=== PATIENT | male | born 1955 | race Caucasian/White ===

== ENCOUNTER 2017-08-27 12:28 | Inpatient (IN) | payer OTHER ==
[~2017-08-27] VITALS: Ht 172.7 cm; Wt 81.4 kg
[~2017-08-27 12:28] MED LIST: ASPIRIN EC81 M1 PO; BENADRYL ALLERG25 M1 PO; COREG3.125 MG PO; LANTUS SOL100 UNIT/1 SC; LASIX40 M1 PO; LIPITOR10 M1 PO; METOLAZONE2.5 M1 PO; MULTIVITAMIN1 TAB PO; NASONEX17 GM NASB; NEPHRO-VITE TA0.8 MG PO; NEXIUM40 M1 PO; NOVOLOG 10300 UNITS/ SC; NOVOLOG100 UNIT/2 SC; PARICALCITOL2 MCG PO; PAROXETINE HCL10 M1 PO; PAROXETINE HYDR20 MG PO; PREDNISONE10 M2 PO; SINGULAIR10 M1 PO; TYLENOL XSTR500 MG PO; TYLENOL325 M1 PO; ZOFRAN ODT4 MG SL; [UNRECOGNIZED DRUG - OTHER] PO
[2017-08-27 13:40] LABS: ABSOLUTE BASOPHIL COUNT 0.1 /CUMM (0.0-0.2); ABSOLUTE EOSINOPHIL COUNT 0.1 /CUMM (0.0-0.7); ABSOLUTE GRANULOCYTE CT 4.2 /CUMM (1.4-6.5); ABSOLUTE LYMPH COUNT 1.1 /CUMM (1.2-3.4); ABSOLUTE MONOCYTE COUNT 0.6 /CUMM (0.10-0.60); BASOPHIL % 0.8 % (0.0-2.0); EOSINOPHIL % 2.4 % (0-5); GRANULOCYTE % 69.6 % (42.2-75.2); HEMATOCRIT 39.8 % (42-52); MEAN CORPUSCULAR HGB 33.2 PG (27.0-31.0); MEAN CORPUSCULAR HGB CONC 33.3 G/DL (33.0-37.0); MEAN CORPUSCULAR VOLUME 99.7 FL (80.0-94.0); MEAN PLATELET VOLUME 8.1 FL (7.4-10.4); RBC DISTRIBUTION WIDTH 18.9 % (11.5-14.5); RED BLOOD CELL CT 3.99 /CUMM (4.70-6.10); WHITE BLOOD CELL COUNT 6.1 /CUMM (4.8-10.8)
--- NOTE | 2017-08-27 13:44 | RADIOLOGY REPORT ---
EXAMINATION: XR FOOT, RIGHT CLINICAL INFORMATION: Right foot great toe wound. Rule out osteoarthritis. COMPARISON: None TECHNIQUE: AP, lateral, and oblique views of the right foot. FINDINGS: Bones are osteopenic. Hammertoe deformities are present in the second through fourth toes. There is soft tissue swelling at the great toe. No appreciable areas of acute osteolysis are identified to suggest osteomyelitis. No fracture or malalignment. Calcific atherosclerosis is present at the ankle and foot. Joint spaces appear relatively well-preserved. IMPRESSION: 1. Soft tissue swelling at the great toe without radiographic findings of underlying osteomyelitis. Consider correlation with MRI of the foot with and without contrast for improved sensitivity and specificity. 2. Osteopenia
[2017-08-27 14:04] LABS: PLATELET COUNT 270 /CUMM (130-400)
--- NOTE | 2017-08-27 14:06 | ED GENERAL ADULT ---
History of Present Illness General Chief Complaint: General Adult Stated Complaint: SENT BY MD FOR DIABETIC INFECTED TOE Source: patient Exam Limitations: no limitations Vital Signs & Intake/Output Vital Signs & Intake/Output Vital Signs Date Time Temp Pulse Resp B/P B/P Pulse O2 O2 Flow FiO2 Mean Ox Delivery Rate 08/27 1447 74 19 142/64 95 Room Air 08/27 1243 96.5 86 15 181/76 92 Room Air Room Air Allergies Coded Allergies: amoxicillin (Mild, RASH ALL OVER 08/27/17) Penicillins (RASH ALL OVER 08/27/17) Reconcile Medications Acetaminophen (Tylenol) 325 MG TABLET 650 MG PO Q6 PRN PAIN (Reported) Aspirin (Ecotrin*) 81 MG TABLET.DR 1 TAB PO DAILY HEART/BLOOD (Reported) Atorvastatin Calcium (Lipitor) 10 MG TABLET 1 TAB PO DAILY CHOLESTEROL ( Reported) Citalopram Hydrobromide (Citalopram HBr) 20 MG TABLET 1 TAB PO DAILY MENTAL HEALTH (Reported) diphenhydrAMINE HCl (Benadryl) 25 MG CAP 2 CAP PO QPM SLEEP (Reported) Esomeprazole (Nexium) 40 MG CAPSULE.DR 1 CAP PO DAILY GI (Reported) Insulin Glargine,Hum.rec.anlog (Lantus Solostar) 100 UNIT/ML (3 ML) INSULN.PEN 8 UNIT SC QPM DM (Reported) Mometasone Furoate (Nasonex) 50 MCG SPRAY.PUMP 2 SPRAY NASB DAILY ALLERGIES ( Reported) Montelukast Sodium (Singulair) 10 MG TABLET 1 TAB PO QPM ALLERGIES (Reported) Nephro-Vitamins (Nephro-Schuyler Tablet) 0.8 MG TABLET 1 TAB PO DAILY VITAMIN SUPPORT Triage Note: PT SENT TO ED BY DR. TURNER FOR R GREAT TOE INFECTION. PT NOTICED THAT TOE WAS RED AND PAINFUL SINCE LAST FRIDAY. DENIES FEVERS, CHILLS, NAUSEA. REPORTS TOE IS RED, NOT VISUALIZED IN TRIAGE. Triage Nurses Notes Reviewed? yes HPI: Patient is a 61-year-old male with past medical history of type 1 diabetes and end-stage renal disease on dialysis Friday//Friday at [facility] in [place], who presents today after being referred in by his head grinder for an infected diabetic foot ulcer. He first noticed the lesion on his right great toe approximately 5 days ago, and it has progressed since then. He made an appointment with his head grinder, who instructed him to present to the emergency department for IV antibiotics and likely hospitalization. The providers had also discussed the patient with Dr. Deng from surgery, who is aware of the patient and will be coronary in the inpatient surgical consultation. Upon my initial encounter the patient is generally well-appearing and in no acute distress, nontoxic constitutionally. Past History Travel History Traveled to [place] past 21 day No Medical History Any Pertinent Medical History? 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 History of MRSA: No History of VRE: No History of CDIFF: No Surgical History Surgical History: LEFT ARM FISTULA Psychosocial History Who do you live with Family Services at Home None What is your primary language Brazilian Tobacco Use: Current Daily Use Daily Tobacco Use Amount/Type: => 5 Cigarettes daily ETOH Use: denies use Illicit Drug Use: denies illicit drug use Family History Family History, If Any: MOTHER FH: colon cancer FH: type 2 diabetes mellitus FATHER FH: prostate cancer FH: type 2 diabetes mellitus MATERNAL GRANDFATHER FH: type 2 diabetes mellitus SISTER FH: bladder cancer GRANDMOTHER FH: cancer Hx Contributory? No Review of Systems Review of Systems Constitutional: Reports: see HPI. Denies: chills, diaphoresis, fever, malaise, weakness. EENTM: Reports: no symptoms. Respiratory: Reports: no symptoms. Cardiovascular: Reports: no symptoms. GI: Reports: no symptoms. Genitourinary: Reports: no symptoms. Musculoskeletal: Reports: no symptoms. Skin: Reports: see HPI, lesions. Neurological/Psychological: Reports: no symptoms. Hematologic/Endocrine: Reports: no symptoms. Immunologic/Allergic: Reports: no symptoms. All Other Systems: Reviewed and Negative Physical Exam Physical Exam General Appearance: well developed/nourished, no apparent distress, alert, awake Comments: HEENT: Inspection of the head reveals a normocephalic cranium with no signs of trauma. Ophtho: Extraocular muscles are intact. The sclera are noninjected, and there is no obvious discharge. Neck: No signs of trauma or asymmetry to the neck. Respiratory: The patient exhibits no signs of labored breathing. Cardiac: Non-tachycardic. GI: No gross abdominal distention. : Deferred Extremities: Focused examination of the right lower external ear reveals an obviously infected ulcer of the great toe with surrounding and streaking ascending erythema consistent with cellulitis. Neuro: The patient is oriented to person, place, time, and situation, with no obvious focal motor deficits. Cranial nerves II through XII are intact, and gait is normal. Behavioral: Calm and cooperative Dermatologic: Dermatologic examination reveals no obvious rashes or exanthems. Core Measures ACS in differential dx? No CVA/TIA Diagnosis: No Sepsis Present: No Sepsis Focused Exam Completed? No Progress Differential Diagnoses I considered the following diagnoses in my evaluation of the patient: Plan of Care: Orders Procedure Date/time Status Renal Dialysis Diet 08/28 B Active CBC WITHOUT DIFFERENTIAL 08/28 599 Active BASIC ELECTROLYTES PLUS BUN&CR 08/28 599 Active Activity/Ambulation 08/27 1616 Active ED Holding Orders 08/27 1607 Active Admit to inpatient 08/27 1607 Active Code Status 08/27 1607 Active FingerStick- Glucose 08/27 1556 Active Pathway - chart 08/27 1527 Active Patient Data 08/27 1516 Active BLOOD CULTURE 08/27 1408 Active Intake & Output 08/27 1334 Active COMPREHENSIVE METABOLIC PANEL 08/27 1258 Complete CBC WITHOUT DIFFERENTIAL 08/27 1258 Complete VTE Mechanical Prophylaxis 08/27 UNK Active Current Medications Sig/Rhett Start time Last Medication Dose Stop Time Status Admin Aspirin Buffered 81 MG DAILY 08/28 899 UNVr (Ecotrin) Citalopram 20 MG DAILY 08/28 899 UNVr Hydrobromide (Celexa) Multivitamins 1 TAB DAILY 08/28 899 UNVr (Nephrocaps) Vancomycin HCl 1,000 MG DAILY 08/28 899 UNir Sodium Chloride 250 ML (Normal Saline 0.9%) Heparin Sodium 5,000 UNIT Q8 08/27 2200 UNVr (Porcine) Montelukast Sodium 10 MG QPM 08/27 2100 UNVr (Singulair) Insulin Detemir 8 UNITS .[6PM] 08/27 1630 UNVr (Levemir) Sodium Chloride 2 SPRAY Q4P PRN 08/27 1600 UNVr (Nasal) Omeprazole 40 MG DAILY AC 08/27 1546 UNVr (Prilosec) Acetaminophen 650 MG Q6 PRN 08/27 1545 UNVr (Tylenol) Atorvastatin Calcium 10 MG DAILY 08/27 1545 UNVr (Lipitor) Laboratory Tests 08/27/17 1330: Anion Gap 19 H, Estimated GFR 10 L, BUN/Creatinine Ratio 6.8 L, Glucose 228 H, Calcium 9.3, Total Bilirubin 0.6, AST 28, ALT 27, Alkaline Phosphatase 162 H , Total Protein 7.4, Albumin 4.1, Globulin 3.3, Albumin/Globulin Ratio 1.2, CBC w Diff NO MAN DIFF REQ, RBC 3.99 L, MCV 99.7 H, MCH 33.2 H, MCHC 33.3, RDW 18.9 H, MPV 8.1, Gran % 69.6, Lymphocytes % 18.0 L, Monocytes % 9.2, Eosinophils % 2.4, Basophils % 0.8, Absolute Granulocytes 4.2, Absolute Lymphocytes 1.1 L, Absolute Monocytes 0.6, Absolute Eosinophils 0.1, Absolute Basophils 0.1 Microbiology 08/27 1425 BLOOD: Blood Culture - RECD 08/27 1330 BLOOD: Blood Culture - RECD Initial ED EKG: none Comments: Discussed case w/ Drs. Dixon and Crescencio. Risk of osteomyelitis is high, they recommended hospitalization for IV antibiotics including IV clindamycin and vancomycin, and surgical consultation for possible debridement. Patient is end- stage renal disease and will require dialysis tomorrow. Departure Departure Time of Disposition: 1412 Disposition: STILL A PATIENT Condition: Stable Clinical Impression Primary Impression: Diabetic foot ulcer Qualifiers: Diabetic foot ulcer location: toe Diabetes mellitus type: type 1 Laterality: right Non-pressure ulcer stage: unspecified non-pressure ulcer stage Qualified Codes: E10.621 - Type 1 diabetes mellitus with foot ulcer; L97.519 - Non-pressure chronic ulcer of other part of right foot with unspecified severity Referrals: Erin MEDINA,Tulio Allen (PCP/Family) Departure Forms: Customer Survey General Discharge Information Admission Note Spoke With: Carolyn Lion MD Documentation of Exam: Documentation of any treatments & extenuating circumstances including Concerns Regarding Discharge (functional status, medication knowledge or non-compliance, living conditions, etc.) that warrant an admission rather than observation: Patient with end-stage renal disease requiring hemodialysis presented with foot ulcer at risk for osteomyelitis. Requires IV antibiotics, IV fluid rehydration, lab trending, surgical consultation, possible debridement, and hemodialysis during admission. Critical Care Note Critical Care Note Critical Care Time: non-applicable
[2017-08-27] MEDS ORDERED: CITALOPRAM HBR20 MG PO (14:53)
[2017-08-27] MEDS ORDERED: BENADRYL25 MG PO (14:54)
--- NOTE | 2017-08-27 15:46 | Admission Certification ---
Admission Certification Certification Statement - As attending physician, I certify that at the time of - admission, based on clinical presentation, severity of - symptoms, need for further diagnostic testing and - therapeutic interventions, and risk of adverse outcomes - without in-hospital treatment, in my clinical assessment, - this patient requires an acute hospital stay for a minimum - of two nights or longer. I have also considered psychsocial - factors such as support system, advanced age, financial - issues, cognitive issues, and failed out-patient treatments, - past re-admission history, safety of patient, and lack of - compliance as applicable. Specific rationale supporting this admission is: Diabetic foot ulcer with cellulitis
--- NOTE | 2017-08-27 16:04 | History & Physical ---
Kasey MEDINA,Madhavi 08/27/17 9537: General Information and HPI MD Statement: I have seen and personally examined JOSÉ MIGUEL ALMODOVAR and documented this H&P. The patient is a 61 year old M who presented with a patient stated chief complaint of [foot ulcer]. Source of Information: patient, family, old records Exam Limitations: no limitations History of Present Illness: Patient is a 61 y/o male with PMH signifcant for type 1 DM, history of diabetic retinopathy, ESRD secondary to HTN and DM, currently on dialysis (, , Fri) with [facility] in [place] with left AV fistula, HFrEF with LVEF of 40-45% in 2016, pulmonary htn, hyperlipidemia, arthritis, depression presenting this admission with chief complaint of a right foot ulcer sent by his assembly lead person. Patient's sister was at bedside during time of interview. Patient reports that approximately 5 days prior to this admission, on 08/22, patient noticed after he took off his shoes and socks that he had a small area of note is redness and irritation on his right toe. Patient states that he started using Neosporin ointment on the area however states that it came progressively worse as 1. The patient denies any discharge or pain at the site of the ulcer. Patient reports that today he had his appointment with Dr. Rodriguez (podiatry) and was advised to come to the emergency room to receive IV antibiotics. Patient denies any recent trauma to the foot. Patient states that he checks his feet regularly due to his diabetes and did not notice any significant cuts or scaps. Patient denies any fever, chills, nausea/vomiting, lightheadedness/ dizziness, shortness of breath. Patient reports neuropathy however states that it's mostly in his hands. Patient states that his sugars have been labile. Patient states that he has had multiple episodes of low blood sugars this morning of 35. States however that he has been as high as the 400s yesterday afternoon. Patient is on renal dialysis. Reports that his antihypertensive medications have been stopped by Matty Saravia MD due to episodes of hypotension and syncope during dialysis. Patient is on dialysis Friday, , Friday and is due for his next dialysis session tomorrow. Patient currently lives with his sister. Patient has a cat at home. Denies any cat scratches or bites. Patient reports that he smokes approximately half a pack per day. Patient denies any alcohol or illicit drug use. Patient denies any sick contacts or travel. Medications: Patient is currently on Lantus 8 units daily, NovoLog sliding scale , Nephro-Schuyler, Lipitor 10 mg, Nexium 40 mg, Celexa 20 mg, Singulair, aspirin 81 mg, Nasonex spray, Benadryl for insomnia. Allergies: Ampicillin/amoxicillin- reports significant rash Allergies/Medications Allergies: Coded Allergies: amoxicillin (Mild, RASH ALL OVER 08/27/17) Penicillins (RASH ALL OVER 08/27/17) Home Med list Acetaminophen (Tylenol) 325 MG TABLET 650 MG PO Q6 PRN PAIN (Reported) Aspirin (Ecotrin*) 81 MG TABLET.DR 1 TAB PO DAILY HEART/BLOOD (Reported) Atorvastatin Calcium (Lipitor) 10 MG TABLET 1 TAB PO DAILY CHOLESTEROL ( Reported) Citalopram Hydrobromide (Citalopram HBr) 20 MG TABLET 1 TAB PO DAILY MENTAL HEALTH (Reported) diphenhydrAMINE HCl (Benadryl) 25 MG CAP 2 CAP PO QPM SLEEP (Reported) Esomeprazole (Nexium) 40 MG CAPSULE.DR 1 CAP PO DAILY GI (Reported) Insulin Glargine,Hum.rec.anlog (Lantus Solostar) 100 UNIT/ML (3 ML) INSULN.PEN 8 UNIT SC QPM DM (Reported) Mometasone Furoate (Nasonex) 50 MCG SPRAY.PUMP 2 SPRAY NASB DAILY ALLERGIES ( Reported) Montelukast Sodium (Singulair) 10 MG TABLET 1 TAB PO QPM ALLERGIES (Reported) Nephro-Vitamins (Nephro-Schuyler Tablet) 0.8 MG TABLET 1 TAB PO DAILY VITAMIN SUPPORT Past History Travel History Traveled to [place] past 21 day No Medical History Neurological: NEUROPATHY EENT: diabetic retinopathy Cardiovascular: CHF, hypertension, hyperlipidemia Respiratory: SMOKER 0ne pack now cut down to 8/day smoking for the past 40 yrs Gastrointestinal: GERD Hepatic: NONE Renal: chronic kidney disease, ESRD L AV FISTULA Musculoskeletal: ARTHRITIS Psychiatric: depression Endocrine: IDDM Blood Disorders: NONE Cancer(s): NONE 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: 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 History of MRSA: No History of VRE: No History of CDIFF: No Surgical History Surgical History: LEFT ARM FISTULA Past Family/Social History Family History Relations & Conditions if any MOTHER FH: colon cancer FH: type 2 diabetes mellitus FATHER FH: prostate cancer FH: type 2 diabetes mellitus MATERNAL GRANDFATHER FH: type 2 diabetes mellitus SISTER FH: bladder cancer GRANDMOTHER FH: cancer Psychosocial History Services at Home: None ETOH Use: denies use Illicit Drug Use: denies illicit drug use Functional Ability Ambulation: independent Review of Systems Review of Systems Constitutional: Reports: see HPI. Denies: chills, fever, malaise. Cardiovascular: Reports: no symptoms. Respiratory: Reports: no symptoms. GI: Reports: no symptoms. Genitourinary: Reports: no symptoms. Musculoskeletal: Reports: back pain (chronic). Skin: Reports: see HPI. Neurological/Psychological: Reports: anxiety, numbness. Hematologic/Endocrine: Reports: no symptoms. Immunologic/Allergic: Reports: no symptoms. Exam & Diagnostic Data Last 24 Hrs of Vital Signs/I&O Vital Signs Date Time Temp Pulse Resp B/P B/P Pulse O2 O2 Flow FiO2 Mean Ox Delivery Rate 08/27 1746 72 17 136/63 96 Room Air 08/27 1642 98.4 67 17 129/60 100 08/27 1447 74 19 142/64 95 Room Air 08/27 1243 96.5 86 15 181/76 92 Room Air Room Air Intake & Output 08/27 1600 08/27 0800 08/27 0000 Intake Total Output Total Balance Patient 170 lb Weight Weight Reported by Patient Measurement Method Physical Exam General Appearance Alert, Oriented X3, Cooperative, No Acute Distress Skin Temp/Moisture Exam: Warm/Dry Sepsis Skin Exam (color): Normal for Ethnicity HEENT Atraumatic, PERRLA, EOMI, Mucous Membr. moist/pink Cardiovascular Regular Rate, Normal S1, Normal S2 Lungs Clear to Auscultation, Normal Air Movement Abdomen Normal Bowel Sounds, Soft, No Tenderness Neurological Normal Speech, Strength at 5/5 X4 Ext, Normal Tone, Sensation Intact, Cranial Nerves 3-12 NL, Reflexes 2+ Extremities No Clubbing, No Cyanosis, Normal Pulses, right foot - ulcer on big toe approximately 1.5cm x 0.5 cm with surrounding erythema, with no pus, nontender to palpation with no area of fluctuation sensation to pin prick intact , pulses palpable bilaterally, a small nonhealing ulcer at the plantar surface of right foot , Left arm AV fistula Vascular Normal Pulses, Pulses Symmetrical Last 24 Hrs of Labs/[place]: Laboratory Tests 08/27/17 1330: Anion Gap 19 H, Estimated GFR 10 L, BUN/Creatinine Ratio 6.8 L, Glucose 228 H, Calcium 9.3, Total Bilirubin 0.6, AST 28, ALT 27, Alkaline Phosphatase 162 H , Total Protein 7.4, Albumin 4.1, Globulin 3.3, Albumin/Globulin Ratio 1.2, CBC w Diff NO MAN DIFF REQ, RBC 3.99 L, MCV 99.7 H, MCH 33.2 H, MCHC 33.3, RDW 18.9 H, MPV 8.1, Gran % 69.6, Lymphocytes % 18.0 L, Monocytes % 9.2, Eosinophils % 2.4, Basophils % 0.8, Absolute Granulocytes 4.2, Absolute Lymphocytes 1.1 L, Absolute Monocytes 0.6, Absolute Eosinophils 0.1, Absolute Basophils 0.1 Microbiology 08/27 1425 BLOOD: Blood Culture - RECD 08/27 1330 BLOOD: Blood Culture - RECD Assessment/Plan Assessment: Patient is a 61 y/o male with PMH signifcant for type 1 DM, history of diabetic retinopathy, ESRD secondary to HTN and DM, currently on dialysis (, , Fri) with [facility] in [place] with left AV fistula, HFrEF with LVEF of 40-45% in 2016, pulmonary htn, hyperlipidemia, arthritis, depression presenting this admission with chief complaint of a right foot ulcer sent by his assembly lead person. On presentation patient is afebrile with no leukocytosis and a small ulcer with signficant eyrthema, warmth and lymphagetic spread placing him at moderate severity. Xray of the foot showed signficant tissue swelling with no signs of osteomyeltitis. Patient in the ED has received IV Vancomycin and IV Clindamycin to presumably cover for MRSA, gram negative bacilli and anaerobes in a diabetic foot. Podiatry was consulted and there is no plan for debridement at this time. 1. Cellulitis of the right foot/toe with a small nonhealing ulcer 2. H/O DM - labile sugars with significant episodes of hypo and hyperglycemia presumably in setting of infection 3. H/O ESRD on Dialysis 4. H/O HFrEF, HLD, Arthritis, Depression Plan: Admit to general medicine Vitals qshift Repeat CBC and BEP in AM Follow up blood cultures Podiatry consulted - no plans for debridement May consider MRI for further evaluation to rule out osteomyelitis Nephrology notified that patient is admitted Next dialysis session on 08/28 Continue vancomycin with dialysis session to cover for MRSA Random vanc level pending Continue home medications: celexa, aspirin,atorvastatin, omperazole, singular Continue insulin SS with accuchecks TIDAC/qHS Due to concern of hypoglycemia - have decreased his levemir DVT PPx: Heparin SQ Diet: Consistent Carb Code: Full code As Ranked By This Provider Problem List: 1. Diabetic foot ulcer Qualifiers Diabetic foot ulcer location: toe Diabetes mellitus type: type 1 Laterality: right Non-pressure ulcer stage: unspecified non-pressure ulcer stage Qualified Codes: E10.621 - Type 1 diabetes mellitus with foot ulcer; L97.519 - Non- pressure chronic ulcer of other part of right foot with unspecified severity 2. ESRD (end stage renal disease) on dialysis Core Measures/Misc (12/08) Acute Coronary Syndrome ACS Diagnosis: No Congestive Heart Failure Congestive Heart Failure Diagnosis No Cerebrovascular Accident CVA/TIA Diagnosis: No VTE (View Protocol) VTE Risk Factors Age>40 No Mechanical VTE Prophylaxis d/t N/A MechProphylax Ordered No VTE Pharm Prophylaxis d/t NA PharmProphylax ordered Sepsis (View protocol) Sepsis Present: No If YES complete Sepsis Event Note If YES complete Sepsis Event Note Carolyn Lion MD 08/27/17 1653: Core Measures/Misc (12/08) Sepsis (View protocol) If YES complete Sepsis Event Note If YES complete Sepsis Event Note Attending MD Review Statement Attending Statement Attending MD Statement: examined this patient, discuss w/resident/PA/POUNDMASTER, agreed w/resident/PA/POUNDMASTER, reviewed EMR data (avail), discussed with nursing, reviewed images Attending Assessment/Plan: 61-year-old male past medical history of insulin-requiring diabetes, diabetic neuropathy and diabetic nephropathy with end-stage renal disease on hemodialysis. He is on a Friday/ / Friday schedule. He also has a history of chronic systolic heart failure with his most recent EF in 2016 being 40-45% and elevated right-sided pressures. He used to be on multiple cardiac medications but since starting dialysis and over the past year he has stopped all of his cardiac medications and no longer takes his Norvasc, Coreg, hydralazine or Imdur. He is here with a right foot great toe infection. It started off as a small ulcer that he noticed when he took his sock off and has progressed now to an open wound with some streaking around it and obvious cellulitic changes. The x-ray is negative for an osteomyelitis. At this point will bring him in to general medicine. The ED gave him Vanco and Clinda although we don't have any history of MRSA here. He is pen allergic and given that he is a diabetic on insulin, there is an open ulceration and he is on dialysis he is at high risk for MRSA so we'll continue vancomycin for now . Dr. Deng has been called by the ER and will call him for formal consult. Will let nephrology know he is here for dialysis. The patient is not keen on restarting his antihypertensives as he says he's been normotensive so we'll need to watch that closely and confirm the medication regimen with the outpatient dialysis center. We'll continue his aspirin, statin, his insulin and give him DVT prophylaxis. Leila Babin 08/27/17 1857: Core Measures/Misc (12/08) Sepsis (View protocol) If YES complete Sepsis Event Note If YES complete Sepsis Event Note Resident Review Statement Resident Statement: discussed with dietary internship, agreed with dietary internship Other Findings: Patient is 61-year-old male with past medical history of type 1 diabetes mellitus, end-stage renal disease on dialysis Friday//Friday, CHF reduced ejection fraction 40-45%, was evaluated by Dr. Shaun Carroll in the office today for right great toe infection. Patient states that since last 08/22/17, he was doing some housework and at night when he took his socks off, he discovered an open area of wound in his right big toe. Patient states that since then and his right toe ulcer has worsened, its red, swollen and painful. He was evaluated by Dr. Shaun Carroll in the office today, who advised him to come to ER for the need of IV antibiotics. He denies any history of similar diabetic ulcers on the body, and states that in the office, his right toe ulcer was just cleaned and nothing came out. Patient follows up with Dr. Funez as the primary care physician and is due for dialysis tomorrow. Patient lives at home with his sister, and does not use a walker or a cane. 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 Labs and vitals as above. We'll admit the patient on general medicine floor. Patient already got one dose of vancomycin and clindamycin in ER, will continue him on vancomycin with dialysis protocol. In the past patient has been negative for MRSA but given his active dialysis and history of diabetes, he is at an increased risk of getting MRSA. Dr. Deng was called, and he recommends IV antibiotics for now. No MRI or further debridement. X-ray right foot in ER is negative for ostial mellitus. Patient takes citalopram, aspirin, NovoLog sliding scale and Levemir, singular, omeprazole, Lipitor at home so we'll continue the same dose. Patient states that he only takes lunch and dinner, no breakfast, his NovoLog sliding scale for lunch and bedtime are confirmed and ordered. Plan for renal dialysis tomorrow, nephrology consult has been placed. DVT prophylaxis subcutaneous heparin Patient is full code
[2017-08-27 18:27] VITALS: BP 136/74
[2017-08-27 21:43] VITALS: BP 134/68
[2017-08-28 06:43] VITALS: BP 120/70
--- NOTE | 2017-08-28 07:21 | PN- Housestaff ---
Kasey MEDINA,Madhavi 08/28/17 0721: Subjective Follow-up For: 1. Cellulitis of the right foot/toe with a small nonhealing ulcer 2. H/O DM - labile sugars with significant episodes of hypo and hyperglycemia 3. H/O ESRD on Dialysis 4. H/O HFrEF, HLD, Arthritis, Depression Subjective: Patient was seen and examined today. Patient denies foot pain, fever/chills, n/v /c/d, hematuria/dysuria, chest pain, shortness of breath. Patient reports he felt lousy when he had the episode of hypoglycemia today. Reports that he has had multiple episodes of hypolgycemia over the past 1 week which typically occur in the hours of 3-6am. Per night team patient overnight had an episode of hypoglycemia with BG in the 40s (not documented). His remaining sugars have been: 201, 443, 295 Review of Systems Constitutional: Reports: see HPI. Objective Last 24 Hrs of Vital Signs/I&O Vital Signs Date Time Temp Pulse Resp B/P B/P Pulse O2 O2 Flow FiO2 Mean Ox Delivery Rate 08/28 0643 98.5 72 20 120/70 96 Room Air 08/27 2143 98.9 75 17 134/68 98 Room Air / 1827 98.5 82 20 136/74 97 Room Air 06/ 1746 72 17 136/63 96 Room Air / 1642 98.4 67 17 129/60 100 /06 1447 74 19 142/64 95 Room Air / 1243 96.5 86 15 181/76 92 Room Air Room Air Intake & Output 08/28 0800 / 0000 08/27 1600 Intake Total 480 480 Output Total 375 100 Balance 105 380 Intake, Oral 480 480 Output, Urine 375 100 Patient 181 lb 170 lb 170 lb Weight Weight Bed scale Reported by Patient Reported by Patient Measurement Method Physical Exam General Appearance: Alert, Oriented X3, Cooperative, No Acute Distress Other Physical Findings: Sepsis Skin Exam (color): Normal for Ethnicity HEENT Atraumatic, PERRLA, EOMI, Mucous Membr. moist/pink Cardiovascular Regular Rate, Normal S1, Normal S2 Lungs Clear to Auscultation, Normal Air Movement Abdomen Normal Bowel Sounds, Soft, No Tenderness Neurological Normal Speech, Strength at 5/5 X4 Ext, Normal Tone, Sensation Intact, Cranial Nerves 3-12 NL, Reflexes 2+ Extremities No Clubbing, No Cyanosis, Normal Pulses, right foot - ulcer on big toe approximately 1.5cm x 0.5 cm with surrounding erythema which appears to be improving today, with no pus, nontender to palpation with no area of fluctuation sensation to pin prick intact, pulses palpable bilaterally, a small nonhealing ulcer at the plantar surface of right foot , Left arm AV fistula Vascular Normal Pulses, Pulses Symmetrical Current Medications: Current Medications Sig/Rhett Start time Last Medication Dose Route Stop Time Status Admin Acetaminophen 650 MG Q6P PRN 08/27 1545 AC PO Aspirin Buffered 81 MG DAILY 08/28 899 AC PO Atorvastatin Calcium 10 MG 1700 08/27 1800 AC 08/27 PO 1957 Citalopram 20 MG DAILY 08/28 899 AC Hydrobromide PO Clindamycin 600 MG ONCE ONE 08/27 1415 DC 08/27 Dextrose/Water 50 ML IV 08/27 1444 1445 Dextrose 25 GM ONCE ONE 08/28 0415 DC 08/28 IV 08/28 0416 0417 Heparin Sodium 5,000 UNIT Q8 08/27 2200 AC 08/28 (Porcine) SC 0503 Insulin Aspart 0 1700 08/28 1700 AC SC Insulin Aspart 0 1200 08/28 1200 AC SC Insulin Aspart 0 AT BEDTIME 08/27 2100 AC 08/27 SC 2053 Insulin Detemir 8 UNITS 1800 08/27 1800 AC 08/27 SC 1746 Montelukast Sodium 10 MG QPM 08/27 2100 AC 08/27 PO 2053 Multivitamins 1 TAB DAILY 08/28 09 AC PO Omeprazole 0 .STK-MED ONE 08/27 1751 DC PO Omeprazole 40 MG DAILY AC 08/27 1546 AC 08/28 PO 0504 Sodium Chloride 2 SPRAY Q4P PRN 08/27 1600 AC ALEX Vancomycin HCl See Dose TuThSa PRN 08/28 1000 AC Insts (1) IV Vancomycin HCl 1,000 MG DAILY 08/28 0900 CAN Sodium Chloride 250 ML IV Vancomycin HCl 0 .STK-MED ONE 08/27 1440 DC .ROUTE Vancomycin HCl 1,000 MG ONCE ONE 08/27 1415 DC 08/27 Sodium Chloride 250 ML IV 08/27 1514 1519 Dose Instructions: (1)Vancomycin HCl: DOSE BASED OFF OF RANDOM VANCO LEVEL Last 24 Hrs of Lab/[facility] Results Last 24 Hrs of Labs/Mics: Laboratory Tests 08/28/17 0705: Sodium Pending, Potassium Pending, Chloride Pending, Carbon Dioxide Pending, Anion Gap Pending, BUN Pending, Creatinine Pending, BUN/Creatinine Ratio Pending , CBC w Diff Pending, WBC Pending, RBC Pending, Hgb Pending, Hct Pending, MCV Pending, MCH Pending, MCHC Pending, RDW Pending, Plt Count Pending, MPV Pending 08/27/17 2226: Random Vancomycin 12.9 08/27/17 1330: Anion Gap 19 H, Estimated GFR 10 L, BUN/Creatinine Ratio 6.8 L, Glucose 228 H, Calcium 9.3, Total Bilirubin 0.6, AST 28, ALT 27, Alkaline Phosphatase 162 H , Total Protein 7.4, Albumin 4.1, Globulin 3.3, Albumin/Globulin Ratio 1.2, CBC w Diff NO MAN DIFF REQ, RBC 3.99 L, MCV 99.7 H, MCH 33.2 H, MCHC 33.3, RDW 18.9 H, MPV 8.1, Gran % 69.6, Lymphocytes % 18.0 L, Monocytes % 9.2, Eosinophils % 2.4, Basophils % 0.8, Absolute Granulocytes 4.2, Absolute Lymphocytes 1.1 L, Absolute Monocytes 0.6, Absolute Eosinophils 0.1, Absolute Basophils 0.1 Microbiology 08/27 2100 URINE ROUT: Urine Culture - RECD 08/27 1425 BLOOD: Blood Culture - RECD 08/27 1330 BLOOD: Blood Culture - RECD Assessment/Plan Assessment: Patient is a 61 y/o male with PMH signifcant for type 1 DM, history of diabetic retinopathy, ESRD secondary to HTN and DM, currently on dialysis (, , Fri) with [facility] in [place] with left AV fistula, HFrEF with LVEF of 40-45% in 2016, pulmonary htn, hyperlipidemia, arthritis, depression presenting this admission with chief complaint of a right foot ulcer 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 On presentation patient is afebrile with no leukocytosis and a small ulcer with signficant eyrthema, warmth and lymphagetic spread placing him at moderate severity. Xray of the foot showed signficant tissue swelling with no signs of osteomyeltitis. Patient in the ED has received IV Vancomycin and IV Clindamycin to presumably cover for MRSA, gram negative bacilli and anaerobes in a diabetic foot. Podiatry was consulted and there is no plan for debridement at this time. Patient this morning had dialysis. Patient remains afebrile with no leukocytosis on IV antibiotics with signficant improvement in erythema and swelling of the right foot/toe. Patient's sugar this morning was in the 40s. Patient has multiple blood glucose which are low in the chairman of the board. Patient also has signficantly high sugars which appear to be higher in the afternoon/evening. Patient is normally on lantus 16 units with a novolog sliding scale with lunch and dinner. Despite cutting down on patient's levemir, he had an episode of hypoglycemia. Patient had reported that he ate very little the night before but his consistently low sugars over the past week is concerning. 1. Cellulitis of the right foot/toe with a small nonhealing ulcer 2. H/O DM - labile sugars with significant episodes of hypo and hyperglycemia in the setting of infection 3. H/O ESRD on Dialysis 4. H/O HFrEF, HLD, Arthritis, Depression Plan: Admit to general medicine Vitals qshift Repeat BEP in AM Follow up blood cultures Podiatry consulted - no plans for debridement ESR today was normal, will not proceed with MRI at this time as osteo is less likely Nephrology notified that patient is admitted Next dialysis session on 08/30 if he stays Patient received IV Vancomycin with dialysis session today. Will continue antibiotic therapy. Continue home medications: celexa, aspirin,atorvastatin, omperazole, singular Continue insulin SS with accuchecks TIDAC/qHS Endocrinology consulted. Appreciate recommendations DVT PPx: Heparin SQ Diet: Consistent Carb Code: Full code Problem List: 1. Diabetic foot ulcer Pain Ratin Pain Location: foot Pain Goal: Remain pain free Pain Plan: tylenol PRN Tomorrow's Labs & Rationales: beJoshua Loza MD 08/28/17 1523: Attending MD Review Statement Attending Statement Attending MD Statement: examined this patient, discuss w/resident/PA/DIRECTOR REGULATORY AFFAIRS, agreed w/resident/PA/DIRECTOR REGULATORY AFFAIRS, discussed with family, reviewed EMR data (avail), discussed with nursing, discussed with case mgmt, amended to note Attending Assessment/Plan: Patient seen and examined. No issues overnight reported by nursing staff. Remains afebrile and hemodynamically stable. Resting comfortably and not in any acute distress. Underwent hemodialysis successfully today. Reports mild pain right foot. On examination he has a wound on the medial aspect of the right big toe. There is mild surrounding erythema. No purulent discharge noted. ESR is 4 and x-ray showed no evidence of osteomyelitis. Recommendations: -Patient undergoes chronic hemodialysis please see meantime increased risk for MRSA infection. He however has no previous history of MRSA. She is also noted to be penicillin allergic He is currently afebrile. He has no leukocytosis on labs. Cellulitis appears stable. Would recommend discharging patient on Bactrim tomorrow to complete 10 days of therapy. Obtain arterial Dopplers to rule out underlying peripheral arterial disease. Follow-up recommendations of the podiatry service. -Patient had a hypoglycemic episode earlier on today. His home insulin regimen has significantly high sliding scale coverage. Recommend evaluation by the podiatry service.
[2017-08-28 08:06] LABS: ABSOLUTE BASOPHIL COUNT 0 /CUMM (0.0-0.2); ABSOLUTE EOSINOPHIL COUNT 0.3 /CUMM (0.0-0.7); ABSOLUTE GRANULOCYTE CT 4.1 /CUMM (1.4-6.5); ABSOLUTE MONOCYTE COUNT 0.5 /CUMM (0.10-0.60); BASOPHIL % 0.7 % (0.0-2.0); EOSINOPHIL % 4.7 % (0-5); GRANULOCYTE % 68.6 % (42.2-75.2); HEMATOCRIT 35.8 % (42-52); MEAN CORPUSCULAR HGB 33.1 PG (27.0-31.0); MEAN CORPUSCULAR HGB CONC 33.5 G/DL (33.0-37.0); PLATELET COUNT 214 /CUMM (130-400); RBC DISTRIBUTION WIDTH 19.1 % (11.5-14.5); RED BLOOD CELL CT 3.62 /CUMM (4.70-6.10)
[2017-08-28 09:51] LABS: ABSOLUTE BASOPHIL COUNT 0 /CUMM (0.0-0.2); ABSOLUTE EOSINOPHIL COUNT 0.3 /CUMM (0.0-0.7); ABSOLUTE GRANULOCYTE CT 3.8 /CUMM (1.4-6.5); ABSOLUTE LYMPH COUNT 1.1 /CUMM (1.2-3.4); ABSOLUTE MONOCYTE COUNT 0.5 /CUMM (0.10-0.60); BASOPHIL % 0.7 % (0.0-2.0); EOSINOPHIL % 4.6 % (0-5); GRANULOCYTE % 66.2 % (42.2-75.2); HEMATOCRIT 36.1 % (42-52); MEAN CORPUSCULAR HGB 32.9 PG (27.0-31.0); MEAN CORPUSCULAR HGB CONC 33.5 G/DL (33.0-37.0); MEAN CORPUSCULAR VOLUME 98.1 FL (80.0-94.0); MEAN PLATELET VOLUME 9.1 FL (7.4-10.4); PLATELET COUNT 238 /CUMM (130-400); RBC DISTRIBUTION WIDTH 18.9 % (11.5-14.5); RED BLOOD CELL CT 3.68 /CUMM (4.70-6.10); WHITE BLOOD CELL COUNT 5.7 /CUMM (4.8-10.8)
--- NOTE | 2017-08-28 09:59 | Cons- Nephrology ---
General Information and HPI Consulting Request Date of Consult: 08/28/17 Requested By: Alma MEDINA,Joshua Reason for Consult: evaluation and management of ESRD Source of Information: patient, old records Exam Limitations: no limitations History of Present Illness: The pt is a 61 y/o male with PMH signifcant for type 1 DM, history of diabetic retinopathy, ESRD secondary to HTN and DM, currently on dialysis (, , Fri, [facility]) via left upper extremity AV fistula, HFrEF with LVEF of 40-45% in 2016, pulmonary htn, presenting this admission with chief complaint of a right foot ulcer sent by his robot technician. He noticed this developed several days ago, without any clear injury or trigger. An area of streaking redness developed from the ulcer descending of the lower part of his leg. He's not had fever or chills. He was not on antibiotics this past week. He was started on intravenous vancomycin yesterday. His last dialysis was on Friday at the [facility]. Xray of the Rt foot revaled, soft tissue swelling at the great toe without radiographic findings of underlying osteomyelitis." Allergies/Medications Allergies: Coded Allergies: amoxicillin (Mild, RASH ALL OVER 08/27/17) Penicillins (RASH ALL OVER 08/27/17) Home Med List: Acetaminophen (Tylenol) 325 MG TABLET 650 MG PO Q6 PRN PAIN (Reported) Aspirin (Ecotrin*) 81 MG TABLET.DR 1 TAB PO DAILY HEART/BLOOD (Reported) Atorvastatin Calcium (Lipitor) 10 MG TABLET 1 TAB PO DAILY CHOLESTEROL ( Reported) Citalopram Hydrobromide (Citalopram HBr) 20 MG TABLET 1 TAB PO DAILY MENTAL HEALTH (Reported) diphenhydrAMINE HCl (Benadryl) 25 MG CAP 2 CAP PO QPM SLEEP (Reported) Esomeprazole (Nexium) 40 MG CAPSULE.DR 1 CAP PO DAILY GI (Reported) Insulin Glargine,Hum.rec.anlog (Lantus Solostar) 100 UNIT/ML (3 ML) INSULN.PEN 8 UNIT SC QPM DM (Reported) Mometasone Furoate (Nasonex) 50 MCG SPRAY.PUMP 2 SPRAY NASB DAILY ALLERGIES ( Reported) Montelukast Sodium (Singulair) 10 MG TABLET 1 TAB PO QPM ALLERGIES (Reported) Nephro-Vitamins (Nephro-Schuyler Tablet) 0.8 MG TABLET 1 TAB PO DAILY VITAMIN SUPPORT Current Medications: Current Medications Sig/Rhett Start time Last Medication Dose Route Stop Time Status Admin Acetaminophen 650 MG Q6P PRN 08/27 1545 AC PO Aspirin Buffered 81 MG DAILY 08/28 0900 AC PO Atorvastatin Calcium 10 MG 1700 08/27 1800 AC 08/27 PO 1957 Citalopram 20 MG DAILY 08/28 09 AC Hydrobromide PO Clindamycin 600 MG ONCE ONE 08/27 1415 DC 08/27 Dextrose/Water 50 ML IV 08/27 1444 1445 Dextrose 25 GM ONCE ONE 08/28 0415 DC 08/28 IV 08/28 0416 0417 Heparin Sodium 5,000 UNIT Q8 08/27 2200 AC 08/28 (Porcine) SC 0503 Insulin Aspart 0 1700 08/28 1700 AC SC Insulin Aspart 0 1200 08/28 1200 AC SC Insulin Aspart 0 AT BEDTIME 08/27 2100 AC 08/27 SC 2053 Insulin Detemir 8 UNITS 1800 08/27 1800 AC 08/27 SC 1746 Montelukast Sodium 10 MG QPM 08/27 2100 AC 08/27 PO 2053 Multivitamins 1 TAB DAILY 08/28 0900 AC PO Omeprazole 0 .STK-MED ONE 08/27 1751 DC PO Omeprazole 40 MG DAILY AC 08/27 1546 AC 08/28 PO 0504 Sodium Chloride 2 SPRAY Q4P PRN 08/27 1600 AC ALEX Vancomycin HCl See Dose TuThSa PRN 08/28 1000 AC Insts (1) IV Vancomycin HCl 1,000 MG DAILY 08/28 0900 CAN Sodium Chloride 250 ML IV Vancomycin HCl 0 .STK-MED ONE 08/27 1440 DC .ROUTE Vancomycin HCl 1,000 MG ONCE ONE 08/27 1415 DC 08/27 Sodium Chloride 250 ML IV 08/27 1514 1519 Dose Instructions: (1)Vancomycin HCl: DOSE BASED OFF OF RANDOM VANCO LEVEL Review of Systems Review of Systems: Gen: neg fever, chills, nightsweats, wt loss Skin: +ulcer rt 1st toe, with surrounding erythema Eye: neg visual changes, diplopia ENT: neg hearing changes, rhinitus CV: neg CP, SOB, SANDRA, PND, orthopnea Pulm: neg cough, sputum, hemoptysis GI: neg nausea, vomiting, diarrhea, abdominal pain, hematemesis, BRBPR : neg dysuria, frequency, urgency, hematuria, foamy urine, nocturia Musculoskeletal: neg myalgias, arthralgias Neuro: neg weakness, numbness Psych: neg depression, mental status changes Heme: neg bruising, easy bleeding, clots Past History Travel History Traveled to [place] past 21 day No Medical History Neurological: NEUROPATHY EENT: diabetic retinopathy Cardiovascular: CHF, hypertension, hyperlipidemia Respiratory: SMOKER 0ne pack now cut down to 8/day smoking for the past 40 yrs Gastrointestinal: GERD Hepatic: NONE Renal: chronic kidney disease, ESRD L AV FISTULA Musculoskeletal: ARTHRITIS Psychiatric: depression Endocrine: IDDM Blood Disorders: NONE Cancer(s): NONE 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 Home Services at Home: None Smoking Status: Current Everyday Smoker ETOH Use: denies use Illicit Drug Use: denies illicit drug use Functional Ability Ambulation: independent Exam & Diagnostic Data Vital Signs and I&O Vital Signs Date Time Temp Pulse Resp B/P B/P Pulse O2 O2 Flow FiO2 Mean Ox Delivery Rate 08/28 0643 98.5 72 20 120/70 96 Room Air 08/27 2143 98.9 75 17 134/68 98 Room Air 08/27 1827 98.5 82 20 136/74 97 Room Air 08/27 1746 72 17 136/63 96 Room Air 08/27 1642 98.4 67 17 129/60 100 08/27 1447 74 19 142/64 95 Room Air 08/27 1243 96.5 86 15 181/76 92 Room Air Room Air Intake & Output 08/28 1600 08/28 0400 08/27 1600 08/27 0400 / 1600 08/26 0400 Intake Total 480 480 Output Total 375 100 Balance 105 380 Intake, Oral 480 480 Output, Urine 375 100 Patient 181 lb 170 lb 170 lb Weight Weight Bed scale Reported by Patient Reported by Patient Measurement Method Physical Exam: General: NAD, A+O x3. HEENT: NC/AT. No icterus. Moist mucosa Neck: negative for JOHN, JVD CV: RRR, no m/r/g Pulm: CTAB, no rales Abd: soft, NT/ND, negative renal bruits Lower Ext: neg edema or chronic venous changes Upper Ext: LUE AVF+thrill/bruit Back: negative for CVA tenderness Neuro: neg tremor, asterixis Skin: +rt 1st toe ulcer. +area of surrounding erythema, ascending up front of rt lower leg. The area is demarcated with a marker : no gordillo catheter Results Pertinent Lab Results: Laboratory Tests 08/28 08/28 08/28 0925 0816 0705 Chemistry Sodium (137 - 145 mmol/L) Pending 136 L Potassium (3.5 - 5.1 mmol/L) Pending 3.8 Chloride (98 - 107 mmol/L) Pending 98 Carbon Dioxide (22 - 30 mmol/L) Pending 23 Anion Gap (5 - 16) Pending 15 BUN (9 - 20 mg/dL) Pending 48 H Creatinine (0.7 - 1.2 mg/dL) Pending 6.2 *H Estimated GFR (>60 ml/min) 9 L BUN/Creatinine Ratio (7 - 25 %) Pending 7.7 Calcium Pending Phosphorus Pending Magnesium Pending Albumin Pending Hematology CBC w Diff Pending NO MAN DIFF REQ WBC (4.8 - 10.8 /CUMM) Pending 6.0 RBC (4.70 - 6.10 /CUMM) Pending 3.62 L Hgb (14.0 - 18.0 G/DL) Pending 12.0 L Hct (42 - 52 %) Pending 35.8 L MCV (80.0 - 94.0 FL) Pending 99.0 H MCH (27.0 - 31.0 PG) Pending 33.1 H MCHC (33.0 - 37.0 G/DL) Pending 33.5 RDW (11.5 - 14.5 %) Pending 19.1 H Plt Count (130 - 400 /CUMM) Pending 214 MPV (7.4 - 10.4 FL) Pending 9.0 Gran % (42.2 - 75.2 %) 68.6 Lymphocytes % (20.5 - 51.1 %) 17.0 L Monocytes % (1.7 - 9.3 %) 9.0 Eosinophils % (0 - 5 %) 4.7 Basophils % (0.0 - 2.0 %) 0.7 Absolute Granulocytes (1.4 - 6.5 /CUMM) 4.1 Absolute Lymphocytes (1.2 - 3.4 /CUMM) 1.0 L Absolute Monocytes (0.10 - 0.60 /CUMM) 0.5 Absolute Eosinophils (0.0 - 0.7 /CUMM) 0.3 Absolute Basophils (0.0 - 0.2 /CUMM) 0 ESR Westergren Pending 08/27 08/27 2226 1330 Chemistry Sodium (137 - 145 mmol/L) 135 L Potassium (3.5 - 5.1 mmol/L) 4.0 Chloride (98 - 107 mmol/L) 93 L Carbon Dioxide (22 - 30 mmol/L) 22 Anion Gap (5 - 16) 19 H BUN (9 - 20 mg/dL) 39 H Creatinine (0.7 - 1.2 mg/dL) 5.7 *H Estimated GFR (>60 ml/min) 10 L BUN/Creatinine Ratio (7 - 25 %) 6.8 L Glucose (65 - 99 mg/dL) 228 H Calcium (8.4 - 10.2 mg/dL) 9.3 Total Bilirubin (0.2 - 1.3 mg/dL) 0.6 AST (17 - 59 U/L) 28 ALT (21 - 72 U/L) 27 Alkaline Phosphatase (< 127 U/L) 162 H Total Protein (6.3 - 8.2 g/dL) 7.4 Albumin (3.5 - 5.0 g/dL) 4.1 Globulin (1.9 - 4.2 gm/dL) 3.3 Albumin/Globulin Ratio (1.1 - 2.2 %) 1.2 Hematology CBC w Diff NO MAN DIFF REQ WBC (4.8 - 10.8 /CUMM) 6.1 RBC (4.70 - 6.10 /CUMM) 3.99 L Hgb (14.0 - 18.0 G/DL) 13.2 L Hct (42 - 52 %) 39.8 L MCV (80.0 - 94.0 FL) 99.7 H MCH (27.0 - 31.0 PG) 33.2 H MCHC (33.0 - 37.0 G/DL) 33.3 RDW (11.5 - 14.5 %) 18.9 H Plt Count (130 - 400 /CUMM) 270 MPV (7.4 - 10.4 FL) 8.1 Gran % (42.2 - 75.2 %) 69.6 Lymphocytes % (20.5 - 51.1 %) 18.0 L Monocytes % (1.7 - 9.3 %) 9.2 Eosinophils % (0 - 5 %) 2.4 Basophils % (0.0 - 2.0 %) 0.8 Absolute Granulocytes (1.4 - 6.5 /CUMM) 4.2 Absolute Lymphocytes (1.2 - 3.4 /CUMM) 1.1 L Absolute Monocytes (0.10 - 0.60 /CUMM) 0.6 Absolute Eosinophils (0.0 - 0.7 /CUMM) 0.1 Absolute Basophils (0.0 - 0.2 /CUMM) 0.1 Toxicology Random Vancomycin (ug/ml) 12.9 Assessment/Plan Assessment/Recommendations Assessment: Right first toe ulcer, with surrounding cellulitis: The patient was started on intravenous vancomycin on 3x/week dialysis protocol. I spoke to the lab and make sure that a vancomycin level will be added onto the morning labs (pre- dialysis labs). End-stage renal disease: I will arrange for the patient to receive dialysis this morning according to his Friday schedule. Volume status is reasonable. His only approximate 1 kg over his estimated dry weight hence will aim for 1-1.5 L ultrafiltration. We'll order activated vitamin D 3 times a week with dialysis according to his home regimen. There is no need for Epogen as his hemoglobin is 12. He receives heparin with dialysis per his routine dialysis prescription. He actually has not required phosphorus binders and is making an effort to follow a renal diet Recommendations: Dialysis arranged for today according to his Friday schedule I ordered Zemplar to be given with dialysis 3 times a week Patient should be on a renal diet, with approximately 1500 mL per per day by mouth fluid fluid restriction Vancomycin level added to his morning labs as a predialysis level Thank you for the consultation Farhat Condon MD
[2017-08-28 13:44] VITALS: BP 116/72
--- NOTE | 2017-08-28 16:12 | Cons- Endocrinology ---
General Information and HPI Consulting Request Date of Consult: 08/28/17 Requested By: medical team Reason for Consult: management of uncontrolled DM type 1. Source of Information: patient, old records Exam Limitations: no limitations History of Present Illness: 61 y/o male hx of diabetes type 1 complicated with retinopathy and ESRD on HD, was admitted for right toe infection and cellulitis. His glucose level has been between 116 and 443. I was asked to see him for management of diabetes. At home, he was on lantus 14 units daily at bedtime, Novolog coverage before lunch and dinner as he usually doesn't eat breakfast. After he was put on iv antibiotics, his right foot cellulitis has been improving. Allergies/Medications Allergies: Coded Allergies: amoxicillin (Mild, RASH ALL OVER 08/27/17) Penicillins (RASH ALL OVER 08/27/17) Home Med List: Acetaminophen (Tylenol) 325 MG TABLET 650 MG PO Q6 PRN PAIN (Reported) Aspirin (Ecotrin*) 81 MG TABLET.DR 1 TAB PO DAILY HEART/BLOOD (Reported) Atorvastatin Calcium (Lipitor) 10 MG TABLET 1 TAB PO DAILY CHOLESTEROL ( Reported) Citalopram Hydrobromide (Citalopram HBr) 20 MG TABLET 1 TAB PO DAILY MENTAL HEALTH (Reported) diphenhydrAMINE HCl (Benadryl) 25 MG CAP 2 CAP PO QPM SLEEP (Reported) Esomeprazole (Nexium) 40 MG CAPSULE.DR 1 CAP PO DAILY GI (Reported) Insulin Glargine,Hum.rec.anlog (Lantus Solostar) 100 UNIT/ML (3 ML) INSULN.PEN 8 UNIT SC QPM DM (Reported) Mometasone Furoate (Nasonex) 50 MCG SPRAY.PUMP 2 SPRAY NASB DAILY ALLERGIES ( Reported) Montelukast Sodium (Singulair) 10 MG TABLET 1 TAB PO QPM ALLERGIES (Reported) Nephro-Vitamins (Nephro-Schuyler Tablet) 0.8 MG TABLET 1 TAB PO DAILY VITAMIN SUPPORT Review of Systems Review of Systems Constitutional: Reports: see HPI. Cardiovascular: Denies: chest pain. Respiratory: Denies: short of breath. GI: Denies: abdominal pain. Hematologic/Endocrine: Denies: polyuria, polydipsia. 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 Home Services at Home: None Smoking Status: Current Everyday Smoker ETOH Use: denies use Illicit Drug Use: denies illicit drug use Functional Ability Ambulation: independent Exam & Diagnostic Data Last 24 Hrs of Vital Signs/I&O Vital Signs Date Time Temp Pulse Resp B/P B/P Pulse O2 O2 Flow FiO2 Mean Ox Delivery Rate 08/28 1344 97.8 73 20 116/72 97 Room Air 08/28 0643 98.5 72 20 120/70 96 Room Air 08/27 2143 98.9 75 17 134/68 98 Room Air / 1827 98.5 82 20 136/74 97 Room Air / 1746 72 17 136/63 96 Room Air 06/ 1642 98.4 67 17 129/60 100 Intake & Output 08/28 1600 08/28 0800 08/28 0000 Intake Total 490 480 480 Output Total 375 100 Balance 490 105 380 Intake, IV 250 Intake, Oral 240 480 480 Number 0 Bowel Movements Output, Urine 375 100 Patient 179 lb 181 lb 170 lb Weight Weight Bed scale Bed scale Reported by Patient Measurement Method Physical Exam General Appearance: no apparent distress Neck: normal inspection Respiratory: normal breath sounds Cardiovascular: regular rate/rhythm Extremities: right great toe infection and right foot cellulitis Labs/[place] Results: Laboratory Tests 08/28 08/28 0925 0816 Chemistry Sodium (137 - 145 mmol/L) 135 L Potassium (3.5 - 5.1 mmol/L) 4.1 Chloride (98 - 107 mmol/L) 98 Carbon Dioxide (22 - 30 mmol/L) 21 L Anion Gap (5 - 16) 16 BUN (9 - 20 mg/dL) 49 H Creatinine (0.7 - 1.2 mg/dL) 6.2 *H Estimated GFR (>60 ml/min) 9 L BUN/Creatinine Ratio (7 - 25 %) 7.9 Calcium (8.4 - 10.2 mg/dL) 9.3 Phosphorus (2.5 - 4.5 mg/dL) 5.7 H Magnesium (1.6 - 2.3 mg/dL) 2.1 Albumin (3.5 - 5.0 g/dL) 3.4 L Hematology CBC w Diff NO MAN DIFF REQ WBC (4.8 - 10.8 /CUMM) 5.7 RBC (4.70 - 6.10 /CUMM) 3.68 L Hgb (14.0 - 18.0 G/DL) 12.1 L Hct (42 - 52 %) 36.1 L MCV (80.0 - 94.0 FL) 98.1 H MCH (27.0 - 31.0 PG) 32.9 H MCHC (33.0 - 37.0 G/DL) 33.5 RDW (11.5 - 14.5 %) 18.9 H Plt Count (130 - 400 /CUMM) 238 MPV (7.4 - 10.4 FL) 9.1 Gran % (42.2 - 75.2 %) 66.2 Lymphocytes % (20.5 - 51.1 %) 19.6 L Monocytes % (1.7 - 9.3 %) 8.9 Eosinophils % (0 - 5 %) 4.6 Basophils % (0.0 - 2.0 %) 0.7 Absolute Granulocytes (1.4 - 6.5 /CUMM) 3.8 Absolute Lymphocytes (1.2 - 3.4 /CUMM) 1.1 L Absolute Monocytes (0.10 - 0.60 /CUMM) 0.5 Absolute Eosinophils (0.0 - 0.7 /CUMM) 0.3 Absolute Basophils (0.0 - 0.2 /CUMM) 0 ESR Westergren (0 - 10 MM) 4 Toxicology Random Vancomycin (ug/ml) 10.5 06/07 06/06 0705 2226 Chemistry Sodium (137 - 145 mmol/L) 136 L Potassium (3.5 - 5.1 mmol/L) 3.8 Chloride (98 - 107 mmol/L) 98 Carbon Dioxide (22 - 30 mmol/L) 23 Anion Gap (5 - 16) 15 BUN (9 - 20 mg/dL) 48 H Creatinine (0.7 - 1.2 mg/dL) 6.2 *H Estimated GFR (>60 ml/min) 9 L BUN/Creatinine Ratio (7 - 25 %) 7.7 Hematology CBC w Diff NO MAN DIFF REQ WBC (4.8 - 10.8 /CUMM) 6.0 RBC (4.70 - 6.10 /CUMM) 3.62 L Hgb (14.0 - 18.0 G/DL) 12.0 L Hct (42 - 52 %) 35.8 L MCV (80.0 - 94.0 FL) 99.0 H MCH (27.0 - 31.0 PG) 33.1 H MCHC (33.0 - 37.0 G/DL) 33.5 RDW (11.5 - 14.5 %) 19.1 H Plt Count (130 - 400 /CUMM) 214 MPV (7.4 - 10.4 FL) 9.0 Gran % (42.2 - 75.2 %) 68.6 Lymphocytes % (20.5 - 51.1 %) 17.0 L Monocytes % (1.7 - 9.3 %) 9.0 Eosinophils % (0 - 5 %) 4.7 Basophils % (0.0 - 2.0 %) 0.7 Absolute Granulocytes (1.4 - 6.5 /CUMM) 4.1 Absolute Lymphocytes (1.2 - 3.4 /CUMM) 1.0 L Absolute Monocytes (0.10 - 0.60 /CUMM) 0.5 Absolute Eosinophils (0.0 - 0.7 /CUMM) 0.3 Absolute Basophils (0.0 - 0.2 /CUMM) 0 Toxicology Random Vancomycin (ug/ml) 12.9 Assessment/Plan Assessment/Plan 61 y/o male hx of diabetes type 1 complicated with retinopathy and ESRD on HD, was admitted for right toe infection and cellulitis. His glucose level has been between 116 and 443. I was asked to see him for management of diabetes. DM management: 1. change Levemir to 6 units twice a day; 2. Novolog coverage before breakfast: FSG < 200, no coverage 200-250, 3 units 251-300, 4 units 301-350, 5 units 351-400, 6 units > 400, 7 units 3. Novolog coverage before lunch and before dinner; FSG 80-150, 5 units 151-200, 6 units 200-250, 7 units 251-300, 8 units 301-350, 9 units 351-400, 9 units > 400, 10 units 4. Novolog coverage at bedtime; FSG < 250, no coverage 251-300, 2 units 301-350, 3 units 351-400, 4 units > 400, 4 units 5. monitor FSGs will follow Consult Acknowledgment - Thank you for your consult request.
[2017-08-28 23:00] VITALS: BP 120/70
[2017-08-29 06:53] VITALS: BP 124/75
--- NOTE | 2017-08-29 07:42 | PN- Housestaff ---
Kasey MEDINA,Madhavi 08/29/17 0741: Subjective Follow-up For: 1. Cellulitis of the right foot/toe with a small nonhealing ulcer 2. H/O DM - labile sugars with significant episodes of hypo and hyperglycemia 3. H/O ESRD on Dialysis 4. H/O HFrEF, HLD, Arthritis, Depression Subjective: Patient was seen and examined today. Patient denies any complaints at this time. States he would like to go home today. Patient's blood glucose overnight: 269, 146, 206. Review of Systems Constitutional: Reports: see HPI. Objective Last 24 Hrs of Vital Signs/I&O Vital Signs Date Time Temp Pulse Resp B/P B/P Pulse O2 O2 Flow FiO2 Mean Ox Delivery Rate 08/29 0653 98.6 74 20 124/75 96 Room Air 08/28 2300 99.2 81 20 120/70 97 Room Air 08/28 1344 97.8 73 20 116/72 97 Room Air Intake & Output 08/29 0800 08/29 0000 08/28 1600 Intake Total 120 730 490 Output Total Balance 120 730 490 Intake, IV 10 250 Intake, Oral 120 720 240 Number 0 Bowel Movements Patient 170 lb 179 lb Weight Weight Bed scale Bed scale Measurement Method Physical Exam General Appearance: Alert, Oriented X3, Cooperative Other Physical Findings: HEENT Atraumatic, PERRLA, EOMI, Mucous Membr. moist/pink Cardiovascular Regular Rate, Normal S1, Normal S2 Lungs Clear to Auscultation, Normal Air Movement Abdomen Normal Bowel Sounds, Soft, No Tenderness Neurological Normal Speech, Strength at 5/5 X4 Ext, Normal Tone, Sensation Intact, Cranial Nerves 3-12 NL, Reflexes 2+ Extremities No Clubbing, No Cyanosis, Normal Pulses, right foot - ulcer on big toe approximately 1.5cm x 0.5 cm with surrounding erythema appears to have resolved, with no pus, nontender to palpation with no area of fluctuation sensation to pin prick intact, pulses palpable bilaterally, a small nonhealing ulcer at the plantar surface of right foot , Left arm AV fistula Current Medications: Current Medications Sig/Rhett Start time Last Medication Dose Route Stop Time Status Admin Acetaminophen 650 MG Q6P PRN 08/27 1545 AC PO Aspirin Buffered 81 MG DAILY 08/28 0900 AC 08/28 PO 1328 Atorvastatin Calcium 10 MG 1700 08/27 1800 AC 08/28 PO 1645 Citalopram 20 MG DAILY 08/28 0900 AC 08/28 Hydrobromide PO 1328 Dextrose 25 GM .STK-MED ONE 08/28 1803 DC IV 08/28 1804 Heparin Sodium 5,000 UNIT Q8 08/27 2200 AC 08/28 (Porcine) SC 0503 Insulin Aspart 0 8AM 08/29 0800 AC SC Insulin Aspart 0 1700 07 1700 CAN SC Insulin Aspart 0 1200,1700 08/28 1700 AC 08/28 SC 1645 Insulin Aspart 3 UNITS ONCE ONE 08/28 1400 DC 08/28 SC 08/28 1401 1411 Insulin Aspart 0 1200 / 1200 DC SC Insulin Aspart 0 AT BEDTIME 08/27 2100 AC 08/27 SC 2053 Insulin Detemir 6 UNITS BID 08/28 2100 AC 08/28 SC 2113 Insulin Detemir 8 UNITS 1800 08/27 1800 DC 08/27 OR 1746 Montelukast Sodium 10 MG QPM 08/27 2100 AC 08/28 PO 2113 Multivitamins 1 TAB DAILY 08/28 0900 AC 08/28 PO 1328 Omeprazole 40 MG DAILY AC 08/27 1546 AC 08/29 PO 0517 Paricalcitol 2 MCG TuThSa PRN 08/28 1015 AC IV Patient Medication 1 ED ONE ONE 08/28 1645 DC Teaching ED 08/28 1646 Sodium Chloride 2 SPRAY Q4P PRN 08/27 1600 AC ALEX Vancomycin HCl 1,000 MG ONCE ONE 08/28 1400 DC 08/28 Sodium Chloride 250 ML IV 08/28 1459 1411 Vancomycin HCl See Dose TuThSa PRN 08/28 1000 AC Insts (1) IV Dose Instructions: (1)Vancomycin HCl: DOSE BASED OFF OF RANDOM VANCO LEVEL Last 24 Hrs of Lab/[place] Results Last 24 Hrs of Labs/Mics: Laboratory Tests 08/28/17 0925: Anion Gap 16, Estimated GFR 9 L, BUN/Creatinine Ratio 7.9, Calcium 9.3, Phosphorus 5.7 H, Magnesium 2.1, Albumin 3.4 L, CBC w Diff NO MAN DIFF REQ, RBC 3.68 L, MCV 98.1 H, MCH 32.9 H, MCHC 33.5, RDW 18.9 H, MPV 9.1, Gran % 66.2, Lymphocytes % 19.6 L, Monocytes % 8.9, Eosinophils % 4.6, Basophils % 0.7 , Absolute Granulocytes 3.8, Absolute Lymphocytes 1.1 L, Absolute Monocytes 0.5 , Absolute Eosinophils 0.3, Absolute Basophils 0, Random Vancomycin 10.5 08/28/17 0816: ESR Westergren 4 Assessment/Plan Assessment: Patient is a 61 y/o male with PMH signifcant for type 1 DM, history of diabetic retinopathy, ESRD secondary to HTN and DM, currently on dialysis (, , Fri) with [facility] in [place] with left AV fistula, HFrEF with LVEF of 40-45% in 2016, pulmonary htn, hyperlipidemia, arthritis, depression presenting this admission with chief complaint of a right foot ulcer sent by his prorate clerk. On presentation patient is afebrile with no leukocytosis and a small ulcer with signficant eyrthema, warmth and lymphagetic spread placing him at moderate severity. Xray of the foot showed signficant tissue swelling with no signs of osteomyeltitis. Patient in the ED has received IV Vancomycin and IV Clindamycin to presumably cover for MRSA, gram negative bacilli and anaerobes in a diabetic foot. Podiatry was consulted and there is no plan for debridement at this time. Patient's right foot cellulitis appears to be resolving with IV antibiotics. Patient remains afebrile with no leukocytosis. Patient's sugars have improved with no hypoglycemic episodes with the adjusted insulin. Due to patient's ulcer and diabetes and diabetic complciations will get arterial doppler to evaluated for PAD. Doppert today showed an occlusion in his superficial femoral artery. Patient refused to stay for further evaluationt nba. States he will follow up with his own vascular surgeon outpatient. Patient's foot does not appear to have significant occlusion that is worrisome for limb ischemia or compartment syndrome. Patient will follow up with vascular surgeon. 1. Cellulitis of the right foot/toe with a small nonhealing ulcer 2. H/O DM - labile sugars with significant episodes of hypo and hyperglycemia in the setting of infection 3. H/O ESRD on Dialysis 4. H/O HFrEF, HLD, Arthritis, Depression 5. PAD seen on right foot ultrasound Plan: Admit to general medicine Vitals qshift Repeat BEP in AM Follow up blood cultures Podiatry consulted - no plans for debridement ESR was normal, will not proceed with MRI at this time as osteo is less likely Nephrology notified that patient is admitted Patient received IV Vancomycin with dialysis session yesterday. Will switch to PO bactrim today for 8 more days to complete a 10 day course. Continue home medications: celexa, aspirin,atorvastatin, omperazole, singular Continue insulin SS with accuchecks TIDAC/qHS Endocrinology consulted. Appreciate recommendations DVT PPx: Heparin SQ Diet: Consistent Carb Code: Full code Dispo: discharge home, to follow up with his vascular surgeon for further follow up in regards to superficial arterial occlusion. Will follow up with prorate clerk as well next week. Problem List: 1. Diabetic foot ulcer Pain Ratin Pain Location: foot Pain Goal: Remain pain free Pain Plan: tylenol PRN Tomorrow's Labs & Rationales: none [place] MEDINA,Joshua 08/29/17 1130: Attending MD Review Statement Attending Statement Attending MD Statement: examined this patient, discuss w/resident/PA/RESIDENTIAL ENERGY AUDITOR, agreed w/resident/PA/RESIDENTIAL ENERGY AUDITOR, reviewed EMR data (avail), discussed with nursing, discussed with case mgmt, amended to note Attending Assessment/Plan: Patient seen and examined. No issues overnight reported by nursing staff. Remains afebrile and hemodynamically stable. Resting comfortably and not in any acute distress. On examination area of cellulitis on the right big toe is improved significantly. Decreasing edema and swelling. He is afebrile and hemodynamically stable. He can be transitioned to Bactrim today to complete 10 days of antibiotic therapy. Yesterday patient had an episode of hypoglycemia. He reports that he occasionally has episodes of hypoglycemia. Glucose levels in the 40s-50s. He has had an episode of hypoglycemia with glucose level of 33. At home he is on a high sliding scale coverage. He was evaluated by the endocrinology service and adjustments made to his insulin regimen. Recommendation will be to monitor the patient in the hospital today to ensure optimal response to his insulin adjustment. Patient however is very eager to be discharged home today. Will follow recommendations of endocrinology service today. Patient is noted to have microcytosis on his labs. Recommend checking B12 and folic acid level.
--- NOTE | 2017-08-29 09:16 | Patient Discharge Instructions ---
Discharge Instructions General Discharge Information You were seen/treated for: Cellulitis of your right foot Nonhealing ulcer Diabetes Special Instructions: 1. Follow up with your ironing machine operator 2. Follow up with the critical care nurse specialist 3. Please note your medication changes and take as directed. - Please take the Bactrim once a day (on dialysis days please take after your dialysis session) - Please note that your insulin regimen has been changed and take as instructed. - Low blood sugars <70 are dangerous and should be addressed. Please notify your physician immediately if you continue to have low blood sugars. Diet Continue normal diet: No Recommended Diet: Diabetic Acute Coronary Syndrome Inclusion Criteria At DC or during hospital stay patient has or had the following: ACS DIAGNOSIS No Discharge Core Measures Meds if any: Prescribed or Continued at Discharge Meds if any: NOT Prescribed or Continued at Discharge Congestive Heart Failure Inclusion Criteria At DC or during hospital stay patient has or had the following: CHF DIAGNOSIS No Discharge Core Measures Meds if any: Prescribed or Continued at Discharge Meds if any: NOT Prescribed or Continued at Discharge Cerebrovascular accident Inclusion Criteria At DC or during hospital stay patient has or had the following: CVA/TIA Diagnosis No Discharge Core Measures Meds if any: Prescribed or Continued at Discharge Meds if any: NOT Prescribed or Continued at Discharge Venous thromboembolism Inclusion Criteria VTE Diagnosis No VTE Type NONE VTE Confirmed by (Test) NONE Discharge Core Measures - Per Current guidelines, there needs to be overlap - treatment for the first 5 days of Warfarin therapy. - If discharged on Warfarin prior to 5 days of - overlap therapy, the patient will need to be - assessed for post discharge needs including - *Post discharge parental anticoagulation - *Warfarin and/or parental anticoagulation education - *Follow up date to check INR post discharge At least 5 days overlap therapy as Inpatient No Meds if any: Prescribed or Continued at Discharge Note: Overlap Therapy is Warfarin and Anticoagulant Meds if any: NOT Prescribed or Continued at Discharge
--- NOTE | 2017-08-29 12:09 | PN- Diabetes ---
Assessment/Plan Diabetes Assessment: 61 y/o male hx of diabetes type 1 complicated with retinopathy and ESRD on HD, was admitted for right toe infection and cellulitis. His glucose level has been between 116 and 443. I was asked to see him for management of diabetes. He was put on Levemir 6 units twice a day; Novolog coverage before meals and novolog coverage at bedtime. Novolog coverage before breakfast ( he eats egg product for breakfast): FSG < 200, no coverage 200-250, 3 units 251-300, 4 units 301-350, 5 units 351-400, 6 units > 400, 7 units Novolog coverage before lunch and before dinner; FSG 80-150, 5 units 151-200, 6 units 200-250, 7 units 251-300, 8 units 301-350, 9 units 351-400, 9 units > 400, 10 units Novolog coverage at bedtime; FSG < 250, no coverage 251-300, 2 units 301-350, 3 units 351-400, 4 units > 400, 4 units His FSGs were 116, 206, 146, 269 and 189. Plan: continue the current insulin regimen; monitor FSGs; will follow. Subjective Subjective: He feels well this morning. His foot infection is better controlled. Objective Last 24 Hrs of Vital Signs/I&O Vital Signs Date Time Temp Pulse Resp B/P B/P Pulse O2 O2 Flow FiO2 Mean Ox Delivery Rate 08/29 0653 98.6 74 20 124/75 96 Room Air 08/28 2300 99.2 81 20 120/70 97 Room Air 08/28 1344 97.8 73 20 116/72 97 Room Air Intake & Output 08/29 1600 08 0800 08/29 0000 Intake Total 120 730 Output Total Balance 120 730 Intake, IV 10 Intake, Oral 120 720 Patient 170 lb Weight Weight Bed scale Measurement Method
--- NOTE | 2017-08-29 12:54 | PN- Nephrology ---
Assessment/Plan Nephrology Assessment: 1. ESRD: due to DM & HTN; no HD need today 2. R ft cellulitis: improving w IV Vanco --> can give w outpt HD Suggestion: HD tomorrow --> has outpt seat if otherwise ready for d/c Subjective Subjective: Feeling well No fever or rigors R foot erythema improving Objective Vital Signs and I&Os Vital Signs Date Time Temp Pulse Resp B/P B/P Pulse O2 O2 Flow FiO2 Mean Ox Delivery Rate 08/29 0553 98.6 74 20 124/75 96 Room Air 08/28 2300 99.2 81 20 120/70 97 Room Air 08/28 1344 97.8 73 20 116/72 97 Room Air Intake & Output 08/29 1600 08/29 0400 08/28 1600 08/28 0400 08/27 1600 08/27 0400 Intake Total 120 730 970 480 Output Total 375 100 Balance 120 730 595 380 Intake, IV 10 250 Intake, Oral 120 720 720 480 Number 0 Bowel Movements Output, Urine 375 100 Patient 170 lb 179 lb 170 lb 170 lb Weight Weight Bed scale Bed scale Reported by Patient Reported by Patient Measurement Method Physical Exam General Appearance: well developed/nourished, no apparent distress, alert Head: atraumatic, normal appearance Neck: normal inspection Respiratory: normal breath sounds, no respiratory distress, quiet respiration, lungs clear Cardiovascular: regular rate/rhythm Abdomen: soft, non-tender, no organomegaly Extremities: no edema, R great toe ulcer/laceration w fading erythema up foot Neurologic/Psychiatric: no motor/sensory deficits, awake, alert, billing analyst II-XII nml as tested Skin: intact Lymphatic: no anterior cervical markell Current Medications: Current Medications Sig/Rhett Start time Last Medication Dose Route Stop Time Status Admin Acetaminophen 650 MG Q6P PRN 08/27 1545 AC PO Aspirin Buffered 81 MG DAILY 08/28 09 AC 08/29 PO 0804 Atorvastatin Calcium 10 MG 1700 08/27 1800 AC 08/28 PO 1645 Citalopram 20 MG DAILY 08/28 09 AC 08/29 Hydrobromide PO 0804 Dextrose 25 GM .STK-MED ONE 08/28 1803 DC IV 08/28 1804 Heparin Sodium 5,000 UNIT Q8 08/27 2200 AC 08/28 (Porcine) SC 0503 Insulin Aspart 0 8AM 08/29 0800 AC 08/29 SC 0804 Insulin Aspart 0 1700 08/28 1700 CAN SC Insulin Aspart 0 1200,1700 08/28 1700 AC 08/29 SC 1217 Insulin Aspart 3 UNITS ONCE ONE 08/28 1400 DC 08/28 SC 08/28 1401 1411 Insulin Aspart 0 1200 / 1200 DC SC Insulin Aspart 0 AT BEDTIME 08/27 2100 AC 08/27 SC 2053 Insulin Detemir 6 UNITS BID 08/28 2100 AC 08/29 SC 0803 Insulin Detemir 8 UNITS 1800 08/27 1800 DC 08/27 CT 1746 Montelukast Sodium 10 MG QPM 08/27 2100 AC 08/28 PO 2113 Multivitamins 1 TAB DAILY 08/28 0900 AC 08/29 PO 0804 Omeprazole 40 MG DAILY AC 08/27 1546 AC 08/29 PO 0517 Paricalcitol 2 MCG TuThSa PRN 08/28 1015 AC IV Patient Medication 1 ED ONE ONE 08/29 0930 HI Teaching ED 08/29 0931 Patient Medication 1 ED ONE ONE 08/28 1645 HI Teaching ED 08/28 1646 Sodium Chloride 2 SPRAY Q4P PRN 08/27 1600 AC ALEX Vancomycin HCl 1,000 MG ONCE ONE 08/28 1400 DC 08/28 Sodium Chloride 250 ML IV 08/28 1459 1411 Vancomycin HCl See Dose TuThSa PRN 08/28 1000 AC Insts (1) IV Dose Instructions: (1)Vancomycin HCl: DOSE BASED OFF OF RANDOM VANCO LEVEL Results Pertinent Lab Results: Laboratory Tests 08/28 08/28 0925 0816 Chemistry Sodium (137 - 145 mmol/L) 135 L Potassium (3.5 - 5.1 mmol/L) 4.1 Chloride (98 - 107 mmol/L) 98 Carbon Dioxide (22 - 30 mmol/L) 21 L Anion Gap (5 - 16) 16 BUN (9 - 20 mg/dL) 49 H Creatinine (0.7 - 1.2 mg/dL) 6.2 *H Estimated GFR (>60 ml/min) 9 L BUN/Creatinine Ratio (7 - 25 %) 7.9 Calcium (8.4 - 10.2 mg/dL) 9.3 Phosphorus (2.5 - 4.5 mg/dL) 5.7 H Magnesium (1.6 - 2.3 mg/dL) 2.1 Albumin (3.5 - 5.0 g/dL) 3.4 L Hematology CBC w Diff NO MAN DIFF REQ WBC (4.8 - 10.8 /CUMM) 5.7 RBC (4.70 - 6.10 /CUMM) 3.68 L Hgb (14.0 - 18.0 G/DL) 12.1 L Hct (42 - 52 %) 36.1 L MCV (80.0 - 94.0 FL) 98.1 H MCH (27.0 - 31.0 PG) 32.9 H MCHC (33.0 - 37.0 G/DL) 33.5 RDW (11.5 - 14.5 %) 18.9 H Plt Count (130 - 400 /CUMM) 238 MPV (7.4 - 10.4 FL) 9.1 Gran % (42.2 - 75.2 %) 66.2 Lymphocytes % (20.5 - 51.1 %) 19.6 L Monocytes % (1.7 - 9.3 %) 8.9 Eosinophils % (0 - 5 %) 4.6 Basophils % (0.0 - 2.0 %) 0.7 Absolute Granulocytes (1.4 - 6.5 /CUMM) 3.8 Absolute Lymphocytes (1.2 - 3.4 /CUMM) 1.1 L Absolute Monocytes (0.10 - 0.60 /CUMM) 0.5 Absolute Eosinophils (0.0 - 0.7 /CUMM) 0.3 Absolute Basophils (0.0 - 0.2 /CUMM) 0 ESR Westergren (0 - 10 MM) 4 Toxicology Random Vancomycin (ug/ml) 10.5 06/07 06/06 0705 2226 Chemistry Sodium (137 - 145 mmol/L) 136 L Potassium (3.5 - 5.1 mmol/L) 3.8 Chloride (98 - 107 mmol/L) 98 Carbon Dioxide (22 - 30 mmol/L) 23 Anion Gap (5 - 16) 15 BUN (9 - 20 mg/dL) 48 H Creatinine (0.7 - 1.2 mg/dL) 6.2 *H Estimated GFR (>60 ml/min) 9 L BUN/Creatinine Ratio (7 - 25 %) 7.7 Hematology CBC w Diff NO MAN DIFF REQ WBC (4.8 - 10.8 /CUMM) 6.0 RBC (4.70 - 6.10 /CUMM) 3.62 L Hgb (14.0 - 18.0 G/DL) 12.0 L Hct (42 - 52 %) 35.8 L MCV (80.0 - 94.0 FL) 99.0 H MCH (27.0 - 31.0 PG) 33.1 H MCHC (33.0 - 37.0 G/DL) 33.5 RDW (11.5 - 14.5 %) 19.1 H Plt Count (130 - 400 /CUMM) 214 MPV (7.4 - 10.4 FL) 9.0 Gran % (42.2 - 75.2 %) 68.6 Lymphocytes % (20.5 - 51.1 %) 17.0 L Monocytes % (1.7 - 9.3 %) 9.0 Eosinophils % (0 - 5 %) 4.7 Basophils % (0.0 - 2.0 %) 0.7 Absolute Granulocytes (1.4 - 6.5 /CUMM) 4.1 Absolute Lymphocytes (1.2 - 3.4 /CUMM) 1.0 L Absolute Monocytes (0.10 - 0.60 /CUMM) 0.5 Absolute Eosinophils (0.0 - 0.7 /CUMM) 0.3 Absolute Basophils (0.0 - 0.2 /CUMM) 0 Toxicology Random Vancomycin (ug/ml) 12.9 06/06 1330 Chemistry Sodium (137 - 145 mmol/L) 135 L Potassium (3.5 - 5.1 mmol/L) 4.0 Chloride (98 - 107 mmol/L) 93 L Carbon Dioxide (22 - 30 mmol/L) 22 Anion Gap (5 - 16) 19 H BUN (9 - 20 mg/dL) 39 H Creatinine (0.7 - 1.2 mg/dL) 5.7 *H Estimated GFR (>60 ml/min) 10 L BUN/Creatinine Ratio (7 - 25 %) 6.8 L Glucose (65 - 99 mg/dL) 228 H Calcium (8.4 - 10.2 mg/dL) 9.3 Total Bilirubin (0.2 - 1.3 mg/dL) 0.6 AST (17 - 59 U/L) 28 ALT (21 - 72 U/L) 27 Alkaline Phosphatase (< 127 U/L) 162 H Total Protein (6.3 - 8.2 g/dL) 7.4 Albumin (3.5 - 5.0 g/dL) 4.1 Globulin (1.9 - 4.2 gm/dL) 3.3 Albumin/Globulin Ratio (1.1 - 2.2 %) 1.2 Hematology CBC w Diff NO MAN DIFF REQ WBC (4.8 - 10.8 /CUMM) 6.1 RBC (4.70 - 6.10 /CUMM) 3.99 L Hgb (14.0 - 18.0 G/DL) 13.2 L Hct (42 - 52 %) 39.8 L MCV (80.0 - 94.0 FL) 99.7 H MCH (27.0 - 31.0 PG) 33.2 H MCHC (33.0 - 37.0 G/DL) 33.3 RDW (11.5 - 14.5 %) 18.9 H Plt Count (130 - 400 /CUMM) 270 MPV (7.4 - 10.4 FL) 8.1 Gran % (42.2 - 75.2 %) 69.6 Lymphocytes % (20.5 - 51.1 %) 18.0 L Monocytes % (1.7 - 9.3 %) 9.2 Eosinophils % (0 - 5 %) 2.4 Basophils % (0.0 - 2.0 %) 0.8 Absolute Granulocytes (1.4 - 6.5 /CUMM) 4.2 Absolute Lymphocytes (1.2 - 3.4 /CUMM) 1.1 L Absolute Monocytes (0.10 - 0.60 /CUMM) 0.6 Absolute Eosinophils (0.0 - 0.7 /CUMM) 0.1 Absolute Basophils (0.0 - 0.2 /CUMM) 0.1 Imaging/Other Studies: Xray: IMPRESSION: 1. Soft tissue swelling at the great toe without radiographic findings of underlying osteomyelitis. Consider correlation with MRI of the foot with and without contrast for improved sensitivity and specificity.
[2017-08-29] MEDS ORDERED: NOVOLOG100 UNIT/2 SC ×3 (13:33)
[2017-08-29] MEDS ORDERED: LANTUS SOL100 UNIT/1 SC (13:33)
[2017-08-29] MEDS ORDERED: BACTRIM 400-801 EACH PO ×2 (13:34→14:22)
[2017-08-29 13:48] VITALS: BP 134/66
[2017-08-29] MEDS ORDERED: NORVASC10 M1 PO (14:12)
[2017-08-29] MEDS ORDERED: COREG3.125 MG PO (14:12)
[2017-08-29] MEDS ORDERED: HYDRALAZINE HCL25 M1 PO (14:13)
[2017-08-29] MEDS ORDERED: PAROXETINE HCL20 M1 PO (14:13)
[2017-08-29] MEDS ORDERED: ISOSORBIDE MONO30 M1 PO (14:13)
--- NOTE | 2017-08-29 16:19 | ULTRASOUND REPORT ---
EXAMINATION: US DUPLEX LOWER EXTREMITY ARTERY/GRAFT LIMITED, RIGHT CLINICAL INFORMATION: Nonhealing ulcer right foot COMPARISON: None TECHNIQUE: Real-time ultrasound and Doppler techniques (integrating B-mode 2-D vascular images, Doppler spectral analysis and color flow Doppler imaging) were utilized to interrogate the lower extremities. FINDINGS: Right lower extremity: Common femoral artery: 82.7 cm/sec; monophasic waveform Superficial femoral artery proximal: Occluded. Superficial femoral artery mid portion: 27.4 cm/sec; monophasic waveform Superficial femoral artery distal: 46.4 cm/sec; monophasic waveform Profunda artery: 118 cm/sec; monophasic waveform Popliteal artery: 31.7 cm/sec; monophasic waveform Posterior tibial artery: 25.9 cm/sec; monophasic waveform Anterior tibial artery: 53.4 cm/sec; monophasic waveform Dorsalis pedis artery: 13.0 cm/sec; monophasic waveform IMPRESSION: Diffuse monophasic waveforms throughout the arteries of the right lower extremity consistent with severe inflow and outflow peripheral arterial disease. There is occlusion of the superficial femoral artery at its proximal portion. There is occlusion of the mid and distal anterior and posterior tibial arteries. It is not known whether these occlusions are acute or chronic. This critical result was discussed with Dr. Parks at 3:14 PM on 08/29/2017 and it was ascertained that the content and urgency of the report was understood at the time of direct communication.
== END 2017-08-29 15:26 | DRG 380 ==
LOC: ERH 12:28 → 2NB 16:07 → ERHI 16:07 → ENRESERV 16:49 → ENTRNSPT 17:37 → EDTRNSPTSTS 17:48 → EDTRNSPT 17:48 → 2NB 17:57 → CMPTRNSPT 18:15 → 2NB 18:44 → ENTRNSPT 08-29 15:01 → CMPTRNSPT 08-29 15:21 → 2NB 08-29 15:26
PROVIDERS: Internal Medicine; Physician Assistant
PROC: 5A1D70Z Performance of Urinary Filtration, Intermittent, Less than 6 Hours Per Day (ICD-10-PCS; principal; 2017-08-29)
DX: E10.621 Type 1 diabetes mellitus with foot ulcer (principal); I13.2 Hypertensive heart and chronic kidney disease with heart failure and with stage 5 chronic kidney disease, or end stage renal disease; E10.22 Type 1 diabetes mellitus with diabetic chronic kidney disease; N18.6 End stage renal disease; Z99.2 Dependence on renal dialysis; Z79.4 Long term (current) use of insulin; E10.319 Type 1 diabetes mellitus with unspecified diabetic retinopathy without macular edema; I50.22 Chronic systolic (congestive) heart failure; F32.9 Major depressive disorder, single episode, unspecified; L03.115 Cellulitis of right lower limb; E10.649 Type 1 diabetes mellitus with hypoglycemia without coma; L97.519 Non-pressure chronic ulcer of other part of right foot with unspecified severity; E78.5 Hyperlipidemia, unspecified; Z88.1 Allergy status to other antibiotic agents; Z88.0 Allergy status to penicillin; Z79.82 Long term (current) use of aspirin; F17.210 Nicotine dependence, cigarettes, uncomplicated; K21.9 Gastro-esophageal reflux disease without esophagitis; E10.40 Type 1 diabetes mellitus with diabetic neuropathy, unspecified
CPT/HCPCS: 2NBSP; 36592; 73630-RT; 82436; 87040; 87086; 96374; 96375; J1644; J2501; J3370; J7040

== ENCOUNTER 2017-11-17 15:10 | Inpatient (IN) | payer OTHER ==
[~2017-11-17] VITALS: Ht 172.7 cm; Wt 83.1 kg
[~2017-11-17 15:10] MED LIST changes: +BACTRIM 400-801 EACH PO; +BENADRYL25 MG PO; +CITALOPRAM HBR20 MG PO; +HYDRALAZINE HCL25 M1 PO; +ISOSORBIDE MONO30 M1 PO; +NORVASC10 M1 PO; +PAROXETINE HCL20 M1 PO
[2017-11-17 15:55] LABS: ABSOLUTE BASOPHIL COUNT 0 /CUMM (0.0-0.2); ABSOLUTE EOSINOPHIL COUNT 0.1 /CUMM (0.0-0.7); ABSOLUTE MONOCYTE COUNT 0.4 /CUMM (0.10-0.60); BASOPHIL % 0.2 % (0.0-2.0); EOSINOPHIL % 1.9 % (0-5); GRANULOCYTE % 79.8 % (42.2-75.2); MEAN CORPUSCULAR HGB 34.1 PG (27.0-31.0); MEAN CORPUSCULAR HGB CONC 33.4 G/DL (33.0-37.0); MEAN CORPUSCULAR VOLUME 101.9 FL (80.0-94.0); MEAN PLATELET VOLUME 8.6 FL (7.4-10.4); PLATELET COUNT 231 /CUMM (130-400); RBC DISTRIBUTION WIDTH 15.1 % (11.5-14.5); RED BLOOD CELL CT 3.73 /CUMM (4.70-6.10); WHITE BLOOD CELL COUNT 7.5 /CUMM (4.8-10.8)
--- NOTE | 2017-11-17 19:03 | RADIOLOGY REPORT ---
EXAMINATION: XR FOOT, RIGHT CLINICAL INFORMATION: Ulceration lateral aspect right foot with question of osteomyelitis. COMPARISON: 08/27/2017 TECHNIQUE: AP, lateral, and oblique views of the right foot. FINDINGS: Since the prior study, there has been no significant interval change. Once again noted is generalized osteopenia and hammertoe deformities. Vascular calcifications are present. No acute fractures or bony destructive lesions are seen. IMPRESSION: No evidence to suggest osteomyelitis. As stated previously, MRI of the foot with and without contrast would have improved sensitivity and specificity of osteomyelitis.
--- NOTE | 2017-11-17 19:23 | ED ANKLE/FOOT INJURY COMPLAINT ---
History of Present Illness General Chief Complaint: Lower Extremity Problems Stated Complaint: SIB DR. SANCHEZ FOR INFECTION IN RT FOOT Source: patient Exam Limitations: no limitations Vital Signs & Intake/Output Vital Signs & Intake/Output Vital Signs Date Time Temp Pulse Resp B/P B/P Pulse O2 O2 Flow FiO2 Mean Ox Delivery Rate 11/17 2235 71 18 154/60 100 Room Air 11/17 1934 98.0 70 18 157/67 100 Room Air 11/17 1800 98.2 88 18 128/62 98 11/17 1518 98.1 84 18 148/77 96 Room Air ED Intake and Output 11/18 0000 11/17 1200 Intake Total 0 Output Total Balance 0 Intake, Oral 0 Patient 175 lb Weight Allergies Coded Allergies: amoxicillin (Mild, RASH ALL OVER 08/27/17) Penicillins (RASH ALL OVER 08/27/17) Triage Note: PT SENT BY HIS PMD TO BE EVALUATED BY DR DENG AND ADMITTED FOR IV ABT DUE TO INFECTION IN HIS R FOOT, STATES THAT HE HAS HAD A SORE TO R GREAT TOE AND NOW THERE IS A WOUND TO R FOOT OUTER ASPECT WITH REDNESS AND DRAINAGE. WAS ALSO TOLD THAT HE WILL GET MRI WHILE HERE Triage Nurses Notes Reviewed? yes Occurred: last week Duration: week(s): (1), constant, continues in ED, getting worse Timing: recent history Severity: mild, moderate Severity Numbers: 4 Pain/Injury Location: Right: Foot. Method of Injury: Diabetic foot ulcer No Modifying Factors: none HPI: 62-year-old male history of end-stage renal disease on dialysis last dialyzed on Friday history of diabetes and diabetic foot ulcer presents for evaluation of a painful erythematous swollen ulcer to his right foot. Patient reports he was recently treated for a diabetic foot ulcer to the first metatarsal on the medial side a few weeks ago. He received some IV antibiotics was discharged on oral antibiotics and ultimately got better. He reports that about one week ago he noticed a small callus on the area around the fifth metatarsal and that the callus gradually turned into an ulceration and several days ago he noted that it was swollen and red. Now the redness is tracking up his foot towards his ankle. The area is painful but is able to walk. Denies any drainage no fevers no trauma. 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 (J Carlos WELLINGTON,Harshad) Reconcile Medications Acetaminophen (Tylenol) 325 MG TABLET 650 MG PO Q6 PRN PAIN (Reported) Aspirin (Ecotrin*) 81 MG TABLET.DR 1 TAB PO DAILY HEART/BLOOD (Reported) Atorvastatin Calcium (Lipitor) 10 MG TABLET 1 TAB PO DAILY CHOLESTEROL ( Reported) Citalopram Hydrobromide (Citalopram HBr) 20 MG TABLET 1 TAB PO DAILY MENTAL HEALTH (Reported) Esomeprazole (Nexium) 40 MG CAPSULE.DR 1 CAP PO DAILY GI (Reported) Insulin Aspart (Novolog) 100 UNIT/ML VIAL 0 UNITS SC AT BEDTIME DIABETES Glucose <250 0 units 251-300 2 units 301-350 3 units 351-400 4 units > 400 4 units Insulin Aspart (Novolog) 100 UNIT/ML VIAL 0 SC 1200,1700 DIABETES FSG 80-150 5 unit 151-200 6 unit 201-250 7 unit 251-300 8 unit 301-350 9 unit 351-400 9 unit >400, 10 units Insulin Aspart (Novolog) 100 UNIT/ML VIAL 0 UNITS SC 8AM DIABETES FSG <200 - 0 units 200-250, 3 units 251-300, 4 units 301-350, 5 units 351-400, 6 units >400 7 units Insulin Glargine,Hum.rec.anlog (Lantus Solostar) 100 UNIT/ML (3 ML) INSULN.PEN 6 UNIT SC BID DIABETES Mometasone Furoate (Nasonex) 50 MCG SPRAY.PUMP 2 SPRAY NASB DAILY ALLERGIES ( Reported) Montelukast Sodium (Singulair) 10 MG TABLET 1 TAB PO QPM ALLERGIES (Reported) Nephro-Vitamins (Nephro-Schuyler Tablet) 0.8 MG TABLET 1 TAB PO DAILY VITAMIN SUPPORT (Amy MEDINA,Ayan Boland) Past History Travel History Traveled to [place] past 21 day No Medical History Any Pertinent Medical History? see below for history Neurological: NEUROPATHY EENT: diabetic retinopathy Cardiovascular: CHF, hypertension, hyperlipidemia Respiratory: SMOKER 0ne pack now cut down to 8/day smoking for the past 40 yrs Gastrointestinal: GERD Hepatic: NONE Renal: chronic kidney disease, ESRD L AV FISTULA Musculoskeletal: ARTHRITIS Psychiatric: depression Endocrine: IDDM Blood Disorders: NONE Cancer(s): NONE LOAN EXAMINER/Reproductive: NONE History of MRSA: No History of VRE: No History of CDIFF: No Surgical History Surgical History: LEFT ARM FISTULA Psychosocial History Who do you live with Family Services at Home None What is your primary language Belarusian Tobacco Use: Current Daily Use Daily Tobacco Use Amount/Type: => 5 Cigarettes daily ETOH Use: denies use Illicit Drug Use: denies illicit drug use Family History Family History, If Any: MOTHER FH: colon cancer FH: type 2 diabetes mellitus FATHER FH: prostate cancer FH: type 2 diabetes mellitus MATERNAL GRANDFATHER FH: type 2 diabetes mellitus SISTER FH: bladder cancer GRANDMOTHER FH: cancer Hx Contributory? No (Harshad Shah) Review of Systems Review of Systems Constitutional: Reports: no symptoms. EENTM: Reports: no symptoms. Respiratory: Reports: no symptoms. Cardiovascular: Reports: no symptoms. GI: Reports: no symptoms. Genitourinary: Reports: no symptoms. Musculoskeletal: Reports: no symptoms. Skin: Reports: see HPI (diabetic foot ulcer), erythema. Neurological/Psychological: Reports: no symptoms. Hematologic/Endocrine: Reports: no symptoms. Immunologic/Allergic: Reports: no symptoms. All Other Systems: Reviewed and Negative (Harshad Shah) Physical Exam Physical Exam General Appearance: well developed/nourished, no apparent distress, alert, awake Head: atraumatic, normal appearance Eyes: Bilateral: normal appearance, PERRL, EOMI. Ears, Nose, Throat: hearing grossly normal Neck: normal inspection, supple, full range of motion Cardiovascular/Respiratory: normal breath sounds, normal peripheral pulses, regular rate/rhythm, no respiratory distress Leg/Knee/Thigh Left: normal range of motion, normal inspection Leg/Knee/Thigh Right: normal range of motion, normal inspection Ankle Left: normal inspection, normal range of motion Ankle Right: normal inspection, normal range of motion Foot Left: normal inspection, normal range of motion Foot Right: normal range of motion, infection, there is a healing 2 cm diameter ulceration to the medial aspect of the first metatarsal. No surrounding erythema. There is granulation tissue. There is another ulceration approximately 0.5 cm in diameter located on the plantar aspect of the fifth metatarsal. There is surrounding erythema and soft tissue swelling. There is lymphatic streaking tracking up the dorsum of the foot towards the ankle. Full range of motion is intact. No focal fluctuant areas no discharge. 1+ posterior tibialis pulse palpable Neuro/Vascular: normal motor function, normal sensation Tendon: normal tendon function Psychiatric: awake, alert, oriented x 3 Skin: intact, normal color, warm/dry (Black PA,Harshad) Progress Differential Diagnosis: arterial insufficiency, cellulitis, septic arthritis, gout, fracture, dislocation, sprain, contusion, osteomyelitis, diabetic foot ulcer Plan of Care: Orders Procedure Date/time Status Nothing by Mouth 11/18 B Active CBC WITHOUT DIFFERENTIAL 11/18 06 Active BASIC ELECTROLYTES PLUS BUN&CR 11/18 0600 Active Pathway - chart 11/18 0014 Active House Staff 11/18 0014 Active Patient Data 11/18 0014 Active Code Status 11/18 0014 Active VTE Mechanical Prophylaxis 11/18 UNK Active Vital Signs 11/18 UNK Active FingerStick- Glucose 11/18 UNK Complete FingerStick- Glucose 11/18 UNK Active Activity/Ambulation 11/18 UNK Active MRI-RT FOOT W/O ROSIO 11/18 UNK Active Patient Data 11/18 1999 Active ED Holding Orders 11/17 1956 Active Admit to inpatient 11/17 195 Active Vital Signs 11/17 1956 Active Code Status 11/17 1956 Complete Intake & Output 11/17 1853 Active Add-on Test (ER Only) 11/17 1820 Active WESTERGREN SED RATE 11/17 1820 Complete LACTIC ACID 11/17 1817 Complete C-REACTIVE PROTEIN 11/17 1541 Complete BLOOD CULTURE 11/17 1517 Active TROPONIN LEVEL 11/17 1517 Complete LACTIC ACID 11/17 1517 Complete COMPREHENSIVE METABOLIC PANEL 11/17 1517 Complete CBC WITHOUT DIFFERENTIAL 11/17 1517 Complete EKG 11/17 1517 Active Current Medications Sig/Rhett Start time Last Medication Dose Stop Time Status Admin Insulin Aspart 0 TIDAC/HS 11/18 2345 CAN (NovoLOG) Montelukast Sodium 10 MG QPM 11/18 2100 AC (Singulair) Aspirin Buffered 81 MG DAILY 11/18 0900 AC (Ecotrin) Atorvastatin Calcium 10 MG DAILY 11/18 09 AC (Lipitor) Citalopram 20 MG DAILY 11/18 09 AC Hydrobromide (Celexa) Multivitamins 1 TAB DAILY 11/18 09 AC (Nephrocaps) Omeprazole 40 MG DAILY AC 11/18 0700 AC (Prilosec) Heparin Sodium 5,000 UNIT Q8 11/18 0600 AC (Porcine) Insulin Human Regular 0 Q6 11/18 0115 AC (NovoLIN R) Acetaminophen 650 MG Q6P PRN 11/18 0015 AC (Tylenol) Insulin Detemir 6 UNITS BID 11/18 0000 AC 11/18 (Levemir) 0047 Laboratory Tests 11/17/17 1930: ESR Westergren 21 H 11/17/17 182: Lactic Acid 1.1 11/17/17 1541: Anion Gap 21 H, Estimated GFR 6 L, BUN/Creatinine Ratio 7.1, Glucose 372 H, Lactic Acid 2.0, Calcium 9.1, Total Bilirubin 0.4, AST 23, ALT 28, Alkaline Phosphatase 209 H, Troponin I 0.02, C-Reactive Prot, Quant 3.6 H, Total Protein 7.0, Albumin 3.9, Globulin 3.1, Albumin/Globulin Ratio 1.3, CBC w Diff NO MAN DIFF REQ, RBC 3.73 L, MCV 101.9 H, MCH 34.1 H, MCHC 33.4, RDW 15.1 H, MPV 8.6, Gran % 79.8 H, Lymphocytes % 12.7 L, Monocytes % 5.4, Eosinophils % 1.9, Basophils % 0.2, Absolute Granulocytes 6.0, Absolute Lymphocytes 1.0 L, Absolute Monocytes 0.4, Absolute Eosinophils 0.1, Absolute Basophils 0 Microbiology 11/17 1821 BLOOD: Blood Culture - RECD 11/17 154 BLOOD: Blood Culture - RECD Patient is here for evaluation of a diabetic foot ulcer. On exam there is definitely evidence of soft tissue infection with a concern for osteomyelitis. There is lymphatic streaking present. Patient is afebrile his vital signs are stable there is no evidence of sepsis. Blood work was obtained he has no white count. He does have an anion gap of 21. CRP is 3.6 sedimentation rate is pending. X-rays negative for signs of osteomyelitis. Spoke with Dr. Deng who recommends giving a dose of IV antibiotics and he will see the patient in the morning. Patient will likely need an MRI to rule out osteomyelitis. Patient has a penicillin allergy and received clindamycin last time he was given a 900 mg IV dose. Case was discussed with Dr. Reyes he agrees patient admitted to general medicine. Diagnostic Imaging: Viewed by Me: Radiology Read. Discussed w/RAD: Radiology Read. Radiology Impression: PATIENT: JOSÉ MIGUEL ALMODOVAR PRESENT AGE: 62 PATIENT ACCOUNT NO: [id number] : 55 LOCATION: [facility] ORDERING PHYSICIAN: Harshad WELLINGTON SERVICE DATE: 11/17/17 EXAM TYPE: RAD - XRY-FOOT COMPLETE, R EXAMINATION: XR FOOT, RIGHT CLINICAL INFORMATION: Ulceration lateral aspect right foot with question of osteomyelitis. COMPARISON: 08/27/2017 TECHNIQUE: AP, lateral, and oblique views of the right foot. FINDINGS : Since the prior study, there has been no significant interval change. Once again noted is generalized osteopenia and hammertoe deformities. Vascular calcifications are present. No acute fractures or bony destructive lesions are seen. IMPRESSION: No evidence to suggest osteomyelitis. As stated previously, MRI of the foot with and without contrast would have improved sensitivity and specificity of osteomyelitis. DICTATED BY: Nikhil Billingsley MD DATE/TIME DICTATED: 11/17/171847 PLATE DRILLER:DOTTIE DATE/TIME TRANSCRIBED:11/17/171847 CONFIDENTIAL, DO NOT COPY WITHOUT APPROPRIATE AUTHORIZATION. (Harshad Shah) Departure Departure Disposition: STILL A PATIENT Condition: Stable Clinical Impression Primary Impression: Diabetic foot infection Referrals: Erin MEDINA,Tulio Allen (PCP/Family) Departure Forms: Customer Survey General Discharge Information (Harshad Shah) Admission Note Spoke With: Cholo Burkett MD Documentation of Exam: Documentation of any treatments & extenuating circumstances including Concerns Regarding Discharge (functional status, medication knowledge or non-compliance, living conditions, etc.) that warrant an admission rather than observation: [IV ABX, PODIATRY CONSULT, MRI VS BONE BIOPSY, WOUND CARE] PA/HUMANITIES AND LANGUAGES PROFESSOR Co-Sign Statement Statement: ED Attending supervision documentation- [X] I saw and evaluated the patient. I have also reviewed all the pertinent lab results and diagnostic results. I agree with the findings and the plan of care as documented in the PA's/HUMANITIES AND LANGUAGES PROFESSOR's documentation. [X] I have reviewed the ED Record and agree with the PA's/HUMANITIES AND LANGUAGES PROFESSOR's documentation. [] Additions or exceptions (if any) to the PAs/HUMANITIES AND LANGUAGES PROFESSOR's note and plan are summarized below: [SEE ABOVE NOTE] (Amy MEDINA,Ayan Boland)
--- NOTE | 2017-11-17 20:43 | History & Physical ---
Magdalene Sloan 11/17/172041: General Information and HPI MD Statement: I have seen and personally examined JOSÉ MIGUEL ALMODOVAR and documented this H&P. The patient is a 62 year old M who presented with a patient stated chief complaint of []. Source of Information: patient Exam Limitations: no limitations History of Present Illness: 62 year old male with PMH ESRD on HD TuThSat, DM, h/o diabetic foot ulcer right foot, HLD presenting at the request of Dr. Chen so patient can be seen by Dr. Deng and evaluated for cellulitis. Patient reports he was admitted to [place] August 23, 2017 for RLE cellulitis tx with IV abx and PO abx upon discharge. He states his infection improved with tx and he was compliant. He states about one week ago his right foot wound started to drain again and he noticed a new wound on the plantar surface of right foot. He notes associated redness, pain, and swelling. He is able to still ambulate, but with pain. He currently performs wound care daily with betadine on , , Sat and Santyl on MWF. He denies any fever, chills, chest pain, SOB, vomiting, diarrhea. Of note: Patient states since his last admission he underwent a vascular procedure to [facility] for improvement of arterial flow. This was done in [place]. Allergies/Medications Allergies: Coded Allergies: amoxicillin (Mild, RASH ALL OVER 08/27/17) Penicillins (RASH ALL OVER 08/27/17) Past History Travel History Traveled to [place] past 21 day No Medical History Neurological: NEUROPATHY EENT: diabetic retinopathy Cardiovascular: CHF, hypertension, hyperlipidemia Respiratory: SMOKER 0ne pack now cut down to 8/day smoking for the past 40 yrs Gastrointestinal: GERD Hepatic: NONE Renal: chronic kidney disease, ESRD L AV FISTULA Musculoskeletal: ARTHRITIS Psychiatric: depression Endocrine: IDDM Blood Disorders: NONE Cancer(s): NONE DERIVATIVES TRADER/Reproductive: NONE History of MRSA: No History of VRE: No History of CDIFF: No Surgical History Surgical History: LEFT ARM FISTULA Past Family/Social History Family History Relations & Conditions if any MOTHER FH: colon cancer FH: type 2 diabetes mellitus FATHER FH: prostate cancer FH: type 2 diabetes mellitus MATERNAL GRANDFATHER FH: type 2 diabetes mellitus SISTER FH: bladder cancer GRANDMOTHER FH: cancer Psychosocial History Where do you live? Home Who Do You Live With? parent, lives with sister and mother Services at Home: None Smoking Status: Current Everyday Smoker (1/2ppd x52 years) ETOH Use: quit etoh when started on dialysis Illicit Drug Use: denies illicit drug use Functional Ability Ambulation: independent Employment History Employment Disability Review of Systems Review of Systems Constitutional: Reports: no symptoms. EENTM: Reports: no symptoms. Cardiovascular: Reports: no symptoms. Respiratory: Reports: no symptoms. GI: Reports: no symptoms. Genitourinary: Reports: no symptoms. Musculoskeletal: Reports: no symptoms. Skin: Reports: change in skin color, erythema, lesions. Neurological/Psychological: Reports: no symptoms. Exam & Diagnostic Data Last 24 Hrs of Vital Signs/I&O Vital Signs Date Time Temp Pulse Resp B/P B/P Pulse O2 O2 Flow FiO2 Mean Ox Delivery Rate 11/17 2235 71 18 154/60 100 Room Air 11/17 1934 98.0 70 18 157/67 100 Room Air 11/17 1800 98.2 88 18 128/62 98 11/17 1518 98.1 84 18 148/77 96 Room Air Intake & Output 11/18 0800 11/18 0000 11/17 1600 Intake Total 0 Output Total Balance 0 Intake, Oral 0 Patient 175 lb Weight Physical Exam General Appearance Alert, Oriented X3, Cooperative, No Acute Distress Skin see extremity exam Skin Temp/Moisture Exam: Warm/Dry HEENT Atraumatic Neck Supple Cardiovascular Regular Rate, Normal S1, Normal S2, No Murmurs Lungs Clear to Auscultation Abdomen Normal Bowel Sounds, Soft, No Tenderness Extremities right great toe with ulceration to medial aspect. lateral plantar surface of right foot with callus and ulceration. Lateral aspect of foot with erythema; extreme tenderness to palpation? fluctuance with erythema tracking up dorsum of foot. Unable to palpate DP/PT 2/2 edema. Motor/sensory intact Assessment/Plan Assessment: 62 year old male with PMH ESRD on HD TuThSat, DM, h/o diabetic foot ulcer right foot, HLD presenting at the request of Dr. Chen so patient can be seen by Dr. Deng and evaluated for cellulitis. Patient reports he was admitted to [facility] August 23, 2017 for RLE cellulitis tx with IV abx and PO abx upon discharge. He states his infection improved with tx and he was compliant. He states about one week ago his right foot wound started to drain again and he noticed a new wound on the plantar surface of right foot. He notes associated redness, pain, and swelling. He is able to still ambulate, but with pain. He currently performs wound care daily with betadine on , , Fri and Santyl on MWF. He denies any fever, chills, chest pain, SOB, vomiting, diarrhea. Of note: Patient states since his last admission he underwent a vascular procedure to [facility] for improvement of arterial flow. This was done in [place]. Patient will be admitted to general medicine service for further care of the following: Problem List: 1. R foot cellulitis with new ulceration lateral plantar surface 2. Chronic right foot ulceration 3. ESRD on HD TuThSat 4. Macrocytic anemia Admission Data: VS T98.1 P84 RR18 BP148/77 Sat96%RA Labs: WBC 7.5 H/H 12.7/38.0 plt 231 Na 131 K3.6 BUN/Cr 61/8.6 Glu 372 BCx pending ED tx: one dose of Clindamycin XR right foot: IMPRESSION: No evidence to suggest osteomyelitis. As stated previously, MRI of the foot with and without contrast would have improved sensitivity and specificity of osteomyelitis #R foot cellulitis with new ulceration lateral plantar surface-likely 2/2 diabetes; poor glucose control and foot hygeine -NPO after MN -SSI with D51/2 NS overnight -Dr. Deng to see in AM; possible OR -Pain control with tylenol and percocet #ESRD on HD TuThSat -Consult Nephrology -will need dialysis tomorrow #Macrocytic anemia-possible mixed picture anemia in ESRD -follow up B12/folate/iron studies DVT prophylaxis: heparin/ALPS/ambulation Code status: full code As Ranked By This Provider Problem List: 1. Diabetic foot infection 2. Diabetic foot ulcer 3. ESRD (end stage renal disease) on dialysis Core Measures/Misc (12/08) Acute Coronary Syndrome ACS Diagnosis: No Congestive Heart Failure Congestive Heart Failure Diagnosis No Cerebrovascular Accident CVA/TIA Diagnosis: No VTE (View Protocol) VTE Risk Factors Acute Medical Illness No Mechanical VTE Prophylaxis d/t N/A MechProphylax Ordered No VTE Pharm Prophylaxis d/t NA PharmProphylax ordered Sepsis (View protocol) Sepsis Present: No If YES complete Sepsis Event Note If YES complete Sepsis Event Note Cholo Burkett MD 11/18/17 0036: General Information and HPI Allergies/Medications Home Med list Acetaminophen (Tylenol) 325 MG TABLET 650 MG PO Q6 PRN PAIN (Reported) Aspirin (Ecotrin*) 81 MG TABLET.DR 1 TAB PO DAILY HEART/BLOOD (Reported) Atorvastatin Calcium (Lipitor) 10 MG TABLET 1 TAB PO DAILY CHOLESTEROL ( Reported) Citalopram Hydrobromide (Citalopram HBr) 20 MG TABLET 1 TAB PO DAILY MENTAL HEALTH (Reported) Esomeprazole (Nexium) 40 MG CAPSULE. 1 CAP PO DAILY GI (Reported) Insulin Aspart (Novolog) 100 UNIT/ML VIAL 0 UNITS SC AT BEDTIME DIABETES Glucose <250 0 units 251-300 2 units 301-350 3 units 351-400 4 units > 400 4 units Insulin Aspart (Novolog) 100 UNIT/ML VIAL 0 SC 1200,1700 DIABETES FSG 80-150 5 unit 151-200 6 unit 201-250 7 unit 251-300 8 unit 301-350 9 unit 351-400 9 unit >400, 10 units Insulin Aspart (Novolog) 100 UNIT/ML VIAL 0 UNITS SC 8AM DIABETES FSG <200 - 0 units 200-250, 3 units 251-300, 4 units 301-350, 5 units 351-400, 6 units >400 7 units Insulin Glargine,Hum.rec.anlog (Lantus Solostar) 100 UNIT/ML (3 ML) INSULN.PEN 6 UNIT SC BID DIABETES Mometasone Furoate (Nasonex) 50 MCG SPRAY.PUMP 2 SPRAY NASB DAILY ALLERGIES ( Reported) Montelukast Sodium (Singulair) 10 MG TABLET 1 TAB PO QPM ALLERGIES (Reported) Nephro-Vitamins (Nephro-Schuyler Tablet) 0.8 MG TABLET 1 TAB PO DAILY VITAMIN SUPPORT Core Measures/Misc (12/08) Sepsis (View protocol) If YES complete Sepsis Event Note If YES complete Sepsis Event Note Attending MD Review Statement Attending Statement Attending MD Statement: examined this patient, discuss w/resident/PA/BEAD WRAPPER, agreed w/resident/PA/BEAD WRAPPER, reviewed EMR data (avail) Attending Assessment/Plan: 62M PMH type 1 diabetes mellitus, end-stage renal disease on dialysis Friday/ /Friday, CHF reduced ejection fraction 40-45% presenting with right foot ulcer that has grown erythematous with yellow discharge. Patient denies any pain and is comfortable. He is afebrile and hemodynamically stable, but his ulcer has failed outpatient therapy and there is now concern for osteomyelitis. He has no other complaints. Last HD was Wednesday 11/15. 1. Right foot cellulitis 2. ESRD on HD Plan - Admit to general medicine - Podiatry consult - Monitor off antibiotics - Nephrology consult to continue HD - Continue home medications - DVT PPx - NPO after midnight René Bah 11/18/17 0408: Core Measures/Misc (12/08) Sepsis (View protocol) If YES complete Sepsis Event Note If YES complete Sepsis Event Note Resident Review Statement Resident Statement: examined this patient, discussed with event marketing intern, agreed with event marketing intern, discussed with family, reviewed EMR data (avail), discussed with nursing , discussed with case mgmt, reviewed images, amended to note Other Findings: This is a 62-year-old male with past medical history significant for COPD not on home oxygen, depression, diabetes mellitus, end-stage renal disease on dialysis Friday, left forearm AV fistula, GERD, heart failure with preserved ejection fraction 45%, pulmonary hypertension, arthritis, recent angioplasty right lower extremity was sent in by his radio division officer Dr. Chen for evaluation of wounds on right foot. patient was last admitted to [facility] in August 2017 for diabetic foot ulcer to the first metatarsal on the medial side of right foot. He received IV antibiotics and he was discharged on oral antibiotics. He reports that he completed his course of antibiotics. However 1 week ago he noticed a small callus on the area around fifth metatarsal and that callus gradually turning to ulcer associated with swelling, redness and pain. He notices that the redness is tracking up his foot towards the ankle. He also reports extreme pain. He is able to walk. Denies any fever, chills, trauma, drainage. He was seen by his radio division officer this morning and he was referred to the hospital for admission to rule out osteomyelitis. On review of systems patient denies fever, chills, short of breath, chest pain, palpitations, cough, nausea, vomiting, abdominal pain, change in bladder or bowel habits. He smokes 1 pack per day. Denies alcohol abuse and illicit drug abuse Vitals afebrile, heart rate 84, respiratory rate 18, blood pressure 148/70, saturating at 96 on room air Labs WBC 7, hemoglobin 12, hematocrit 38, platelets 231 Sodium 131, potassium 3.6, BUN 61 and creatinine 8.6, Glucose 372 CRP 3.6 ESR 21 Lactic acid 2 Foot x-ray- no evidence of osteomyelitis Diabetic right foot ulcer Patient developed callus near the right fifth metatarsal, progressed to ulcer associated with redness, swelling. His foot was tender to touch. Of note there is a healing ulcer noticed near first metatarsal. He was sent in by his radio division officer to rule out osteomyelitis he denied any fever, leukocytosis. ESR and CRP normal limit. -Admit to general medicine -Monitor vitals every shift -Monitor for fever, leukocytosis -MRI right foot to rule out osteomyelitis -Podiatric consult in the a.m. -N.p.o. tonight -IV fluid hydration -Possible debridement and bone biopsy in the a.m. -Will hold off antibiotics for now. Of note patient received 1 dose of clindamycin in the emergency room- Chronic kidney disease/end-stage renal disease Patient gets dialysis Friday through left forearm fistula. He is due for dialysis tomorrow -Nephro consult in the a.m. -Hemodialysis -Continue Renvela COPD not on home oxygen Continue Singulair 10 mg daily Diabetes mellitus Accu-Cheks Novolin sliding scale as he is n.p.o. Continue Levemir 6 units twice daily Continue D5 half normal saline GERD continue omeprazole 40 daily Hyperlipidemia continue aspirin 81 and Lipitor 10 daily DVT prophylaxis subcu heparin N.p.o. Full code Pain pathway ordered
[2017-11-18 06:08] LABS: ABSOLUTE BASOPHIL COUNT 0.1 /CUMM (0.0-0.2); ABSOLUTE EOSINOPHIL COUNT 0.3 /CUMM (0.0-0.7); ABSOLUTE LYMPH COUNT 1.5 /CUMM (1.2-3.4); ABSOLUTE MONOCYTE COUNT 0.6 /CUMM (0.10-0.60); BASOPHIL % 1.2 % (0.0-2.0); EOSINOPHIL % 5.3 % (0-5); HEMATOCRIT 35.5 % (42-52); MEAN CORPUSCULAR HGB 34.4 PG (27.0-31.0); MEAN CORPUSCULAR HGB CONC 33.5 G/DL (33.0-37.0); MEAN CORPUSCULAR VOLUME 102.7 FL (80.0-94.0); MEAN PLATELET VOLUME 8.8 FL (7.4-10.4); PLATELET COUNT 206 /CUMM (130-400); RBC DISTRIBUTION WIDTH 14.8 % (11.5-14.5); RED BLOOD CELL CT 3.46 /CUMM (4.70-6.10); WHITE BLOOD CELL COUNT 6.4 /CUMM (4.8-10.8)
[2017-11-18 06:30] VITALS: BP 149/65
--- NOTE | 2017-11-18 07:06 | PN- Housestaff ---
Cain Salcido 11/18/17 0706: Subjective Follow-up For: Hemodialysis, Review of Systems Constitutional: Denies: chills, fever, malaise, unexplained weight loss. Objective Last 24 Hrs of Vital Signs/I&O Vital Signs Date Time Temp Pulse Resp B/P B/P Pulse O2 O2 Flow FiO2 Mean Ox Delivery Rate 11/18 1700 97.8 81 18 141/66 99 Room Air 11/18 1628 97.8 81 18 141/66 99 Room Air 11/18 0757 97.1 72 18 148/65 99 Room Air 11/18 0630 98.0 65 20 149/65 100 11/17 2235 71 18 154/60 100 Room Air Intake & Output 11/18 1600 11/18 0800 11/18 0000 Intake Total 360 120 0 Output Total Balance 360 120 0 Intake, Oral 360 120 0 Patient 175 lb Weight Physical Exam General Appearance: Alert, Oriented X3, Cooperative Assessment/Plan Assessment: 62-year-old male with past medical history of ESRD on hemodialysis left arm AV fistula, diabetes mellitus, COPD(not on home oxygen), history of diabetic foot ulcer and right lower extremity, hyperlipidemia, CHF with ejection fraction of 40-45%, presented to emergency department with Dr. hall for right lower extremity ulcer, with yellow discharge. Problem List: *Right foot cellulitis/ulcer *He is already on hemodialysis *Microcytic anemia *Past medical history of CHF, hypertension, hyperlipidemia, diabetes At the time of presentation to emergency department vitals, labs are given below : VS T98.1 P84 RR18 BP148/77 Sat96%RA Labs: WBC 7.5 H/H 12.7/38.0 plt 231 Na 131 K3.6 BUN/Cr 61/8.6 Glu 372 BCx pending ED tx: one dose of Clindamycin XR right foot: IMPRESSION: No evidence to suggest osteomyelitis. As stated previously, MRI of the foot with and without contrast would have improved sensitivity and specificity of osteomyelitis -MRI awaited *Right foot cellulitis/ulcer: -Patient is given 1 dose of clindamycin -We will restart him antibiotic after podiatric procedure/biopsy -Pain medication -Dr. Howell bottle house pumper notes will be followed -control and foot hygeine -Pain control with tylenol and percocet ESRD on dialysis: -GFR 6 -Creatinine 9 -Nephrology consultation appreciated -Recommended dialysis -Dialysis done today -We will follow his recommendation -We will start erythropoietin hip Hb drop *Macrocytic anemia-possible mixed picture anemia in ESRD: -follow up B12/folate/iron studies Diabetes mellitus/hypertension/hyperlipidemia: -Patient home medication will be continued -Insulin NovoLog, Lantus will continued -We will monitor Accu-Chek -We will place a consult for endocrinology -Avoid nephrotoxic medication DVT prophylaxis: heparin/ALPS/ambulation Code status: full code Problem List: 1. CHRONIC KIDNEY DISEASE STAGE 4 2. Chronic renal failure 3. Diabetic foot ulcer Pain Ratin Pain Location: Right lower extremity pain Pain Goal: Remain pain free Pain Plan: Pain management pathway Tomorrow's Labs & Rationales: CBCT, BEP Valentin West 11/18/17 1218: Attending MD Review Statement Attending Statement Attending MD Statement: examined this patient, discuss w/resident/PA/LAND SURVEYOR MANAGER, agreed w/resident/PA/LAND SURVEYOR MANAGER, discussed with family, reviewed EMR data (avail), discussed with nursing, discussed with case mgmt, reviewed images, amended to note Attending Assessment/Plan: 62M PMH type 1 diabetes mellitus, end-stage renal disease on dialysis Friday/ /Friday, CHF reduced ejection fraction 40-45% presenting with right foot ulcer that has grown erythematous with yellow discharge. He is afebrile and hemodynamically stable, but his ulcer has failed outpatient therapy and there is now concern for osteomyelitis. HD ongoing today. Afebrile, hemodynamiclaly stable. Absent leukocytosis 1. Right foot cellulitis 2. ESRD on HD 3. DM insulin dependent 4. Chronic systlic CHF EF 40-45% Plan - Admit to general medicine - Podiatry consult - Consider abx if podiarty no plans to take OR. - Nephrology consult to continue HD - Continue home medications - DVT PPx.
[2017-11-18 07:57] VITALS: BP 148/65
--- NOTE | 2017-11-18 10:02 | Cons- Nephrology ---
General Information and HPI Consulting Request Date of Consult: 11/18/17 Requested By: Brett MEDINA,Valentin Reason for Consult: ESRD History of Present Illness: 62 yo male with ESRD due to type 1 DM, htn, HFrEF of 45%, pulmonary hypertension. He has had a right foot ulcer treated in august with IV and po antibiotics. Marily medina he also had a vascular intervention after that hospitalization. However 1 week ago foot again began to drain, he noted pain and redness. He was sent to ED for evaluation. Dilaysis days are TThSat so missed outapatient slot today. FH: Diabetes in both parents, uncle with ESRD. Allergies/Medications Allergies: Coded Allergies: amoxicillin (Mild, RASH ALL OVER 08/27/17) Penicillins (RASH ALL OVER 08/27/17) Home Med List: Acetaminophen (Tylenol) 325 MG TABLET 650 MG PO Q6 PRN PAIN (Reported) Aspirin (Ecotrin*) 81 MG TABLET.DR 1 TAB PO DAILY HEART/BLOOD (Reported) Atorvastatin Calcium (Lipitor) 10 MG TABLET 1 TAB PO DAILY CHOLESTEROL ( Reported) Citalopram Hydrobromide (Citalopram HBr) 20 MG TABLET 1 TAB PO DAILY MENTAL HEALTH (Reported) Esomeprazole (Nexium) 40 MG CAPSULE.DR 1 CAP PO DAILY GI (Reported) Insulin Aspart (Novolog) 100 UNIT/ML VIAL 0 UNITS SC AT BEDTIME DIABETES Glucose <250 0 units 251-300 2 units 301-350 3 units 351-400 4 units > 400 4 units Insulin Aspart (Novolog) 100 UNIT/ML VIAL 0 SC 1200,1700 DIABETES FSG 80-150 5 unit 151-200 6 unit 201-250 7 unit 251-300 8 unit 301-350 9 unit 351-400 9 unit >400, 10 units Insulin Aspart (Novolog) 100 UNIT/ML VIAL 0 UNITS SC 8AM DIABETES FSG <200 - 0 units 200-250, 3 units 251-300, 4 units 301-350, 5 units 351-400, 6 units >400 7 units Insulin Glargine,Hum.rec.anlog (Lantus Solostar) 100 UNIT/ML (3 ML) INSULN.PEN 6 UNIT SC BID DIABETES Mometasone Furoate (Nasonex) 50 MCG SPRAY.PUMP 2 SPRAY NASB DAILY ALLERGIES ( Reported) Montelukast Sodium (Singulair) 10 MG TABLET 1 TAB PO QPM ALLERGIES (Reported) Nephro-Vitamins (Nephro-Schuyler Tablet) 0.8 MG TABLET 1 TAB PO DAILY VITAMIN SUPPORT Current Medications: Current Medications Sig/Rhett Start time Last Medication Dose Route Stop Time Status Admin Acetaminophen 650 MG Q6P PRN 11/18 0015 AC PO Aspirin Buffered 81 MG DAILY 11/18 0900 AC PO Atorvastatin Calcium 10 MG DAILY 11/18 0900 AC PO Citalopram 20 MG DAILY 11/18 0900 AC Hydrobromide PO Clindamycin 600 MG IQ8 11/18 0700 AC 11/18 Dextrose/Water 50 ML IV 0740 Clindamycin 900 MG ONCE ONE 11/17 194 DC 11/17 Dextrose/Water 50 ML IV 11/17 Heparin Sodium 0 .STK-MED ONE 11/18 0648 DC (Porcine) .ROUTE Heparin Sodium 5,000 UNIT Q8 11/18 0600 AC 11/18 (Porcine) SC 0710 Insulin Aspart 0 TIDAC/HS 11/18 2345 CAN SC Insulin Aspart 0 TIDAC/HS 11/18 0700 AC SC Insulin Aspart 3 UNITS ONCE ONE 11/18 0130 DC 11/18 SC 11/18 0131 0047 Insulin Detemir 6 UNITS BID 11/18 0000 AC 11/18 SC 0047 Insulin Human Regular 0 Q6 11/18 0115 DC 11/18 SC 0710 Montelukast Sodium 10 MG QPM 11/18 2100 AC PO Multivitamins 1 TAB DAILY 11/18 0900 AC PO Omeprazole 40 MG DAILY AC 11/18 0700 AC 11/18 PO 0712 Omeprazole 0 .STK-MED ONE 11/18 0648 DC PO Review of Systems Review of Systems: Negative except as noted above. 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 Home Who Do You Live With? parent, lives with sister and mother Services at Home: None Smoking Status: Current Everyday Smoker (1/2ppd x52 years) ETOH Use: quit etoh when started on dialysis Illicit Drug Use: denies illicit drug use Functional Ability Ambulation: independent Employment History Employment: Disability Exam & Diagnostic Data Vital Signs and I&O Vital Signs Date Time Temp Pulse Resp B/P B/P Pulse O2 O2 Flow FiO2 Mean Ox Delivery Rate 11/18 0757 97.1 72 18 148/65 99 Room Air 11/18 0630 98.0 65 20 149/65 100 11/17 2235 71 18 154/60 100 Room Air 11/17 1934 98.0 70 18 157/67 100 Room Air 11/17 1800 98.2 88 18 128/62 98 11/17 1518 98.1 84 18 148/77 96 Room Air Intake & Output 11/18 1600 11/18 0400 11/17 1600 11/17 0400 11/16 1600 11/16 0400 Intake Total 0 Output Total Balance 0 Intake, Oral 0 Patient 175 lb Weight Physical Exam: NAD VS as above. Eyes: anicteric, PERRLA Neck: no mass or thyromegally Nodes: negative cervical/inguinal Skin: no rash or induration. CV: no rub or murmur Lungs: clear P&A Abd: non-tender, no organomegaly, BS positive Exts: 2+ edema, good bruit over AVF. Neuro: A&O, CN intact, no asterixis. Results Pertinent Lab Results: Laboratory Tests 11/18 11/17 11/17 0554 1930 1822 Chemistry Sodium (137 - 145 mmol/L) 131 L Potassium (3.5 - 5.1 mmol/L) 4.1 Chloride (98 - 107 mmol/L) 92 L Carbon Dioxide (22 - 30 mmol/L) 23 Anion Gap (5 - 16) 16 BUN (9 - 20 mg/dL) 77 H Creatinine (0.7 - 1.2 mg/dL) 9.0 *H Estimated GFR (>60 ml/min) 6 L BUN/Creatinine Ratio (7 - 25 %) 8.6 Lactic Acid (0.7 - 2.1 mmol/L) 1.1 Hematology CBC w Diff NO MAN DIFF REQ WBC (4.8 - 10.8 /CUMM) 6.4 RBC (4.70 - 6.10 /CUMM) 3.46 L Hgb (14.0 - 18.0 G/DL) 11.9 L Hct (42 - 52 %) 35.5 L MCV (80.0 - 94.0 FL) 102.7 H MCH (27.0 - 31.0 PG) 34.4 H MCHC (33.0 - 37.0 G/DL) 33.5 RDW (11.5 - 14.5 %) 14.8 H Plt Count (130 - 400 /CUMM) 206 MPV (7.4 - 10.4 FL) 8.8 Gran % (42.2 - 75.2 %) 62.0 Lymphocytes % (20.5 - 51.1 %) 22.7 Monocytes % (1.7 - 9.3 %) 8.8 Eosinophils % (0 - 5 %) 5.3 H Basophils % (0.0 - 2.0 %) 1.2 Absolute Granulocytes (1.4 - 6.5 /CUMM) 4.0 Absolute Lymphocytes (1.2 - 3.4 /CUMM) 1.5 Absolute Monocytes (0.10 - 0.60 /CUMM) 0.6 Absolute Eosinophils (0.0 - 0.7 /CUMM) 0.3 Absolute Basophils (0.0 - 0.2 /CUMM) 0.1 ESR Westergren (0 - 10 MM) 21 H 11/17 1541 Chemistry Sodium (137 - 145 mmol/L) 131 L Potassium (3.5 - 5.1 mmol/L) 3.6 Chloride (98 - 107 mmol/L) 92 L Carbon Dioxide (22 - 30 mmol/L) 18 L Anion Gap (5 - 16) 21 H BUN (9 - 20 mg/dL) 61 H Creatinine (0.7 - 1.2 mg/dL) 8.6 *H Estimated GFR (>60 ml/min) 6 L BUN/Creatinine Ratio (7 - 25 %) 7.1 Glucose (65 - 99 mg/dL) 372 H Lactic Acid (0.7 - 2.1 mmol/L) 2.0 Calcium (8.4 - 10.2 mg/dL) 9.1 Iron (49 - 181 ug/dL) 64 TIBC (261 - 462 ug/dL) 263 Ferritin (17.9 - 464 ng/mL) 138.0 Total Bilirubin (0.2 - 1.3 mg/dL) 0.4 AST (17 - 59 U/L) 23 ALT (21 - 72 U/L) 28 Alkaline Phosphatase (< 127 U/L) 209 H Troponin I (<0.11 ng/ml) 0.02 C-Reactive Prot, Quant (<1.0 mg/dL) 3.6 H Total Protein (6.3 - 8.2 g/dL) 7.0 Albumin (3.5 - 5.0 g/dL) 3.9 Globulin (1.9 - 4.2 gm/dL) 3.1 Albumin/Globulin Ratio (1.1 - 2.2 %) 1.3 Vitamin B12 (239 - 931 pg/mL) 877 Folate (2.76 - 20.0 ng/mL) > 20.0 H Hematology CBC w Diff NO MAN DIFF REQ WBC (4.8 - 10.8 /CUMM) 7.5 RBC (4.70 - 6.10 /CUMM) 3.73 L Hgb (14.0 - 18.0 G/DL) 12.7 L Hct (42 - 52 %) 38.0 L MCV (80.0 - 94.0 FL) 101.9 H MCH (27.0 - 31.0 PG) 34.1 H MCHC (33.0 - 37.0 G/DL) 33.4 RDW (11.5 - 14.5 %) 15.1 H Plt Count (130 - 400 /CUMM) 231 MPV (7.4 - 10.4 FL) 8.6 Gran % (42.2 - 75.2 %) 79.8 H Lymphocytes % (20.5 - 51.1 %) 12.7 L Monocytes % (1.7 - 9.3 %) 5.4 Eosinophils % (0 - 5 %) 1.9 Basophils % (0.0 - 2.0 %) 0.2 Absolute Granulocytes (1.4 - 6.5 /CUMM) 6.0 Absolute Lymphocytes (1.2 - 3.4 /CUMM) 1.0 L Absolute Monocytes (0.10 - 0.60 /CUMM) 0.4 Absolute Eosinophils (0.0 - 0.7 /CUMM) 0.1 Absolute Basophils (0.0 - 0.2 /CUMM) 0 Assessment/Plan Assessment/Recommendations Assessment: ESRD now admitted with foot ulcer. Seems relatively euvolemic, electrolytes are acceptable. Recommendations: Dialsysis today. Scale has him only 1 kg above dry weight which seems low, will UF 2 ltiers today. Needs phosphate binder so will put him back on his calcium acetate, 667 mg po tid with meals. No EPO presently but if hgb drops will need to start.
[2017-11-18 17:00] VITALS: BP 141/66
[2017-11-18 23:55] VITALS: BP 129/58
[2017-11-19 05:39] LABS: ABSOLUTE BASOPHIL COUNT 0.1 /CUMM (0.0-0.2); ABSOLUTE EOSINOPHIL COUNT 0.3 /CUMM (0.0-0.7); ABSOLUTE GRANULOCYTE CT 4.1 /CUMM (1.4-6.5); ABSOLUTE LYMPH COUNT 1.4 /CUMM (1.2-3.4); ABSOLUTE MONOCYTE COUNT 0.7 /CUMM (0.10-0.60); GRANULOCYTE % 62.7 % (42.2-75.2); HEMATOCRIT 36.8 % (42-52); MEAN CORPUSCULAR HGB 34.2 PG (27.0-31.0); MEAN CORPUSCULAR HGB CONC 33.5 G/DL (33.0-37.0); MEAN PLATELET VOLUME 8.7 FL (7.4-10.4); PLATELET COUNT 217 /CUMM (130-400); RBC DISTRIBUTION WIDTH 15.1 % (11.5-14.5); RED BLOOD CELL CT 3.61 /CUMM (4.70-6.10); WHITE BLOOD CELL COUNT 6.5 /CUMM (4.8-10.8)
--- NOTE | 2017-11-19 11:13 | Cons- Endocrinology ---
General Information and HPI Consulting Request Date of Consult: 11/19/17 Requested By: medical team Reason for Consult: management of uncontrolled diabetes type 1 Source of Information: patient, old records Exam Limitations: no limitations History of Present Illness: 61 y/o male hx of diabetes type 1 complicated with retinopathy and ESRD on HD, was admitted for right toe infection and cellulitis. I was asked to see him for management of diabetes. He was put consistent carbohydrates 1 diet, on Levemir 6 units twice a day, Novolog coverage before meals and Novolog coverage at bedtime. His FSG was 403 last night and 175 this morning. Allergies/Medications Allergies: Coded Allergies: amoxicillin (Mild, RASH ALL OVER 08/27/17) Penicillins (RASH ALL OVER 08/27/17) Home Med List: Acetaminophen (Tylenol) 325 MG TABLET 650 MG PO Q6 PRN PAIN (Reported) Aspirin (Ecotrin*) 81 MG TABLET.DR 1 TAB PO DAILY HEART/BLOOD (Reported) Atorvastatin Calcium (Lipitor) 10 MG TABLET 1 TAB PO DAILY CHOLESTEROL ( Reported) Citalopram Hydrobromide (Citalopram HBr) 20 MG TABLET 1 TAB PO DAILY MENTAL HEALTH (Reported) Esomeprazole (Nexium) 40 MG CAPSULE.DR 1 CAP PO DAILY GI (Reported) Insulin Aspart (Novolog) 100 UNIT/ML VIAL 0 UNITS SC AT BEDTIME DIABETES Glucose <250 0 units 251-300 2 units 301-350 3 units 351-400 4 units > 400 4 units Insulin Aspart (Novolog) 100 UNIT/ML VIAL 0 SC 1200,1700 DIABETES FSG 80-150 5 unit 151-200 6 unit 201-250 7 unit 251-300 8 unit 301-350 9 unit 351-400 9 unit >400, 10 units Insulin Aspart (Novolog) 100 UNIT/ML VIAL 0 UNITS SC 8AM DIABETES FSG <200 - 0 units 200-250, 3 units 251-300, 4 units 301-350, 5 units 351-400, 6 units >400 7 units Insulin Glargine,Hum.rec.anlog (Lantus Solostar) 100 UNIT/ML (3 ML) INSULN.PEN 6 UNIT SC BID DIABETES Mometasone Furoate (Nasonex) 50 MCG SPRAY.PUMP 2 SPRAY NASB DAILY ALLERGIES ( Reported) Montelukast Sodium (Singulair) 10 MG TABLET 1 TAB PO QPM ALLERGIES (Reported) Nephro-Vitamins (Nephro-Schuyler Tablet) 0.8 MG TABLET 1 TAB PO DAILY VITAMIN SUPPORT Review of Systems Review of Systems Constitutional: Reports: see HPI. Cardiovascular: Denies: chest pain. Respiratory: Denies: short of breath. Musculoskeletal: Reports: see HPI. Hematologic/Endocrine: Denies: polyuria, polydipsia. 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 Home Who Do You Live With? parent, lives with sister and mother Services at Home: None Smoking Status: Current Everyday Smoker (1/2ppd x52 years) ETOH Use: quit etoh when started on dialysis Illicit Drug Use: denies illicit drug use Functional Ability Ambulation: independent Employment History Employment: Disability Exam & Diagnostic Data Last 24 Hrs of Vital Signs/I&O Vital Signs Date Time Temp Pulse Resp B/P B/P Pulse O2 O2 Flow FiO2 Mean Ox Delivery Rate 11/19 0518 98.7 61 18 124/60 96 11/18 2355 98.2 87 18 129/58 97 Room Air 11/18 2258 98.2 87 18 129/58 97 Room Air 11/18 1700 97.8 81 18 141/66 99 Room Air 11/18 1628 97.8 81 18 141/66 99 Room Air Intake & Output 11/19 1600 11/19 0800 11/19 0000 Intake Total 120 Output Total Balance 120 Intake, Oral 120 Physical Exam General Appearance: no apparent distress Neck: normal inspection Respiratory: lungs clear Cardiovascular: regular rate/rhythm Extremities: swelling, redness on right foot with lesions. Assessment/Plan Assessment/Plan 61 y/o male hx of diabetes type 1 complicated with retinopathy and ESRD on HD, was admitted for right toe infection and cellulitis. DM management: 1. continue Levemir 6 units twice a day; 2. change diet to consistent carbohydrates 1 diet; 3. Novolog coverage before breakfast: FSG 80-150, 2 units; 151-200, 3 units 200-250, 4 units 251-300, 5 units 301-350, 6 units 351-400, 7 units > 400, 8 units 3. Novolog coverage before lunch and before dinner; FSG 80-150, 5 units 151-200, 6 units 200-250, 7 units 251-300, 8 units 301-350, 9 units 351-400, 9 units > 400, 10 units 4. Novolog coverage at bedtime; FSG < 250, no coverage 251-300, 2 units 301-350, 3 units 351-400, 4 units > 400, 4 units monitor FSGs will follow Consult Acknowledgment - Thank you for your consult request.
--- NOTE | 2017-11-19 11:20 | PN- Student ---
Subjective Subjective: is a 67 y/o male with a PMH of DM-1 on insulin, cellulitis of the right lower extremity, angioplasty of the right lower extremity, ESRF on hemodialysis, COPD not on home oxygen, HFpEF (45%), GERD, arthritis, and pulmonary HTN. The patient was reffered by his fitness worker for an ulcer on his right foot. Acetaminophen (Tylenol) 325 MG TABLET 650 MG PO Q6 PRN PAIN (Reported) Aspirin (Ecotrin*) 81 MG TABLET.DR 1 TAB PO DAILY HEART/BLOOD (Reported) Atorvastatin Calcium (Lipitor) 10 MG TABLET 1 TAB PO DAILY CHOLESTEROL ( Reported) Citalopram Hydrobromide (Citalopram HBr) 20 MG TABLET 1 TAB PO DAILY MENTAL HEALTH (Reported) Esomeprazole (Nexium) 40 MG CAPSULE.DR 1 CAP PO DAILY GI (Reported) Insulin Aspart (Novolog) 100 UNIT/ML VIAL 0 UNITS SC AT BEDTIME DIABETES Glucose <250 0 units 251-300 2 units 301-350 3 units 351-400 4 units > 400 4 units Insulin Aspart (Novolog) 100 UNIT/ML VIAL 0 SC 1200,1700 DIABETES FSG 80-150 5 unit 151-200 6 unit 201-250 7 unit 251-300 8 unit 301-350 9 unit 351-400 9 unit >400, 10 units Insulin Aspart (Novolog) 100 UNIT/ML VIAL 0 UNITS SC 8AM DIABETES FSG <200 - 0 units 200-250, 3 units 251-300, 4 units 301-350, 5 units 351-400, 6 units >400 7 units Insulin Glargine,Hum.rec.anlog (Lantus Solostar) 100 UNIT/ML (3 ML) INSULN.PEN 6 UNIT SC BID DIABETES Mometasone Furoate (Nasonex) 50 MCG SPRAY.PUMP 2 SPRAY NASB DAILY ALLERGIES ( Reported) Montelukast Sodium (Singulair) 10 MG TABLET 1 TAB PO QPM ALLERGIES (Reported) Nephro-Vitamins (Nephro-Schuyler Tablet) 0.8 MG TABLET 1 TAB PO DAILY VITAMIN SUPPORT Allergies * amoxicillin - mild rash * penicillin - rash all over Surgical Hx * fistula for hemodialysis on left arm * right leg angioplasty - had occlusion in artery Family Hx * Father - , fell and broke his hip, got C.diff while being hospitalized for injury and * Mother - HTN, pacemaker * Sister - bladder cancer * Son - DM-2 Tobacco * 1/2 ppd for 52 years Alcohol * denies use No drugs for recreational purposes Objective Objective: Review of Systems * floaters in eye - retinal hemorrhage last month * GERD Heart Exam * normal S1/S2 sounds were heard without any signs of murmurs or gallops Lung Exam * vesicular breath sounds were heard bilaterally upon ascultation without any signs of wheezing, rales, or crackles Na is low (131) BUN (77) & Creatinine (9) are elevated Macrocytic anemia since admission: RBC 3.6 MCV 102.7 X Ray of foot showed no evidence of osteomyelitis ECG showed LBBB, 1st degree AVB, and biphasic p-waves Results Results: Vital Signs Result Date Time Pulse Ox 96 11/19 517 B/P 124/60 11/19 517 Temp 98.7 11/19 517 Pulse 61 11/19 517 Resp 18 11/19 05 O2 Delivery Room Air 11/18 2355 Intake & Output 11/19 0000 11/18 1600 11/18 0800 Intake Total 120 360 120 Output Total Balance 120 360 120 Intake, Oral 120 360 120 Patient 175 lb Weight Laboratory Tests 11/19/17 0510: Anion Gap 12, Estimated GFR 10 L, BUN/Creatinine Ratio 7.6, CBC w Diff NO MAN DIFF REQ, RBC 3.61 L, MCV 102.0 H, MCH 34.2 H, MCHC 33.5, RDW 15.1 H, MPV 8.7, Gran % 62.7, Lymphocytes % 21.0, Monocytes % 10.3 H, Eosinophils % 5.0, Basophils % 1.0, Absolute Granulocytes 4.1, Absolute Lymphocytes 1.4, Absolute Monocytes 0.7 H, Absolute Eosinophils 0.3, Absolute Basophils 0.1 11/18/17 0554: Anion Gap 16, Estimated GFR 6 L, BUN/Creatinine Ratio 8.6, CBC w Diff NO MAN DIFF REQ, RBC 3.46 L, MCV 102.7 H, MCH 34.4 H, MCHC 33.5, RDW 14.8 H, MPV 8.8, Gran % 62.0, Lymphocytes % 22.7, Monocytes % 8.8, Eosinophils % 5.3 H, Basophils % 1.2, Absolute Granulocytes 4.0, Absolute Lymphocytes 1.5, Absolute Monocytes 0.6, Absolute Eosinophils 0.3, Absolute Basophils 0.1 11/17/17 1930: ESR Westergren 21 H 11/17/17 182: Lactic Acid 1.1 11/17/17 1541: Anion Gap 21 H, Estimated GFR 6 L, BUN/Creatinine Ratio 7.1, Glucose 372 H, Lactic Acid 2.0, Calcium 9.1, Iron 64, TIBC 263, Ferritin 138.0, Total Bilirubin 0.4, AST 23, ALT 28, Alkaline Phosphatase 209 H, Troponin I 0.02, C-Reactive Prot, Quant 3.6 H, Total Protein 7.0, Albumin 3.9, Globulin 3.1, Albumin/ Globulin Ratio 1.3, Vitamin B12 877, Folate > 20.0 H, CBC w Diff NO MAN DIFF REQ, RBC 3.73 L, MCV 101.9 H, MCH 34.1 H, MCHC 33.4, RDW 15.1 H, MPV 8.6, Gran % 79.8 H, Lymphocytes % 12.7 L, Monocytes % 5.4, Eosinophils % 1.9, Basophils % 0.2, Absolute Granulocytes 6.0, Absolute Lymphocytes 1.0 L, Absolute Monocytes 0.4, Absolute Eosinophils 0.1, Absolute Basophils 0 Microbiology 11/17 1821 BLOOD: Blood Culture - RES 11/17 154 BLOOD: Blood Culture - RES Assessment/Plan Assessment: is a 67 y/o male with a PMH of DM-1 on insulin, cellulitis of the right lower extremity, angioplasty of the right lower extremity, ESRF on hemodialysis, COPD not on home oxygen, HFpEF (45%), GERD, arthritis, and pulmonary HTN. The patient was reffered by his fitness worker for an ulcer on his right foot. Plan: Foot ulcer * IV clindamycin Pain is controlled with tylenol and percocet Pending MRI of right foot
--- NOTE | 2017-11-19 13:23 | PN- Att Addend ---
Attending Addendum Attending Brief Note Afebrile, hemodynamiclaly stable. No new complaints. Had dialysis yesterday. Awaiting MRI foot. PE unremarakbel except right great toe with ulceration to medial aspect. Lateral aspect of foot with erythema, tenderness to palpation with dressings+. 1. Right foot cellulitis r/o OM. 2. ESRD on HD 3. DM insulin dependent 4. Chronic systlic CHF EF 40-45% Plan - Podiatry consult - C/w abx and follow MRI results - Nephrology consult to continue HD - Endocrinology following for diabetes - Continue home medications - DVT PPx. Admission Lab Results I reviewed the following labs: Laboratory Tests 11/19 0510 Chemistry Sodium (137 - 145 mmol/L) 135 L Potassium (3.5 - 5.1 mmol/L) 3.4 L Chloride (98 - 107 mmol/L) 98 Carbon Dioxide (22 - 30 mmol/L) 25 Anion Gap (5 - 16) 12 BUN (9 - 20 mg/dL) 44 H Creatinine (0.7 - 1.2 mg/dL) 5.8 *H Estimated GFR (>60 ml/min) 10 L BUN/Creatinine Ratio (7 - 25 %) 7.6 Hematology CBC w Diff NO MAN DIFF REQ WBC (4.8 - 10.8 /CUMM) 6.5 RBC (4.70 - 6.10 /CUMM) 3.61 L Hgb (14.0 - 18.0 G/DL) 12.4 L Hct (42 - 52 %) 36.8 L MCV (80.0 - 94.0 FL) 102.0 H MCH (27.0 - 31.0 PG) 34.2 H MCHC (33.0 - 37.0 G/DL) 33.5 RDW (11.5 - 14.5 %) 15.1 H Plt Count (130 - 400 /CUMM) 217 MPV (7.4 - 10.4 FL) 8.7 Gran % (42.2 - 75.2 %) 62.7 Lymphocytes % (20.5 - 51.1 %) 21.0 Monocytes % (1.7 - 9.3 %) 10.3 H Eosinophils % (0 - 5 %) 5.0 Basophils % (0.0 - 2.0 %) 1.0 Absolute Granulocytes (1.4 - 6.5 /CUMM) 4.1 Absolute Lymphocytes (1.2 - 3.4 /CUMM) 1.4 Absolute Monocytes (0.10 - 0.60 /CUMM) 0.7 H Absolute Eosinophils (0.0 - 0.7 /CUMM) 0.3 Absolute Basophils (0.0 - 0.2 /CUMM) 0.1 Admission Meds I reviewed the following Meds: Current Medications Sig/Rhett Start time Last Medication Dose Stop Time Status Admin Acetaminophen 650 MG Q6P PRN 11/18 0015 AC (Tylenol) Aspirin Buffered 81 MG DAILY 11/18 0900 AC 11/19 (Ecotrin) 0902 Atorvastatin Calcium 10 MG DAILY 11/18 0900 AC 11/19 (Lipitor) 0902 Calcium Acetate 667 MG TIDAC 11/18 1200 AC 11/19 (PhosLo) 1250 Citalopram 20 MG DAILY 11/18 0900 AC 11/19 Hydrobromide 0902 (Celexa) Clindamycin 600 MG IQ8 11/18 0700 AC 11/19 (Cleocin) 0902 Dextrose/Water 50 ML (D5W) Heparin Sodium 5,000 UNIT Q8 11/18 0600 AC 11/19 (Porcine) 0635 Insulin Aspart 0 0800 11/20 0800 AC (NovoLOG) Insulin Aspart 0 AT BEDTIME 11/19 2100 AC (NovoLOG) Insulin Aspart 0 1200,1700 11/19 1200 AC (NovoLOG) Insulin Detemir 6 UNITS BID 11/18 0000 AC 11/19 (Levemir) 0902 Montelukast Sodium 10 MG QPM 11/18 2100 AC 11/18 (Singulair) 2150 Multivitamins 1 TAB DAILY 11/18 0900 AC 11/19 (Nephrocaps) 0902 Omeprazole 40 MG DAILY AC 11/18 0700 AC 11/19 (Prilosec) 0635 Oxycodone/ 1 TAB Q8 PRN 11/19 1230 UNVr 11/19 Acetaminophen 1235 (Percocet) Polyethylene Glycol 17 GM DAILY 11/19 0900 AC (Miralax)
--- NOTE | 2017-11-19 13:48 | PN- Housestaff ---
Subjective Follow-up For: Right lower extremity foot ulcer Subjective: Patient seen and examined at bedside. He was complaining of pain in the right foot intensity 5/10, he said Tylenol does not work for my pain I need something extra. He denies fever, chills, chest pain, palpitation, abdominal pain, diarrhea, constipation, burning micturition. Review of Systems Constitutional: Reports: see HPI. Objective Last 24 Hrs of Vital Signs/I&O Vital Signs Date Time Temp Pulse Resp B/P B/P Pulse O2 O2 Flow FiO2 Mean Ox Delivery Rate 11/19 1420 97.9 65 16 138/60 97 Room Air 11/19 0518 98.7 61 18 124/60 96 11/18 2355 98.2 87 18 129/58 97 Room Air 11/18 2258 98.2 87 18 129/58 97 Room Air 11/18 1700 97.8 81 18 141/66 99 Room Air 11/18 1628 97.8 81 18 141/66 99 Room Air Intake & Output 11/19 1600 11/19 0800 11/19 0000 Intake Total 120 Output Total Balance 120 Intake, Oral 120 Physical Exam General Appearance: Alert, Oriented X3, Cooperative, No Acute Distress Skin: No Rashes HEENT: Atraumatic, PERRLA, EOMI, Mucous Membr. moist/pink Neck: Supple, No JVD, No thryomegaly, +2 Carotid Pulse wo Bruit Cardiovascular: Regular Rate, Normal S1, Normal S2, No Murmurs Lungs: Clear to Auscultation, Normal Air Movement Abdomen: Normal Bowel Sounds, Soft, No Tenderness, No Hepatospenomegaly, No Masses Neurological: Normal Gait, Normal Speech, Strength at 5/5 X4 Ext, Normal Tone, Sensation Intact, Cranial Nerves 3-12 NL, Reflexes 2+ Extremities: No Clubbing, No Cyanosis, No Edema, Normal Pulses, Right foot having diabetic ulcer on plantar v surface of big toe as well as on lateral border of right foot Vascular: Normal Pulses, Pulses Symmetrical Assessment/Plan Assessment: 62-year-old male with past medical history of ESRD on hemodialysis left arm AV fistula, diabetes mellitus, COPD(not on home oxygen), history of diabetic foot ulcer and right lower extremity, hyperlipidemia, CHF with ejection fraction of 40-45% preserved, presented to emergency department with referral for right lower extremity ulcer, with yellow discharge. Problem List: *Right foot cellulitis/ulcer *He is already on hemodialysis *Microcytic anemia *Past medical history of CHF, hypertension, hyperlipidemia, diabetes At the time of presentation to emergency department vitals, labs are given below : VS T98.1 P84 RR18 BP148/77 Sat96%RA Labs: WBC 7.5 H/H 12.7/38.0 plt 231 Na 131 K3.6 BUN/Cr 61/8.6 Glu 372 BCx pending ED tx: one dose of Clindamycin XR right foot: IMPRESSION: No evidence to suggest osteomyelitis. As stated previously, MRI of the foot with and without contrast would have improved sensitivity and specificity of osteomyelitis -MRI awaited *Right foot cellulitis/osteomyelitis /ulcer: -Right foot ulcer on plantar surface of big toe and lateral border of the right foot -MRI done today and report shows: -1. Soft tissue ulcer on the plantar medial aspect of the 1st distal phalanx. Abnormal edema in the 1st distal phalanx, raising concern for early osteomyelitis. 2. Suspected soft tissue ulceration plantar to the 5th MTP joint. Abnormal edema in the 5th metatarsal head, proximal base of the 5th proximal phalanx, suspicious for early osteomyelitis. Small effusion in the 5th MTP joint, septic arthritis cannot be excluded. Clinically correlate. -Clindamycin is started -Podiatry has seen the patient awaiting for further recommendation -Pain medication Percocet every 8 hour as needed is recommended -Keep a clean hygiene ESRD on dialysis stage V: -Patient is on dialysis 3 times a week *Creatinine was 9 at the time of presentation now it has trended to 5.8 today -GFR was 6 at the time of presentation now is 10 -Above finding are consistent with end-stage renal disease stage V -Nephrology consultation appreciated will follow nephrology recommendation -Dialysis done today now renal function improved *Macrocytic anemia-possible mixed picture anemia in ESRD: -His anemia is multifactorial ESRD could be one of them -follow up B12/folate/iron studies these are normal -We will consider erythropoietin if H&H is dropped further Diabetes mellitus/hypertension/hyperlipidemia: -Today patient sugar is -He is on home insulin so it will be continued -Patient home medication will be continued -Insulin NovoLog, Lantus will continued -We will monitor Accu-Chek -We will place a consult for endocrinology -Avoid nephrotoxic medication DVT prophylaxis: heparin/ALPS/ambulation Code status: full code Problem List: 1. Full code status 2. ESRD (end stage renal disease) on dialysis 3. Diabetic foot ulcer Pain Ratin Pain Location: Right lower extremity Pain Goal: Remain pain free Pain Plan: Pain management pathway Tomorrow's Labs & Rationales: No labs
[2017-11-19 14:20] VITALS: BP 138/60
--- NOTE | 2017-11-19 15:07 | MRI REPORT ---
EXAMINATION: MRI RIGHT FOOT WITHOUT CONTRAST CLINICAL INFORMATION: Right foot osteomyelitis. Foot ulcer. COMPARISON: X-ray 11/17/2017. TECHNIQUE: MRI in a high-field magnet without contrast. FINDINGS: Additional clinical history obtained from Cain Salcido, unpaid intern. He indicates there is a plantar skin ulceration at the level of the 1st distal phalanx; plantar skin ulceration laterally in the region of the 5th MTP joint. There is soft tissue irregularity along the plantar medial aspect of the 1st distal phalanx. Underlying soft tissue edema without loculated collection suggesting synovitis. There is edema in the 1st distal phalanx, with bright T2 signal. The findings raise concern for early osteomyelitis. There is subtle plantar soft tissue irregularity laterally at the level of the 5th MTP joint, presumably correlating with the known ulceration in this region. There is edema in the underlying soft tissues. There is T2 bright focus in the soft tissues lateral to the 5th MTP joint measuring 1.4 cm AP by 0.7 cm transverse by 1.7 cm in length. Reference image 11 series 9, image 18 series 6. This may reflect focal edema, with a fluid collection/abscess in this region not excluded. Evaluation limited without intravenous contrast. Clinically correlate. There is edema in the head of the 5th metatarsal, and in the proximal base of the 5th proximal phalanx. There is intermediate T1 signal changes present. The findings raise concern for early osteomyelitis. Small joint effusion. Given the fact there is edema on both sides of the joint, septic arthritis cannot be entirely excluded. Clinical correlation is needed. There is diffuse dorsal soft tissue swelling and subcutaneous edema. There is edema and fatty atrophy of the intrinsic muscles of the foot. Mild 1st MTP joint arthritis. IMPRESSION: 1. Soft tissue ulcer on the plantar medial aspect of the 1st distal phalanx. Abnormal edema in the 1st distal phalanx, raising concern for early osteomyelitis. 2. Suspected soft tissue ulceration plantar to the 5th MTP joint. Abnormal edema in the 5th metatarsal head, proximal base of the 5th proximal phalanx, suspicious for early osteomyelitis. Small effusion in the 5th MTP joint, septic arthritis cannot be excluded. Clinically correlate. 3. Followup imaging can be obtained for reassessment as clinically warranted.
[2017-11-19 18:03] VITALS: BP 132/68
[2017-11-19 21:30] VITALS: BP 125/64
[2017-11-20 06:38] VITALS: BP 122/64
--- NOTE | 2017-11-20 08:06 | PN- Housestaff ---
Cain Salcido 11/20/17 0806: Subjective Follow-up For: Right foot ulcer, end-stage renal disease on dialysis dialysis Subjective: Patient seen and examined at bedside. He was complaining a little bit fever and chills at night. He denies chest pain, abdominal pain, palpitation, diarrhea, constipation, burning micturition Review of Systems Constitutional: Reports: see HPI. Objective Last 24 Hrs of Vital Signs/I&O Vital Signs Date Time Temp Pulse Resp B/P B/P Pulse O2 O2 Flow FiO2 Mean Ox Delivery Rate 11/20 1440 98.4 74 20 135/54 98 Room Air 11/20 0638 99.4 82 19 122/64 93 11/19 2130 98.6 79 19 125/64 100 Room Air Intake & Output 11/20 1600 11/20 0800 11/20 0000 Intake Total 200 240 310 Output Total 200 Balance 0 240 310 Intake, IV 10 Intake, Oral 200 240 300 Output, Urine 200 Patient 173 lb 171 lb 175 lb Weight Weight Reported by Patient Measurement Method Physical Exam General Appearance: Alert, Oriented X3, Cooperative, No Acute Distress, Mild Distress HEENT: Atraumatic, PERRLA, EOMI, Mucous Membr. moist/pink Neck: Supple, No JVD, No thryomegaly, +2 Carotid Pulse wo Bruit, No LAD Lymphatic: Axillary nl, Cervical nl Cardiovascular: Regular Rate, Normal S1, Normal S2, No Murmurs Lungs: Clear to Auscultation, Normal Air Movement Abdomen: Normal Bowel Sounds, Soft, No Tenderness Neurological: Normal Gait, Normal Speech, Strength at 5/5 X4 Ext, Normal Tone, Sensation Intact Extremities: No Clubbing, No Cyanosis, No Edema, Normal Pulses, righr foot ulcera with mild discharge of pus Assessment/Plan Assessment: Assessment: 62-year-old male with past medical history of ESRD on hemodialysis left arm AV fistula, diabetes mellitus, COPD(not on home oxygen), history of diabetic foot ulcer and right lower extremity, hyperlipidemia, CHF with ejection fraction of 40-45% preserved, presented to emergency department with Dr. hall for right lower extremity ulcer, with yellow discharge. Problem List: *Right foot cellulitis/ulcer *He is already on hemodialysis *Microcytic anemia *Past medical history of CHF, hypertension, hyperlipidemia, diabetes At the time of presentation to emergency department vitals, labs are given below : VS T98.1 P84 RR18 BP148/77 Sat96%RA Labs: WBC 7.5 H/H 12.7/38.0 plt 231 Na 131 K3.6 BUN/Cr 61/8.6 Glu 372 BCx pending ED tx: one dose of Clindamycin XR right foot: IMPRESSION: No evidence to suggest osteomyelitis. As stated previously, MRI of the foot with and without contrast would have improved sensitivity and specificity of osteomyelitis -MRI awaited *Right foot cellulitis/osteomyelitis /ulcer: -Right foot ulcer on plantar surface of big toe and lateral border of the right foot -MRI done today and report shows: -1. Soft tissue ulcer on the plantar medial aspect of the 1st distal phalanx. Abnormal edema in the 1st distal phalanx, raising concern for early osteomyelitis. 2. Suspected soft tissue ulceration plantar to the 5th MTP joint. Abnormal edema in the 5th metatarsal head, proximal base of the 5th proximal phalanx, suspicious for early osteomyelitis. Small effusion in the 5th MTP joint, septic arthritis cannot be excluded. Clinically correlate. -Clindamycin is started -Podiatry has seen the patient and will shift tomorrow in a.m. for debridement and incision -Patient is n.p.o. from midnight -Changes NovoLog to Novolin from midnight -D5 half normal saline from midnight -Pain medication Percocet every 8 hour as needed is recommended -Keep a clean hygiene ESRD on dialysis stage V: -Patient is on dialysis 3 times a week *Creatinine was 9 at the time of presentation now it has trended to 5.8 today -GFR was 6 at the time of presentation now is 10 -Above finding are consistent with end-stage renal disease stage V -Nephrology consultation appreciated will follow nephrology recommendation -Dialysis explained today *Macrocytic anemia-possible mixed picture anemia in ESRD: -His anemia is multifactorial ESRD could be one of them -follow up B12/folate/iron studies these are normal -We will consider erythropoietin if H&H is dropped further Diabetes mellitus/hypertension/hyperlipidemia: -Today patient sugar is -He is on home insulin so it will be continued -Patient home medication will be continued -Insulin NovoLog, Lantus will continued -We will monitor Accu-Chek -We will place a consult for endocrinology -Avoid nephrotoxic medication DVT prophylaxis: heparin/ALPS/ambulation Code status: full code Problem List: 1. Hypercalcemia 2. ESRD (end stage renal disease) on dialysis 3. Diabetic foot ulcer 4. Diabetic foot infection Pain Ratin Pain Location: Right lower extremity Pain Goal: Remain pain free Pain Plan: Pain management pathway Tomorrow's Labs & Rationales: CBCs, Bep Valentin West 11/20/17 1319: Attending MD Review Statement Attending Statement Attending MD Statement: examined this patient, discuss w/resident/PA/[employer]ORATORY [employer]IM[employer] C[employer] VETERINARIAN, agreed w/resident/PA/LABORATORY ANIMAL C[employer] VETERINARIAN, discussed with family, reviewed EMR data (avail), discussed with nursing, discussed with case mgmt, reviewed images, amended to note Attending Assessment/Plan: Afebrile, hemodynamically stable. No new complaints. MRI suggestive of early OM changes. 1. Right foot cellulitis with possible OM. 2. ESRD on HD 3. DM insulin dependent 4. Chronic systlic CHF EF 40-45% Plan - Podiatry Dr Prather seen patient (f/u recs) and obtain ID consult. - C/w abx for now. - HD plan as per nephrology. - Endocrinology following for diabetes - Continue home medications - DVT PPx.
--- NOTE | 2017-11-20 08:13 | PN- Diabetes ---
Assessment/Plan Diabetes Assessment: 61 y/o male hx of diabetes type 1 complicated with retinopathy and ESRD on HD, was admitted for right toe infection and cellulitis. He was put on Levemir 6 units twice a day, Novolog coverage before meals and Novolog coverage at bedtime. Novolog coverage before breakfast: FSG 80-150, 2 units; 151-200, 3 units 200-250, 4 units 251-300, 5 units 301-350, 6 units 351-400, 7 units > 400, 8 units Novolog coverage before lunch and before dinner; FSG 80-150, 5 units 151-200, 6 units 200-250, 7 units 251-300, 8 units 301-350, 9 units 351-400, 9 units > 400, 10 units Novolog coverage at bedtime; FSG < 250, no coverage 251-300, 2 units 301-350, 3 units 351-400, 4 units > 400, 4 units His FSGs were 175, 115, 192, 245 and 378. But he felt stomach discomfort overnight and he is going to skip breakfast this morning. MRI showed early osteomyelitis on 1st distal phalanx, 5th proximal phalanx and 5th metatarsal head. In addition, there is ? septoc arthritis at 5th MTP joint. Patient is going to receive HD today. Plan: continue the current insulin regimen for now; hold Novolog meal coverage if he skips meals; monitor FSGs; please inform me if his FSGs remains significantly elevated and then his insulin regimen will be adjusted accordingly. will follow. Subjective Subjective: He feels nauseous this morning. Objective Last 24 Hrs of Vital Signs/I&O Vital Signs Date Time Temp Pulse Resp B/P B/P Pulse O2 O2 Flow FiO2 Mean Ox Delivery Rate 11/20 0638 99.4 82 19 122/64 93 11/19 2130 98.6 79 19 125/64 100 Room Air 11/19 1803 97.5 80 16 132/68 94 Room Air 11/19 1420 97.9 65 16 138/60 97 Room Air Intake & Output 11/20 1600 11/20 0800 11/20 0000 Intake Total 240 310 Output Total Balance 240 310 Intake, IV 10 Intake, Oral 240 300 Patient 171 lb 175 lb Weight Weight Reported by Patient Measurement Method
--- NOTE | 2017-11-20 09:43 | PN- Nephrology ---
Assessment/Plan Nephrology Assessment: Stable from renal standpoint Suggestion: Dialysis later todya with UF to EDW. Subjective Subjective: Patient with no new complaints. Awaiting results from MRI. Objective Vital Signs and I&Os Vital Signs Date Time Temp Pulse Resp B/P B/P Pulse O2 O2 Flow FiO2 Mean Ox Delivery Rate 11/20 0638 99.4 82 19 122/64 93 11/19 2130 98.6 79 19 125/64 100 Room Air 11/19 1803 97.5 80 16 132/68 94 Room Air 11/19 1420 97.9 65 16 138/60 97 Room Air Intake & Output 11/20 1600 11/20 0400 11/19 1600 11/19 0400 11/18 1600 11/18 0400 Intake Total 240 310 120 480 0 Output Total Balance 240 310 120 480 0 Intake, IV 10 Intake, Oral 240 300 120 480 0 Patient 171 lb 175 lb 175 lb Weight Weight Reported by Patient Measurement Method Physical Exam: NAD VS as above Lungs: clear CV: no rub Abd: nontender Exts: no edema, foot bandaged Neuro: A&O Current Medications: Current Medications Sig/Rhett Start time Last Medication Dose Route Stop Time Status Admin Acetaminophen 650 MG Q6P PRN 11/18 0015 AC PO Aspirin Buffered 81 MG DAILY 11/18 0900 AC 11/19 PO 0902 Atorvastatin Calcium 10 MG DAILY 11/18 0900 AC 11/19 PO 0902 Calcium Acetate 667 MG TIDAC 11/18 1200 AC 11/20 PO 0810 Citalopram 20 MG DAILY 11/18 0900 AC 11/19 Hydrobromide PO 0902 Clindamycin 600 MG IQ8 11/18 0700 AC 11/20 Dextrose/Water 50 ML IV 0810 Heparin Sodium 0 .STK-MED ONE 11/19 1428 DC (Porcine) .ROUTE Heparin Sodium 5,000 UNIT Q8 11/18 0600 AC 11/20 (Porcine) SC 0543 Insulin Aspart 0 0800 11/20 0800 AC SC Insulin Aspart 0 AT BEDTIME 11/19 2100 AC SC Insulin Aspart 0 1200,1700 11/19 1200 AC 11/19 SC 1649 Insulin Aspart 0 TIDAC/HS 11/18 0700 DC 11/19 SC 0902 Insulin Detemir 6 UNITS BID 11/18 0000 AC 11/20 SC 0811 Metoclopramide HCl 0 .STK-MED ONE 11/20 0403 DC .ROUTE Metoclopramide HCl 10 MG ONCE ONE 11/20 0400 DC 11/20 IV 11/20 400 040 Montelukast Sodium 10 MG QPM 11/18 2100 AC 11/19 PO 2258 Multivitamins 1 TAB DAILY 11/18 0900 AC 11/19 PO 0902 Omeprazole 40 MG DAILY AC 11/18 0700 AC 11/20 PO 0544 Oxycodone/ 0 .STK-MED ONE 11/19 1234 DC Acetaminophen PO Oxycodone/ 1 TAB Q8 PRN 11/19 1230 AC 11/19 Acetaminophen PO 2119 Polyethylene Glycol 17 GM DAILY 11/19 0900 AC PO Results Pertinent Lab Results: Laboratory Tests 11/20 11/19 0845 0510 Chemistry Sodium (137 - 145 mmol/L) 130 L 135 L Potassium (3.5 - 5.1 mmol/L) 4.7 3.4 L Chloride (98 - 107 mmol/L) 96 L 98 Carbon Dioxide (22 - 30 mmol/L) 19 L 25 Anion Gap (5 - 16) 16 12 BUN (9 - 20 mg/dL) 61 H 44 H Creatinine (0.7 - 1.2 mg/dL) 6.4 *H 5.8 *H Estimated GFR (>60 ml/min) 9 L 10 L BUN/Creatinine Ratio (7 - 25 %) 9.5 7.6 Hematology CBC w Diff NO MAN DIFF REQ WBC (4.8 - 10.8 /CUMM) 6.5 RBC (4.70 - 6.10 /CUMM) 3.61 L Hgb (14.0 - 18.0 G/DL) 12.4 L Hct (42 - 52 %) 36.8 L MCV (80.0 - 94.0 FL) 102.0 H MCH (27.0 - 31.0 PG) 34.2 H MCHC (33.0 - 37.0 G/DL) 33.5 RDW (11.5 - 14.5 %) 15.1 H Plt Count (130 - 400 /CUMM) 217 MPV (7.4 - 10.4 FL) 8.7 Gran % (42.2 - 75.2 %) 62.7 Lymphocytes % (20.5 - 51.1 %) 21.0 Monocytes % (1.7 - 9.3 %) 10.3 H Eosinophils % (0 - 5 %) 5.0 Basophils % (0.0 - 2.0 %) 1.0 Absolute Granulocytes (1.4 - 6.5 /CUMM) 4.1 Absolute Lymphocytes (1.2 - 3.4 /CUMM) 1.4 Absolute Monocytes (0.10 - 0.60 /CUMM) 0.7 H Absolute Eosinophils (0.0 - 0.7 /CUMM) 0.3 Absolute Basophils (0.0 - 0.2 /CUMM) 0.1 11/18 11/17 11/17 0554 1930 1822 Chemistry Sodium (137 - 145 mmol/L) 131 L Potassium (3.5 - 5.1 mmol/L) 4.1 Chloride (98 - 107 mmol/L) 92 L Carbon Dioxide (22 - 30 mmol/L) 23 Anion Gap (5 - 16) 16 BUN (9 - 20 mg/dL) 77 H Creatinine (0.7 - 1.2 mg/dL) 9.0 *H Estimated GFR (>60 ml/min) 6 L BUN/Creatinine Ratio (7 - 25 %) 8.6 Lactic Acid (0.7 - 2.1 mmol/L) 1.1 Hematology CBC w Diff NO MAN DIFF REQ WBC (4.8 - 10.8 /CUMM) 6.4 RBC (4.70 - 6.10 /CUMM) 3.46 L Hgb (14.0 - 18.0 G/DL) 11.9 L Hct (42 - 52 %) 35.5 L MCV (80.0 - 94.0 FL) 102.7 H MCH (27.0 - 31.0 PG) 34.4 H MCHC (33.0 - 37.0 G/DL) 33.5 RDW (11.5 - 14.5 %) 14.8 H Plt Count (130 - 400 /CUMM) 206 MPV (7.4 - 10.4 FL) 8.8 Gran % (42.2 - 75.2 %) 62.0 Lymphocytes % (20.5 - 51.1 %) 22.7 Monocytes % (1.7 - 9.3 %) 8.8 Eosinophils % (0 - 5 %) 5.3 H Basophils % (0.0 - 2.0 %) 1.2 Absolute Granulocytes (1.4 - 6.5 /CUMM) 4.0 Absolute Lymphocytes (1.2 - 3.4 /CUMM) 1.5 Absolute Monocytes (0.10 - 0.60 /CUMM) 0.6 Absolute Eosinophils (0.0 - 0.7 /CUMM) 0.3 Absolute Basophils (0.0 - 0.2 /CUMM) 0.1 ESR Westergren (0 - 10 MM) 21 H 11/17 1541 Chemistry Sodium (137 - 145 mmol/L) 131 L Potassium (3.5 - 5.1 mmol/L) 3.6 Chloride (98 - 107 mmol/L) 92 L Carbon Dioxide (22 - 30 mmol/L) 18 L Anion Gap (5 - 16) 21 H BUN (9 - 20 mg/dL) 61 H Creatinine (0.7 - 1.2 mg/dL) 8.6 *H Estimated GFR (>60 ml/min) 6 L BUN/Creatinine Ratio (7 - 25 %) 7.1 Glucose (65 - 99 mg/dL) 372 H Lactic Acid (0.7 - 2.1 mmol/L) 2.0 Calcium (8.4 - 10.2 mg/dL) 9.1 Iron (49 - 181 ug/dL) 64 TIBC (261 - 462 ug/dL) 263 Ferritin (17.9 - 464 ng/mL) 138.0 Total Bilirubin (0.2 - 1.3 mg/dL) 0.4 AST (17 - 59 U/L) 23 ALT (21 - 72 U/L) 28 Alkaline Phosphatase (< 127 U/L) 209 H Troponin I (<0.11 ng/ml) 0.02 C-Reactive Prot, Quant (<1.0 mg/dL) 3.6 H Total Protein (6.3 - 8.2 g/dL) 7.0 Albumin (3.5 - 5.0 g/dL) 3.9 Globulin (1.9 - 4.2 gm/dL) 3.1 Albumin/Globulin Ratio (1.1 - 2.2 %) 1.3 Vitamin B12 (239 - 931 pg/mL) 877 Folate (2.76 - 20.0 ng/mL) > 20.0 H Hematology CBC w Diff NO MAN DIFF REQ WBC (4.8 - 10.8 /CUMM) 7.5 RBC (4.70 - 6.10 /CUMM) 3.73 L Hgb (14.0 - 18.0 G/DL) 12.7 L Hct (42 - 52 %) 38.0 L MCV (80.0 - 94.0 FL) 101.9 H MCH (27.0 - 31.0 PG) 34.1 H MCHC (33.0 - 37.0 G/DL) 33.4 RDW (11.5 - 14.5 %) 15.1 H Plt Count (130 - 400 /CUMM) 231 MPV (7.4 - 10.4 FL) 8.6 Gran % (42.2 - 75.2 %) 79.8 H Lymphocytes % (20.5 - 51.1 %) 12.7 L Monocytes % (1.7 - 9.3 %) 5.4 Eosinophils % (0 - 5 %) 1.9 Basophils % (0.0 - 2.0 %) 0.2 Absolute Granulocytes (1.4 - 6.5 /CUMM) 6.0 Absolute Lymphocytes (1.2 - 3.4 /CUMM) 1.0 L Absolute Monocytes (0.10 - 0.60 /CUMM) 0.4 Absolute Eosinophils (0.0 - 0.7 /CUMM) 0.1 Absolute Basophils (0.0 - 0.2 /CUMM) 0
[2017-11-20 14:40] VITALS: BP 135/54
--- NOTE | 2017-11-20 17:13 | Cons- Infect Disease ---
General Information and HPI Consulting Request Date of Consult: 11/20/17 Requested By: Valentin West MD Reason for Consult: abx advice Source of Information: patient, primary team Exam Limitations: clinical condition History of Present Illness: 62 year old male with PMH ESRD on HD TuThSat, DM, h/o diabetic foot ulcer right foot, HLD presented to the hospital to be evaluated for cellulitis on 11/17/17. Patient reports he was admitted to [facility] August 23, 2017 for RLE cellulitis tx with IV abx and PO abx upon discharge. He states his infection improved with tx. 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 He notes associated redness, pain, and swelling. He is able to still ambulate, but with pain. He currently performs wound care daily with betadine on , , Sat and Santyl on MWF. He denies any fever, chills, chest pain, SOB, vomiting, diarrhea. Per patient he underwent a vascular procedure to RLE for improvement of arterial flow (in [place]). Currently in HD; c/o chills earlier today. Allergies/Medications Allergies: Coded Allergies: amoxicillin (Mild, RASH ALL OVER 08/27/17) Penicillins (RASH ALL OVER 08/27/17) Home Med List: Acetaminophen (Tylenol) 325 MG TABLET 650 MG PO Q6 PRN PAIN (Reported) Aspirin (Ecotrin*) 81 MG TABLET.DR 1 TAB PO DAILY HEART/BLOOD (Reported) Atorvastatin Calcium (Lipitor) 10 MG TABLET 1 TAB PO DAILY CHOLESTEROL ( Reported) Citalopram Hydrobromide (Citalopram HBr) 20 MG TABLET 1 TAB PO DAILY MENTAL HEALTH (Reported) Esomeprazole (Nexium) 40 MG CAPSULE.DR 1 CAP PO DAILY GI (Reported) Insulin Aspart (Novolog) 100 UNIT/ML VIAL 0 UNITS SC AT BEDTIME DIABETES Glucose <250 0 units 251-300 2 units 301-350 3 units 351-400 4 units > 400 4 units Insulin Aspart (Novolog) 100 UNIT/ML VIAL 0 SC 1200,1700 DIABETES FSG 80-150 5 unit 151-200 6 unit 201-250 7 unit 251-300 8 unit 301-350 9 unit 351-400 9 unit >400, 10 units Insulin Aspart (Novolog) 100 UNIT/ML VIAL 0 UNITS SC 8AM DIABETES FSG <200 - 0 units 200-250, 3 units 251-300, 4 units 301-350, 5 units 351-400, 6 units >400 7 units Insulin Glargine,Hum.rec.anlog (Lantus Solostar) 100 UNIT/ML (3 ML) INSULN.PEN 6 UNIT SC BID DIABETES Mometasone Furoate (Nasonex) 50 MCG SPRAY.PUMP 2 SPRAY NASB DAILY ALLERGIES ( Reported) Montelukast Sodium (Singulair) 10 MG TABLET 1 TAB PO QPM ALLERGIES (Reported) Nephro-Vitamins (Nephro-Schuyler Tablet) 0.8 MG TABLET 1 TAB PO DAILY VITAMIN SUPPORT Current Medications: Current Medications Sig/Rhett Start time Last Medication Dose Route Stop Time Status Admin Acetaminophen 650 MG Q6P PRN 11/18 0015 AC PO Aspirin Buffered 81 MG DAILY 11/18 0900 DC 11/19 PO 0902 Atorvastatin Calcium 10 MG DAILY 11/18 0900 AC 11/20 PO 1546 Calcium Acetate 667 MG TIDAC 11/18 1200 AC 11/20 PO 0810 Citalopram 20 MG DAILY 11/18 0900 AC 11/20 Hydrobromide PO 1546 Clindamycin 600 MG IQ8 11/18 0700 AC 11/20 Dextrose/Water 50 ML IV 1546 Heparin Sodium 5,000 UNIT Q8 11/18 0600 AC 11/20 (Porcine) SC 11/20 2355 0543 Insulin Aspart 0 0800 11/20 0800 AC SC Insulin Aspart 0 AT BEDTIME 11/19 2100 AC SC Insulin Aspart 0 1200,1700 11/19 1200 AC 11/19 SC 1649 Insulin Detemir 6 UNITS BID 11/18 0000 AC 11/20 SC 0811 Metoclopramide HCl 0 .STK-MED ONE 11/20 0403 DC .ROUTE Metoclopramide HCl 10 MG ONCE ONE 11/20 0400 DC 11/20 IV 11/20 0401 0401 Montelukast Sodium 10 MG QPM 11/18 2100 AC 11/19 PO 2258 Multivitamins 1 TAB DAILY 11/18 0900 AC 11/19 PO 0902 Omeprazole 40 MG DAILY AC 11/18 0700 AC 11/20 PO 0544 Oxycodone/ 1 TAB Q8 PRN 11/19 1230 AC 11/19 Acetaminophen PO 2119 Patient Medication 1 ED ONE ONE 08/30 1515 DC 11/20 Teaching ED 11/20 1516 1542 Polyethylene Glycol 17 GM DAILY 11/19 0900 AC PO Past History Travel History Traveled to [place] past 21 day No Medical History Blood Transfusion Hx: No Neurological: NEUROPATHY EENT: diabetic retinopathy Cardiovascular: CHF, hypertension, hyperlipidemia Respiratory: CURRENT SMOKER 0ne pack now cut down to HALF DAILY. 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 Home Who Do You Live With? parent, lives with sister and mother Services at Home: None Smoking Status: Current Everyday Smoker (1/2ppd x52 years) ETOH Use: quit etoh when started on dialysis Illicit Drug Use: denies illicit drug use Functional Ability Ambulation: independent Employment History Employment: Disability Review of Systems Comments 12 points reviewed as noted, otherwise negative. Exam & Diagnostic Data Last 24 Hrs of Vital Signs/I&O Vital Signs Date Time Temp Pulse Resp B/P B/P Pulse O2 O2 Flow FiO2 Mean Ox Delivery Rate 11/20 1440 98.4 74 20 135/54 98 Room Air 11/20 0638 99.4 82 19 122/64 93 11/19 2130 98.6 79 19 125/64 100 Room Air 11/19 1803 97.5 80 16 132/68 94 Room Air Intake & Output 11/20 1600 11/20 0800 11/20 0000 Intake Total 200 240 310 Output Total 200 Balance 0 240 310 Intake, IV 10 Intake, Oral 200 240 300 Output, Urine 200 Patient 173 lb 171 lb 175 lb Weight Weight Reported by Patient Measurement Method Physical Exam Other Physical Findings: General Appearance Cooperative, No Acute Distress HEENT Atraumatic Neck Supple Cardiovascular Regular Rate, Normal S1, Normal S2, No Murmurs Lungs Clear to Auscultation Abdomen Normal Bowel Sounds, Soft, No Tenderness Extremities: no c/c Skin: right great toe with ulceration to medial aspect; lateral plantar surface of right foot with callus, ulceration, erythema and tenderness Neuro: Alert, Oriented X3 Last 24 Hours of Lab Results: Laboratory Tests 11/20 0845 Chemistry Sodium (137 - 145 mmol/L) 130 L Potassium (3.5 - 5.1 mmol/L) 4.7 Chloride (98 - 107 mmol/L) 96 L Carbon Dioxide (22 - 30 mmol/L) 19 L Anion Gap (5 - 16) 16 BUN (9 - 20 mg/dL) 61 H Creatinine (0.7 - 1.2 mg/dL) 6.4 *H Estimated GFR (>60 ml/min) 9 L BUN/Creatinine Ratio (7 - 25 %) 9.5 Last 24 Hours of [place] Results: Patient : JOSÉ MIGUEL ALMODOVAR Acct: [id number] DR: Brett MEDINA,Valentin Birthdate: [birth year] Age/Sex: 62/M Unit: [id number] Loc: [facility] [phone] Status : ADM IN SPEC #: [id number] KILO: 11/17/17 STATUS: RES RECD: 11/17/[address]: Skylar Justice SOURCE: BLOOD ENTR: 11/17/17-[address]: Erin MEDINA,Tulio Allen SPDESC: 2ND/VENOUS ORDERED: BLOOD CULTURE Procedure Result > BLOOD CULTURE REPORT Preliminary 11/18/17-1210 No growth after 1 day incubation. Specimen is examined continuously for 5 days before final report unless culture becomes positive. Diagnostic Data Recent Imaging Findings: SERVICE DATE: 11/19/17- EXAM TYPE: MRI - MRI-RT FOOT W/O ROSIO EXAMINATION: MRI RIGHT FOOT WITHOUT CONTRAST CLINICAL INFORMATION: Right foot osteomyelitis. Foot ulcer. COMPARISON: X-ray 11/17/2017. TECHNIQUE: MRI in a high-field magnet without contrast. FINDINGS: Additional clinical history obtained from Cain Salcido, post graduate intern. He indicates there is a plantar skin ulceration at the level of the 1st distal phalanx; plantar skin ulceration laterally in the region of the 5th MTP joint. There is soft tissue irregularity along the plantar medial aspect of the 1st distal phalanx. Underlying soft tissue edema without loculated collection suggesting synovitis. There is edema in the 1st distal phalanx, with bright T2 signal. The findings raise concern for early osteomyelitis. There is subtle plantar soft tissue irregularity laterally at the level of the 5th MTP joint, presumably correlating with the known ulceration in this region. There is edema in the underlying soft tissues. There is T2 bright focus in the soft tissues lateral to the 5th MTP joint measuring 1.4 cm AP by 0.7 cm transverse by 1.7 cm in length. Reference image 11 series 9, image 18 series 6. This may reflect focal edema, with a fluid collection/abscess in this region not excluded. Evaluation limited without intravenous contrast. Clinically correlate. There is edema in the head of the 5th metatarsal, and in the proximal base of the 5th proximal phalanx. There is intermediate T1 signal changes present. The findings raise concern for early osteomyelitis. Small joint effusion. Given the fact there is edema on both sides of the joint, septic arthritis cannot be entirely excluded. Clinical correlation is needed. There is diffuse dorsal soft tissue swelling and subcutaneous edema. There is edema and fatty atrophy of the intrinsic muscles of the foot. Mild 1st MTP joint arthritis. IMPRESSION: 1. Soft tissue ulcer on the plantar medial aspect of the 1st distal phalanx. Abnormal edema in the 1st distal phalanx, raising concern for early osteomyelitis. 2. Suspected soft tissue ulceration plantar to the 5th MTP joint. Abnormal edema in the 5th metatarsal head, proximal base of the 5th proximal phalanx, suspicious for early osteomyelitis. Small effusion in the 5th MTP joint, septic arthritis cannot be excluded. Clinically correlate. 3. Followup imaging can be obtained for reassessment as clinically warranted. DICTATED BY: Josue Mackenzie MD DATE/TIME DICTATED:11/19/171348 POWERHOUSE MECHANIC SUPERVISOR:DOTTIE DATE/TIME TRANSCRIBED:11/19/171348 Assessment/Plan Assessment/Plan Impression: 62 year old male with PMH of DM2, ESRD on HD TuThSat, DM, h/o diabetic foot ulcer right foot, HLD presented to the hospital to be evaluated for cellulitis on 11/17/17; treated currently w/ iv Clindamycin; MRI revealed right foot cellulitis; early OM 1st distal phalanx (most likely pathogen S. aureus); small effusion in the 5th MTP joint, f/u podiatry recom; r/o septic arthritis. Suggestion: 1. F/U podiatry recom; ideally bone bx/culture off abx; if surgical procedure planned hold iv abx for 24 h prior to procedure. 2. Local culture R foot ulcers. Obtain nasal MRSA surv cx. 3. Continue present abx for now pending above. Consult Acknowledgment - Thank you for your consult request.
[2017-11-20 17:57] LABS: ABSOLUTE BASOPHIL COUNT 0 /CUMM (0.0-0.2); ABSOLUTE EOSINOPHIL COUNT 0.1 /CUMM (0.0-0.7); ABSOLUTE GRANULOCYTE CT 5.5 /CUMM (1.4-6.5); ABSOLUTE LYMPH COUNT 0.8 /CUMM (1.2-3.4); ABSOLUTE MONOCYTE COUNT 0.3 /CUMM (0.10-0.60); BASOPHIL % 0.5 % (0.0-2.0); EOSINOPHIL % 1.6 % (0-5); GRANULOCYTE % 81.1 % (42.2-75.2); HEMATOCRIT 33.1 % (42-52); MEAN CORPUSCULAR HGB 34.3 PG (27.0-31.0); MEAN CORPUSCULAR HGB CONC 33.6 G/DL (33.0-37.0); MEAN CORPUSCULAR VOLUME 102.3 FL (80.0-94.0); MEAN PLATELET VOLUME 9.1 FL (7.4-10.4); PLATELET COUNT 193 /CUMM (130-400); RBC DISTRIBUTION WIDTH 15.3 % (11.5-14.5); RED BLOOD CELL CT 3.23 /CUMM (4.70-6.10); WHITE BLOOD CELL COUNT 6.8 /CUMM (4.8-10.8)
[2017-11-20 21:18] VITALS: BP 132/63
[2017-11-21 05:50] VITALS: BP 103/46
--- NOTE | 2017-11-21 06:19 | Patient Discharge Instructions ---
Discharge Instructions General Discharge Information You were seen/treated for: Right foot Osteomyelitis Right foot diabetic ulcer Dialysis Other wound care: daily dressing Special Instructions: Follow up with primary care physican with in one week Follow up with vertical borer in two weeks Follow up your podiatry doctor in two weeks Strict sugar monitoring and control with compliance to medication and precaution in diet Vaccuem Dressing as per podiatry recommendation heather diabetic diet medication compliance Diet Additional DIET Information: Diabetic diet Renal diet on dialysis Activity Full Activity/No Limits: Yes Acute Coronary Syndrome Inclusion Criteria At DC or during hospital stay patient has or had the following: ACS DIAGNOSIS No Discharge Core Measures Meds if any: Prescribed or Continued at Discharge Meds if any: NOT Prescribed or Continued at Discharge Congestive Heart Failure Inclusion Criteria At DC or during hospital stay patient has or had the following: CHF DIAGNOSIS No Discharge Core Measures Meds if any: Prescribed or Continued at Discharge Meds if any: NOT Prescribed or Continued at Discharge Cerebrovascular accident Inclusion Criteria At DC or during hospital stay patient has or had the following: CVA/TIA Diagnosis No Discharge Core Measures Meds if any: Prescribed or Continued at Discharge Meds if any: NOT Prescribed or Continued at Discharge Venous thromboembolism Inclusion Criteria VTE Diagnosis No VTE Type NONE VTE Confirmed by (Test) NONE Discharge Core Measures - Per Current guidelines, there needs to be overlap - treatment for the first 5 days of Warfarin therapy. - If discharged on Warfarin prior to 5 days of - overlap therapy, the patient will need to be - assessed for post discharge needs including - *Post discharge parental anticoagulation - *Warfarin and/or parental anticoagulation education - *Follow up date to check INR post discharge At least 5 days overlap therapy as Inpatient No Meds if any: Prescribed or Continued at Discharge Note: Overlap Therapy is Warfarin and Anticoagulant Meds if any: NOT Prescribed or Continued at Discharge
--- NOTE | 2017-11-21 06:26 | PN- Housestaff ---
Cain Salcido 11/21/17 0622: Subjective Follow-up For: Right foot ulcers/osteomyelitis Subjective: Patient seen and examined at bedside. He is complaining mild pain in the right foot. He denies fever, chills, abdominal pain, chest pain, palpitation, diarrhea, constipation, no micturition. Review of Systems Constitutional: Reports: see HPI. Objective Last 24 Hrs of Vital Signs/I&O Vital Signs Date Time Temp Pulse Resp B/P B/P Pulse O2 O2 Flow FiO2 Mean Ox Delivery Rate 11/21 0550 98.2 61 20 103/46 97 11/20 2118 97.6 62 18 132/63 99 Room Air 11/20 1440 98.4 74 20 135/54 98 Room Air 11/20 0638 99.4 82 19 122/64 93 Intake & Output 11/21 0800 11/21 0000 11/20 1600 Intake Total 200 Output Total 200 Balance 0 Intake, Oral 200 Output, Urine 200 Patient 177 lb 173 lb Weight Weight Bed scale Measurement Method Physical Exam General Appearance: Alert, Oriented X3, Cooperative, No Acute Distress HEENT: Atraumatic, PERRLA, EOMI, Mucous Membr. moist/pink Neck: Supple, No JVD, No thryomegaly, +2 Carotid Pulse wo Bruit Lymphatic: Axillary nl, Cervical nl Cardiovascular: Regular Rate, Normal S1, Normal S2 Lungs: Clear to Auscultation, Normal Air Movement Abdomen: Normal Bowel Sounds, Soft, No Tenderness Neurological: Normal Gait, Normal Speech, Strength at 5/5 X4 Ext, Normal Tone, Sensation Intact, Cranial Nerves 3-12 NL, Reflexes 2+ Extremities: No Clubbing, No Cyanosis, No Edema, Normal Pulses, No Tenderness/ Swelling, Ulcer in right foot plantar surface of big toe, and lateral border of right foot. Assessment/Plan Assessment: 62-year-old male with past medical history of ESRD on hemodialysis left arm AV fistula, diabetes mellitus, COPD(not on home oxygen), history of diabetic foot ulcer and right lower extremity, hyperlipidemia, CHF with ejection fraction of 40-45% preserved, presented to emergency department with Dr. hall for right lower extremity ulcer, with yellow discharge. Problem List: *Right foot cellulitis/ulcer *He is already on hemodialysis *Microcytic anemia *Past medical history of CHF, hypertension, hyperlipidemia, diabetes At the time of presentation to emergency department vitals, labs are given below : VS T98.1 P84 RR18 BP148/77 Sat96%RA Labs: WBC 7.5 H/H 12.7/38.0 plt 231 Na 131 K3.6 BUN/Cr 61/8.6 Glu 372 BCx pending ED tx: one dose of Clindamycin XR right foot: IMPRESSION: No evidence to suggest osteomyelitis. As stated previously, MRI of the foot with and without contrast would have improved sensitivity and specificity of osteomyelitis -MRI awaited *Right foot cellulitis/osteomyelitis /ulcer: -Right foot ulcer on plantar surface of big toe and lateral border of the right foot -MRI done today and report shows: -1. Soft tissue ulcer on the plantar medial aspect of the 1st distal phalanx. Abnormal edema in the 1st distal phalanx, raising concern for early osteomyelitis. 2. Suspected soft tissue ulceration plantar to the 5th MTP joint. Abnormal edema in the 5th metatarsal head, proximal base of the 5th proximal phalanx, suspicious for early osteomyelitis. Small effusion in the 5th MTP joint, septic arthritis cannot be excluded. Clinically correlate. -Podiatry has seen the patient patient will go for procedure 6 PM today -We will follow biopsy reports -Patient is n.p.o. from midnight -Pain medication Percocet every 8 hour as needed is recommended -Keep a clean hygiene ID recommendation: ID recommendation appreciated; ID recommended vancomycin IV state, vancomycin level tomorrow order placed We will hold clindamycin ESRD on dialysis stage V: -Patient is on dialysis 3 times a week *Creatinine was 9 at the time of presentation now it has trended to 4.2 today his sodium is 135 -GFR was 6 at the time of presentation now is 14 -Above finding are consistent with end-stage renal disease stage V -Nephrology consultation appreciated will follow nephrology recommendation -Dialysis plan today -We will follow with nephrology recommendation *Macrocytic anemia-possible mixed picture anemia in ESRD: -His anemia is multifactorial ESRD could be one of them -follow up B12/folate/iron studies these are normal -We will consider erythropoietin if H&H is dropped further Diabetes mellitus/hypertension/hyperlipidemia: -Today patient sugar is -He is on home insulin so it will be continued -Patient home medication will be continued -Insulin NovoLog, Lantus will continued -We will monitor Accu-Chek -We will place a consult for endocrinology -Avoid nephrotoxic medication DVT prophylaxis: heparin/ALPS/ambulation Code status: full code Problem List: 1. Diabetic foot infection 2. Diabetic foot ulcer 3. ESRD (end stage renal disease) on dialysis 4. Full code status Pain Ratin Pain Location: Pain and right foot Pain Goal: Remain pain free Pain Plan: Pain management pathway Tomorrow's Labs & Rationales: gabreila Valentin West 11/21/17 1010: Attending MD Review Statement Attending Statement Attending MD Statement: examined this patient, discuss w/resident/PA/STRAIGHT TOOTH GEAR GENERATOR OPERATOR, agreed w/resident/PA/STRAIGHT TOOTH GEAR GENERATOR OPERATOR, discussed with family, reviewed EMR data (avail), discussed with nursing, discussed with case mgmt, reviewed images, amended to note Attending Assessment/Plan: Afebrile, hemodynamically stable. No new complaints. MRI suggestive of early OM changes. Plan for OR today as per podaitry. 1. Right foot cellulitis with early OM. 2. ESRD on HD 3. DM insulin dependent 4. Chronic systlic CHF EF 40-45% Plan - NPO for now, OR today. Podiatry Dr Prather seen patient (f/u recs) - abx as per ID, F/u wound cultures if sent from OR. - HD plan as per nephrology. T/T/SAT. - Endocrinology following for diabetes - Continue home medications - DVT PPx.
[2017-11-21 08:26] LABS: PT 11.7 SEC (9.4-12.5)
--- NOTE | 2017-11-21 09:36 | PN- Diabetes ---
Assessment/Plan Diabetes Assessment: 61 y/o male hx of diabetes type 1 complicated with retinopathy and ESRD on HD, was admitted for right toe infection and cellulitis. He was put on Levemir 6 units twice a day, Novolog coverage before meals and Novolog coverage at bedtime. Novolog coverage before breakfast: FSG 80-150, 2 units; 151-200, 3 units 200-250, 4 units 251-300, 5 units 301-350, 6 units 351-400, 7 units > 400, 8 units Novolog coverage before lunch and before dinner; FSG 80-150, 5 units 151-200, 6 units 200-250, 7 units 251-300, 8 units 301-350, 9 units 351-400, 9 units > 400, 10 units Novolog coverage at bedtime; FSG < 250, no coverage 251-300, 2 units 301-350, 3 units 351-400, 4 units > 400, 4 units His FSGs were 378, 358, 246, 415, 263. He is going to have procedure done and has been kept NPO. Currently he is on RISS every 6 hours and D51/2 NS. His FSGs were down to 50 at around 9: 20 am. IVF was increased to D5 1/2 NS at 125 ml/hour. Plan: While he is kept NPO and receiving IVF, I have adjusted his RISS every 6 hours-- FSH < 150, no insulin 150-200, 3 units; 201-250, 4 units; 251-300, 5 units; 301-350, 6 units; 351-400, 7 units > 400, 8 units Monitor FSGs. After he is back from the preocedure and ready to eat, please restart previous insulin regimen-- Levemir 6 units twice a day; Novolog coverage before breakfast ; Novolog coverage before lunch and dinner and Novolog coverage at bedtime. Please call endo if there are any questions regarding his insulin orders. will follow. Subjective Subjective: He had hypoglycemia this morning. Objective Last 24 Hrs of Vital Signs/I&O Vital Signs Date Time Temp Pulse Resp B/P B/P Pulse O2 O2 Flow FiO2 Mean Ox Delivery Rate 11/21 0550 98.2 61 20 103/46 97 11/20 2118 97.6 62 18 132/63 99 Room Air 11/20 1440 98.4 74 20 135/54 98 Room Air Intake & Output 11/21 1600 11/21 0800 11/21 0000 Intake Total Output Total Balance Patient 177 lb Weight Weight Bed scale Measurement Method Findings Pertinent Lab/[place] Results: Laboratory Tests 11/21 1640 Chemistry Sodium (137 - 145 mmol/L) 135 L Potassium (3.5 - 5.1 mmol/L) 4.0 Chloride (98 - 107 mmol/L) 98 Carbon Dioxide (22 - 30 mmol/L) 29 Anion Gap (5 - 16) 7 BUN (9 - 20 mg/dL) 31 H 19 67 H Creatinine (0.7 - 1.2 mg/dL) 4.2 H Estimated GFR (>60 ml/min) 14 L BUN/Creatinine Ratio (7 - 25 %) 7.4 Coagulation PT Pending INR Pending Hematology CBC w Diff NO MAN DIFF REQ WBC (4.8 - 10.8 /CUMM) 6.8 RBC (4.70 - 6.10 /CUMM) 3.23 L Hgb (14.0 - 18.0 G/DL) 11.1 L Hct (42 - 52 %) 33.1 L MCV (80.0 - 94.0 FL) 102.3 H MCH (27.0 - 31.0 PG) 34.3 H MCHC (33.0 - 37.0 G/DL) 33.6 RDW (11.5 - 14.5 %) 15.3 H Plt Count (130 - 400 /CUMM) 193 MPV (7.4 - 10.4 FL) 9.1 Gran % (42.2 - 75.2 %) 81.1 H Lymphocytes % (20.5 - 51.1 %) 12.0 L Monocytes % (1.7 - 9.3 %) 4.8 Eosinophils % (0 - 5 %) 1.6 Basophils % (0.0 - 2.0 %) 0.5 Absolute Granulocytes (1.4 - 6.5 /CUMM) 5.5 Absolute Lymphocytes (1.2 - 3.4 /CUMM) 0.8 L Absolute Monocytes (0.10 - 0.60 /CUMM) 0.3 Absolute Eosinophils (0.0 - 0.7 /CUMM) 0.1 Absolute Basophils (0.0 - 0.2 /CUMM) 0
--- NOTE | 2017-11-21 10:55 | PN- Nephrology ---
Assessment/Plan Nephrology Assessment: Stable from renal standpoint but Hgb down yesteday priro to dialysis. Suggestion: If hemoglobin lower after OR today may need to start EPO back with dialysis. Subjective Subjective: Patient with no new complaints. Going to OR later today. Objective Vital Signs and I&Os Vital Signs Date Time Temp Pulse Resp B/P B/P Pulse O2 O2 Flow FiO2 Mean Ox Delivery Rate 11/21 0550 98.2 61 20 103/46 97 11/20 2118 97.6 62 18 132/63 99 Room Air 11/20 1440 98.4 74 20 135/54 98 Room Air Intake & Output 11/21 1600 11/21 0400 11/20 1600 11/20 0400 11/19 1600 11/19 0400 Intake Total 440 310 120 Output Total 200 Balance 240 310 120 Intake, IV 10 Intake, Oral 440 300 120 Output, Urine 200 Patient 177 lb 173 lb 175 lb Weight Weight Bed scale Reported by Patient Measurement Method Physical Exam: NAD VS as above Lungs: clear CV: no rub Abd: nontender Exts: no edema, foot bandaged Neuro: A&O Current Medications: Current Medications Sig/Rhett Start time Last Medication Dose Route Stop Time Status Admin Acetaminophen 650 MG Q6P PRN 11/18 0015 AC PO Aspirin Buffered 81 MG DAILY 11/18 09 DC 11/19 PO 0902 Atorvastatin Calcium 10 MG DAILY 11/18 0900 AC 11/20 PO 1546 Calcium Acetate 667 MG TIDAC 11/18 1200 AC 11/20 PO 0810 Citalopram 20 MG DAILY 11/18 09 AC 11/20 Hydrobromide PO 1546 Clindamycin 600 MG IQ8 11/18 0700 DC 11/20 Dextrose/Water 50 ML IV 1546 Dextrose/Sodium 1,000 ML Q8H 11/21 0915 AC Chloride IV Dextrose/Sodium 1,000 ML Q13H 11/21 0600 DC 11/21 Chloride IV 0620 Dextrose/Sodium 1,000 ML Q13H 11/21 0000 DC 11/21 Chloride IV 0022 Heparin Sodium 5,000 UNIT Q8 11/18 0600 DC 11/20 (Porcine) SC 11/20 2355 2132 Insulin Aspart 0 0800 11/20 0800 DC DC 11/21 0000 Insulin Aspart 0 AT BEDTIME 11/19 2100 DC SC Insulin Aspart 0 1200,1700 11/19 1200 DC 11/19 SC 1649 Insulin Detemir 6 UNITS BID 11/18 0000 AC 11/21 SC 0835 Insulin Human Regular 13 UNITS ONCE ONE 11/21 0045 DC 11/21 DC 11/21 0046 0047 Insulin Human Regular 0 Q6 11/21 0000 AC 11/21 SC 0620 Montelukast Sodium 10 MG QPM 11/18 2100 AC 11/20 PO 2132 Multivitamins 1 TAB DAILY 11/18 0900 AC 11/19 PO 0902 Omeprazole 40 MG DAILY AC 11/18 0700 AC 11/21 PO 0619 Oxycodone/ 0 .STK-MED ONE 11/21 0003 DC Acetaminophen PO Oxycodone/ 1 TAB Q8 PRN 11/19 1230 AC 11/21 Acetaminophen PO 0851 Patient Medication 1 ED ONE ONE 11/20 1515 DC 11/20 Teaching ED 11/20 1516 1542 Polyethylene Glycol 17 GM DAILY 11/19 0900 AC PO Results Pertinent Lab Results: Laboratory Tests 11/21 11/20 11/20 11/20 0611 2009 1640 0845 Chemistry Sodium (137 - 145 mmol/L) 135 L 130 L Potassium (3.5 - 5.1 mmol/L) 4.0 4.7 Chloride (98 - 107 mmol/L) 98 96 L Carbon Dioxide (22 - 30 mmol/L) 29 19 L Anion Gap (5 - 16) 7 16 BUN (9 - 20 mg/dL) 31 H 19 67 H 61 H Creatinine (0.7 - 1.2 mg/dL) 4.2 H 6.4 *H Estimated GFR (>60 ml/min) 14 L 9 L BUN/Creatinine Ratio (7 - 25 %) 7.4 9.5 Coagulation PT (9.4 - 12.5 SEC) 11.7 INR (0.90 - 1.17) 1.07 Hematology CBC w Diff NO MAN DIFF REQ WBC (4.8 - 10.8 /CUMM) 6.8 RBC (4.70 - 6.10 /CUMM) 3.23 L Hgb (14.0 - 18.0 G/DL) 11.1 L Hct (42 - 52 %) 33.1 L MCV (80.0 - 94.0 FL) 102.3 H MCH (27.0 - 31.0 PG) 34.3 H MCHC (33.0 - 37.0 G/DL) 33.6 RDW (11.5 - 14.5 %) 15.3 H Plt Count (130 - 400 /CUMM) 193 MPV (7.4 - 10.4 FL) 9.1 Gran % (42.2 - 75.2 %) 81.1 H Lymphocytes % (20.5 - 51.1 %) 12.0 L Monocytes % (1.7 - 9.3 %) 4.8 Eosinophils % (0 - 5 %) 1.6 Basophils % (0.0 - 2.0 %) 0.5 Absolute Granulocytes (1.4 - 6.5 /CUMM) 5.5 Absolute Lymphocytes (1.2 - 3.4 /CUMM) 0.8 L Absolute Monocytes (0.10 - 0.60 /CUMM) 0.3 Absolute Eosinophils (0.0 - 0.7 /CUMM) 0.1 Absolute Basophils (0.0 - 0.2 /CUMM) 0 08/29 0510 Chemistry Sodium (137 - 145 mmol/L) 135 L Potassium (3.5 - 5.1 mmol/L) 3.4 L Chloride (98 - 107 mmol/L) 98 Carbon Dioxide (22 - 30 mmol/L) 25 Anion Gap (5 - 16) 12 BUN (9 - 20 mg/dL) 44 H Creatinine (0.7 - 1.2 mg/dL) 5.8 *H Estimated GFR (>60 ml/min) 10 L BUN/Creatinine Ratio (7 - 25 %) 7.6 Hematology CBC w Diff NO MAN DIFF REQ WBC (4.8 - 10.8 /CUMM) 6.5 RBC (4.70 - 6.10 /CUMM) 3.61 L Hgb (14.0 - 18.0 G/DL) 12.4 L Hct (42 - 52 %) 36.8 L MCV (80.0 - 94.0 FL) 102.0 H MCH (27.0 - 31.0 PG) 34.2 H MCHC (33.0 - 37.0 G/DL) 33.5 RDW (11.5 - 14.5 %) 15.1 H Plt Count (130 - 400 /CUMM) 217 MPV (7.4 - 10.4 FL) 8.7 Gran % (42.2 - 75.2 %) 62.7 Lymphocytes % (20.5 - 51.1 %) 21.0 Monocytes % (1.7 - 9.3 %) 10.3 H Eosinophils % (0 - 5 %) 5.0 Basophils % (0.0 - 2.0 %) 1.0 Absolute Granulocytes (1.4 - 6.5 /CUMM) 4.1 Absolute Lymphocytes (1.2 - 3.4 /CUMM) 1.4 Absolute Monocytes (0.10 - 0.60 /CUMM) 0.7 H Absolute Eosinophils (0.0 - 0.7 /CUMM) 0.3 Absolute Basophils (0.0 - 0.2 /CUMM) 0.1
--- NOTE | 2017-11-21 12:20 | PN- Infect Dx ---
Subjective Subjective: Persistent R foot pain; swelling; local redness subsiding. Review of Systems Comments: 12 points reviewed as noted, otherwise negative. Objective Last 24 Hrs of Vital Signs/I&O Vital Signs Date Time Temp Pulse Resp B/P B/P Pulse O2 O2 Flow FiO2 Mean Ox Delivery Rate 11/21 0550 98.2 61 20 103/46 97 11/20 2118 97.6 62 18 132/63 99 Room Air 11/20 1440 98.4 74 20 135/54 98 Room Air Intake & Output 11/21 1600 11/21 0800 11/21 0000 Intake Total Output Total Balance Patient 177 lb Weight Weight Bed scale Measurement Method Physical Exam Other Physical Findings: General Appearance Cooperative, No Acute Distress HEENT Atraumatic Neck Supple Cardiovascular Regular Rate, Normal S1, Normal S2, No Murmurs Lungs Clear to Auscultation Abdomen Normal Bowel Sounds, Soft, No Tenderness Extremities: no c/c Skin: right great toe with ulceration to medial aspect; lateral plantar surface of right foot with callus, ulceration and tenderness Neuro: Alert, Oriented X3 Results Last 24 Hours of Lab Results: Laboratory Tests 11/21 11/20 11/20 0611 2010 1640 Chemistry Sodium (137 - 145 mmol/L) 135 L Potassium (3.5 - 5.1 mmol/L) 4.0 Chloride (98 - 107 mmol/L) 98 Carbon Dioxide (22 - 30 mmol/L) 29 Anion Gap (5 - 16) 7 BUN (9 - 20 mg/dL) 31 H 19 67 H Creatinine (0.7 - 1.2 mg/dL) 4.2 H Estimated GFR (>60 ml/min) 14 L BUN/Creatinine Ratio (7 - 25 %) 7.4 Coagulation PT (9.4 - 12.5 SEC) 11.7 INR (0.90 - 1.17) 1.07 Hematology CBC w Diff NO MAN DIFF REQ WBC (4.8 - 10.8 /CUMM) 6.8 RBC (4.70 - 6.10 /CUMM) 3.23 L Hgb (14.0 - 18.0 G/DL) 11.1 L Hct (42 - 52 %) 33.1 L MCV (80.0 - 94.0 FL) 102.3 H MCH (27.0 - 31.0 PG) 34.3 H MCHC (33.0 - 37.0 G/DL) 33.6 RDW (11.5 - 14.5 %) 15.3 H Plt Count (130 - 400 /CUMM) 193 MPV (7.4 - 10.4 FL) 9.1 Gran % (42.2 - 75.2 %) 81.1 H Lymphocytes % (20.5 - 51.1 %) 12.0 L Monocytes % (1.7 - 9.3 %) 4.8 Eosinophils % (0 - 5 %) 1.6 Basophils % (0.0 - 2.0 %) 0.5 Absolute Granulocytes (1.4 - 6.5 /CUMM) 5.5 Absolute Lymphocytes (1.2 - 3.4 /CUMM) 0.8 L Absolute Monocytes (0.10 - 0.60 /CUMM) 0.3 Absolute Eosinophils (0.0 - 0.7 /CUMM) 0.1 Absolute Basophils (0.0 - 0.2 /CUMM) 0 Last 24 Hours of Wesley Results: SPEC #: [id number] KILO: 11/20/17 STATUS: RECD RECD: 11/20/17-[address] [facility] [address]: Bong Hernandes MD, [facility] SOURCE: UPPER RESP ENTR: 11/20/17-[address]: Madelaine MEDINA,[facility]olo [facility] MURALI Khan MD,Tulio West MD,[facility] ORDERED: MRSA SCREEN COMMENT: HAS THE PATIENT BEEN ON ANTIBIOTICS IN THE PAST 72 HOURS? Y Procedure Result MRSA SCREEN PENDING Recent Imaging Studies: Reviewed Assessment/Plan ID Impression: 62 year old male with PMH of DM2, ESRD on HD TuThSat, DM, h/o diabetic foot ulcer right foot, HLD presented to the hospital to be evaluated for cellulitis on 11/17/17; MRI revealed right foot cellulitis; early OM 1st distal phalanx ( most likely pathogen S. aureus); small effusion in the 5th MTP joint, f/u podiatry recom; r/o septic arthritis; going to OR today; clindamycin held. Suggestion: 1. Bone bx/culture off abx today; after returning from OR give Vancomycin iv 1 gm; vancomycin level at HD tomorrow. Final abx choice depending on bone cx results. 2. F/U nasal MRSA surv cx. 3. F/U podiatry/nephrology recom.
[2017-11-21 14:36] VITALS: BP 108/62
--- NOTE | 2017-11-21 16:47 | Operative Report ---
Operative/Inv Procedure Report Surgery Date: 11/21/17 Name of Procedure: 1 open incision and drainage deep to the deep fascia with exposure of the extensor and flexor tendon and tendon sheath multiple sites right 2 open, partial fifth ray resection right foot 3 intraoperative administration of ankle block anesthesia 4 excisional debris Pre-Operative Diagnosis: 1 open necrotic wound right 2 osteomyelitis right 3 diabetic peripheral neuropathy Post-Operative Diagnosis: The same Estimated Blood Loss: less than 50ml Surgeon/Relocation Specialist: JEROMY CALDERÓN DPM Anesthesia: moderate sedation, block Operative/Procedure Note Note: After obtaining informed consent patient was brought to the operating room and placed on the operating table in the supine position. The patient was then securely fastened to the operating table utilizing is a safety belt. After administration of IV sedation, 10 cc of 0.5% Marcaine plain was infiltrated about the patient's right ankle. The right foot and ankle were scrubbed, prepped and draped in the usual aseptic manner. Attention directed right foot, where a large full-thickness necrotic was identified. A 15 blade was utilized to sharply revise the skin margins. The dissection was then carried down deep to the deep fascia with exposure of the extensor and flexor tendon and tendon sheath multiple sites, both proximally and distally. All necrotic, nonviable and infected tissue was sharply evacuated from the wound bed. The dissection was then carried down to the periosteum overlying the distal fifth metatarsal. This was incised and reflected. Sagittal bone saw was utilized to perform through and through osteotomy. The distal osseous segment was freed and passed from the operative field. Specimen sent for both microbiologic and pathologic inspection. The open wound was then irrigated with 3 L of normal sterile saline infused with 50,000 units of bacitracin. Following this, the foot was redraped and the surgeons top gloves were changed to clean gloves. Any bleeding vessels identified were cauterized or ligated as encountered. The open was then packed with half-inch iodoform and 2-0 nylon retention sutures were placed. The incision was then dressed with 4 x 4's, Kerlix and an Shawn wrap. The patient was noted to tolerate both procedure and anesthesia well and the patient was transported from the operating room to recovery with vital signs stable.
[2017-11-21 18:30] VITALS: BP 118/60
[2017-11-21 21:19] VITALS: BP 128/60
[2017-11-22 07:38] VITALS: BP 112/49
--- NOTE | 2017-11-22 08:38 | PN- Housestaff ---
See Addendum Subjective Follow-up For: Right foot ulcers/osteomyelitis Subjective: Patient seen and examined. Continues to have left lower extremity pain as he is post op day 1 after podiatric surgery. Patient stated to be eating well. He is afebrile this morning. Hemodyalisis uneventful this morning. Patient seen by ID as well as endocrinology this morning. Review of Systems Constitutional: Denies: see HPI. Objective Last 24 Hrs of Vital Signs/I&O Vital Signs Date Time Temp Pulse Resp B/P B/P Pulse O2 O2 Flow FiO2 Mean Ox Delivery Rate 11/22 0638 99.1 74 18 112/49 95 11/21 2200 18 97 Room Air 11/21 2119 98.2 69 69 128/60 17 Room Air 11/21 1830 98.0 67 18 118/60 100 Room Air 11/21 1436 97.7 57 18 108/62 97 Room Air Intake & Output 11/22 1600 11/22 0800 11/22 0000 Intake Total 480 490 Output Total Balance 480 490 Intake, IV 250 Intake, Oral 480 240 Patient 176 lb Weight Physical Exam General Appearance: Alert, Oriented X3, Cooperative, No Acute Distress Skin: No Rashes, No Breakdown HEENT: PERRLA, EOMI, Mucous Membr. moist/pink Cardiovascular: Regular Rate, Normal S1, Normal S2 Lungs: Clear to Auscultation, Normal Air Movement Abdomen: Normal Bowel Sounds, Soft, No Tenderness Extremities: right foot dressing in place; tender to palpation Current Medications: Current Medications Sig/Rhett Start time Last Medication Dose Route Stop Time Status Admin Acetaminophen 650 MG Q6P PRN 11/18 0015 AC PO Atorvastatin Calcium 10 MG DAILY 11/18 09 AC 11/22 PO 1210 Calcium Acetate 667 MG TIDAC 11/18 1200 AC 11/22 PO 1210 Citalopram 20 MG DAILY 11/18 0900 AC 11/22 Hydrobromide PO 1210 Dextrose/Sodium 1,000 ML Q8H 11/21 0915 DC 11/21 Chloride IV 0930 Fentanyl Citrate 0 .STK-MED ONE 11/21 1534 DC .ROUTE Insulin Aspart 0 0800 11/23 0800 AC SC Insulin Aspart 0 1200,1700 11/22 1200 AC 11/22 SC 1217 Insulin Aspart 0 AT BEDTIME 11/21 2100 AC SC Insulin Detemir 6 UNITS BID 11/18 0000 AC 11/22 SC 1219 Insulin Human Regular 0 Q6 11/21 0000 DC 11/21 SC 0620 Midazolam HCl 0 .STK-MED ONE 11/21 1534 DC .ROUTE Montelukast Sodium 10 MG QPM 11/18 2100 AC 11/21 PO 2041 Multivitamins 1 TAB DAILY 11/18 0900 AC 11/22 PO 1210 Omeprazole 40 MG DAILY AC 11/18 0700 AC 11/22 PO 0539 Oxycodone/ 1 TAB Q8 PRN 11/19 1230 AC 11/22 Acetaminophen PO 0957 Polyethylene Glycol 17 GM DAILY 11/19 09 AC PO Vancomycin HCl 1,000 MG ONCE ONE 11/21 2100 DC 11/21 Sodium Chloride 250 ML IV 11/21 Last 24 Hrs of Lab/Wesley Results Last 24 Hrs of Labs/Mics: Laboratory Tests 11/22/17 0800: Anion Gap 10, Estimated GFR 11 L, BUN/Creatinine Ratio 7.5, Calcium 8.9, CBC w Diff NO MAN DIFF REQ, RBC 3.24 L, MCV 103.2 H, MCH 34.5 H, MCHC 33.5, RDW 15.3 H, MPV 9.4, Gran % 69.9, Lymphocytes % 14.7 L, Monocytes % 11.8 H, Eosinophils % 3.3, Basophils % 0.3, Absolute Granulocytes 4.3, Absolute Lymphocytes 0.9 L, Absolute Monocytes 0.7 H, Absolute Eosinophils 0.2, Absolute Basophils 0 Microbiology 11/21 1625 EXTREMITIE: Gross Specimen Examination - RECD 11/21 162 EXTREMITIE: Gram Stain - RECD Assessment/Plan Assessment: 62-year-old male with past medical history of ESRD on hemodialysis left arm AV fistula, diabetes mellitus, COPD(not on home oxygen), history of diabetic foot ulcer and right lower extremity, hyperlipidemia, CHF with ejection fraction of 40-45% preserved, presented to emergency department with Dr. hall for right lower extremity ulcer, with yellow discharge. 11/22: Patient is post op day [address] Deng of podiatry for open incision/ draianage of deep fascia, open partial fifth ray resection right foot, excisional debris. He has been on unasyn and one dose of vancomycin given yesterday. Patient received hemodyalisis today. Post op day 1 of podiatric surgery. Seen by infectious disease, nephrology and endocrinology today. PROBLEM LIST: 1. Right Foot Ulcer/Cellulitis 2. ESRD on HD 3. Microcytioc Anemia 4. Hisotory of CHF, HTN, HLD, DM PLAN: * Post Op day 1 * ID Recommendations: if random vanco level below 15 will give Vanco 750 mg X 1. Final antuibiotic choice depending on bone culture results -follow up bone/blood culture results; fullow nasal MRSA surv cx * Next HD will be on Friday * Continue insulin regimen as per endocrinology recommendations; monitor Accucheck; avoid nephrotoxic agents - creatinine after dialysis was 5.4 Diet: CC1 Code Status: Full Code Problem List: 1. Diabetic foot infection 2. ESRD (end stage renal disease) on dialysis Pain Ratin Pain Location: Lower extremity Pain Goal: Pain 4 or less Pain Plan: as per pain pathway Tomorrow's Labs & Rationales: cbc bep
[2017-11-22 09:08] LABS: ABSOLUTE BASOPHIL COUNT 0 /CUMM (0.0-0.2); ABSOLUTE EOSINOPHIL COUNT 0.2 /CUMM (0.0-0.7); ABSOLUTE GRANULOCYTE CT 4.3 /CUMM (1.4-6.5); ABSOLUTE LYMPH COUNT 0.9 /CUMM (1.2-3.4); ABSOLUTE MONOCYTE COUNT 0.7 /CUMM (0.10-0.60); BASOPHIL % 0.3 % (0.0-2.0); EOSINOPHIL % 3.3 % (0-5); GRANULOCYTE % 69.9 % (42.2-75.2); HEMATOCRIT 33.4 % (42-52); MEAN CORPUSCULAR HGB 34.5 PG (27.0-31.0); MEAN CORPUSCULAR HGB CONC 33.5 G/DL (33.0-37.0); MEAN CORPUSCULAR VOLUME 103.2 FL (80.0-94.0); MEAN PLATELET VOLUME 9.4 FL (7.4-10.4); PLATELET COUNT 200 /CUMM (130-400); RBC DISTRIBUTION WIDTH 15.3 % (11.5-14.5); RED BLOOD CELL CT 3.24 /CUMM (4.70-6.10); WHITE BLOOD CELL COUNT 6.2 /CUMM (4.8-10.8)
--- NOTE | 2017-11-22 11:51 | PN- Infect Dx ---
Subjective Subjective: In HD; low BS this am. R foot pain. No fever. Review of Systems Comments: 12 points reviewe as noted, otherwise negative. Objective Last 24 Hrs of Vital Signs/I&O Vital Signs Date Time Temp Pulse Resp B/P B/P Pulse O2 O2 Flow FiO2 Mean Ox Delivery Rate 11/22 737 99.1 74 18 112/49 95 11/21 2200 18 97 Room Air 11/21 2119 98.2 69 69 128/60 17 Room Air 11/21 1830 98.0 67 18 118/60 100 Room Air 11/21 1436 97.7 57 18 108/62 97 Room Air Intake & Output 11/22 1600 11/22 0800 11/22 0000 Intake Total 480 490 Output Total Balance 480 490 Intake, IV 250 Intake, Oral 480 240 Patient 176 lb Weight Physical Exam Other Physical Findings: General Appearance Cooperative, No Acute Distress HEENT Atraumatic Neck Supple Cardiovascular Regular Rate, Normal S1, Normal S2, No Murmurs Lungs Clear to Auscultation Abdomen Normal Bowel Sounds, Soft, No Tenderness Extremities: no c/c Skin: right foot dressing in place Neuro: Alert, Oriented X3 Results Last 24 Hours of Lab Results: Laboratory Tests 11/22 08 Chemistry Sodium (137 - 145 mmol/L) 133 L Potassium (3.5 - 5.1 mmol/L) 4.7 Chloride (98 - 107 mmol/L) 100 Carbon Dioxide (22 - 30 mmol/L) 24 Anion Gap (5 - 16) 10 BUN (9 - 20 mg/dL) 41 H Creatinine (0.7 - 1.2 mg/dL) 5.5 *H Estimated GFR (>60 ml/min) 11 L BUN/Creatinine Ratio (7 - 25 %) 7.5 Calcium (8.4 - 10.2 mg/dL) 8.9 Hematology CBC w Diff NO MAN DIFF REQ WBC (4.8 - 10.8 /CUMM) 6.2 RBC (4.70 - 6.10 /CUMM) 3.24 L Hgb (14.0 - 18.0 G/DL) 11.2 L Hct (42 - 52 %) 33.4 L MCV (80.0 - 94.0 FL) 103.2 H MCH (27.0 - 31.0 PG) 34.5 H MCHC (33.0 - 37.0 G/DL) 33.5 RDW (11.5 - 14.5 %) 15.3 H Plt Count (130 - 400 /CUMM) 200 MPV (7.4 - 10.4 FL) 9.4 Gran % (42.2 - 75.2 %) 69.9 Lymphocytes % (20.5 - 51.1 %) 14.7 L Monocytes % (1.7 - 9.3 %) 11.8 H Eosinophils % (0 - 5 %) 3.3 Basophils % (0.0 - 2.0 %) 0.3 Absolute Granulocytes (1.4 - 6.5 /CUMM) 4.3 Absolute Lymphocytes (1.2 - 3.4 /CUMM) 0.9 L Absolute Monocytes (0.10 - 0.60 /CUMM) 0.7 H Absolute Eosinophils (0.0 - 0.7 /CUMM) 0.2 Absolute Basophils (0.0 - 0.2 /CUMM) 0 Last 24 Hours of Wesley Results: SPEC #: [id number] KILO: 11/21/17 STATUS: RECD RECD: 11/21/[address]: Rolo Deng DPM SOURCE: [facility] ENTR: 11/21/[address] [facility] [address]: Madelaine MEDINA,Cholo SPDESC: TOE 5 R FT Erin MEDINA,Tulio West MD,[facility] ORDERED: XTRMOR COMMENT: BONE RECEIVED IN CUP PLACED IN THIO ADDITIONAL INFORMATION: RIGHT 5TH TOE BONE CULTURE Procedure Result XTRMOR PENDING Recent Imaging Studies: MRI IMPRESSION: 1. Soft tissue ulcer on the plantar medial aspect of the 1st distal phalanx. Abnormal edema in the 1st distal phalanx, raising concern for early osteomyelitis. 2. Suspected soft tissue ulceration plantar to the 5th MTP joint. Abnormal edema in the 5th metatarsal head, proximal base of the 5th proximal phalanx, suspicious for early osteomyelitis. Small effusion in the 5th MTP joint, septic arthritis cannot be excluded. Clinically correlate. 3. Followup imaging can be obtained for reassessment as clinically warranted. DICTATED BY: Josue Mackenzie MD DATE/TIME DICTATED:11/19/171348 FULLING MACHINE OPERATOR:DOTTIE DATE/TIME TRANSCRIBED:11/19/171348 Assessment/Plan ID Impression: 62 year old male with PMH of DM2, ESRD on HD TuThSat, DM, h/o diabetic foot ulcer right foot, HLD presented to the hospital to be evaluated for cellulitis on 11/17/17; MRI revealed right foot cellulitis; early OM 1st distal phalanx ( most likely pathogen S. aureus); small effusion in the 5th MTP joint, f/u podiatry recom; r/o septic arthritis; now POD #1 s/p R foot sx. Suggestion: 1. F/U bone bx/culture results; started Vancomycin iv 1 gm x1; awaiting random vancomycin level from today; if below 15 give Vancomycin 750 mg x1. Final abx choice depending on bone cx results. 2. F/U nasal MRSA surv cx. 3. F/U podiatry/nephrology recom.
--- NOTE | 2017-11-22 12:00 | PN- Nephrology ---
Assessment/Plan Nephrology Assessment: 1. ESRD: HD w/o problem - 1 liter UF off 2. Ft ulcer: continue antibiotics; ? surg again Mon Suggestion: next HD Tu Subjective Subjective: No complaints No SOB HD uneventful Objective Vital Signs and I&Os Vital Signs Date Time Temp Pulse Resp B/P B/P Pulse O2 O2 Flow FiO2 Mean Ox Delivery Rate 11/22 0738 99.1 74 18 112/49 95 11/21 2200 18 97 Room Air 11/21 2119 98.2 69 69 128/60 17 Room Air 11/21 1830 98.0 67 18 118/60 100 Room Air 11/21 1436 97.7 57 18 108/62 97 Room Air Intake & Output 11/22 1600 11/22 0400 11/21 1600 11/21 0400 11/20 1600 11/20 0400 Intake Total 480 490 700 440 310 Output Total 200 Balance 480 490 700 240 310 Intake, IV 250 600 10 Intake, Oral 480 240 100 440 300 Output, Urine 200 Patient 176 lb 177 lb 173 lb 175 lb Weight Weight Bed scale Reported by Patient Measurement Method Physical Exam General Appearance: well developed/nourished, no apparent distress, alert Head: atraumatic, normal appearance Neck: normal inspection Respiratory: lungs clear Cardiovascular: regular rate/rhythm, friction rub (none) Abdomen: normal bowel sounds, non-tender Extremities: no edema, + bruit MONTSE AVF Neurologic/Psychiatric: awake, alert Lymphatic: no anterior cervical markell Current Medications: Current Medications Sig/Rhett Start time Last Medication Dose Route Stop Time Status Admin Acetaminophen 650 MG Q6P PRN 11/18 0015 AC PO Atorvastatin Calcium 10 MG DAILY 11/18 09 AC 11/21 PO 1209 Calcium Acetate 667 MG TIDAC 11/18 1200 AC 11/21 PO 1857 Citalopram 20 MG DAILY 11/18 09 AC 11/21 Hydrobromide PO 1209 Dextrose 0 .STK-MED ONE 11/21 1208 DC IV Dextrose 25 GM ONCE ONE 11/21 1200 DC 11/21 IV 11/21 1201 1209 Dextrose/Sodium 1,000 ML Q8H 11/21 0915 DC 11/21 Chloride IV 0930 Fentanyl Citrate 0 .STK-MED ONE 11/21 1534 DC .ROUTE Insulin Aspart 0 1200,1700 11/22 1200 AC SC Insulin Aspart 0 AT BEDTIME 11/21 2100 AC SC Insulin Detemir 6 UNITS BID 11/18 0000 AC 11/21 SC 204 Insulin Human Regular 0 Q6 11/21 0000 DC 11/21 SC 06 Midazolam HCl 0 .STK-MED ONE 11/21 1534 DC .ROUTE Montelukast Sodium 10 MG QPM 11/18 2100 AC 11/21 PO 204 Multivitamins 1 TAB DAILY 11/18 0900 AC 11/19 PO 0902 Omeprazole 40 MG DAILY AC 11/18 0700 AC 11/22 PO 0539 Oxycodone/ 1 TAB Q8 PRN 11/19 1230 AC 11/22 Acetaminophen PO 0957 Polyethylene Glycol 17 GM DAILY 11/19 0900 AC PO Vancomycin HCl 1,000 MG ONCE ONE 11/21 2099 DC 11/21 Sodium Chloride 250 ML IV 11/21 Results Pertinent Lab Results: Laboratory Tests 11/22 11/21 11/20 0800 0611 2009 Chemistry Sodium (137 - 145 mmol/L) 133 L 135 L Potassium (3.5 - 5.1 mmol/L) 4.7 4.0 Chloride (98 - 107 mmol/L) 100 98 Carbon Dioxide (22 - 30 mmol/L) 24 29 Anion Gap (5 - 16) 10 7 BUN (9 - 20 mg/dL) 41 H 31 H 19 Creatinine (0.7 - 1.2 mg/dL) 5.5 *H 4.2 H Estimated GFR (>60 ml/min) 11 L 14 L BUN/Creatinine Ratio (7 - 25 %) 7.5 7.4 Calcium (8.4 - 10.2 mg/dL) 8.9 Coagulation PT (9.4 - 12.5 SEC) 11.7 INR (0.90 - 1.17) 1.07 Hematology CBC w Diff NO MAN DIFF REQ WBC (4.8 - 10.8 /CUMM) 6.2 RBC (4.70 - 6.10 /CUMM) 3.24 L Hgb (14.0 - 18.0 G/DL) 11.2 L Hct (42 - 52 %) 33.4 L MCV (80.0 - 94.0 FL) 103.2 H MCH (27.0 - 31.0 PG) 34.5 H MCHC (33.0 - 37.0 G/DL) 33.5 RDW (11.5 - 14.5 %) 15.3 H Plt Count (130 - 400 /CUMM) 200 MPV (7.4 - 10.4 FL) 9.4 Gran % (42.2 - 75.2 %) 69.9 Lymphocytes % (20.5 - 51.1 %) 14.7 L Monocytes % (1.7 - 9.3 %) 11.8 H Eosinophils % (0 - 5 %) 3.3 Basophils % (0.0 - 2.0 %) 0.3 Absolute Granulocytes (1.4 - 6.5 /CUMM) 4.3 Absolute Lymphocytes (1.2 - 3.4 /CUMM) 0.9 L Absolute Monocytes (0.10 - 0.60 /CUMM) 0.7 H Absolute Eosinophils (0.0 - 0.7 /CUMM) 0.2 Absolute Basophils (0.0 - 0.2 /CUMM) 0 11/20 08 1640 0845 Chemistry Sodium (137 - 145 mmol/L) 130 L Potassium (3.5 - 5.1 mmol/L) 4.7 Chloride (98 - 107 mmol/L) 96 L Carbon Dioxide (22 - 30 mmol/L) 19 L Anion Gap (5 - 16) 16 BUN (9 - 20 mg/dL) 67 H 61 H Creatinine (0.7 - 1.2 mg/dL) 6.4 *H Estimated GFR (>60 ml/min) 9 L BUN/Creatinine Ratio (7 - 25 %) 9.5 Hematology CBC w Diff NO MAN DIFF REQ WBC (4.8 - 10.8 /CUMM) 6.8 RBC (4.70 - 6.10 /CUMM) 3.23 L Hgb (14.0 - 18.0 G/DL) 11.1 L Hct (42 - 52 %) 33.1 L MCV (80.0 - 94.0 FL) 102.3 H MCH (27.0 - 31.0 PG) 34.3 H MCHC (33.0 - 37.0 G/DL) 33.6 RDW (11.5 - 14.5 %) 15.3 H Plt Count (130 - 400 /CUMM) 193 MPV (7.4 - 10.4 FL) 9.1 Gran % (42.2 - 75.2 %) 81.1 H Lymphocytes % (20.5 - 51.1 %) 12.0 L Monocytes % (1.7 - 9.3 %) 4.8 Eosinophils % (0 - 5 %) 1.6 Basophils % (0.0 - 2.0 %) 0.5 Absolute Granulocytes (1.4 - 6.5 /CUMM) 5.5 Absolute Lymphocytes (1.2 - 3.4 /CUMM) 0.8 L Absolute Monocytes (0.10 - 0.60 /CUMM) 0.3 Absolute Eosinophils (0.0 - 0.7 /CUMM) 0.1 Absolute Basophils (0.0 - 0.2 /CUMM) 0
--- NOTE | 2017-11-22 12:01 | PN- Diabetes ---
Assessment/Plan Diabetes Assessment: 61 y/o male hx of diabetes type 1 complicated with retinopathy and ESRD on HD, was admitted for right toe infection and cellulitis. He was put on Levemir 6 units twice a day, Novolog coverage before meals and Novolog coverage at bedtime. Novolog coverage before breakfast: FSG 80-150, 2 units; 151-200, 3 units 200-250, 4 units 251-300, 5 units 301-350, 6 units 351-400, 7 units > 400, 8 units Novolog coverage before lunch and before dinner; FSG 80-150, 5 units 151-200, 6 units 200-250, 7 units 251-300, 8 units 301-350, 9 units 351-400, 9 units > 400, 10 units Novolog coverage at bedtime; FSG < 250, no coverage 251-300, 2 units 301-350, 3 units 351-400, 4 units > 400, 4 units His FSGs were 142, 132, 173 and 192. Plan: continue the current insulin regimen; monitor FSGs. will follow. Subjective Subjective: He is receiving HD at this moment. Objective Last 24 Hrs of Vital Signs/I&O Vital Signs Date Time Temp Pulse Resp B/P B/P Pulse O2 O2 Flow FiO2 Mean Ox Delivery Rate 11/22 0738 99.1 74 18 112/49 95 11/21 2200 18 97 Room Air 11/21 2119 98.2 69 69 128/60 17 Room Air 11/21 1830 98.0 67 18 118/60 100 Room Air 11/21 1436 97.7 57 18 108/62 97 Room Air Intake & Output 11/22 1600 11/22 0800 11/22 0000 Intake Total 480 490 Output Total Balance 480 490 Intake, IV 250 Intake, Oral 480 240 Patient 176 lb Weight Findings Pertinent Lab/[facility] Results: Laboratory Tests 11/22 08 Chemistry Sodium (137 - 145 mmol/L) 133 L Potassium (3.5 - 5.1 mmol/L) 4.7 Chloride (98 - 107 mmol/L) 100 Carbon Dioxide (22 - 30 mmol/L) 24 Anion Gap (5 - 16) 10 BUN (9 - 20 mg/dL) 41 H Creatinine (0.7 - 1.2 mg/dL) 5.5 *H Estimated GFR (>60 ml/min) 11 L BUN/Creatinine Ratio (7 - 25 %) 7.5 Calcium (8.4 - 10.2 mg/dL) 8.9 Hematology CBC w Diff NO MAN DIFF REQ WBC (4.8 - 10.8 /CUMM) 6.2 RBC (4.70 - 6.10 /CUMM) 3.24 L Hgb (14.0 - 18.0 G/DL) 11.2 L Hct (42 - 52 %) 33.4 L MCV (80.0 - 94.0 FL) 103.2 H MCH (27.0 - 31.0 PG) 34.5 H MCHC (33.0 - 37.0 G/DL) 33.5 RDW (11.5 - 14.5 %) 15.3 H Plt Count (130 - 400 /CUMM) 200 MPV (7.4 - 10.4 FL) 9.4 Gran % (42.2 - 75.2 %) 69.9 Lymphocytes % (20.5 - 51.1 %) 14.7 L Monocytes % (1.7 - 9.3 %) 11.8 H Eosinophils % (0 - 5 %) 3.3 Basophils % (0.0 - 2.0 %) 0.3 Absolute Granulocytes (1.4 - 6.5 /CUMM) 4.3 Absolute Lymphocytes (1.2 - 3.4 /CUMM) 0.9 L Absolute Monocytes (0.10 - 0.60 /CUMM) 0.7 H Absolute Eosinophils (0.0 - 0.7 /CUMM) 0.2 Absolute Basophils (0.0 - 0.2 /CUMM) 0
[2017-11-22 14:52] VITALS: BP 142/77
[2017-11-22 21:44] VITALS: BP 110/60
[2017-11-23 06:28] VITALS: BP 129/57
--- NOTE | 2017-11-23 07:43 | PN- Housestaff ---
Cain Salcido 11/23/17 0742: Subjective Follow-up For: Right lower extremity osteomyelitis, dialysis Subjective: Patient seen and examined at bedside. He was complaining of mild pain in the right lower extremity. He denies fever, chills, palpitation, chest pain, abdominal pain, diarrhea, constipation, burning micturition. Review of Systems Constitutional: Reports: see HPI. Objective Last 24 Hrs of Vital Signs/I&O Vital Signs Date Time Temp Pulse Resp B/P B/P Pulse O2 O2 Flow FiO2 Mean Ox Delivery Rate 11/23 0628 98.4 73 20 129/57 98 11/22 2144 98.0 77 18 110/60 99 Room Air 11/22 1452 98.2 72 14 142/77 98 Room Air Intake & Output 11/23 1600 11/23 0800 11/23 0000 Intake Total 120 800 Output Total Balance 120 800 Intake, Oral 120 800 Number 1 Bowel Movements Patient 177 lb Weight Weight Bed scale Measurement Method Physical Exam General Appearance: Alert, Oriented X3, Cooperative, No Acute Distress Cardiovascular: Regular Rate, Normal S1, Normal S2, No Murmurs Lungs: Clear to Auscultation, Normal Air Movement Abdomen: Normal Bowel Sounds, Soft, No Tenderness Extremities: RLE wound foot, bandage applied Assessment/Plan Assessment: 62-year-old male with past medical history of ESRD on hemodialysis left arm AV fistula, diabetes mellitus, COPD(not on home oxygen), history of diabetic foot ulcer and right lower extremity, hyperlipidemia, CHF with ejection fraction of 40-45% preserved, presented to emergency department with referral for right lower extremity ulcer, with yellow discharge. Problem List: *Right foot cellulitis/ulcer *He is already on hemodialysis *Microcytic anemia *Past medical history of CHF, hypertension, hyperlipidemia, diabetes At the time of presentation to emergency department vitals, labs are given below : VS T98.1 P84 RR18 BP148/77 Sat96%RA Labs: WBC 7.5 H/H 12.7/38.0 plt 231 Na 131 K3.6 BUN/Cr 61/8.6 Glu 372 BCx pending ED tx: one dose of Clindamycin XR right foot: IMPRESSION: No evidence to suggest osteomyelitis. As stated previously, MRI of the foot with and without contrast would have improved sensitivity and specificity of osteomyelitis -MRI awaited *Right foot cellulitis/osteomyelitis /ulcer: -Right foot ulcer on plantar surface of big toe and lateral border of the right foot -MRI done today and report shows: -1. Soft tissue ulcer on the plantar medial aspect of the 1st distal phalanx. Abnormal edema in the 1st distal phalanx, raising concern for early osteomyelitis. 2. Suspected soft tissue ulceration plantar to the 5th MTP joint. Abnormal edema in the 5th metatarsal head, proximal base of the 5th proximal phalanx, suspicious for early osteomyelitis. Small effusion in the 5th MTP joint, septic arthritis cannot be excluded. Clinically correlate. -Podiatry has done the procedure. Recommendation appreciated. -Patient is post op day [address] Deng of podiatry for open incision/ draianage of deep fascia, open partial fifth ray resection right foot, excisional debris. ID recommendation: -ID recommendation appreciated -ID recommended ceftriaxone 1 g daily -Vancomycin level on Friday before dialysis if it was less than 15 give him 500 mg per oral vancomycin ESRD on dialysis stage V: -Patient is on dialysis 3 times a week *Creatinine was 9 at the time of presentation now it has trended to 4.1 today his sodium is 135 -GFR was 6 at the time of presentation not improved -Above finding are consistent with end-stage renal disease stage V -Nephrology consultation appreciated will follow nephrology recommendation -Dialysis plan today -We will follow with nephrology recommendation -Dialysis planed on Friday *Macrocytic anemia-possible mixed picture anemia in ESRD: -His anemia is multifactorial ESRD could be one of them -follow up B12/folate/iron studies these are normal -We will consider erythropoietin if H&H is dropped further Diabetes mellitus/hypertension/hyperlipidemia: -Today patient sugar is 125 -Endocrinology recommendation appreciated -He is on home insulin so it will be continued -Patient home medication will be continued -Insulin NovoLog, Lantus will continued -We will monitor Accu-Chek -We will place a consult for endocrinology -Avoid nephrotoxic medication DVT prophylaxis: heparin/ALPS/ambulation Code status: full code Problem List: 1. Hypercalcemia 2. Diabetic foot ulcer 3. Diabetic foot infection 4. ESRD (end stage renal disease) on dialysis 5. Full code status 6. Osteomyelitis Pain Ratin Pain Location: Right lower extremity Pain Goal: Remain pain free Pain Plan: Pain management. Tomorrow's Labs & Rationales: Joshua Shelley MD 11/23/17 1824: Attending MD Review Statement Attending Statement Attending MD Statement: examined this patient, discuss w/resident/PA/FRAMING MILL OPERATOR, agreed w/resident/PA/FRAMING MILL OPERATOR, reviewed EMR data (avail), discussed with case mgmt, amended to note Attending Assessment/Plan: The patient was seen and discussed with house staff. ID and Endocrinology follow -up appreciated. Continue Vanco and add Ceftriaxone (GNR growing from cultures). Await final cultures. Episode of low sugar noted due to decreased carbohydrates at breakfast. Will follow.
[2017-11-23 08:02] LABS: ABSOLUTE BASOPHIL COUNT 0 /CUMM (0.0-0.2); ABSOLUTE EOSINOPHIL COUNT 0.1 /CUMM (0.0-0.7); ABSOLUTE LYMPH COUNT 1.2 /CUMM (1.2-3.4); BASOPHIL % 0.4 % (0.0-2.0); EOSINOPHIL % 2.1 % (0-5); GRANULOCYTE % 63.1 % (42.2-75.2); HEMATOCRIT 34.4 % (42-52); MEAN CORPUSCULAR HGB 34.1 PG (27.0-31.0); MEAN CORPUSCULAR VOLUME 103.4 FL (80.0-94.0); MEAN PLATELET VOLUME 9.6 FL (7.4-10.4); PLATELET COUNT 184 /CUMM (130-400); RBC DISTRIBUTION WIDTH 15.2 % (11.5-14.5); RED BLOOD CELL CT 3.33 /CUMM (4.70-6.10); WHITE BLOOD CELL COUNT 6.4 /CUMM (4.8-10.8)
--- NOTE | 2017-11-23 11:00 | PN- Infect Dx ---
Subjective Subjective: No fever; had 1L removed at HD previous day. R foot pain. Review of Systems Comments: 12 points reviewed as noted, otherwise negative Objective Last 24 Hrs of Vital Signs/I&O Vital Signs Date Time Temp Pulse Resp B/P B/P Pulse O2 O2 Flow FiO2 Mean Ox Delivery Rate 11/24 627 98.4 73 20 129/57 98 11/22 2144 98.0 77 18 110/60 99 Room Air 11/22 1452 98.2 72 14 142/77 98 Room Air Intake & Output 11/23 1600 11/23 0800 11/23 0000 Intake Total 120 800 Output Total Balance 120 800 Intake, Oral 120 800 Number 1 Bowel Movements Patient 177 lb Weight Weight Bed scale Measurement Method Physical Exam Other Physical Findings: General Appearance Cooperative, No Acute Distress HEENT Atraumatic Neck Supple Cardiovascular Regular Rate, Normal S1, Normal S2, No Murmurs Lungs Clear to Auscultation Abdomen Normal Bowel Sounds, Soft, No Tenderness Extremities: no c/c Skin: right foot dressing in place Neuro: Alert, Oriented X3 Results Last 24 Hours of Lab Results: Laboratory Tests 11/23 11/22 0640 1618 Chemistry Sodium (137 - 145 mmol/L) 135 L Potassium (3.5 - 5.1 mmol/L) 4.1 Chloride (98 - 107 mmol/L) 99 Carbon Dioxide (22 - 30 mmol/L) 28 Anion Gap (5 - 16) 8 BUN (9 - 20 mg/dL) 25 H Creatinine (0.7 - 1.2 mg/dL) 4.0 H Estimated GFR (>60 ml/min) 15 L BUN/Creatinine Ratio (7 - 25 %) 6.3 L Hematology CBC w Diff NO MAN DIFF REQ WBC (4.8 - 10.8 /CUMM) 6.4 RBC (4.70 - 6.10 /CUMM) 3.33 L Hgb (14.0 - 18.0 G/DL) 11.4 L Hct (42 - 52 %) 34.4 L MCV (80.0 - 94.0 FL) 103.4 H MCH (27.0 - 31.0 PG) 34.1 H MCHC (33.0 - 37.0 G/DL) 33.0 RDW (11.5 - 14.5 %) 15.2 H Plt Count (130 - 400 /CUMM) 184 MPV (7.4 - 10.4 FL) 9.6 Gran % (42.2 - 75.2 %) 63.1 Lymphocytes % (20.5 - 51.1 %) 18.5 L Monocytes % (1.7 - 9.3 %) 15.9 H Eosinophils % (0 - 5 %) 2.1 Basophils % (0.0 - 2.0 %) 0.4 Absolute Granulocytes (1.4 - 6.5 /CUMM) 4.0 Absolute Lymphocytes (1.2 - 3.4 /CUMM) 1.2 Absolute Monocytes (0.10 - 0.60 /CUMM) 1.0 H Absolute Eosinophils (0.0 - 0.7 /CUMM) 0.1 Absolute Basophils (0.0 - 0.2 /CUMM) 0 Toxicology Random Vancomycin (ug/ml) 7.4 Last 24 Hours of [facility] Results: SPEC #: [id number] KILO: 11/21/17 STATUS: RES RECD: 11/21/[address]: Rolo Deng DPM [facility]17 [facility] DR: Madelaine MEDINA,Cholo SPDESC: TOE 5 R FT Erin MEDINA,Tulio West MD,[facility] ORDERED: XTRMOR COMMENT: BONE RECEIVED IN CUP PLACED IN THIO ADDITIONAL INFORMATION: RIGHT 5TH TOE BONE CULTURE Procedure Result > GRAM STAIN Preliminary 11/23/17 GRAM POSITIVE COCCI MODERATE GRAM NEGATIVE RODS MANY OTHER FROM THIO BROTH > EXTREMITIES OR SPECIMEN Preliminary 11/23/17 GROWTH IN THIO BROTH OF: 1. GRAM NEGATIVE RODS Identification and sensitivities to follow 2. ENTEROCOCCUS Sensitivity to follow 3. GRAM POSITIVE COCCI Identification and sensitivities to follow Called to/Readback by VINEET by LAB.SVCY 11/23/17 0930 Recent Imaging Studies: Reviewed Assessment/Plan ID Impression: 62 year old male with PMH of DM2, ESRD on HD TuThSat, DM, h/o diabetic foot ulcer right foot, HLD presented to the hospital to be evaluated for cellulitis on 11/17/17; MRI revealed right foot cellulitis; early OM 1st distal phalanx ( most likely pathogen S. aureus); small effusion in the 5th MTP joint, f/u podiatry recom; r/o septic arthritis; now POD #2 s/p R foot sx. OR cx + polymicrobial infection, including GNR, Enterococuus. Suggestion: 1. Pending final bone culture results add Ceftriaxne 1 gm daily; he received Vancomycin iv 1 gm x1 on 11/20; and 750 mg iv on 11/21 ; random vancomycin level with next HD on ; if level below 15 give Vancomycin 500 mg x1. Final abx choice depending on bone cx results. 2. F/U podiatry/nephrology recom. 3. CBC, BMP, ESR at HD next week.
--- NOTE | 2017-11-23 12:13 | PN- Diabetes ---
Assessment/Plan Diabetes Assessment: 61 y/o male hx of diabetes type 1 complicated with retinopathy and ESRD on HD, was admitted for right toe infection and cellulitis. He was put on Levemir 6 units twice a day, Novolog coverage before meals and Novolog coverage at bedtime. Novolog coverage before breakfast: FSG 80-150, 2 units; 151-200, 3 units 200-250, 4 units 251-300, 5 units 301-350, 6 units 351-400, 7 units > 400, 8 units Novolog coverage before lunch and before dinner; FSG 80-150, 5 units 151-200, 6 units 200-250, 7 units 251-300, 8 units 301-350, 9 units 351-400, 9 units > 400, 10 units Novolog coverage at bedtime; FSG < 250, no coverage 251-300, 2 units 301-350, 3 units 351-400, 4 units > 400, 4 units His FSGs were 192, 150, 142, 287 and 125. But he didn't have any carbohydrates for breakfast this morning. His FSG was down to less than 50 before lunch. Plan: 1. continue Levemir 6 units twice a day; 2. adjust Novolog coverage for breakfast: FSG 80-150, no coverage 151-200, no coverage 200-250, 2 units 251-300, 3 units 301-350, 4 units 351-400, 5 units > 400, 6 units 3. continue the current Novolog coverage for lunch and for dinner; Novolog meal coverage will be held if he skips meal; 4. continue the current Novolog coverage at bedtime; 5. monitor FSGs. will follow Subjective Subjective: His glucose level was low before lunch. Objective Last 24 Hrs of Vital Signs/I&O Vital Signs Date Time Temp Pulse Resp B/P B/P Pulse O2 O2 Flow FiO2 Mean Ox Delivery Rate 11/24 627 98.4 73 20 129/57 98 11/22 2144 98.0 77 18 110/60 99 Room Air 11/22 1452 98.2 72 14 142/77 98 Room Air Intake & Output 11/23 1600 11/23 0800 11/23 0000 Intake Total 120 800 Output Total Balance 120 800 Intake, Oral 120 800 Number 1 Bowel Movements Patient 177 lb Weight Weight Bed scale Measurement Method Findings Pertinent Lab/[facility] Results: Laboratory Tests 11/23 11/22 0640 1618 Chemistry Sodium (137 - 145 mmol/L) 135 L Potassium (3.5 - 5.1 mmol/L) 4.1 Chloride (98 - 107 mmol/L) 99 Carbon Dioxide (22 - 30 mmol/L) 28 Anion Gap (5 - 16) 8 BUN (9 - 20 mg/dL) 25 H Creatinine (0.7 - 1.2 mg/dL) 4.0 H Estimated GFR (>60 ml/min) 15 L BUN/Creatinine Ratio (7 - 25 %) 6.3 L Hematology CBC w Diff NO MAN DIFF REQ WBC (4.8 - 10.8 /CUMM) 6.4 RBC (4.70 - 6.10 /CUMM) 3.33 L Hgb (14.0 - 18.0 G/DL) 11.4 L Hct (42 - 52 %) 34.4 L MCV (80.0 - 94.0 FL) 103.4 H MCH (27.0 - 31.0 PG) 34.1 H MCHC (33.0 - 37.0 G/DL) 33.0 RDW (11.5 - 14.5 %) 15.2 H Plt Count (130 - 400 /CUMM) 184 MPV (7.4 - 10.4 FL) 9.6 Gran % (42.2 - 75.2 %) 63.1 Lymphocytes % (20.5 - 51.1 %) 18.5 L Monocytes % (1.7 - 9.3 %) 15.9 H Eosinophils % (0 - 5 %) 2.1 Basophils % (0.0 - 2.0 %) 0.4 Absolute Granulocytes (1.4 - 6.5 /CUMM) 4.0 Absolute Lymphocytes (1.2 - 3.4 /CUMM) 1.2 Absolute Monocytes (0.10 - 0.60 /CUMM) 1.0 H Absolute Eosinophils (0.0 - 0.7 /CUMM) 0.1 Absolute Basophils (0.0 - 0.2 /CUMM) 0 Toxicology Random Vancomycin (ug/ml) 7.4
[2017-11-23 14:35] VITALS: BP 141/79
[2017-11-23 21:33] VITALS: BP 129/80
[2017-11-24 07:27] VITALS: BP 125/72
--- NOTE | 2017-11-24 09:10 | PN- Housestaff ---
LolyCain 11/24/17 0909: Subjective Follow-up For: Right foot osteomyelitis Subjective: Patient seen and examined at bedside. He was complaining mild pain in the right foot. He denies fever, chills, chest pain, palpitation, abdominal pain, diarrhea, constipation, burning micturition Review of Systems Constitutional: Reports: see HPI. Objective Last 24 Hrs of Vital Signs/I&O Vital Signs Date Time Temp Pulse Resp B/P B/P Pulse O2 O2 Flow FiO2 Mean Ox Delivery Rate 11/24 1339 98.3 75 18 136/78 90 Room Air 11/24 0727 97.6 67 20 125/72 100 11/23 2133 99.6 76 20 129/80 96 Room Air 11/23 1435 98.5 75 17 141/79 97 Room Air Intake & Output 11/24 1600 11/24 0800 11/24 0000 Intake Total 240 Output Total Balance 240 Intake, Oral 240 Patient 178 lb Weight Physical Exam General Appearance: Alert, Oriented X3, Cooperative, No Acute Distress Cardiovascular: Normal S1, Normal S2 Lungs: Clear to Auscultation, Normal Air Movement Abdomen: Soft, No Tenderness, No Hepatospenomegaly, No Masses Assessment/Plan Assessment: 62-year-old male with past medical history of ESRD on hemodialysis left arm AV fistula, diabetes mellitus, COPD(not on home oxygen), history of diabetic foot ulcer and right lower extremity, hyperlipidemia, CHF with ejection fraction of 40-45% preserved, presented to emergency department with Dr. hall for right lower extremity ulcer, with yellow discharge. Problem List: *Right foot cellulitis/ulcer *He is already on hemodialysis *Microcytic anemia *Past medical history of CHF, hypertension, hyperlipidemia, diabetes At the time of presentation to emergency department vitals, labs are given below : VS T98.1 P84 RR18 BP148/77 Sat96%RA Labs: WBC 7.5 H/H 12.7/38.0 plt 231 Na 131 K3.6 BUN/Cr 61/8.6 Glu 372 BCx pending ED tx: one dose of Clindamycin XR right foot: IMPRESSION: No evidence to suggest osteomyelitis. As stated previously, MRI of the foot with and without contrast would have improved sensitivity and specificity of osteomyelitis -MRI awaited *Right foot cellulitis/osteomyelitis /ulcer: -Right foot ulcer on plantar surface of big toe and lateral border of the right foot -MRI done today and report shows: -1. Soft tissue ulcer on the plantar medial aspect of the 1st distal phalanx. Abnormal edema in the 1st distal phalanx, raising concern for early osteomyelitis. 2. Suspected soft tissue ulceration plantar to the 5th MTP joint. Abnormal edema in the 5th metatarsal head, proximal base of the 5th proximal phalanx, suspicious for early osteomyelitis. Small effusion in the 5th MTP joint, septic arthritis cannot be excluded. Clinically correlate. -Podiatry has done the procedure. Recommendation appreciated. -Patient is post op day [address] Deng of podiatry for open incision/ draianage of deep fascia, open partial fifth ray resection right foot, excisional debris. ID recommendation: -ID recommendation appreciated -ID recommended ceftriaxone 1 g daily -Vancomycin level on Friday before dialysis if it was less than 15 give him 500 mg per oral vancomycin ESRD on dialysis stage V: -Patient is on dialysis 3 times a week *Creatinine was 9 at the time of presentation now it has trended to 4.1 today his sodium is 135 -GFR was 6 at the time of presentation not improved -Above finding are consistent with end-stage renal disease stage V -Nephrology consultation appreciated will follow nephrology recommendation -Dialysis plan today -We will follow with nephrology recommendation -Dialysis planed on Friday *Macrocytic anemia-possible mixed picture anemia in ESRD: -His anemia is multifactorial ESRD could be one of them -follow up B12/folate/iron studies these are normal -We will consider erythropoietin if H&H is dropped further Diabetes mellitus/hypertension/hyperlipidemia: -Today patient sugar is 54 -Endocrinology consult appreciated she change the dose of Levemir 5 units daily at lunch -Patient home medication will be continued -Insulin NovoLog, Lantus will continued -We will monitor Accu-Chek -We will place a consult for endocrinology -Avoid nephrotoxic medication DVT prophylaxis: heparin/ALPS/ambulation Code status: full code Problem List: 1. Osteomyelitis 2. Diabetic foot infection 3. Diabetic foot ulcer 4. ESRD (end stage renal disease) on dialysis 5. Full code status Pain Ratin Pain Location: Right lower extremity Pain Goal: Remain pain free Pain Plan: Pain management pathway Tomorrow's Labs & Rationales: CBC, BEP Joshua Millan MD 11/24/17 1346: Attending MD Review Statement Attending Statement Attending MD Statement: examined this patient, discuss w/resident/PA/FIRE CONTROL SYSTEM INSTALLER, agreed w/resident/PA/FIRE CONTROL SYSTEM INSTALLER, reviewed EMR data (avail), discussed with nursing, amended to note Attending Assessment/Plan: The patient was seen and discussed with house staff. Stable for planned surgery tomorrow. ID follow-up appreciated. Awaiting final OR cultures (?staph). Continue antibiotics as per ID.
--- NOTE | 2017-11-24 11:51 | PN- Infect Dx ---
Subjective Subjective: No fever; R foot pain; no diarrhea. Review of Systems Comments: 12 points reviewed as noted, otherwise negative. Objective Last 24 Hrs of Vital Signs/I&O Vital Signs Date Time Temp Pulse Resp B/P B/P Pulse O2 O2 Flow FiO2 Mean Ox Delivery Rate 11/24 0727 97.6 67 20 125/72 100 11/23 2133 99.6 76 20 129/80 96 Room Air 11/23 1435 98.5 75 17 141/79 97 Room Air Intake & Output 11/24 1600 11/24 0800 11/24 0000 Intake Total 240 Output Total Balance 240 Intake, Oral 240 Patient 178 lb Weight Physical Exam Other Physical Findings: General Appearance Cooperative, No Acute Distress HEENT Atraumatic Neck Supple Cardiovascular Regular Rate, Normal S1, Normal S2, No Murmurs Lungs Clear to Auscultation Abdomen Normal Bowel Sounds, Soft, No Tenderness Extremities: no c/c Skin: right foot dressing in place Neuro: Alert, Oriented X3 Results Last 24 Hours of Lab Results: Laboratory Tests 11/24 0600 Chemistry Sodium Cancelled Potassium Cancelled Chloride Cancelled Carbon Dioxide Cancelled Anion Gap Cancelled BUN Cancelled Creatinine Cancelled BUN/Creatinine Ratio Cancelled Last 24 Hours of Wesley Results: Patient : JOSÉ MIGUEL ALMODOVAR Acct: [id number] DR: Brett MEDINA,Valentin Birthdate: [birth year] Age/Sex: 62/M Unit: [id number] Loc: 2N [phone] Status : ADM IN SPEC #: [id number] KILO: 11/21/17 STATUS: RES RECD: 11/21/[address]: Rolo Deng DPM SOURCE: [facility] ENTR: 11/21/[address]: Madelaine MEDINA,Cholo SPDESC: TOE 5 R FT Erin MEDINA,Tulio West MD,Valentin ORDERED: XTRMOR COMMENT: BONE RECEIVED IN CUP PLACED IN THIO ADDITIONAL INFORMATION: RIGHT 5TH TOE BONE CULTURE Procedure Result > GRAM STAIN Preliminary 11/23/17-917 GRAM POSITIVE COCCI MODERATE GRAM NEGATIVE RODS MANY OTHER FROM THIO BROTH > EXTREMITIES OR SPECIMEN Preliminary 11/24/17-1038 GROWTH IN THIO BROTH OF: 1. ENTEROBACTER CLOACAE 2. ENTEROCOCCUS Sensitivity to follow 3. STAPH AUREUS ISOLATED NOTE THIS IS A PRELIMINARY REPORT: IF: patient has had significant exposure to a healthcare setting in the past three (3) months, THEN: suspect Methicillin Resistant Staph aureus and place patient on Contact precautions PENDING susceptibility results TO FOLLOW PRELIM-Called to/Readback by VINEET by LAB.SVCY 11/23/17 0954 E.cloacae Enteroc RX AB RX AB ------ -- ------ -- AMPICILLIN R S CEFAZOLIN R AMOX/CLAV AUGM R AMP/SULB-UNASYN R CEFOXITIN R CEFTAZIDIME S CEFTRIAXONE S CIPROFLOXACIN S GENTAMICIN S TRIMETH/SULFA S VANCOMYCIN S ENTEROCOCCUS: MICROSCAN GRAM POSITIVE PANEL Streptomycin Synergy Screen S Gentamicin Synergy Screen S 1. ENTEROBACTER CLOACAE RX AB ------ -- AMPICILLIN R CEFAZOLIN R AMOXICILLIN/CLAVULINIC ACID R AMPICILLIN/SULBACTAM R CEFOXITIN R CEFTAZIDIME S CEFTRIAXONE S CIPROFLOXACIN S GENTAMICIN S TRIMETHOPRIM/SULFAMETHOXAZOLE S 2. ENTEROCOCCUS RX AB ------ -- AMPICILLIN S VANCOMYCIN S Streptomycin Synergy Screen S Gentamicin Synergy Screen S Recent Imaging Studies: reviewed Assessment/Plan ID Impression: 62 year old male with PMH of DM2, ESRD on HD TuThSat, DM, h/o diabetic foot ulcer right foot, HLD presented to the hospital to be evaluated for cellulitis on 11/17/17; MRI revealed right foot cellulitis; early OM 1st distal phalanx ( most likely pathogen S. aureus); small effusion in the 5th MTP joint, f/u podiatry recom; r/o septic arthritis; now POD #2 s/p R foot sx. OR cx + polymicrobial infection, Enterococcus cloacae, Enterococcus(S vanco, ampicillin) and S. aureus (sensitivity pnd) Suggestion: 1. For now on iv Ceftraxione 1 gm daily D #2 started 11/23; as well as Vancomycin iv 1 gm x1 started on 11/20 received 1 gm; then 750 mg iv on 11/21 ; random vancomycin level with next HD on ; if level below 15 give Vancomycin 750 mg x1. 2. F/U podiatry (sx? in am; repeat local cx)/nephrology recom. 3. CBC, BMP, ESR at HD next week.
--- NOTE | 2017-11-24 12:56 | PN- Diabetes ---
Assessment/Plan Diabetes Assessment: 61 y/o male hx of diabetes type 1 complicated with retinopathy and ESRD on HD, was admitted for right toe infection and cellulitis. He was put on Levemir 6 units twice a day, Novolog coverage before meals and Novolog coverage at bedtime. Novolog coverage before breakfast: FSG 80-150, no coverage 151-200, no coverage 200-250, 2 units 251-300, 3 units 301-350, 4 units 351-400, 5 units > 400, 6 units Novolog coverage before lunch and before dinner; FSG 80-150, 5 units 151-200, 6 units 200-250, 7 units 251-300, 8 units 301-350, 9 units 351-400, 9 units > 400, 10 units Novolog coverage at bedtime; FSG < 250, no coverage 251-300, 2 units 301-350, 3 units 351-400, 4 units > 400, 4 units His FSGs were 148, 156, 160 on 11/23/2017. But his FSGs was < 50 this morning again. After breakfast and juices, his FSG was up to 154. Plan: 1. decrease Levemir to 6 units daily; 2. continue the current Novolog coverage before breakfast, Novolog coverage before lunch and dinner and Novolog coverage at bedtime; 3. monitor FSGs. will follow. Subjective Subjective: His glucose level was low again this morning. Objective Last 24 Hrs of Vital Signs/I&O Vital Signs Date Time Temp Pulse Resp B/P B/P Pulse O2 O2 Flow FiO2 Mean Ox Delivery Rate 11/24 726 97.6 67 20 125/72 100 11/23 2133 99.6 76 20 129/80 96 Room Air 11/23 1435 98.5 75 17 141/79 97 Room Air Intake & Output 11/24 1600 11/24 0800 11/24 0000 Intake Total 240 Output Total Balance 240 Intake, Oral 240 Patient 178 lb Weight Findings Pertinent Lab/[facility] Results: Laboratory Tests 11/24 0600 Chemistry Sodium Cancelled Potassium Cancelled Chloride Cancelled Carbon Dioxide Cancelled Anion Gap Cancelled BUN Cancelled Creatinine Cancelled BUN/Creatinine Ratio Cancelled
[2017-11-24 13:39] VITALS: BP 136/78
[2017-11-24 22:29] VITALS: BP 152/85
--- NOTE | 2017-11-25 06:31 | PN- Housestaff ---
LolyCain 11/25/17 0631: Subjective Follow-up For: Right foot wound Dialysis Subjective: Patient seen and examined at bedside. He was concerned about dialysis and podiatric procedure today. He said I cannot stay like this I want to go home and please make sure my procedure done today. He denies fever, chills, chest pain, palpitation, abdominal pain, diarrhea, constipation, burning micturition Review of Systems Constitutional: Reports: see HPI. Objective Last 24 Hrs of Vital Signs/I&O Vital Signs Date Time Temp Pulse Resp B/P B/P Pulse O2 O2 Flow FiO2 Mean Ox Delivery Rate 11/25 718 98.8 70 20 137/59 96 11/24 2229 99.9 83 20 152/85 97 Room Air Intake & Output 11/25 1600 11/25 0800 11/25 0000 Intake Total 230 880 490 Output Total Balance 230 880 490 Intake, IV 640 10 Intake, Oral 230 240 480 Number 0 0 Bowel Movements Patient 187 lb 182 lb Weight Weight Bed scale Measurement Method Physical Exam General Appearance: Alert, Oriented X3, Cooperative, No Acute Distress Cardiovascular: Regular Rate, Normal S1, Normal S2 Lungs: Clear to Auscultation, Normal Air Movement Abdomen: Normal Bowel Sounds, Soft, No Tenderness Extremities: No Clubbing, No Cyanosis, No Edema, Normal Pulses, No Tenderness/ Swelling Assessment/Plan Assessment: 62-year-old male with past medical history of ESRD on hemodialysis left arm AV fistula, diabetes mellitus, COPD(not on home oxygen), history of diabetic foot ulcer and right lower extremity, hyperlipidemia, CHF with ejection fraction of 40-45% preserved, presented to emergency department with referral for right lower extremity ulcer, with yellow discharge. Problem List: *Right foot cellulitis/ulcer *He is already on hemodialysis *Microcytic anemia *Past medical history of CHF, hypertension, hyperlipidemia, diabetes At the time of presentation to emergency department vitals, labs are given below : VS T98.1 P84 RR18 BP148/77 Sat96%RA Labs: WBC 7.5 H/H 12.7/38.0 plt 231 Na 131 K3.6 BUN/Cr 61/8.6 Glu 372 BCx pending ED tx: one dose of Clindamycin XR right foot: IMPRESSION: No evidence to suggest osteomyelitis. As stated previously, MRI of the foot with and without contrast would have improved sensitivity and specificity of osteomyelitis -MRI awaited *Right foot cellulitis/osteomyelitis /ulcer: -Right foot ulcer on plantar surface of big toe and lateral border of the right foot -MRI done today and report shows: -1. Soft tissue ulcer on the plantar medial aspect of the 1st distal phalanx. Abnormal edema in the 1st distal phalanx, raising concern for early osteomyelitis. 2. Suspected soft tissue ulceration plantar to the 5th MTP joint. Abnormal edema in the 5th metatarsal head, proximal base of the 5th proximal phalanx, suspicious for early osteomyelitis. Small effusion in the 5th MTP joint, septic arthritis cannot be excluded. Clinically correlate. *Patient in OR for podiatry second procedure closure of wound, will follow podiatry recommendation ID recommendation: -ID recommendation appreciated -ID recommended ceftriaxone 1 g daily -Vancomycin level today during dialysis if level is less than 15 will give him 750 mg vancomycin and will do vancomycin level with next dialysis. ESRD on dialysis stage V: -Patient is on dialysis 3 times a week *Creatinine was 9 at the time of presentation now it has trended to 5 today his sodium is 132 -GFR was 6 at the time of presentation not improved 12 -Above finding are consistent with end-stage renal disease stage V -Nephrology consultation appreciated will follow nephrology recommendation -Dialysis plan today -We will follow with nephrology recommendation *Macrocytic anemia-possible mixed picture anemia in ESRD: -His anemia is multifactorial ESRD could be one of them -follow up B12/folate/iron studies these are normal -We will consider erythropoietin if H&H is dropped further Diabetes mellitus/hypertension/hyperlipidemia: -Today patient sugar is 50 -Endocrinology consult appreciated she recommended that patient is sensitive to insulin so she change the dose of Levemir 5 units daily at lunch -Night Levemir discontinued -NovoLog dose adjust -Patient home medication will be continued -Insulin NovoLog, Lantus will continued -We will monitor Accu-Chek - -Avoid nephrotoxic medication DVT prophylaxis: heparin/ALPS/ambulation Code status: full code Problem List: 1. Osteomyelitis 2. Diabetic foot infection 3. Diabetic foot ulcer 4. ESRD (end stage renal disease) on dialysis 5. Full code status Pain Ratin Pain Location: No pain Pain Goal: Remain pain free Pain Plan: Pain management pathway Tomorrow's Labs & Rationales: CBC, BEP Mary Anne Ferrer 11/25/17 1433: Attending MD Review Statement Attending Statement Attending MD Statement: examined this patient, discuss w/resident/PA/PORK CUTLET MAKER, agreed w/resident/PA/PORK CUTLET MAKER, reviewed EMR data (avail), discussed with nursing, discussed with case mgmt Attending Assessment/Plan: Pt going for revision surgery for Rt LE cellulitis and diabetic foot ulcer with Dr Howell. Pt will be going for HD after the surgery. Cont current abx regimen. d/w pt the care plan.
[2017-11-25 07:19] VITALS: BP 137/59
--- NOTE | 2017-11-25 08:24 | PN- Infect Dx ---
Subjective Subjective: No fever; R foot pain. NPO going to OR. Review of Systems Comments: 12 points reviewed as noted, otherwise negative. Objective Last 24 Hrs of Vital Signs/I&O Vital Signs Date Time Temp Pulse Resp B/P B/P Pulse O2 O2 Flow FiO2 Mean Ox Delivery Rate 11/25 0719 98.8 70 20 137/59 96 11/24 2229 99.9 83 20 152/85 97 Room Air 11/24 1518 95 Room Air 11/24 1339 98.3 75 18 136/78 90 Room Air Intake & Output 11/25 1600 11/25 0800 11/25 0000 Intake Total 880 490 Output Total Balance 880 490 Intake, IV 640 10 Intake, Oral 240 480 Number 0 0 Bowel Movements Patient 182 lb Weight Weight Bed scale Measurement Method Physical Exam Other Physical Findings: General Appearance Cooperative, No Acute Distress HEENT Atraumatic Neck Supple Cardiovascular Regular Rate, Normal S1, Normal S2, No Murmurs Lungs Clear to Auscultation Abdomen Normal Bowel Sounds, Soft, No Tenderness Extremities: no c/c Skin: right foot dressing in place Neuro: Alert, Oriented X3 Results Last 24 Hours of Lab Results: Laboratory Tests 11/25 0655 Chemistry Sodium Pending Potassium Pending Chloride Pending Carbon Dioxide Pending Anion Gap Pending BUN Pending Creatinine Pending BUN/Creatinine Ratio Pending Last 24 Hours of [facility] Results: Reviewed; Gage Wolfe still pnd Recent Imaging Studies: Reviewed Assessment/Plan ID Impression: 62 year old male with PMH of DM2, ESRD on HD TuThSat, DM, h/o diabetic foot ulcer right foot, HLD presented to the hospital to be evaluated for cellulitis on 11/17/17; MRI revealed right foot cellulitis; early OM 1st distal phalanx ( most likely pathogen S. aureus); small effusion in the 5th MTP joint, f/u podiatry recom; r/o septic arthritis; now POD #4 s/p R foot sx. OR cx + polymicrobial infection, Enterococcus cloacae, Enterococcus(S vanco, ampicillin) and S. aureus (sensitivity pnd) Suggestion: 1. For now on iv Ceftraxione 1 gm daily D #3 started 11/23; as well as Vancomycin iv 1 gm x1 started on 11/20 received 1 gm; then 750 mg iv on 11/21 ; random vancomycin level with next HD today; if level below 15 give Vancomycin 750 mg x1. 2. F/U podiatry (repeat local cx)/nephrology recom. 3. CBC, BMP, ESR at HD.
--- NOTE | 2017-11-25 11:36 | Operative Report ---
Operative/Inv Procedure Report Surgery Date: 11/25/17 Name of Procedure: 1 open incision and drainage deep to the deep fascia with exposure of the extensor and flexor tendon and tendon sheath multiple sites right foot 2 revisional, partial fifth ray resection right 3 excisional debridement Pre-Operative Diagnosis: 1 open, necrotic wound right 2 osteomyelitis right 3 diabetic peripheral neuropathy Post-Operative Diagnosis: The same Estimated Blood Loss: less than 50ml Surgeon/Telegraph Mechanic: SUMMER FARAH DPM Anesthesia: moderate sedation, block Operative/Procedure Note Note: After obtaining informed consent the patient was brought to the operating room and placed on the operating table in the supine position. The patient was then securely fastened to the operating table utilizing a safety belt. After administration of IV sedation, 10 cc of 0.5% Marcaine plain was infiltrated about the patient's right ankle. The right foot and ankle were then scrubbed, prepped and draped in the usual aseptic manner. The lateral right foot, where a large full-thickness necrotic was identified. A 15 blade was utilized sharply advise skin margins the dissection was then carried down deep to the deep fascia with exposure of the extensor and flexor tendon and tendon sheath multiple sites , both proximally and distally. All necrotic, nonviable infected tissue was sharply evacuated from movement. Dissection continued down to the periosteum overlying the distal stump of the fifth ray. This was incised reflected. A sagittal bone saw was utilized to perform a through and through osteotomy in the distal osseous segment was freed and passed from the operative field. Specimen was sent for pathologic inspection. The open was then irrigated with 3 L of normal sterile saline infused with 50,000 units of bacitracin. Following this, the foot was redraped and the surgeons top gloves were exchanged for clean gloves. Any bleeding vessels identified were cauterized or ligated as encountered. Next, the open foot was packed with iodoform, 4 x 4's, Kerlix and an Shawn wrap. The patient noted to tolerate both procedure and anesthesia well and the patient was transferred from the operating room to recovery with vital signs stable. Please cc a copy of this dictation Shaun Carroll DPM.
--- NOTE | 2017-11-25 12:55 | PN- Diabetes ---
Assessment/Plan Diabetes Assessment: 61 y/o male hx of diabetes type 1 complicated with retinopathy and ESRD on HD, was admitted for right toe infection and cellulitis. He was put on Novolog coverage before meals and Novolog coverage at bedtime. Levemir was decreased to 6 units daily on 11/24/2017 because of hypoglycemia in the morning. Novolog coverage before breakfast: FSG 80-150, no coverage 151-200, no coverage 200-250, 2 units 251-300, 3 units 301-350, 4 units 351-400, 5 units > 400, 6 units Novolog coverage before lunch and before dinner; FSG 80-150, 5 units 151-200, 6 units 200-250, 7 units 251-300, 8 units 301-350, 9 units 351-400, 9 units > 400, 10 units Novolog coverage at bedtime; FSG < 250, no coverage 251-300, 2 units 301-350, 3 units 351-400, 4 units > 400, 4 units He was kept NPO for another foot procedure and He was placed on D5 1/2 NS at 75 ml/hour and RISS every 6 hours. But the coverage starts when his FSG is between 80 and 100. Patient had another episode of hypoglycemia this morning. Plan: 1. while he is NPO, I will recommend RISS every 6 hours: FSG < 200, no coverage; 200-250, 2 units 251-300, 3 units 301-350, 4 units 351-400, 5 units > 400, 6 units. 2. monitor FSGs; 3. after he is back from the procedure and when he is ready to eat meals, I will restart previous Levemir 6 units daily, Novolog coverage before breakfast, Novolog coverage before Lunch and Dinner and Novolog coverage at bedtime. Please call endo if there are any questions. will follow. Subjective Subjective: He had another episode of hypoglycemia in the morning. Objective Last 24 Hrs of Vital Signs/I&O Vital Signs Date Time Temp Pulse Resp B/P B/P Pulse O2 O2 Flow FiO2 Mean Ox Delivery Rate 11/25 0719 98.8 70 20 137/59 96 11/24 2229 99.9 83 20 152/85 97 Room Air 11/24 1518 95 Room Air 11/24 1339 98.3 75 18 136/78 90 Room Air Intake & Output 11/25 1600 11/25 0800 11/25 0000 Intake Total 880 490 Output Total Balance 880 490 Intake, IV 640 10 Intake, Oral 240 480 Number 0 0 Bowel Movements Patient 182 lb Weight Weight Bed scale Measurement Method Findings Pertinent Lab/[facility] Results: Laboratory Tests 11/25 06 Chemistry Sodium (137 - 145 mmol/L) 132 L Potassium (3.5 - 5.1 mmol/L) 3.8 Chloride (98 - 107 mmol/L) 100 Carbon Dioxide (22 - 30 mmol/L) 22 Anion Gap (5 - 16) 10 BUN (9 - 20 mg/dL) 36 H Creatinine (0.7 - 1.2 mg/dL) 5.0 H Estimated GFR (>60 ml/min) 12 L BUN/Creatinine Ratio (7 - 25 %) 7.2
--- NOTE | 2017-11-25 16:15 | PN- Nephrology ---
Assessment/Plan Nephrology Assessment: 1. ESRD with volume overload 2. Diabetic foot on the right; status post partial fifth ray resection with excisional debridement earlier today Suggestion: 1. Hemodialysis today with 4-5 L ultrafiltration as tolerated 2. Antibiotic therapy per ID Subjective Subjective: Underwent surgery this morning as noted above. Complaining of discomfort in right foot. His weight is approximately 5 kg above estimated dry weight. Serum sodium slightly low, otherwise chemistries okay. Objective Vital Signs and I&Os Vital Signs Date Time Temp Pulse Resp B/P B/P Pulse O2 O2 Flow FiO2 Mean Ox Delivery Rate 11/25 718 98.8 70 20 137/59 96 11/24 2229 99.9 83 20 152/85 97 Room Air Intake & Output 11/25 040 Intake Total 1110 490 860 240 600 800 Output Total Balance 1110 490 860 240 600 800 Intake, IV 640 10 20 Intake, Oral 470 480 840 240 600 800 Number 0 0 1 Bowel Movements Patient 187 lb 178 lb 177 lb Weight Weight Bed scale Bed scale Measurement Method Physical Exam: General: Well-developed white male in NAD Skin: No rash or jaundice HEENT: Conjunctivae pink, sclerae anicteric, mucous membranes moist Neck: Without masses or thyromegaly, no supraclavicular or cervical adenopathy Chest: Clear anterior laterally Heart: Regular rate and rhythm without S3 or rub Abdomen: Soft and nontender without palpable masses or organomegaly Extremities: Without cyanosis; trace to 1+ edema slightly worse on right; right foot dressing intact Neuro: Cognitively intact, no focal findings, no asterixis or myoclonus Results Pertinent Lab Results: Laboratory Tests 11/25 11/25 11/24 1400 0655 0600 Chemistry Sodium (137 - 145 mmol/L) 132 L Cancelled Potassium (3.5 - 5.1 mmol/L) 3.8 Cancelled Chloride (98 - 107 mmol/L) 100 Cancelled Carbon Dioxide (22 - 30 mmol/L) 22 Cancelled Anion Gap (5 - 16) 10 Cancelled BUN (9 - 20 mg/dL) 36 H Cancelled Creatinine (0.7 - 1.2 mg/dL) 5.0 H Cancelled Estimated GFR (>60 ml/min) 12 L BUN/Creatinine Ratio (7 - 25 %) 7.2 Cancelled Calcium (8.4 - 10.2 mg/dL) 8.9 11/23 11/22 0640 1618 Chemistry Sodium (137 - 145 mmol/L) 135 L Potassium (3.5 - 5.1 mmol/L) 4.1 Chloride (98 - 107 mmol/L) 99 Carbon Dioxide (22 - 30 mmol/L) 28 Anion Gap (5 - 16) 8 BUN (9 - 20 mg/dL) 25 H Creatinine (0.7 - 1.2 mg/dL) 4.0 H Estimated GFR (>60 ml/min) 15 L BUN/Creatinine Ratio (7 - 25 %) 6.3 L Hematology CBC w Diff NO MAN DIFF REQ WBC (4.8 - 10.8 /CUMM) 6.4 RBC (4.70 - 6.10 /CUMM) 3.33 L Hgb (14.0 - 18.0 G/DL) 11.4 L Hct (42 - 52 %) 34.4 L MCV (80.0 - 94.0 FL) 103.4 H MCH (27.0 - 31.0 PG) 34.1 H MCHC (33.0 - 37.0 G/DL) 33.0 RDW (11.5 - 14.5 %) 15.2 H Plt Count (130 - 400 /CUMM) 184 MPV (7.4 - 10.4 FL) 9.6 Gran % (42.2 - 75.2 %) 63.1 Lymphocytes % (20.5 - 51.1 %) 18.5 L Monocytes % (1.7 - 9.3 %) 15.9 H Eosinophils % (0 - 5 %) 2.1 Basophils % (0.0 - 2.0 %) 0.4 Absolute Granulocytes (1.4 - 6.5 /CUMM) 4.0 Absolute Lymphocytes (1.2 - 3.4 /CUMM) 1.2 Absolute Monocytes (0.10 - 0.60 /CUMM) 1.0 H Absolute Eosinophils (0.0 - 0.7 /CUMM) 0.1 Absolute Basophils (0.0 - 0.2 /CUMM) 0 Toxicology Random Vancomycin (ug/ml) 7.4
[2017-11-25 21:29] VITALS: BP 131/90
[2017-11-26 06:54] VITALS: BP 124/82
--- NOTE | 2017-11-26 08:12 | PN- Housestaff ---
See Addendum Cain Salcido 11/26/17 0812: Subjective Follow-up For: osteomyelitis of right foot, Dialysis Subjective: Patient seen and examined at bedside. He was complaining of disturbed sleep. He is concerned about his discharge from hospital. He complaining pain in right foot but he said it is responding to medication. He denies fever, chills, chest pain, palpitation, abdominal pain, diarrhea, constipation, burning micturition. Review of Systems Constitutional: Reports: see HPI. Objective Last 24 Hrs of Vital Signs/I&O Vital Signs Date Time Temp Pulse Resp B/P B/P Pulse O2 O2 Flow FiO2 Mean Ox Delivery Rate 11/26 1432 98.0 66 18 138/106 100 Room Air 11/26 0654 98.8 75 18 124/82 95 11/25 2129 99.1 79 18 131/90 92 Room Air Intake & Output 11/26 1600 11/26 0800 11/26 0000 Intake Total 750 240 240 Output Total Balance 750 240 240 Intake, IV 250 Intake, Oral 500 240 240 Number 0 Bowel Movements Patient 177 lb 180 lb Weight Physical Exam General Appearance: Alert, Oriented X3, Cooperative, No Acute Distress Cardiovascular: Normal S1, Normal S2 Lungs: Clear to Auscultation, Normal Air Movement Abdomen: Normal Bowel Sounds, Soft, No Tenderness, No Hepatospenomegaly, No Masses Neurological: Normal Gait, Normal Speech, Strength at 5/5 X4 Ext, Normal Tone Assessment/Plan Assessment: 62-year-old male with past medical history of ESRD on hemodialysis left arm AV fistula, diabetes mellitus, COPD(not on home oxygen), history of diabetic foot ulcer and right lower extremity, hyperlipidemia, CHF with ejection fraction of 40-45% preserved, presented to emergency department with Dr. hall for right lower extremity ulcer, with yellow discharge. Problem List: *Right foot cellulitis/ulcer *He is already on hemodialysis *Microcytic anemia *Past medical history of CHF, hypertension, hyperlipidemia, diabetes At the time of presentation to emergency department vitals, labs are given below : VS T98.1 P84 RR18 BP148/77 Sat96%RA Labs: WBC 7.5 H/H 12.7/38.0 plt 231 Na 131 K3.6 BUN/Cr 61/8.6 Glu 372 BCx pending ED tx: one dose of Clindamycin XR right foot: IMPRESSION: No evidence to suggest osteomyelitis. As stated previously, MRI of the foot with and without contrast would have improved sensitivity and specificity of osteomyelitis -MRI awaited *Right foot cellulitis/osteomyelitis /ulcer: -Right foot ulcer on plantar surface of big toe and lateral border of the right foot -MRI done today and report shows: -1. Soft tissue ulcer on the plantar medial aspect of the 1st distal phalanx. Abnormal edema in the 1st distal phalanx, raising concern for early osteomyelitis. 2. Suspected soft tissue ulceration plantar to the 5th MTP joint. Abnormal edema in the 5th metatarsal head, proximal base of the 5th proximal phalanx, suspicious for early osteomyelitis. Small effusion in the 5th MTP joint, septic arthritis cannot be excluded. Clinically correlate. *Patient in OR for podiatry second procedure closure of wound done yesterday, will follow podiatry recommendation. Following is the podiatry procedure. *Name of Procedure: 1 open incision and drainage deep to the deep fascia with exposure of the extensor and flexor tendon and tendon sheath multiple sites right foot 2 revisional, partial fifth ray resection right 3 excisional debridement Pre-Operative Diagnosis: 1 open, necrotic wound right 2 osteomyelitis right 3 diabetic peripheral neuropath ID recommendation appreciated: -ID recommended ceftriaxone 1 g daily -Vancomycin level tomorrow during dialysis, she recommended 750mg vancomycin, and continue ceftriaxone and will discharge patient on ciprofloxacin 500mg OD for 4 weeks. *Will do vancomycin level with next dialysis ESRD on dialysis stage V: -Patient is on dialysis 3 times a week *Rernal function test are improving aftert dialysis -Nephrology consultation appreciated will follow nephrology recommendation -Dialysis planned tommorrow. *Macrocytic anemia-possible mixed picture anemia in ESRD: -His anemia is multifactorial ESRD could be one of them -follow up B12/folate/iron studies these are normal -We will consider erythropoietin if H&H is dropped further Diabetes mellitus/hypertension/hyperlipidemia: -Today patient sugar is 50 -Endocrinology consult appreciated she recommended that patient is sensitive to insulin so she change the dose of Levemir 5 units daily at lunch -Night Levemir discontinued -NovoLog dose adjust -Patient home medication will be continued -Insulin NovoLog, Lantus will continued -We will monitor Accu-Chek - -Avoid nephrotoxic medication DVT prophylaxis: heparin/ALPS/ambulation Code status: full code Problem List: 1. Osteomyelitis 2. Diabetic foot infection 3. Diabetic foot ulcer 4. ESRD (end stage renal disease) on dialysis 5. Full code status Pain Ratin Pain Location: In right foot Pain Goal: Remain pain free Pain Plan: Pain mangement pathway Tomorrow's Labs & Rationales: KELBY, MALVIN FerrerSonalkrystyna 11/26/17 1652: Attending MD Review Statement Attending Statement Attending MD Statement: examined this patient, discuss w/resident/PA/SHEAR GRINDER OPERATOR, agreed w/resident/PA/SHEAR GRINDER OPERATOR, reviewed EMR data (avail), discussed with nursing, discussed with case mgmt Attending Assessment/Plan: Plan to dc pt on po cipro and iv vanco with HD, for total of 4 weeks tomorrow after HD . Pt awaiting wound vac placement.
[2017-11-26 08:16] LABS: ABSOLUTE BASOPHIL COUNT 0 /CUMM (0.0-0.2); ABSOLUTE EOSINOPHIL COUNT 0.2 /CUMM (0.0-0.7); ABSOLUTE GRANULOCYTE CT 6.7 /CUMM (1.4-6.5); ABSOLUTE LYMPH COUNT 0.8 /CUMM (1.2-3.4); ABSOLUTE MONOCYTE COUNT 1.1 /CUMM (0.10-0.60); BASOPHIL % 0.4 % (0.0-2.0); EOSINOPHIL % 2.4 % (0-5); GRANULOCYTE % 75.4 % (42.2-75.2); HEMATOCRIT 32.7 % (42-52); MEAN CORPUSCULAR HGB 33.8 PG (27.0-31.0); MEAN CORPUSCULAR HGB CONC 32.9 G/DL (33.0-37.0); MEAN CORPUSCULAR VOLUME 102.7 FL (80.0-94.0); MEAN PLATELET VOLUME 9.4 FL (7.4-10.4); PLATELET COUNT 263 /CUMM (130-400); RED BLOOD CELL CT 3.19 /CUMM (4.70-6.10); WHITE BLOOD CELL COUNT 8.9 /CUMM (4.8-10.8)
--- NOTE | 2017-11-26 08:34 | PN- Diabetes ---
Assessment/Plan Diabetes Assessment: 61 y/o male hx of diabetes type 1 complicated with retinopathy and ESRD on HD, was admitted for right toe infection and cellulitis. He was put on Novolog coverage before meals and Novolog coverage at bedtime. Levemir was decreased to 6 units daily on 11/24/2017 because of hypoglycemia in the morning. Novolog coverage before breakfast: FSG 80-150, no coverage 151-200, no coverage 200-250, 2 units 251-300, 3 units 301-350, 4 units 351-400, 5 units > 400, 6 units Novolog coverage before lunch and before dinner; FSG 80-150, 5 units 151-200, 6 units 200-250, 7 units 251-300, 8 units 301-350, 9 units 351-400, 9 units > 400, 10 units Novolog coverage at bedtime; FSG < 250, no coverage 251-300, 2 units 301-350, 3 units 351-400, 4 units > 400, 4 units His FSGs were 133, 124, 194 and 172. Plan: continue the current insulin regimen for now; monitor FSGs; will follow. Subjective Subjective: His glucose levels were relatively stable over the past 24 hours. Objective Last 24 Hrs of Vital Signs/I&O Vital Signs Date Time Temp Pulse Resp B/P B/P Pulse O2 O2 Flow FiO2 Mean Ox Delivery Rate 11/26 0554 98.8 75 18 124/82 95 11/25 2129 99.1 79 18 131/90 92 Room Air Intake & Output 11/26 1600 11/26 0800 11/26 0000 Intake Total 240 240 Output Total Balance 240 240 Intake, Oral 240 240 Patient 177 lb 180 lb Weight Findings Pertinent Lab/[facility] Results: Laboratory Tests 11/26 11/25 11/25 0645 1400 1200 Chemistry Sodium Pending Potassium Pending Chloride Pending Carbon Dioxide Pending Anion Gap Pending BUN Pending Creatinine Pending BUN/Creatinine Ratio Pending Calcium (8.4 - 10.2 mg/dL) 8.9 Hematology CBC w Diff NO MAN DIFF REQ WBC (4.8 - 10.8 /CUMM) 8.9 RBC (4.70 - 6.10 /CUMM) 3.19 L Hgb (14.0 - 18.0 G/DL) 10.8 L Hct (42 - 52 %) 32.7 L MCV (80.0 - 94.0 FL) 102.7 H MCH (27.0 - 31.0 PG) 33.8 H MCHC (33.0 - 37.0 G/DL) 32.9 L RDW (11.5 - 14.5 %) 15.0 H Plt Count (130 - 400 /CUMM) 263 MPV (7.4 - 10.4 FL) 9.4 Gran % (42.2 - 75.2 %) 75.4 H Lymphocytes % (20.5 - 51.1 %) 9.0 L Monocytes % (1.7 - 9.3 %) 12.8 H Eosinophils % (0 - 5 %) 2.4 Basophils % (0.0 - 2.0 %) 0.4 Absolute Granulocytes (1.4 - 6.5 /CUMM) 6.7 H Absolute Lymphocytes (1.2 - 3.4 /CUMM) 0.8 L Absolute Monocytes (0.10 - 0.60 /CUMM) 1.1 H Absolute Eosinophils (0.0 - 0.7 /CUMM) 0.2 Absolute Basophils (0.0 - 0.2 /CUMM) 0 ESR Westergren (0 - 10 MM) Pending Toxicology Random Vancomycin Cancelled
--- NOTE | 2017-11-26 09:14 | PN- Infect Dx ---
Subjective Subjective: No fever, R foot discomfort. Review of Systems Comments: 12 points reviewed as noted, otherwise engative. Objective Last 24 Hrs of Vital Signs/I&O Vital Signs Date Time Temp Pulse Resp B/P B/P Pulse O2 O2 Flow FiO2 Mean Ox Delivery Rate 11/26 0554 98.8 75 18 124/82 95 11/25 2128 99.1 79 18 131/90 92 Room Air Intake & Output 11/26 1600 11/26 0800 11/26 0000 Intake Total 240 240 Output Total Balance 240 240 Intake, Oral 240 240 Patient 177 lb 180 lb Weight Physical Exam Other Physical Findings: General Appearance Cooperative, No Acute Distress HEENT Atraumatic Neck Supple Cardiovascular Regular Rate, Normal S1, Normal S2, No Murmurs Lungs Clear to Auscultation Abdomen Normal Bowel Sounds, Soft, No Tenderness Extremities: no c/c Skin: right foot dressing in place Neuro: Alert, Oriented X3 Results Last 24 Hours of Lab Results: Laboratory Tests 11/26 11/25 11/25 0645 1400 1200 Chemistry Sodium (137 - 145 mmol/L) 134 L Potassium (3.5 - 5.1 mmol/L) 4.2 Chloride (98 - 107 mmol/L) 100 Carbon Dioxide (22 - 30 mmol/L) 24 Anion Gap (5 - 16) 11 BUN (9 - 20 mg/dL) 26 H Creatinine (0.7 - 1.2 mg/dL) 4.2 H Estimated GFR (>60 ml/min) 14 L BUN/Creatinine Ratio (7 - 25 %) 6.2 L Calcium (8.4 - 10.2 mg/dL) 8.9 Hematology CBC w Diff NO MAN DIFF REQ WBC (4.8 - 10.8 /CUMM) 8.9 RBC (4.70 - 6.10 /CUMM) 3.19 L Hgb (14.0 - 18.0 G/DL) 10.8 L Hct (42 - 52 %) 32.7 L MCV (80.0 - 94.0 FL) 102.7 H MCH (27.0 - 31.0 PG) 33.8 H MCHC (33.0 - 37.0 G/DL) 32.9 L RDW (11.5 - 14.5 %) 15.0 H Plt Count (130 - 400 /CUMM) 263 MPV (7.4 - 10.4 FL) 9.4 Gran % (42.2 - 75.2 %) 75.4 H Lymphocytes % (20.5 - 51.1 %) 9.0 L Monocytes % (1.7 - 9.3 %) 12.8 H Eosinophils % (0 - 5 %) 2.4 Basophils % (0.0 - 2.0 %) 0.4 Absolute Granulocytes (1.4 - 6.5 /CUMM) 6.7 H Absolute Lymphocytes (1.2 - 3.4 /CUMM) 0.8 L Absolute Monocytes (0.10 - 0.60 /CUMM) 1.1 H Absolute Eosinophils (0.0 - 0.7 /CUMM) 0.2 Absolute Basophils (0.0 - 0.2 /CUMM) 0 ESR Westergren (0 - 10 MM) 38 H Toxicology Random Vancomycin Cancelled Last 24 Hours of [facility] Results: SPEC #: [id number] KILO: 11/21/17 STATUS: COMP RECD: 11/21/[address]: Rolo Deng DPM SOURCE: [facility] [facility]: 11/21/[address]: Madelaine MEDINA,Cholo SPDESC: TOE 5 R FT Erin MEDINA,Tulio West MD,[facility] ORDERED: XTRMOR COMMENT: BONE RECEIVED IN CUP PLACED IN THIO ADDITIONAL INFORMATION: RIGHT 5TH TOE BONE CULTURE Procedure Result > GRAM STAIN Final 11/24/17-1526 GRAM POSITIVE COCCI FEW GRAM NEGATIVE RODS MANY GRAM POSITIVE RODS RARE OTHER FROM THIO BROTH > EXTREMITIES OR SPECIMEN Final 11/26/17-0758 GROWTH IN THIO BROTH OF: 1. ENTEROBACTER CLOACAE 2. ENTEROCOCCUS 3. STAPH AUREUS 4. BACTEROIDES PROB FRAGILIS PRELIM-Called to/Readback by VINEET by LAB.SVCY 11/23/17 0930 E.cloacae Enteroc Staph norma RX AB RX AB RX AB ------ -- ------ -- ------ -- AMPICILLIN R S CEFAZOLIN R S AMOX/CLAV AUGM R S AMP/SULB-UNASYN R S CEFOXITIN R CEFTAZIDIME S CEFTRIAXONE S CIPROFLOXACIN S GENTAMICIN S TETRACYCLINE I TRIMETH/SULFA S S AZITHROMYCIN R CLINDAMYCIN R ERYTHROMYCIN R OXACILLIN S VANCOMYCIN S S 1. ENTEROBACTER CLOACAE RX AB ------ -- AMPICILLIN R CEFAZOLIN R AMOXICILLIN/CLAVULINIC ACID R AMPICILLIN/SULBACTAM R CEFOXITIN R CEFTAZIDIME S CEFTRIAXONE S CIPROFLOXACIN S GENTAMICIN S TRIMETHOPRIM/SULFAMETHOXAZOLE S 2. ENTEROCOCCUS RX AB ------ -- AMPICILLIN S VANCOMYCIN S 3. STAPH AUREUS RX ABN ------ --- 3. STAPH AUREUS RX AB ------ -- CEFAZOLIN S AMOXICILLIN/CLAVULINIC ACID S AMPICILLIN/SULBACTAM S TETRACYCLINE I TRIMETHOPRIM/SULFAMETHOXAZOLE S AZITHROMYCIN R CLINDAMYCIN R ERYTHROMYCIN R OXACILLIN S VANCOMYCIN S Recent Imaging Studies: reviewed Assessment/Plan ID Impression: 62 year old male with PMH of DM2, ESRD on HD TuThSat, DM, h/o diabetic foot ulcer right foot, HLD presented to the hospital to be evaluated for cellulitis on 11/17/17; MRI revealed right foot cellulitis; early OM 1st distal phalanx ( most likely pathogen S. aureus); small effusion in the 5th MTP joint, f/u podiatry recom; r/o septic arthritis; now POD #4 s/p R foot sx. OR cx + polymicrobial infection, Enterococcus cloacae, Enterococcus(S vanco, ampicillin) and MSSA. Suggestion: 1. Cont iv Ceftraxione 1 gm daily D #4 started 11/23; as well as Vancomycin iv 1 gm x1 started on 11/20 received 1 gm; then 750 mg iv on 11/21; if patient did not get vancomycin at HD previous day give 750 mg iv x1 today; then obtain random level at HD on 11/27. Once ready for d/c will stop CTX and start oral cipro 500 mg po daily. Treatment w/ abx for total 4 weeks. 2. F/U podiatry /nephrology recom. 3. CBC, BMP, ESR at HD.
--- NOTE | 2017-11-26 09:51 | Discharge Summary ---
Hospital Course Allergies: Coded Allergies: amoxicillin (Mild, RASH ALL OVER 08/27/17) Penicillins (RASH ALL OVER 08/27/17) Discharge Instructions Medications at Discharge Discharge Medications: Stop taking the following medications: Sulfamethoxazole/Trimethoprim (Bactrim 400-80 MG Tablet) 400 MG-80 MG TABLET ORAL 1400 Qty = 7 Continue taking these medications: Esomeprazole (Nexium) 40 MG CAPSULE.DR 1 Capsule ORAL DAILY Comments: Last Taken: 08/29/17 Time: 0600 Montelukast Sodium (Singulair) 10 MG TABLET 1 Tablet ORAL Every night Comments: Last Taken: 08/29/17 Time: 2100 Atorvastatin Calcium (Lipitor) 10 MG TABLET 1 Tablet ORAL DAILY Comments: Last Taken: 08/28/17 Time: 1700 Mometasone Furoate (Nasonex) 50 MCG SPRAY.PUMP 2 Hardin Both sides of nose DAILY Comments: NOT GIVEN Aspirin (Ecotrin*) 81 MG TABLET.DR 1 Tablet ORAL DAILY Comments: Last Taken: 08/29/17 Time: 0800 Acetaminophen (Tylenol) 325 MG TABLET 650 Milligram ORAL EVERY SIX HOURS as needed for PAIN Comments: NOT GIVEN Nephro-Vitamins (Nephro-Schuyler Tablet) 0.8 MG TABLET 1 Tablet ORAL DAILY Qty = 30 Comments: Last Taken: 08/29/17 Time: 0800 Citalopram Hydrobromide (Citalopram HBr) 20 MG TABLET 1 Tablet ORAL DAILY Qty = 30 Comments: Last Taken: 08/29/17 Time: 0800 Insulin Glargine,Hum.rec.anlog (Lantus Solostar) 100 UNIT/ML (3 ML) INSULN.PEN 6 Unit SC TWICE DAILY Qty = 15 Comments: LEVEMIR GIVEN IN HOSPITAL Last Taken: 08/29/17 Time: 0800 Insulin Aspart (Novolog) 100 UNIT/ML VIAL 0 Units SC AT BEDTIME Qty = 3 Instructions: Glucose <250 0 units 251-300 2 units 301-350 3 units 351-400 4 units > 400 4 units Comments: Last Taken: 08/29/17 Time: 1200 Insulin Aspart (Novolog) 100 UNIT/ML VIAL 0 SC 1200,1700 Qty = 3 Instructions: FSG 80-150 5 unit 151-200 6 unit 201-250 7 unit 251-300 8 unit 301-350 9 unit 351-400 9 unit >400, 10 units Comments: Last Taken: 08/29/17 Time: 1200 Insulin Aspart (Novolog) 100 UNIT/ML VIAL 0 Units SC DAILY @8AM Qty = 3 Instructions: FSG <200 - 0 units 200-250, 3 units 251-300, 4 units 301-350, 5 units 351-400, 6 units >400 7 units Comments: Last Taken: 08/29/17 Time: 0800
[2017-11-26 14:32] VITALS: BP 138/106
--- NOTE | 2017-11-26 18:47 | PN- Nephrology ---
Assessment/Plan Nephrology Assessment: 1. ESRD 2. Diabetic foot on the right; status post partial fifth ray resection with excisional debridement 11/25 Suggestion: 1. Continue current management including ID and Podiatry follow-up 2. Hemodialysis planned for tomorrow Subjective Subjective: No specific complaints today other than feeling uncertain about once going to happen next regarding his foot. He remains afebrile with stable vital signs. WBC within normal limits. Objective Vital Signs and I&Os Vital Signs Date Time Temp Pulse Resp B/P B/P Pulse O2 O2 Flow FiO2 Mean Ox Delivery Rate 11/26 1432 98.0 66 18 138/106 100 Room Air 11/26 0654 98.8 75 18 124/82 95 11/25 2129 99.1 79 18 131/90 92 Room Air Intake & Output 11/26 1600 11/26 0400 11/25 1600 11/25 0400 11/24 1600 11/24 0400 Intake Total 049 321 6028 490 860 240 Output Total Balance 682 237 8936 490 860 240 Intake, IV 250 640 10 20 Intake, Oral 740 240 470 480 840 240 Number 0 0 0 Bowel Movements Patient 177 lb 180 lb 187 lb 178 lb Weight Weight Bed scale Measurement Method Physical Exam: General: Well-developed white male in NAD Skin: No rash or jaundice HEENT: Conjunctivae pink, sclerae anicteric, mucous membranes moist Neck: Without masses or thyromegaly, no supraclavicular or cervical adenopathy Chest: Clear to P&A Heart: Regular rate and rhythm without S3 or rub Abdomen: Soft and nontender without palpable masses or organomegaly Extremities: Without cyanosis; trace edema slightly worse on right; right foot dressing intact; left upper arm AVF patent Neuro: Cognitively intact, no focal findings, no asterixis or myoclonus Current Medications: Current Medications Sig/Rhett Start time Last Medication Dose Route Stop Time Status Admin Atorvastatin Calcium 10 MG DAILY 11/18 09 AC 11/26 PO 0820 Calcium Acetate 667 MG TIDAC 11/18 1200 AC 11/26 PO 1744 Ceftriaxone Sodium 1,000 MG DAILY@1200 /02 1200 AC 11/26 IV 1131 Citalopram 20 MG DAILY 11/18 09 AC 11/26 Hydrobromide PO 0820 Insulin Aspart 0 0800 11/26 0800 AC SC Insulin Aspart 0 1200,1700 11/25 1700 AC 11/26 [place] 1233 Insulin Aspart 0 AT BEDTIME 11/21 2100 AC 11/22 SC 2033 Insulin Detemir 6 UNITS DAILY 11/24 1102 AC 11/26 SC 0820 Montelukast Sodium 10 MG QPM 11/18 2100 AC 11/25 PO 2030 Multivitamins 1 TAB DAILY 11/18 0900 AC 11/26 PO 0820 Omeprazole 40 MG DAILY AC 11/18 0700 AC 11/26 PO 0542 Oxycodone/ 1 TAB Q6P PRN 11/23 2145 AC 11/26 Acetaminophen PO 1744 Patient Medication 1 ED ONE ONE 11/26 1215 DC Teaching ED 11/26 1216 Polyethylene Glycol 17 GM DAILY 11/19 09 AC PO Vancomycin HCl 500 MG ONCE ONE 11/26 1030 CAN Sodium Chloride 250 ML IV 11/26 1129 Vancomycin HCl 500 MG ONCE ONE 11/26 1000 CAN IV 11/26 1001 Vancomycin HCl 750 MG ONCE ONE 11/26 0845 CAN IV 11/26 0846 Vancomycin HCl 750 MG ONCE ONE 11/26 0845 DC 11/26 Sodium Chloride 250 ML IV 11/26 0944 1233 Results Pertinent Lab Results: Laboratory Tests 11/26 11/26 11/25 1720 0645 1400 Chemistry Sodium (137 - 145 mmol/L) Pending 134 L Potassium (3.5 - 5.1 mmol/L) Pending 4.2 Chloride (98 - 107 mmol/L) Pending 100 Carbon Dioxide (22 - 30 mmol/L) Pending 24 Anion Gap (5 - 16) Pending 11 BUN (9 - 20 mg/dL) Pending 26 H Creatinine (0.7 - 1.2 mg/dL) Pending 4.2 H Estimated GFR (>60 ml/min) 14 L BUN/Creatinine Ratio (7 - 25 %) Pending 6.2 L Calcium (8.4 - 10.2 mg/dL) 8.9 Hematology CBC w Diff NO MAN DIFF REQ WBC (4.8 - 10.8 /CUMM) 8.9 RBC (4.70 - 6.10 /CUMM) 3.19 L Hgb (14.0 - 18.0 G/DL) 10.8 L Hct (42 - 52 %) 32.7 L MCV (80.0 - 94.0 FL) 102.7 H MCH (27.0 - 31.0 PG) 33.8 H MCHC (33.0 - 37.0 G/DL) 32.9 L RDW (11.5 - 14.5 %) 15.0 H Plt Count (130 - 400 /CUMM) 263 MPV (7.4 - 10.4 FL) 9.4 Gran % (42.2 - 75.2 %) 75.4 H Lymphocytes % (20.5 - 51.1 %) 9.0 L Monocytes % (1.7 - 9.3 %) 12.8 H Eosinophils % (0 - 5 %) 2.4 Basophils % (0.0 - 2.0 %) 0.4 Absolute Granulocytes (1.4 - 6.5 /CUMM) 6.7 H Absolute Lymphocytes (1.2 - 3.4 /CUMM) 0.8 L Absolute Monocytes (0.10 - 0.60 /CUMM) 1.1 H Absolute Eosinophils (0.0 - 0.7 /CUMM) 0.2 Absolute Basophils (0.0 - 0.2 /CUMM) 0 ESR Westergren (0 - 10 MM) 38 H 09/04 09/04 09/03 1200 0655 0600 Chemistry Sodium (137 - 145 mmol/L) 132 L Cancelled Potassium (3.5 - 5.1 mmol/L) 3.8 Cancelled Chloride (98 - 107 mmol/L) 100 Cancelled Carbon Dioxide (22 - 30 mmol/L) 22 Cancelled Anion Gap (5 - 16) 10 Cancelled BUN (9 - 20 mg/dL) 36 H Cancelled Creatinine (0.7 - 1.2 mg/dL) 5.0 H Cancelled Estimated GFR (>60 ml/min) 12 L BUN/Creatinine Ratio (7 - 25 %) 7.2 Cancelled Toxicology Random Vancomycin Cancelled
[2017-11-26 21:22] VITALS: BP 130/68
[2017-11-27 06:32] VITALS: BP 138/72
--- NOTE | 2017-11-27 06:48 | PN- Housestaff ---
Cain Salcido 11/27/17 0647: Subjective Follow-up For: Right foot osteomyelitis, dialysis Subjective: She is seen and examined at bedside. He was complaining pain in the right lower extremity. He denies fever, chills, chest pain, palpitation, abdominal pain, diarrhea, constipation, no micturition. Review of Systems Constitutional: Reports: see HPI. Objective Last 24 Hrs of Vital Signs/I&O Vital Signs Date Time Temp Pulse Resp B/P B/P Pulse O2 O2 Flow FiO2 Mean Ox Delivery Rate 11/27 0632 98.2 72 20 138/72 99 Room Air 11/26 2122 98.2 77 20 130/68 92 Room Air 11/26 1432 98.0 66 18 138/106 100 Room Air Intake & Output 11/27 1600 11/27 0800 11/27 0000 Intake Total 120 800 Output Total Balance 120 800 Intake, Oral 120 800 Patient 183 lb Weight Physical Exam General Appearance: Alert, Oriented X3, Cooperative, No Acute Distress Cardiovascular: Normal S1, Normal S2 Lungs: Clear to Auscultation, Normal Air Movement Abdomen: Normal Bowel Sounds, Soft, No Tenderness, No Hepatospenomegaly Extremities: No Clubbing, No Cyanosis, No Edema, Normal Pulses, Right foot ulcer , open wound, Assessment/Plan Assessment: 62-year-old male with past medical history of ESRD on hemodialysis left arm AV fistula, diabetes mellitus, COPD(not on home oxygen), history of diabetic foot ulcer and right lower extremity, hyperlipidemia, CHF with ejection fraction of 40-45% preserved, presented to emergency department with referral for right lower extremity ulcer, with yellow discharge. Problem List: *Right foot cellulitis/ulcer *He is already on hemodialysis *Macrocytic anemia *Past medical history of CHF, hypertension, hyperlipidemia, diabetes At the time of presentation to emergency department vitals, labs are given below : VS T98.1 P84 RR18 BP148/77 Sat96%RA Labs: WBC 7.5 H/H 12.7/38.0 plt 231 Na 131 K3.6 BUN/Cr 61/8.6 Glu 372 BCx pending ED tx: one dose of Clindamycin XR right foot: IMPRESSION: No evidence to suggest osteomyelitis. As stated previously, MRI of the foot with and without contrast would have improved sensitivity and specificity of osteomyelitis -MRI awaited *Right foot cellulitis/osteomyelitis /ulcer: -Right foot ulcer on plantar surface of big toe and lateral border of the right foot -MRI done today and report shows: -1. Soft tissue ulcer on the plantar medial aspect of the 1st distal phalanx. Abnormal edema in the 1st distal phalanx, raising concern for early osteomyelitis. 2. Suspected soft tissue ulceration plantar to the 5th MTP joint. Abnormal edema in the 5th metatarsal head, proximal base of the 5th proximal phalanx, suspicious for early osteomyelitis. Small effusion in the 5th MTP joint, septic arthritis cannot be excluded. Clinically correlate. *Patient in OR for podiatry second procedure closure of wound done yesterday, will follow podiatry recommendation. Following is the podiatry procedure. *Name of Procedure: 1 open incision and drainage deep to the deep fascia with exposure of the extensor and flexor tendon and tendon sheath multiple sites right foot 2 revisional, partial fifth ray resection right 3 excisional debridement Pre-Operative Diagnosis: 1 open, necrotic wound right 2 osteomyelitis right 3 diabetic peripheral neuropath *Today dressing and negative pressure wound therapy done, bandage applied. ID recommendation appreciated: -ID recommended ceftriaxone 1 g daily -Ciprofloxacin 500 mg will be for 24 days -Flagyl 500 mg twice daily for 20 days ESRD on dialysis stage V: -Patient is on dialysis 3 times a week *Rernal function test are improving aftert dialysis -Nephrology consultation appreciated will follow nephrology recommendation -Dialysis done today *Macrocytic anemia-possible mixed picture anemia in ESRD: -His anemia is multifactorial ESRD could be one of them -follow up B12/folate/iron studies these are normal -We will consider erythropoietin if H&H is dropped further Diabetes mellitus/hypertension/hyperlipidemia: -Today patient sugar is 50 -Endocrinology consult appreciated she recommended that patient is sensitive to insulin so she change the dose of Levemir 5 units daily at lunch -Night Levemir discontinued -NovoLog dose adjust -Patient home medication will be continued -Insulin NovoLog, Lantus will continued -We will monitor Accu-Chek - -Avoid nephrotoxic medication *Today negative pressure wound therapy and dressing done *Will follow up on outpatient basis for negative pressure wound therapy *Patient will follow with Dr. Howell on outpatient basis *Dialysis done today *Remaining dialysis will continue at home on outpatient basis *Patient will discharge home DVT prophylaxis: heparin/ALPS/ambulation Problem List: 1. Hypercalcemia 2. Osteomyelitis 3. Diabetic foot infection 4. Diabetic foot ulcer 5. ESRD (end stage renal disease) on dialysis Pain Ratin Pain Location: Right foot Pain Goal: Remain pain free Pain Plan: Pain management pathway Tomorrow's Labs & Rationales: kameron,Mary Anne Ramos 11/27/17 1556: Attending MD Review Statement Attending Statement Attending MD Statement: examined this patient, discuss w/resident/PA/DIRECTOR OF INSTRUCTION, agreed w/resident/PA/DIRECTOR OF INSTRUCTION, reviewed EMR data (avail), discussed with nursing, discussed with case mgmt Attending Assessment/Plan: Pt going to HD today and plan is to dc pt on Wound vac and case management working on arranging Wound vac. Dc pt on IV vanco/ Po cipro and Flagyl. D/w pt the care plan.
--- NOTE | 2017-11-27 08:19 | PN- Diabetes ---
Assessment/Plan Diabetes Assessment: 61 y/o male hx of diabetes type 1 complicated with retinopathy and ESRD on HD, was admitted for right toe infection and cellulitis. He was put on Novolog coverage before meals and Novolog coverage at bedtime. Levemir was decreased to 6 units daily on 11/24/2017 because of hypoglycemia in the morning. Novolog coverage before breakfast: FSG 80-150, no coverage 151-200, no coverage 200-250, 2 units 251-300, 3 units 301-350, 4 units 351-400, 5 units > 400, 6 units Novolog coverage before lunch and before dinner; FSG 80-150, 5 units 151-200, 6 units 200-250, 7 units 251-300, 8 units 301-350, 9 units 351-400, 9 units > 400, 10 units Novolog coverage at bedtime; FSG < 250, no coverage 251-300, 2 units 301-350, 3 units 351-400, 4 units > 400, 4 units His FSGs were 172, 240, 166, 76 and 166. His FSG was 262 this morning after he had breakfast. Plan: 1. Novolog 2 units x1 for FSG of 262 after breakfast; 2. continue the current insulin orders; 3. monitor FSGs. will follow. Subjective Subjective: He feels okay. Objective Last 24 Hrs of Vital Signs/I&O Vital Signs Date Time Temp Pulse Resp B/P B/P Pulse O2 O2 Flow FiO2 Mean Ox Delivery Rate 11/27 0632 98.2 72 20 138/72 99 Room Air 11/26 212 98.2 77 20 130/68 92 Room Air 11/26 1432 98.0 66 18 138/106 100 Room Air Intake & Output 11/27 1600 11/27 0800 11/27 0000 Intake Total 120 800 Output Total Balance 120 800 Intake, Oral 120 800 Patient 183 lb Weight Findings Pertinent Lab/[facility] Results: Laboratory Tests 11/26 1720 Chemistry Sodium (137 - 145 mmol/L) 132 L Potassium (3.5 - 5.1 mmol/L) 4.5 Chloride (98 - 107 mmol/L) 94 L Carbon Dioxide (22 - 30 mmol/L) 27 Anion Gap (5 - 16) 11 BUN (9 - 20 mg/dL) 31 H Creatinine (0.7 - 1.2 mg/dL) 4.7 H Estimated GFR (>60 ml/min) 13 L BUN/Creatinine Ratio (7 - 25 %) 6.6 L
--- NOTE | 2017-11-27 08:34 | PN- Infect Dx ---
Subjective Subjective: No fever. R foot discomfort. No diarrhea. Review of Systems Comments: 12 points reviewed as noted, otherwise negative. Objective Last 24 Hrs of Vital Signs/I&O Vital Signs Date Time Temp Pulse Resp B/P B/P Pulse O2 O2 Flow FiO2 Mean Ox Delivery Rate 11/27 0632 98.2 72 20 138/72 99 Room Air 11/26 2122 98.2 77 20 130/68 92 Room Air 11/26 1432 98.0 66 18 138/106 100 Room Air Intake & Output 11/27 1600 11/27 0800 11/27 0000 Intake Total 120 800 Output Total Balance 120 800 Intake, Oral 120 800 Patient 183 lb Weight Physical Exam Other Physical Findings: General Appearance Cooperative, No Acute Distress HEENT Atraumatic, no thrush, moist oral mucosa Neck Supple, no JVD Cardiovascular Regular Rate, Normal S1, Normal S2, No Murmurs Lungs Clear to Auscultation Abdomen Normal Bowel Sounds, Soft, No Tenderness Extremities: no c/c Skin: right foot dressing in place Neuro: Alert, Oriented X3, non focal Results Last 24 Hours of Lab Results: Laboratory Tests 11/26 1720 Chemistry Sodium (137 - 145 mmol/L) 132 L Potassium (3.5 - 5.1 mmol/L) 4.5 Chloride (98 - 107 mmol/L) 94 L Carbon Dioxide (22 - 30 mmol/L) 27 Anion Gap (5 - 16) 11 BUN (9 - 20 mg/dL) 31 H Creatinine (0.7 - 1.2 mg/dL) 4.7 H Estimated GFR (>60 ml/min) 13 L BUN/Creatinine Ratio (7 - 25 %) 6.6 L Last 24 Hours of Wesley Results: SPEC #: [id number] KILO: 11/21/17 STATUS: COMP RECD: 11/21/[address]: Rolo Deng DPM SOURCE: EXTREMITIE ENTR: 11/21/[address]: Madelaine MEDINA,Cholo SPDESC: TOE 5 R FT Erin MEDINA,Tulio West MD,Manik ORDERED: XTRMOR COMMENT: BONE RECEIVED IN CUP PLACED IN THIO ADDITIONAL INFORMATION: RIGHT 5TH TOE BONE CULTURE Procedure Result > GRAM STAIN Final 11/24/17-1526 GRAM POSITIVE COCCI FEW GRAM NEGATIVE RODS MANY GRAM POSITIVE RODS RARE OTHER FROM THIO BROTH > EXTREMITIES OR SPECIMEN Final 11/26/17-0758 GROWTH IN THIO BROTH OF: 1. ENTEROBACTER CLOACAE 2. ENTEROCOCCUS 3. STAPH AUREUS 4. BACTEROIDES PROB FRAGILIS PRELIM-Called to/Readback by VINEET by [facility] 11/23/17 0930 E.cloacae Enteroc Staph norma RX AB RX AB RX AB ------ -- ------ -- ------ -- AMPICILLIN R S CEFAZOLIN R S AMOX/CLAV AUGM R S AMP/SULB-UNASYN R S CEFOXITIN R CEFTAZIDIME S CEFTRIAXONE S CIPROFLOXACIN S GENTAMICIN S TETRACYCLINE I TRIMETH/SULFA S S AZITHROMYCIN R CLINDAMYCIN R ERYTHROMYCIN R OXACILLIN S VANCOMYCIN S S 1. ENTEROBACTER CLOACAE RX AB ------ -- AMPICILLIN R CEFAZOLIN R AMOXICILLIN/CLAVULINIC ACID R AMPICILLIN/SULBACTAM R CEFOXITIN R CEFTAZIDIME S CEFTRIAXONE S CIPROFLOXACIN S GENTAMICIN S TRIMETHOPRIM/SULFAMETHOXAZOLE S 2. ENTEROCOCCUS RX AB ------ -- AMPICILLIN S VANCOMYCIN S 3. STAPH AUREUS RX ABN ------ --- 3. STAPH AUREUS RX AB ------ -- CEFAZOLIN S AMOXICILLIN/CLAVULINIC ACID S AMPICILLIN/SULBACTAM S TETRACYCLINE I TRIMETHOPRIM/SULFAMETHOXAZOLE S AZITHROMYCIN R CLINDAMYCIN R ERYTHROMYCIN R OXACILLIN S VANCOMYCIN S Recent Imaging Studies: reviewed Assessment/Plan ID Impression: 62 year old male with PMH of DM2, ESRD on HD TuThSat, DM, h/o diabetic foot ulcer right foot, HLD presented to the hospital to be evaluated for cellulitis on 11/17/17; MRI revealed right foot cellulitis; early OM 1st distal phalanx; small effusion in the 5th MTP joint, f/u podiatry recom; r/o septic arthritis; s /p R foot sx. OR cx + polymicrobial infection: Enterococcus cloacae, Enterococcus(S vanco, ampicillin), MSSA and Bacteroides fragilis. Suggestion: 1. D/C iv Ceftraxione (started 11/23); start Cipro 500 mg po daily x24 d; to be given after HD (on HD days); also start Flagyl 500 mg po bid x28 d, as wound cx now growing B. fragilis. 2. Continue iv Vancomycin started on 11/20 D#11/18; obtain random level at HD today. Plan Vancomycin 500 mg iv at HD TIW; adjust dose in order to have vancomycin trough around 15-20. 3. EKG today; eval QT interval; if QT interval above 550 msec please call; OP follow up w/ PCP within 1 week for repeat EKG/following QT interval while treated with oral cipro. 4. F/U podiatry /nephrology recom. 5. CBC, BMP, ESR at HD weekly.
[2017-11-27] MEDS ORDERED: PERCOCET 5-3251 EACH PO (09:38)
[2017-11-27] MEDS ORDERED: CIPRO500 M1 PO (09:42)
[2017-11-27] MEDS ORDERED: FLAGYL500 MG PO (09:44)
--- NOTE | 2017-11-27 14:02 | PN- Nephrology ---
Assessment/Plan Nephrology Assessment: 1. ESRD 2. Diabetic foot on the right; status post partial fifth ray resection with excisional debridement 11/25 Suggestion: 1. Hemodialysis today with 2 L ultrafiltration as tolerated 2. For discharge home today after dialysis 3. Antibiotics to be continued as an outpatient for a total of 28 days including vancomycin, Cipro and Flagyl Subjective Subjective: Patient offers no complaints today. Seen with dialysis. Anxious to go home. ID recommendations noted. Objective Vital Signs and I&Os Vital Signs Date Time Temp Pulse Resp B/P B/P Pulse O2 O2 Flow FiO2 Mean Ox Delivery Rate 11/27 0532 98.2 72 20 138/72 99 Room Air 11/26 212 98.2 77 20 130/68 92 Room Air 11/26 1432 98.0 66 18 138/106 100 Room Air Intake & Output 11/27 0400 11/26 0400 11/25 0400 Intake Total 120 800 117 348 3372 490 Output Total Balance 120 800 793 513 2398 490 Intake, IV 250 640 10 Intake, Oral 120 800 740 240 470 480 Number 0 0 0 Bowel Movements Patient 183 lb 177 lb 180 lb 187 lb Weight Weight Bed scale Measurement Method Physical Exam: General: Well-developed white male in NAD Skin: No rash or jaundice HEENT: Conjunctivae pink, sclerae anicteric, mucous membranes moist Neck: Without masses or thyromegaly, no supraclavicular or cervical adenopathy Chest: Clear to P&A Heart: Regular rate and rhythm without S3 or rub Abdomen: Soft and nontender without palpable masses or organomegaly Extremities: Without cyanosis; no significant edema; right foot dressing intact; left upper arm AVF patent Neuro: Cognitively intact, no focal findings, no asterixis or myoclonus Results Pertinent Lab Results: Laboratory Tests 11/27 11/26 11/26 0600 1720 0645 Chemistry Sodium (137 - 145 mmol/L) 132 L 134 L Potassium (3.5 - 5.1 mmol/L) 4.5 4.2 Chloride (98 - 107 mmol/L) 94 L 100 Carbon Dioxide (22 - 30 mmol/L) 27 24 Anion Gap (5 - 16) 11 11 BUN (9 - 20 mg/dL) 31 H 26 H Creatinine (0.7 - 1.2 mg/dL) 4.7 H 4.2 H Estimated GFR (>60 ml/min) 13 L 14 L BUN/Creatinine Ratio (7 - 25 %) 6.6 L 6.2 L Hematology CBC w Diff Cancelled NO MAN DIFF REQ WBC (4.8 - 10.8 /CUMM) Cancelled 8.9 RBC (4.70 - 6.10 /CUMM) Cancelled 3.19 L Hgb (14.0 - 18.0 G/DL) Cancelled 10.8 L Hct (42 - 52 %) Cancelled 32.7 L MCV (80.0 - 94.0 FL) Cancelled 102.7 H MCH (27.0 - 31.0 PG) Cancelled 33.8 H MCHC (33.0 - 37.0 G/DL) Cancelled 32.9 L RDW (11.5 - 14.5 %) Cancelled 15.0 H Plt Count (130 - 400 /CUMM) Cancelled 263 MPV (7.4 - 10.4 FL) Cancelled 9.4 Gran % (42.2 - 75.2 %) 75.4 H Lymphocytes % (20.5 - 51.1 %) 9.0 L Monocytes % (1.7 - 9.3 %) 12.8 H Eosinophils % (0 - 5 %) 2.4 Basophils % (0.0 - 2.0 %) 0.4 Absolute Granulocytes (1.4 - 6.5 /CUMM) 6.7 H Absolute Lymphocytes (1.2 - 3.4 /CUMM) 0.8 L Absolute Monocytes (0.10 - 0.60 /CUMM) 1.1 H Absolute Eosinophils (0.0 - 0.7 /CUMM) 0.2 Absolute Basophils (0.0 - 0.2 /CUMM) 0 ESR Westergren (0 - 10 MM) 38 H 09/04 09/04 09/04 1400 1200 0655 Chemistry Sodium (137 - 145 mmol/L) 132 L Potassium (3.5 - 5.1 mmol/L) 3.8 Chloride (98 - 107 mmol/L) 100 Carbon Dioxide (22 - 30 mmol/L) 22 Anion Gap (5 - 16) 10 BUN (9 - 20 mg/dL) 36 H Creatinine (0.7 - 1.2 mg/dL) 5.0 H Estimated GFR (>60 ml/min) 12 L BUN/Creatinine Ratio (7 - 25 %) 7.2 Calcium (8.4 - 10.2 mg/dL) 8.9 Toxicology Random Vancomycin Cancelled
[2017-11-27 14:29] LABS: ABSOLUTE BASOPHIL COUNT 0.1 /CUMM (0.0-0.2); ABSOLUTE EOSINOPHIL COUNT 0.2 /CUMM (0.0-0.7); ABSOLUTE GRANULOCYTE CT 5.5 /CUMM (1.4-6.5); ABSOLUTE LYMPH COUNT 0.8 /CUMM (1.2-3.4); ABSOLUTE MONOCYTE COUNT 0.8 /CUMM (0.10-0.60); HEMATOCRIT 30.9 % (42-52); MEAN CORPUSCULAR HGB 34.2 PG (27.0-31.0); MEAN CORPUSCULAR HGB CONC 33.8 G/DL (33.0-37.0); MEAN CORPUSCULAR VOLUME 101.3 FL (80.0-94.0); MEAN PLATELET VOLUME 8.9 FL (7.4-10.4); PLATELET COUNT 282 /CUMM (130-400); RBC DISTRIBUTION WIDTH 14.5 % (11.5-14.5); RED BLOOD CELL CT 3.05 /CUMM (4.70-6.10); WHITE BLOOD CELL COUNT 7.4 /CUMM (4.8-10.8)
[2017-11-28] MEDS ORDERED: PERCOCET 5-3251 EACH PO (12:05)
== END 2017-11-27 19:20 | disposition home health service (06) | DRG 305 ==
LOC: ERH 15:10 → ERHI 19:57 → 2NB 19:57 → ERHI 11-18 08:17 → ENRESERV 11-19 16:40 → 2NB 11-19 17:01 → ENTRNSPT 11-19 17:17 → EDTRNSPT 11-19 17:23 → EDTRNSPTSTS 11-19 17:23 → CMPTRNSPT 11-19 17:43 → ENTRNSPT 11-21 17:34 → EDTRNSPTSTS 11-21 18:07 → EDTRNSPT 11-21 18:07 → CMPTRNSPT 11-21 18:18 → 2NB 11-25 07:42 → ENTRNSPT 11-25 12:08 → EDTRNSPT 11-25 12:22 → EDTRNSPTSTS 11-25 12:22 → CMPTRNSPT 11-25 12:28 → 2NB 11-27 19:20
PROVIDERS: Hospitalist; Internal Medicine Nephrology; Physical Medicine & Rehabilitation Pain Medicine; Physician Assistant; Preventive Medicine Addiction Medicine
PROC: 5A1D70Z Performance of Urinary Filtration, Intermittent, Less than 6 Hours Per Day (ICD-10-PCS; 2017-11-18)
PROC: 3E0T3BZ Introduction of Anesthetic Agent into Peripheral Nerves and Plexi, Percutaneous Approach (ICD-10-PCS; principal; 2017-11-21)
PROC: 0JBQ0ZZ Excision of Right Foot Subcutaneous Tissue and Fascia, Open Approach (ICD-10-PCS; 2017-11-21)
PROC: 0Y6M0ZF Detachment at Right Foot, Partial 5th Ray, Open Approach (ICD-10-PCS; 2017-11-21)
PROC: 0Y6M0ZF Detachment at Right Foot, Partial 5th Ray, Open Approach (ICD-10-PCS; 2017-11-25)
PROC: 0JBQ0ZZ Excision of Right Foot Subcutaneous Tissue and Fascia, Open Approach (ICD-10-PCS; 2017-11-25)
PROC: 3E0T3BZ Introduction of Anesthetic Agent into Peripheral Nerves and Plexi, Percutaneous Approach (ICD-10-PCS; 2017-11-25)
DX: E10.69 Type 1 diabetes mellitus with other specified complication (principal); L03.115 Cellulitis of right lower limb; L97.419 Non-pressure chronic ulcer of right heel and midfoot with unspecified severity; E10.40 Type 1 diabetes mellitus with diabetic neuropathy, unspecified; E10.319 Type 1 diabetes mellitus with unspecified diabetic retinopathy without macular edema; Z79.4 Long term (current) use of insulin; E10.22 Type 1 diabetes mellitus with diabetic chronic kidney disease; I13.2 Hypertensive heart and chronic kidney disease with heart failure and with stage 5 chronic kidney disease, or end stage renal disease; N18.6 End stage renal disease; I50.22 Chronic systolic (congestive) heart failure; Z99.2 Dependence on renal dialysis; I27.20 Pulmonary hypertension, unspecified; M86.171 Other acute osteomyelitis, right ankle and foot; E78.5 Hyperlipidemia, unspecified; Z88.1 Allergy status to other antibiotic agents; Z88.0 Allergy status to penicillin; F17.210 Nicotine dependence, cigarettes, uncomplicated; K21.9 Gastro-esophageal reflux disease without esophagitis; F32.9 Major depressive disorder, single episode, unspecified; B95.2 Enterococcus as the cause of diseases classified elsewhere; B95.61 Methicillin susceptible Staphylococcus aureus infection as the cause of diseases classified elsewhere; B96.89 Other specified bacterial agents as the cause of diseases classified elsewhere
CPT/HCPCS: 2NBP; 75657; 87070; 87075; 87184; ERO; 36415; 36592; 73630-RT; 82436; 87040; 87147; 93005; 93010; 96374; J0696; J1644; J1815; J2001; J2765; J3370; J7040; J7042

== ENCOUNTER 2017-12-03 13:03 | Inpatient (IN) | payer OTHER ==
[~2017-12-03] VITALS: Ht 172.7 cm; Wt 76.7 kg
[~2017-12-03 13:03] MED LIST changes: +CIPRO500 M1 PO; +FLAGYL500 MG PO; +PERCOCET 5-3251 EACH PO
--- NOTE | 2017-12-03 14:21 | ED ANKLE/FOOT INJURY COMPLAINT ---
History of Present Illness General Chief Complaint: General Adult Stated Complaint: SENT BY DR RUSSO FOR ADMISSION FOOT INFECTON Source: patient, family Exam Limitations: no limitations Vital Signs & Intake/Output Vital Signs & Intake/Output Vital Signs Date Time Temp Pulse Resp B/P B/P Pulse O2 O2 Flow FiO2 Mean Ox Delivery Rate 12/05 1027 98.1 72 18 128/64 96 Room Air Room Air 12/05 0621 98.6 76 20 118/60 98 12/04 2109 98.9 75 19 120/60 100 Room Air 12/04 1835 97.7 88 18 122/68 96 Room Air Room Air 12/04 1223 97.9 68 18 108/66 100 Room Air ED Intake and Output 12/05 0000 12/04 1200 Intake Total 600 220 Output Total 0 Balance 600 220 Intake, IV 0 20 Intake, Oral 600 200 Number 2 Bowel Movements Output, Urine 0 Patient 164 lb 165 lb Weight Weight Bed scale Bed scale Measurement Method Allergies Coded Allergies: amoxicillin (Mild, RASH ALL OVER 08/27/17) Penicillins (RASH ALL OVER 08/27/17) Reconcile Medications Acetaminophen (Tylenol) 325 MG TABLET 650 MG PO Q6 PRN PAIN (Reported) Aspirin (Ecotrin*) 81 MG TABLET.DR 1 TAB PO DAILY HEART/BLOOD (Reported) Atorvastatin Calcium (Lipitor) 10 MG TABLET 1 TAB PO DAILY CHOLESTEROL ( Reported) Ciprofloxacin HCl (Cipro) 500 MG TABLET 500 MG PO ONCE INFECTION Citalopram Hydrobromide (Citalopram HBr) 20 MG TABLET 1 TAB PO DAILY MENTAL HEALTH (Reported) Esomeprazole (Nexium) 40 MG CAPSULE.DR 1 CAP PO DAILY GI (Reported) Insulin Aspart (Novolog) 100 UNIT/ML VIAL 0 UNITS SC AT BEDTIME DIABETES Glucose <250 0 units 251-300 2 units 301-350 3 units 351-400 4 units > 400 4 units Insulin Aspart (Novolog) 100 UNIT/ML VIAL 0 SC 1200,1700 DIABETES FSG 80-150 5 unit 151-200 6 unit 201-250 7 unit 251-300 8 unit 301-350 9 unit 351-400 9 unit >400, 10 units Insulin Aspart (Novolog) 100 UNIT/ML VIAL 0 UNITS SC 8AM DIABETES FSG <200 - 0 units 200-250, 3 units 251-300, 4 units 301-350, 5 units 351-400, 6 units >400 7 units Insulin Glargine,Hum.rec.anlog (Lantus Solostar) 100 UNIT/ML (3 ML) INSULN.PEN 6 UNIT SC BID DIABETES Metronidazole (Flagyl) 500 MG TABLET 500 MG PO BID INFECTION Mometasone Furoate (Nasonex) 50 MCG SPRAY.PUMP 2 SPRAY NASB DAILY ALLERGIES ( Reported) Montelukast Sodium (Singulair) 10 MG TABLET 1 TAB PO QPM ALLERGIES (Reported) Nephro-Vitamins (Nephro-Schuyler Tablet) 0.8 MG TABLET 1 TAB PO DAILY VITAMIN SUPPORT Oxycodone HCl/Acetaminophen (Percocet 5-325 MG Tablet) 5 MG-325 MG TABLET 1 TAB PO BID PRN Pain from surgery . Triage Note: 62 Y/O MALE SENT BY DR CALDERÓN FOR ADMISSION (PER PT STATEMENT). STATES HE HAD R 5TH TOE AMPUTATION 11/27/17 DUE TO AN INFECTED ULCER, "SOMEONE FORGOT TO TURN THE WOUND VAC ON AND HE DIDNT LIKE HOW IT LOOKS". PT WAS IN DR CALDERÓN OFFICE, ADVISED TO COME TO ED. DENIES COMPLAINTS STATING HE FEELS "WELL". CURRENTLY ON PERCOCET (LAST DOSE 0900), CIPRO AND FLAGYL PO DIAYSIS T-TH-SAT. RESTRICTED BAND PLACED TO L ARM. Triage Nurses Notes Reviewed? yes Duration: week(s): Timing: recent history Severity: moderate Pain/Injury Location: Right: Foot. HPI: 62yo male with hx of DM, right foot osteomyelitis, HTN, CHF, CKD on dialysis T/ /Sat presents to ED sent in by Dr. Calderón for admission for right foot infection. Patient states he has osetomyelites and had recent surgical debriedment and hospital admission last week. Patient is still taking PO Cipro and flagyl and recieve IV antibiotics during dialysis. PAtient saw Dr. Calderón this morning and it was recommended he return to hospital for admission. Patient states his right foot wound is painful, wound has been present since August. Patient denies fevers, chills, malaise, vomiting. (Radha WELLINGTON,Skylar Conklin) Past History Travel History Traveled to [place] past 21 day No Medical History Any Pertinent Medical History? see below for history Neurological: NEUROPATHY EENT: diabetic retinopathy Cardiovascular: CHF, hypertension, hyperlipidemia Respiratory: CURRENT SMOKER 0ne pack now cut down to HALF DAILY. 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/Reproductive: NONE History of MRSA: No History of VRE: No History of CDIFF: No Surgical History Surgical History: LEFT ARM FISTULA ANGIOPLASTY R LEG OCCLUSION IN RLE Psychosocial History Who do you live with Family Services at Home None What is your primary language Zimbabwean Tobacco Use: Current Daily Use Daily Tobacco Use Amount/Type: => 5 Cigarettes daily Family History Family History, If Any: MOTHER FH: colon cancer FH: type 2 diabetes mellitus FATHER FH: prostate cancer FH: type 2 diabetes mellitus MATERNAL GRANDFATHER FH: type 2 diabetes mellitus SISTER FH: bladder cancer GRANDMOTHER FH: cancer Hx Contributory? No (Skylar Justice) Review of Systems Review of Systems Constitutional: Reports: no symptoms. EENTM: Reports: no symptoms. Respiratory: Reports: no symptoms. Cardiovascular: Reports: no symptoms. GI: Reports: no symptoms. Genitourinary: Reports: no symptoms. Musculoskeletal: Reports: see HPI. Skin: Reports: see HPI. Neurological/Psychological: Reports: no symptoms. Hematologic/Endocrine: Reports: no symptoms. Immunologic/Allergic: Reports: no symptoms. All Other Systems: Reviewed and Negative (Skylar Justice) Physical Exam Physical Exam General Appearance: well developed/nourished, no apparent distress, alert, awake Head: atraumatic, normal appearance Eyes: Bilateral: normal appearance. Ears, Nose, Throat: hearing grossly normal Neck: normal inspection, supple, full range of motion Cardiovascular/Respiratory: normal breath sounds, normal peripheral pulses, regular rate/rhythm, no respiratory distress Back: normal inspection, normal range of motion Leg/Knee/Thigh Left: normal range of motion, normal inspection Leg/Knee/Thigh Right: mild erythema of right lower extremity without swelling Ankle Left: normal inspection, normal range of motion Foot Left: normal inspection, normal range of motion Foot Right: erythema of dorsal foot, open wound to lateral foot, s/p 5th digit amputation, <1cm wounds to great toe Psychiatric: awake, alert, oriented x 3 Skin: erythema and open R foot wound (Skylar Justice) Progress Differential Diagnosis: osteomyelitis, sepsis, diabetic foot ulcer, necrosis, cellulitis Plan of Care: Orders Procedure Date/time Status BASIC ELECTROLYTES PLUS BUN&CR 12/06 0600 Active Nothing by Mouth 12/05 B Active BASIC ELECTROLYTES PLUS BUN&CR 12/[address] RUNOFF ANGIOGRAM 12/05 UNK Active Current Medications Sig/Rhett Start time Last Medication Dose Stop Time Status Admin Dextrose/Sodium 1,000 ML Q20H 12/05 0600 AC 12/05 Chloride 0603 (D5W-1/2 Normal Saline 1000ML) Insulin Human Regular 0 Q6 12/05 0000 AC 12/05 (NovoLIN R) 0011 Insulin Detemir 3 UNITS BID 12/04 2100 AC (Levemir) Atorvastatin Calcium 10 MG 1700 12/04 1700 AC 12/04 (Lipitor) 1828 Paricalcitol 7.5 MCG TuThSa PRN 12/04 1500 AC (Zemplar Inj. 2MCG/ ML) Aspirin Buffered 81 MG DAILY 12/04 0900 AC 12/05 (Ecotrin) 0804 Citalopram 20 MG DAILY 12/04 0900 AC 12/05 Hydrobromide 0804 (Celexa) Multivitamins 1 TAB DAILY 12/04 0900 AC 12/05 (Nephrocaps) 0804 Omeprazole 40 MG DAILY AC 12/04 0700 AC 12/05 (Prilosec) 0605 Oxycodone/ 1 TAB Q6P PRN 12/03 2300 AC 12/05 Acetaminophen 0613 (Percocet) Heparin Sodium 5,000 UNIT Q8 12/03 2200 AC 12/04 (Porcine) 2020 Montelukast Sodium 10 MG QPM 12/03 2100 AC 12/04 (Singulair) 2020 Acetaminophen 650 MG Q6P PRN 12/03 1730 AC (Tylenol) Meropenem 1 GM Q24H 12/03 1730 AC 12/04 (MEROPENEM) 1828 Laboratory Tests 12/05/17 0625: Anion Gap 10, Estimated GFR 14 L, BUN/Creatinine Ratio 3.6 L Microbiology 12/04 2021 STOOL: Clostridium difficile Toxin A & B - RECD Spoke with Dr. Calderón regarding this patient - patient will require debridement given poor wound quality. Debridement to be scheduled for likely Friday. Dr. Calderón recommends continuing the patient's current antibiotics regiment. Patient is on dialysis, he will require dialysis while here in the hospital. He will also require podiatry and infectious disease consult. Spoke with hospitalist regarding general medicine admission. Initial ED EKG: sinus rhythm @73bpm, LBBB Prior EKG: unchanged (11/27/17) (Skylar Justice) Departure Departure Disposition: STILL A PATIENT Condition: Stable Clinical Impression Primary Impression: Osteomyelitis Qualifiers: Osteomyelitis type: unspecified type Osteomyelitis location: foot Laterality: right Qualified Code: M86.9 - Osteomyelitis, unspecified Referrals: Erin MEDINA,Tulio Allen (PCP/Family) Departure Forms: Customer Survey General Discharge Information Admission Note Spoke With: Joshua Millan MD Documentation of Exam: Documentation of any treatments & extenuating circumstances including Concerns Regarding Discharge (functional status, medication knowledge or non-compliance, living conditions, etc.) that warrant an admission rather than observation: [ Osteomyelitis with diabetic foot ulcer requiring surgical debridement with podiatry, infectious disease consult, possible IV antibiotics given worsening wound, dialysis, premature discharge medically unsafe] (Skylar Justice) PA/GLOBE CLEANER Co-Sign Statement Statement: ED Attending supervision documentation- [x] I saw and evaluated the patient. I have also reviewed all the pertinent lab results and diagnostic results. I agree with the findings and the plan of care as documented in the PA's/GLOBE CLEANER's documentation. [] I have reviewed the ED Record and agree with the PA's/GLOBE CLEANER's documentation. [] Additions or exceptions (if any) to the PAs/GLOBE CLEANER's note and plan are summarized below: [] 62-year-old diabetic male sent in by the cardiac technician for reevaluation of his support. The patient was seen in the office. The patient recently had amputation of the fifth toe. The patient has more area was needs to be debrided. The patient has elevated CRP. Recent MRI which showed osteomyelitis in the area which was amputated. The patient will need admission for debridement because he is dialysis dependent. (John MEDINA,[facility])
[2017-12-03 14:44] LABS: ABSOLUTE BASOPHIL COUNT 0.1 /CUMM (0.0-0.2); ABSOLUTE EOSINOPHIL COUNT 0.2 /CUMM (0.0-0.7); ABSOLUTE GRANULOCYTE CT 5.8 /CUMM (1.4-6.5); ABSOLUTE LYMPH COUNT 0.8 /CUMM (1.2-3.4); ABSOLUTE MONOCYTE COUNT 0.8 /CUMM (0.10-0.60); BASOPHIL % 0.7 % (0.0-2.0); EOSINOPHIL % 2.6 % (0-5); GRANULOCYTE % 75.9 % (42.2-75.2); MEAN CORPUSCULAR HGB 33.8 PG (27.0-31.0); MEAN CORPUSCULAR VOLUME 102.6 FL (80.0-94.0); MEAN PLATELET VOLUME 8.1 FL (7.4-10.4); PLATELET COUNT 411 /CUMM (130-400); RBC DISTRIBUTION WIDTH 15.4 % (11.5-14.5); RED BLOOD CELL CT 3.69 /CUMM (4.70-6.10); WHITE BLOOD CELL COUNT 7.7 /CUMM (4.8-10.8)
[2017-12-03 15:17] LABS: HEMATOCRIT 37.9 % (42-52)
--- NOTE | 2017-12-03 16:37 | History & Physical ---
Katelyn Michelle 12/03/17 1636: General Information and HPI MD Statement: I have seen and personally examined JOSÉ MIGUEL ALMODOVAR and documented this H&P. The patient is a 62 year old M who presented with a patient stated chief complaint of right foot ulcer Source of Information: patient History of Present Illness: 62-year-old male with PMH of hypertension, hyperlipidemia, IDDM, diabetic retinopathy, neuropathy, GERD, CKD, ESRD with LAV fistula, arthritis. depression and recent admission for surgical debridement of right foot ulcer was sent by Dr. Howell's for admission for right foot ulcer debridement scheuduled for Friday. The patient was apparently discharged last week on a wound vac which apparently did not work as the patient went home. His called [facility] who thought he did not need a wound vac. The patient called Dr. Howell's office. He was told to come see him today when he was sent to the hospital for further debridement of his right foot ulcer. Denies fever, chills, nausea, vomiting, chest pain, SOB. Allergies/Medications Allergies: Coded Allergies: amoxicillin (Mild, RASH ALL OVER 08/27/17) Penicillins (RASH ALL OVER 08/27/17) Home Med list Acetaminophen (Tylenol) 325 MG TABLET 650 MG PO Q6 PRN PAIN (Reported) Aspirin (Ecotrin*) 81 MG TABLET.DR 1 TAB PO DAILY HEART/BLOOD (Reported) Atorvastatin Calcium (Lipitor) 10 MG TABLET 1 TAB PO DAILY CHOLESTEROL ( Reported) Ciprofloxacin HCl (Cipro) 500 MG TABLET 500 MG PO ONCE INFECTION Citalopram Hydrobromide (Citalopram HBr) 20 MG TABLET 1 TAB PO DAILY MENTAL HEALTH (Reported) Esomeprazole (Nexium) 40 MG CAPSULE.DR 1 CAP PO DAILY GI (Reported) Insulin Aspart (Novolog) 100 UNIT/ML VIAL 0 UNITS SC AT BEDTIME DIABETES Glucose <250 0 units 251-300 2 units 301-350 3 units 351-400 4 units > 400 4 units Insulin Aspart (Novolog) 100 UNIT/ML VIAL 0 SC 1200,1700 DIABETES FSG 80-150 5 unit 151-200 6 unit 201-250 7 unit 251-300 8 unit 301-350 9 unit 351-400 9 unit >400, 10 units Insulin Aspart (Novolog) 100 UNIT/ML VIAL 0 UNITS SC 8AM DIABETES FSG <200 - 0 units 200-250, 3 units 251-300, 4 units 301-350, 5 units 351-400, 6 units >400 7 units Insulin Glargine,Hum.rec.anlog (Lantus Solostar) 100 UNIT/ML (3 ML) INSULN.PEN 6 UNIT SC BID DIABETES Metronidazole (Flagyl) 500 MG TABLET 500 MG PO BID INFECTION Mometasone Furoate (Nasonex) 50 MCG SPRAY.PUMP 2 SPRAY NASB DAILY ALLERGIES ( Reported) Montelukast Sodium (Singulair) 10 MG TABLET 1 TAB PO QPM ALLERGIES (Reported) Nephro-Vitamins (Nephro-Schuyler Tablet) 0.8 MG TABLET 1 TAB PO DAILY VITAMIN SUPPORT Oxycodone HCl/Acetaminophen (Percocet 5-325 MG Tablet) 5 MG-325 MG TABLET 1 TAB PO BID PRN Pain from surgery . Past History Travel History Traveled to [place] past 21 day No Medical History Neurological: NEUROPATHY EENT: diabetic retinopathy Cardiovascular: CHF, hypertension, hyperlipidemia Respiratory: CURRENT SMOKER 0ne pack now cut down to HALF DAILY. 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 parent, lives with sister and mother Services at Home: None Functional Ability Ambulation: independent Review of Systems Review of Systems Constitutional: Denies: chills, diaphoresis, fever. Cardiovascular: Denies: chest pain, edema, orthopena, palpitations. Respiratory: Denies: cough, orthopnea, short of breath, sputum production, wheezing. GI: Denies: bloating, constipation, diarrhea, nausea, bloody stool. Genitourinary: Denies: dysuria, frequency, hematuria. Musculoskeletal: Reports: joint pain, joint swelling. Denies: back pain, gout. Neurological/Psychological: Reports: anxiety, depressed, numbness, paresthesia, tingling. Hematologic/Endocrine: Denies: bruising, bleeding, polyuria. Exam & Diagnostic Data Last 24 Hrs of Vital Signs/I&O Vital Signs Date Time Temp Pulse Resp B/P B/P Pulse O2 O2 Flow FiO2 Mean Ox Delivery Rate 12/03 1635 98.3 85 18 137/62 Room Air 12/03 1613 Room Air 12/03 1321 98.2 73 18 134/75 98 Room Air Intake & Output 12/03 1600 12/03 0800 12/03 0000 Intake Total 0 Output Total Balance 0 Intake, Oral 0 Patient 173 lb Weight Weight Reported by Patient Measurement Method Physical Exam General Appearance Alert, Oriented X3, Cooperative, No Acute Distress Skin No Rashes Cardiovascular Regular Rate, Normal S1, Normal S2 Lungs Clear to Auscultation, Normal Air Movement Abdomen Normal Bowel Sounds, Soft, No Tenderness Extremities right foot ulcer covered in dressing Vascular Normal Pulses, Pulses Symmetrical Assessment/Plan Assessment: 62-year-old male with PMH of hypertension, hyperlipidemia, IDDM, diabetic retinopathy, neuropathy, GERD, CKD, ESRD with LAV fistula, arthritis. depression and recent admission for surgical debridement of right foot ulcer was sent by Dr. Fisher for admission for right foot ulcer debridement. VItals in the ED: Temp: 98.3, Pulse:85, RR:16, BP: 137/98 WBC:7.7, Hgb: 12.5, MCV:102.6, Platelet: 411, Na:131, K:4.2, Cr: 5.4, Bilirubin: 0.8, AST: 60, ALT:54, Alkaline phosphatase: 270, CRP:6.3 Blood cultures sent. Pending results Diabetic foot ulcer - We would admit the patient to general medicine - We would repeat CBC in the morning -ID consult appreacited * X-ray of the foot * Meropenem 1g q24 h -Podiatry consult in the AM -Possible debridement and bone biopsy on Friday Follow up blood cultures Chronic kidney disease/end-stage renal disease -Patient gets dialysis Friday through left forearm fistula. -Dialysis in the AM. Nephro consult placed -Continue Renvela COPD not on home oxygen Continue Singulair 10 mg daily Diabetes mellitus Accu-Cheks ISS Continue Levemir 6 units twice daily GERD continue omeprazole 40 daily Hyperlipidemia continue aspirin 81 and Lipitor 10 daily DVT prophylaxis Code status: Full code As Ranked By This Provider Problem List: 1. Osteomyelitis Qualifiers Osteomyelitis type: unspecified type Osteomyelitis location: foot Laterality: right Qualified Code: M86.9 - Osteomyelitis, unspecified 2. Diabetic foot infection 3. ESRD (end stage renal disease) on dialysis 4. Hypertension 5. DEPRESSION Core Measures/Misc (12/08) Acute Coronary Syndrome ACS Diagnosis: No Congestive Heart Failure Congestive Heart Failure Diagnosis No Cerebrovascular Accident CVA/TIA Diagnosis: No VTE (View Protocol) VTE Risk Factors Age>40 No Mechanical VTE Prophylaxis d/t N/A MechProphylax Ordered No VTE Pharm Prophylaxis d/t NA PharmProphylax ordered Sepsis (View protocol) Sepsis Present: No If YES complete Sepsis Event Note If YES complete Sepsis Event Note LaureloreRené valenzuela 12/03/17 1731: Core Measures/Misc (12/08) Sepsis (View protocol) If YES complete Sepsis Event Note If YES complete Sepsis Event Note Resident Review Statement Resident Statement: examined this patient, discussed with internet sourcer, agreed with internet sourcer, discussed with family, reviewed EMR data (avail), discussed with nursing , discussed with case mgmt, reviewed images, amended to note Other Findings: This is a 62-year-old male with past medical history significant for COPD not on home oxygen, depression, diabetes mellitus, end-stage renal disease on dialysis Friday, left forearm AV fistula, GERD, heart failure with preserved ejection fraction 45%, pulmonary hypertension, arthritis, recent angioplasty right lower extremity was sent in by his general production laborer for worsening wounds on right foot. patient has chronic plantar ulcer on the right great toe, hospitalized 2 weeks prior to admission with osteomyelitis of the right great and fifth toes, status post partial fifth ray resection 4 days after admission (with the OR culture positive for MSSA, Enterobacter, Enterococcus and Bacteroides), discharged home, with a wound VAC, on Vancomycin, to be dosed after each dialysis, and p.o. Cipro and Flagyl. He was sent to the emergency room by his general production laborer Dr. Deng for further debridement of right fourth/fifth metatarsal. Patient reports that after going home, he has worsening redness associated with pain of right foot. Also he has not been on wound VAC. He has been taking Cipro and Flagyl as per recommendations. And he is also getting IV Vanco on his dialysis days. On review of systems patient denies fever, chills, short of breath, chest pain, palpitations, cough, nausea, vomiting, abdominal pain, change in bladder or bowel habits. He smokes 1 pack per day. Denies alcohol abuse and illicit drug abuse Vitals afebrile, heart rate 73, respiratory rate 18, blood pressure 138/70, saturating at 96 on room air Labs WBC 7.7, hemoglobin 12, hematocrit 38, platelets 411 Sodium 131, potassium 4.2, BUN 52 and creatinine 5.4, Glucose 253 Foot [id number] Diabetic right foot ulcer Patient was sent in by Dr. Deng general production laborer but worsening right foot ulcer. He was recently admitted for chronic plantar ulcer on the right great toe, hospitalized 2 weeks prior to admission with osteomyelitis of the right great and fifth toes, status post partial fifth ray resection 4 days after admission ( with the OR culture positive for MSSA, Enterobacter, Enterococcus and Bacteroides), discharged home, with a wound VAC, on Vancomycin, to be dosed after each dialysis, and p.o. Cipro and Flagyl. After discharge, patient noticed worsening pain and redness. Denied any fever, chills. Of note he is not on wound VAC. -Admit to general medicine -Monitor vitals every shift -Monitor for fever, leukocytosis -xry right foot to look for osteomyelitis -Podiatric consult in the a.m. -f/u ID RECS -Possible debridement and bone biopsy 12/05 -Continue meropenem 1 g every 24 hours pending repeat or cultures Chronic kidney disease/end-stage renal disease Patient gets dialysis [facility] Thursday Saturday through left forearm fistula. He is due for dialysis tomorrow -Nephro consult in the a.m. -Hemodialysis -Continue Renvela COPD not on home oxygen Continue Singulair 10 mg daily Diabetes mellitus Accu-Cheks Novolog sliding scale Continue Levemir 6 units twice daily GERD continue omeprazole 40 daily Hyperlipidemia continue aspirin 81 and Lipitor 10 daily DVT prophylaxis subcu heparin ccs 3 diet Full code Pain pathway ordered Joshua Millan MD 12/03/173: Core Measures/Misc (12/08) Sepsis (View protocol) If YES complete Sepsis Event Note If YES complete Sepsis Event Note Attending MD Review Statement Attending Statement Attending MD Statement: examined this patient, discuss w/resident/PA/TOUR GUIDE, agreed w/resident/PA/TOUR GUIDE, reviewed EMR data (avail), reviewed images, amended to note Attending Assessment/Plan: The patient is a 62 yo male with h/o DM2, ESRD on dialysis ([facility]), PVD (s/p angioplasty RLE), and chronic RLE ulcer (right great toe) who was admitted to and discharged last week after partial ray amputation of right 5th toe. He was sent home with wound vac and on IV Vanco with dialysis and po Cipro/Flagyl (grew staph, bacteroides, enterobacter, enterococcus from wound culture). He was seen by Dr. Deng in office today and he sent him to ED stating he needed further debridement planned for Tuesday 12/05. He denied any fever, chills, etc. Does c/o chronic LE pain and requesting his pain medication at the time of my exam. Physical Exam: VS: T 98.3, P 85, R 18, BP 137/62, PO 98% HEENT: eyes- PERRL nghia- dry w/o lesion Neck: no adenopathy or JVD Chest: mild diminished breath sounds, clear Cor: RRR nl S1, S2 w/o murm Abd: BS+, soft, NT Ext: RLE- right great toe ulcer, + tender over dorsolateral right foot & right 4th toe, s/p 5th toe amputation with necrotic edges, pulses 1+; LUE fistula with bruit Neuro: alert & oriented, non-focal exam except decreased sensory LE Labs/Tests- as above Impression/Plan: #Persistent Infection Right Foot- necrosis around edge of right 5th toe amputation site. Also ? osteomyelitis of 1st toe on prior MRI. May require transmetatarsal amputation. Plan: Admit to medical service. ID consult - Dr. Gonzalez (note appreciated) Will begin IV Meropenem as per ID. Podiatry to take for debridement Tuesday 12/05. Repeat X-ray of right foot as per ID note. Will review pre-op testing - calculate RCRI. #CKD/End Stage Renal Disease- on dialysis. Plan: Continue dialysis qTuThSa as per protocol. #COPD- not on oxygen. Lungs clear at present. Plan: Continue Singulair. Nebs prn. #DM2- on insulin. Plan: Follow sugars and continue insulin as per regimen. #GERD- on Omeprazole. Plan: Continue Omeprazole. #Hyperlipidemia- on Atorvastatin. Plan: Continue Atorvastatin. #Chronic Pain - due to PVD/foot surgery. Plan: Continue pain meds.
--- NOTE | 2017-12-03 17:04 | Cons- Infect Disease ---
General Information and HPI Consulting Request Date of Consult: 12/03/17 Requested By: Joshua Millan MD Reason for Consult: Right foot infection Source of Information: patient, old records History of Present Illness: This is a 62-year-old man with diabetes, end-stage renal disease, on hemodialysis Tuesdays, and Saturdays via a left upper extremity fistula, and peripheral vascular disease, status post angioplasty of the right lower extremity by Dr. Delacruz several weeks/months prior to admission, with a chronic plantar ulcer on the right great toe, hospitalized 2 weeks prior to admission with osteomyelitis of the right great and fifth toes, status post partial fifth ray resection 4 days after admission (with the OR culture positive for MSSA, Enterobacter, Enterococcus and Bacteroides), discharged home, with a wound VAC, on Vancomycin, to be dosed after each dialysis, and p.o. Cipro and Flagyl, referred to the emergency room today by Podiatry because of worsening of his right foot wound. On admission he was afebrile. Laboratory data revealed a white blood cell count of 8000, ESR 45 (was 38 on discharge), glucose 253, BUN/ creatinine 25 and 5.4, alkaline phosphatase 270, AST/ALT 60 and 54. At present he does complain of pain in the right foot and reports discharge from the right great toe plantar ulcer. Allergies/Medications Allergies: Coded Allergies: amoxicillin (Mild, RASH ALL OVER 08/27/17) Penicillins (RASH ALL OVER 08/27/17) Home Med List: Acetaminophen (Tylenol) 325 MG TABLET 650 MG PO Q6 PRN PAIN (Reported) Aspirin (Ecotrin*) 81 MG TABLET.DR 1 TAB PO DAILY HEART/BLOOD (Reported) Atorvastatin Calcium (Lipitor) 10 MG TABLET 1 TAB PO DAILY CHOLESTEROL ( Reported) Ciprofloxacin HCl (Cipro) 500 MG TABLET 500 MG PO ONCE INFECTION Citalopram Hydrobromide (Citalopram HBr) 20 MG TABLET 1 TAB PO DAILY MENTAL HEALTH (Reported) Esomeprazole (Nexium) 40 MG CAPSULE.DR 1 CAP PO DAILY GI (Reported) Insulin Aspart (Novolog) 100 UNIT/ML VIAL 0 UNITS SC AT BEDTIME DIABETES Glucose <250 0 units 251-300 2 units 301-350 3 units 351-400 4 units > 400 4 units Insulin Aspart (Novolog) 100 UNIT/ML VIAL 0 SC 1200,1700 DIABETES FSG 80-150 5 unit 151-200 6 unit 201-250 7 unit 251-300 8 unit 301-350 9 unit 351-400 9 unit >400, 10 units Insulin Aspart (Novolog) 100 UNIT/ML VIAL 0 UNITS SC 8AM DIABETES FSG <200 - 0 units 200-250, 3 units 251-300, 4 units 301-350, 5 units 351-400, 6 units >400 7 units Insulin Glargine,Hum.rec.anlog (Lantus Solostar) 100 UNIT/ML (3 ML) INSULN.PEN 6 UNIT SC BID DIABETES Metronidazole (Flagyl) 500 MG TABLET 500 MG PO BID INFECTION Mometasone Furoate (Nasonex) 50 MCG SPRAY.PUMP 2 SPRAY NASB DAILY ALLERGIES ( Reported) Montelukast Sodium (Singulair) 10 MG TABLET 1 TAB PO QPM ALLERGIES (Reported) Nephro-Vitamins (Nephro-Schulyer Tablet) 0.8 MG TABLET 1 TAB PO DAILY VITAMIN SUPPORT Oxycodone HCl/Acetaminophen (Percocet 5-325 MG Tablet) 5 MG-325 MG TABLET 1 TAB PO BID PRN Pain from surgery . Past History Travel History Traveled to [place] past 21 day No Medical History Neurological: NEUROPATHY EENT: diabetic retinopathy Cardiovascular: CHF, hypertension, hyperlipidemia Respiratory: smoking for the past 40 yrs Gastrointestinal: GERD Hepatic: NONE Renal: chronic kidney disease, ESRD on HD Musculoskeletal: ARTHRITIS Psychiatric: depression Endocrine: IDDM Blood Disorders: NONE Cancer(s): NONE LEAF SIZE PICKER/Reproductive: NONE History of MRSA: No History of VRE: No History of CDIFF: No Surgical History Surgical History: LEFT ARM FISTULA ANGIOPLASTY R LEG Family History Relations & Conditions If Any: MOTHER FH: colon cancer FH: type 2 diabetes mellitus FATHER FH: prostate cancer FH: type 2 diabetes mellitus MATERNAL GRANDFATHER FH: type 2 diabetes mellitus SISTER FH: bladder cancer GRANDMOTHER FH: cancer Psychosocial History Who Do You Live With? parent, lives with sister and mother Services at Home: None Functional Ability Ambulation: independent Review of Systems Review of Systems All Other Systems: Reviewed and Negative Exam & Diagnostic Data Last 24 Hrs of Vital Signs/I&O Vital Signs Date Time Temp Pulse Resp B/P B/P Pulse O2 O2 Flow FiO2 Mean Ox Delivery Rate 12/03 1635 98.3 85 18 137/62 Room Air 12/03 1613 Room Air 12/03 1321 98.2 73 18 134/75 98 Room Air Intake & Output 12/03 1600 12/03 0800 12/03 0000 Intake Total 0 Output Total Balance 0 Intake, Oral 0 Patient 173 lb Weight Weight Reported by Patient Measurement Method Physical Exam Other Physical Findings: He is awake and alert in no acute distress. He is afebrile. Skin reveals no rash. HEENT exam is negative. Neck is supple with no adenopathy. Lungs are clear. Heart regular rhythm with no murmur. Abdomen is soft, nontender with positive bowel sounds. Back no CVA tenderness. Extremities right great toe plantar ulcer with no surrounding inflammation; erythema and tenderness over the dorsolateral aspect of the right foot, including the right fourth toe; status post right fifth toe amputation with necrotic edges to the wound; pulses 1+; left upper extremity fistula with no inflammation. Neuro neuropathy of both feet. Last 24 Hours of Lab Results: Laboratory Tests 12/03 12/03 1649 1419 Chemistry Sodium (137 - 145 mmol/L) 131 L Potassium (3.5 - 5.1 mmol/L) 4.2 Chloride (98 - 107 mmol/L) 93 L Carbon Dioxide (22 - 30 mmol/L) 26 Anion Gap (5 - 16) 12 BUN (9 - 20 mg/dL) 25 H Creatinine (0.7 - 1.2 mg/dL) 5.4 *H Estimated GFR (>60 ml/min) 11 L BUN/Creatinine Ratio (7 - 25 %) 4.6 L Glucose (65 - 99 mg/dL) 253 H Lactic Acid (0.7 - 2.1 mmol/L) Cancelled 1.2 Calcium (8.4 - 10.2 mg/dL) 9.1 Total Bilirubin (0.2 - 1.3 mg/dL) 0.8 AST (17 - 59 U/L) 60 H ALT (21 - 72 U/L) 54 Alkaline Phosphatase (< 127 U/L) 270 H C-Reactive Prot, Quant (<1.0 mg/dL) 6.3 H Total Protein (6.3 - 8.2 g/dL) 6.9 Albumin (3.5 - 5.0 g/dL) 3.5 Globulin (1.9 - 4.2 gm/dL) 3.4 Albumin/Globulin Ratio (1.1 - 2.2 %) 1.0 L Hematology CBC w Diff NO MAN DIFF REQ WBC (4.8 - 10.8 /CUMM) 7.7 RBC (4.70 - 6.10 /CUMM) 3.69 L Hgb (14.0 - 18.0 G/DL) 12.5 L Hct (42 - 52 %) 37.9 L MCV (80.0 - 94.0 FL) 102.6 H MCH (27.0 - 31.0 PG) 33.8 H MCHC (33.0 - 37.0 G/DL) 33.0 RDW (11.5 - 14.5 %) 15.4 H Plt Count (130 - 400 /CUMM) 411 H MPV (7.4 - 10.4 FL) 8.1 Gran % (42.2 - 75.2 %) 75.9 H Lymphocytes % (20.5 - 51.1 %) 10.1 L Monocytes % (1.7 - 9.3 %) 10.7 H Eosinophils % (0 - 5 %) 2.6 Basophils % (0.0 - 2.0 %) 0.7 Absolute Granulocytes (1.4 - 6.5 /CUMM) 5.8 Absolute Lymphocytes (1.2 - 3.4 /CUMM) 0.8 L Absolute Monocytes (0.10 - 0.60 /CUMM) 0.8 H Absolute Eosinophils (0.0 - 0.7 /CUMM) 0.2 Absolute Basophils (0.0 - 0.2 /CUMM) 0.1 ESR Westergren (0 - 10 MM) 45 H Last 24 Hours of Wesley Results: Blood culture x 1 December 03 pending Assessment/Plan Assessment/Plan Impression: This is a 62-year-old man with diabetes, end-stage renal disease, on hemodialysis Tuesdays, and Saturdays, and peripheral vascular disease, with a chronic plantar ulcer on the right great toe, hospitalized 2 weeks prior to admission with 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 Cipro and Flagyl, readmitted today because of worsening of his right foot wound. He appears to have a persistent infection in the right foot, with evidence of necrosis along the edges of his wound, suggesting ongoing ischemia and the need for further debridement/amputation. He is scheduled for further surgery on December 05 and, as discussed with Podiatry, he may require a transmetatarsal amputation. Of note the MRI on his previous admission suggested the possibility of early osteomyelitis of the first distal phalanx and this will need to be addressed on this admission. With regard to antibiotics he will likely require a prolonged course of antibiotics for residual osteomyelitis. His current regimen can be adjusted based on his recent OR cultures. Repeat cultures can be obtained when he goes back to the OR though these may be affected by the antibiotics he has received to date. His elevated liver enzymes are of unclear etiology, possibly secondary to sepsis or medications. Suggestion: 1. Repeat x-ray of the right foot 2. Vascular surgery evaluation 3. Await return to the OR for further debridement/amputation on December 05 4. Begin Meropenem 1 g IV every 24 hours pending repeat OR cultures Consult Acknowledgment - Thank you for your consult request.
--- NOTE | 2017-12-03 18:39 | RADIOLOGY REPORT ---
EXAMINATION: XR FOOT, RIGHT CLINICAL INFORMATION: Right foot ulcer COMPARISON: November 10 10/10/2017 TECHNIQUE: AP, lateral, and oblique views of the right foot. FINDINGS: Since the prior study the patient has undergone amputation of the digits with only the proximal end of the metatarsal remaining. Exam is otherwise unchanged with vascular calcifications and generalized osteopenia noted. Hammertoe deformities are again seen. IMPRESSION: Interval amputation fifth digit as described above. No new bony destructive changes
[2017-12-03 19:29] VITALS: BP 126/66
--- NOTE | 2017-12-03 22:15 | Admission Certification ---
Admission Certification Certification Statement - As attending physician, I certify that at the time of - admission, based on clinical presentation, severity of - symptoms, need for further diagnostic testing and - therapeutic interventions, and risk of adverse outcomes - without in-hospital treatment, in my clinical assessment, - this patient requires an acute hospital stay for a minimum - of two nights or longer. I have also considered psychsocial - factors such as support system, advanced age, financial - issues, cognitive issues, and failed out-patient treatments, - past re-admission history, safety of patient, and lack of - compliance as applicable. Specific rationale supporting this admission is: The patient presents with worsening infection of right foot after ray amputation 5th toe last month. Has been on po antibiotics (Cipro/Flagyl) and IV Vanco with dialysis, however appears worse. Needs further debridement and possible TMA. ID consult suggesting IV Meropenam pending surgery and intraoperative cultures.
[2017-12-03 22:39] VITALS: BP 121/61
[2017-12-04 06:59] VITALS: BP 116/60
--- NOTE | 2017-12-04 08:07 | PN- Housestaff ---
Cain Salcido 12/04/17 0807: Subjective Follow-up For: Right foot diabetic ulcer, dialysis Subjective: Patient seen and examined at bedside. He is complaining of pain at right lower extremity. He denies fever, chills, chest pain, abdominal pain, diarrhea, constipation, burning micturition. Review of Systems Constitutional: Reports: see HPI. Objective Last 24 Hrs of Vital Signs/I&O Vital Signs Date Time Temp Pulse Resp B/P B/P Pulse O2 O2 Flow FiO2 Mean Ox Delivery Rate 12/04 1223 97.9 68 18 108/66 100 Room Air 12/04 0659 98.8 69 18 116/60 100 Room Air 12/03 2239 98.0 69 20 121/61 96 Room Air 12/03 1929 98.1 75 20 126/66 100 Room Air 12/03 1829 97.8 72 18 136/59 100 12/03 1635 98.3 85 18 137/62 Room Air 12/03 1613 Room Air Intake & Output 12/04 1600 12/04 0800 12/04 0000 Intake Total 600 220 Output Total 0 0 Balance 600 220 0 Intake, IV 20 Intake, Oral 600 200 Number 1 0 Bowel Movements Output, Urine 0 0 Patient 165 lb 173 lb Weight Weight Bed scale Measurement Method Physical Exam General Appearance: Alert, Oriented X3, Cooperative, No Acute Distress Cardiovascular: Regular Rate, Normal S1, Normal S2, No Murmurs, Gallops, Rubs Lungs: Clear to Auscultation, Normal Air Movement Abdomen: Normal Bowel Sounds, Soft Neurological: Normal Speech, Strength at 5/5 X4 Ext, Normal Tone, Sensation Intact, Cranial Nerves 3-12 NL, Reflexes 2+ Extremities: No Clubbing, No Cyanosis, No Edema, Normal Pulses Assessment/Plan Assessment: 62-year-old male with past medical history of ESRD on hemodialysis left arm AV fistula, diabetes mellitus, COPD(not on home oxygen), history of diabetic foot ulcer discharge last week after starting treatment for osteomyelitis of right lower extremity, hyperlipidemia, CHF with ejection fraction of 40-45% preserved , presented to emergency department with referral for right lower The time of presentation to emergency department vitals and labs are given below Vitals: Blood pressure 134/75, temperature 98.2, pulse rate 75, respiratory rate 18. LABS: CVC, WBC: 7.7, hemoglobin 12.5, hematocrit 37.9, MCV 102.6, platelet 411 Sodium 131, potassium 4.2, chloride 93, carbon dioxide 27, anion gap 12, bun 25, creatinine 5.4, GFR 11 BUN/creatinine 4.6 glucose 253 Microbiology: Previous wound culture and sensitivity grew following organism Enerobactor cloace Enreococcus S aureus Bacterides Fragalis Problems list: *Right foot cellulitis/ulcer/osteomyelitis *ESRD stage V on hemodialysis 3 times *Macrocytic anemia *Past medical history of CHF, hypertension, hyperlipidemia, diabetes *Right foot cellulitis/osteomyelitis /ulcer: -Incision and drainage plus debridement done by podiatry 1-1/2 week ago -He was discharged home on ciprofloxacin and Flagyl antibiotic for a period of 4 weeks -The patient incision and debridement of the right lower extremity wound was done -Patient was sent home to continue with the home wound VAC -According to the patient in the home VAC was not done -And he started having pain in the right lower extremity and he came to Dr. Howell office -He was referred by Dr. Howell to hospital for evaluation of wound and possibly procedure, tomorrow -Patient is n.p.o. from midnight -He will go to OR tomorrow ESRD on dialysis stage V: -Patient is on dialysis 3 times a week *Dialysis present today *Will follow up nephrology recommended *Macrocytic anemia-possible mixed picture anemia in ESRD: -His anemia is multifactorial ESRD could be one of them -follow up B12/folate/iron studies these are normal -We will consider erythropoietin if H&H is dropped further Diabetes mellitus/hypertension/hyperlipidemia: -Today sugar level was 100 Patient medication continued. Endocrinology recommendation for glycemic control appreciated . insulin dose adjusted Peripheral vascular disease: Vascular surgeon recommendation appreciated Patient having the pulses in the right lower extremity Barely palpable right femoral and right popliteal are not palpable CTA runoff advised by vascular surgeon We will follow-up on the report Problem List: 1. CONGESTIVE HEART FAILURE 2. Chronic renal failure 3. HFrEF (heart failure with reduced ejection fraction) 4. Dyslipidemia 5. COPD (chronic obstructive pulmonary disease) 6. Osteomyelitis 7. ESRD (end stage renal disease) on dialysis 8. Full code status Pain Ratin Pain Location: Right foot Pain Goal: Remain pain free Pain Plan: Pain management pathway Tomorrow's Labs & Rationales: CBC, BEP Valentin West 12/04/17 1105: Attending MD Review Statement Attending Statement Attending MD Statement: examined this patient, discuss w/resident/PA/PHYSICAL SECURITY MANAGER, agreed w/resident/PA/PHYSICAL SECURITY MANAGER, discussed with family, reviewed EMR data (avail), discussed with nursing, discussed with case mgmt, reviewed images, amended to note Attending Assessment/Plan: 62 yo male with h/o DM2, ESRD on dialysis (TuThSa), PVD (s/p angioplasty RLE), and chronic RLE ulcer (right great toe) admitted to [facility] and discharged last week after partial ray amputation of right 5th toe for OM comes here with persistent infection right foot and planned debridement on 12/05. 1. Osteomyelitis right foot, May require transmetatarsal amputation. 2. CKD/End Stage Renal Disease- on dialysis. 3. DM2- on insulin. 4. GERD- on Omeprazole. 5. Hyperlipidemia- on Atorvastatin. 6. Chronic Pain - due to PVD/foot surgery. 7. Peripheral vascular disease Consult ID Dr. Gonzalez (note appreciated), continue IV Meropenem as per ID. Podiatry to take for debridement Tuesday 12/05. Consult vascular surgery. Repeat X-ray of right foot as per ID note. Provide pain control. Continue dialysis qTuThSa as per protocol. Insulin management RISS and titrate insulin as needed gi/dvt prophyalxis
[2017-12-04 08:34] LABS: ABSOLUTE BASOPHIL COUNT 0 /CUMM (0.0-0.2); ABSOLUTE EOSINOPHIL COUNT 0.3 /CUMM (0.0-0.7); ABSOLUTE GRANULOCYTE CT 4.2 /CUMM (1.4-6.5); ABSOLUTE MONOCYTE COUNT 0.8 /CUMM (0.10-0.60); BASOPHIL % 0.7 % (0.0-2.0); EOSINOPHIL % 4.7 % (0-5); GRANULOCYTE % 66.8 % (42.2-75.2); HEMATOCRIT 36.8 % (42-52); MEAN CORPUSCULAR HGB 33.5 PG (27.0-31.0); MEAN CORPUSCULAR HGB CONC 32.6 G/DL (33.0-37.0); MEAN CORPUSCULAR VOLUME 102.8 FL (80.0-94.0); MEAN PLATELET VOLUME 8.1 FL (7.4-10.4); PLATELET COUNT 381 /CUMM (130-400); RBC DISTRIBUTION WIDTH 15.7 % (11.5-14.5); RED BLOOD CELL CT 3.58 /CUMM (4.70-6.10); WHITE BLOOD CELL COUNT 6.3 /CUMM (4.8-10.8)
--- NOTE | 2017-12-04 08:49 | PN- Student ---
Subjective Subjective: is a 62 y/o male with a PMH of right 5th toe osteomyelitis requiring surgical amputation & debridement last month, DM-1, CKD on dialysis, PVD, & COPD not on home oxygen. The patient was referred by his property management accountant for worsening infection of his right 5th toe s/p amputation despite Tx w/PO Cipro/FLagyl & IV vancomycin with hemodialysis; the patient states that his wound vac machine didnt work when he returned home from his last discharge. Medications: * Acetaminophen (Tylenol) 325 MG TABLET 650 MG PO Q6 PRN PAIN (Reported) * Aspirin (Ecotrin*) 81 MG TABLET.DR 1 TAB PO DAILY HEART/BLOOD (Reported) * Atorvastatin Calcium (Lipitor) 10 MG TABLET 1 TAB PO DAILY CHOLESTEROL ( Reported) * Ciprofloxacin HCl (Cipro) 500 MG TABLET 500 MG PO ONCE INFECTION * Citalopram Hydrobromide (Citalopram HBr) 20 MG TABLET 1 TAB PO DAILY MENTAL HEALTH (Reported) * Esomeprazole (Nexium) 40 MG CAPSULE.DR 1 CAP PO DAILY GI (Reported) * Insulin Aspart (Novolog) 100 UNIT/ML VIAL 0 UNITS SC AT BEDTIME DIABETES Glucose <250 0 units 251-300 2 units 301-350 3 units 351-400 4 units > 400 4 units * Insulin Aspart (Novolog) 100 UNIT/ML VIAL 0 SC 1200,1700 DIABETES FSG 80-150 5 unit 151-200 6 unit 201-250 7 unit 251-300 8 unit 301-350 9 unit 351-400 9 unit >400, 10 units * Insulin Aspart (Novolog) 100 UNIT/ML VIAL 0 UNITS SC 8AM DIABETES FSG <200 - 0 units 200-250, 3 units 251-300, 4 units 301-350, 5 units 351-400, 6 units >400 7 units * Insulin Glargine,Hum.rec.anlog (Lantus Solostar) 100 UNIT/ML (3 ML) INSULN.PEN 6 UNIT SC BID DIABETES * Metronidazole (Flagyl) 500 MG TABLET 500 MG PO BID INFECTION * Mometasone Furoate (Nasonex) 50 MCG SPRAY.PUMP 2 SPRAY NASB DAILY ALLERGIES (Reported) * Montelukast Sodium (Singulair) 10 MG TABLET 1 TAB PO QPM ALLERGIES ( Reported) * Nephro-Vitamins (Nephro-Schuyler Tablet) 0.8 MG TABLET 1 TAB PO DAILY VITAMIN SUPPORT * Oxycodone HCl/Acetaminophen (Percocet 5-325 MG Tablet) 5 MG-325 MG TABLET 1 TAB PO BID PRN Pain from surgery Allergies: * penicillin * amoxacillin Surgical History: * left arm fistula * angioplasty of right leg Family History: * mother- colon cancer, DM-2 * father- prostate cancer, DM-2 * maternal grandfather- DM-2 * sister- bladder cancer * grandmother- cancer Social History: * daily smoker, 5 cigarettes a day Objective Objective: Review of System: * joint pain and swelling * anxiety, depressed, numbness, paresthesia, tingling Heart Exam: * normal S1 S2 sounds were heard upon ascuiltation of the chest without any signs of gallops or murmurs Lung Exam: * vesicular lung sonds were appreciated bilaterally upon ascultating the lung holcomb X-Ray of foot was unremarkable for any new findings Blood cultures are pending -preliminary reports show no growth after 1 day WBC is within normal ranges Na (131) is low Macrocytic anemia: RBC (3.69), Hb (12.5), MCV (102.6) Results Results: Vital Signs Date Time Temp Pulse Resp B/P B/P Pulse O2 O2 Flow FiO2 Mean Ox Delivery Rate 12/04 0659 98.8 69 18 116/60 100 Room Air 12/03 2239 98.0 69 20 121/61 96 Room Air 12/03 1929 98.1 75 20 126/66 100 Room Air 12/03 1829 97.8 72 18 136/59 100 12/03 1635 98.3 85 18 137/62 Room Air 12/03 1613 Room Air 12/03 1321 98.2 73 18 134/75 98 Room Air Laboratory Tests 12/04/17 0726: Sodium Pending, Potassium Pending, Chloride Pending, Carbon Dioxide Pending, Anion Gap Pending, BUN Pending, Creatinine Pending, BUN/Creatinine Ratio Pending , CBC w Diff Pending, WBC Pending, RBC Pending, Hgb Pending, Hct Pending, MCV Pending, MCH Pending, MCHC Pending, RDW Pending, Plt Count Pending, MPV Pending 12/03/17 1649: Lactic Acid Cancelled 12/03/17 1419: Anion Gap 12, Estimated GFR 11 L, BUN/Creatinine Ratio 4.6 L, Glucose 253 H, Lactic Acid 1.2, Calcium 9.1, Total Bilirubin 0.8, AST 60 H, ALT 54, Alkaline Phosphatase 270 H, C-Reactive Prot, Quant 6.3 H, Total Protein 6.9, Albumin 3.5, Globulin 3.4, Albumin/Globulin Ratio 1.0 L, CBC w Diff NO MAN DIFF REQ, RBC 3.69 L, MCV 102.6 H, MCH 33.8 H, MCHC 33.0, RDW 15.4 H, MPV 8.1, Gran % 75.9 H, Lymphocytes % 10.1 L, Monocytes % 10.7 H, Eosinophils % 2.6, Basophils % 0.7, Absolute Granulocytes 5.8, Absolute Lymphocytes 0.8 L, Absolute Monocytes 0.8 H, Absolute Eosinophils 0.2, Absolute Basophils 0.1, ESR Westergren 45 H Microbiology 12/03 1430 BLOOD: Blood Culture - RECD 12/03 1349 BLOOD: Blood Culture - CAN Cancelled: SPECIMEN NOT RECEIVED IN LABORATORY Assessment/Plan Assessment: is a 62 y/o male with a PMH of right 5th toe osteomyelitis requiring surgical amputation & debridement last month, DM-1, CKD on dialysis, PVD, & COPD not on home oxygen. The patient was referred by his property management accountant for worsening infection of his right 5th toe s/p amputation despite Tx w/PO Cipro/FLagyl & IV vancomycin with hemodialysis; the patient states that his wound vac machine didnt work when he returned home from his last discharge. Plan: The patient is recieving IV Meropenem 1g q24 hr Possible surgical debridement/amputation 12/05/17
--- NOTE | 2017-12-04 11:25 | PN- Infect Dx ---
Subjective Subjective: Afebrile. He complains of diarrhea since last evening. Objective Last 24 Hrs of Vital Signs/I&O Vital Signs Date Time Temp Pulse Resp B/P B/P Pulse O2 O2 Flow FiO2 Mean Ox Delivery Rate 12/04 0659 98.8 69 18 116/60 100 Room Air 12/03 2239 98.0 69 20 121/61 96 Room Air 12/03 1929 98.1 75 20 126/66 100 Room Air 12/03 1829 97.8 72 18 136/59 100 12/03 1635 98.3 85 18 137/62 Room Air 12/03 1613 Room Air 12/03 1321 98.2 73 18 134/75 98 Room Air Intake & Output 12/04 1600 12/04 0800 12/04 0000 Intake Total 220 Output Total 0 Balance 220 0 Intake, IV 20 Intake, Oral 200 Number 0 Bowel Movements Output, Urine 0 Patient 165 lb 173 lb Weight Weight Bed scale Measurement Method Physical Exam Other Physical Findings: He appears comfortable in no acute distress Lungs are clear Heart regular rhythm with no murmur Abdomen is soft, nontender with positive bowel sounds Extremities right foot dressing intact Results Last 24 Hours of Lab Results: Laboratory Tests 12/04 12/03 0726 1649 Chemistry Sodium (137 - 145 mmol/L) 133 L Potassium (3.5 - 5.1 mmol/L) 3.8 Chloride (98 - 107 mmol/L) 95 L Carbon Dioxide (22 - 30 mmol/L) 27 Anion Gap (5 - 16) 12 BUN (9 - 20 mg/dL) 31 H Creatinine (0.7 - 1.2 mg/dL) 6.4 *H Estimated GFR (>60 ml/min) 9 L BUN/Creatinine Ratio (7 - 25 %) 4.8 L Lactic Acid Cancelled Hematology CBC w Diff NO MAN DIFF REQ WBC (4.8 - 10.8 /CUMM) 6.3 RBC (4.70 - 6.10 /CUMM) 3.58 L Hgb (14.0 - 18.0 G/DL) 12.0 L Hct (42 - 52 %) 36.8 L MCV (80.0 - 94.0 FL) 102.8 H MCH (27.0 - 31.0 PG) 33.5 H MCHC (33.0 - 37.0 G/DL) 32.6 L RDW (11.5 - 14.5 %) 15.7 H Plt Count (130 - 400 /CUMM) 381 MPV (7.4 - 10.4 FL) 8.1 Gran % (42.2 - 75.2 %) 66.8 Lymphocytes % (20.5 - 51.1 %) 15.3 L Monocytes % (1.7 - 9.3 %) 12.5 H Eosinophils % (0 - 5 %) 4.7 Basophils % (0.0 - 2.0 %) 0.7 Absolute Granulocytes (1.4 - 6.5 /CUMM) 4.2 Absolute Lymphocytes (1.2 - 3.4 /CUMM) 1.0 L Absolute Monocytes (0.10 - 0.60 /CUMM) 0.8 H Absolute Eosinophils (0.0 - 0.7 /CUMM) 0.3 Absolute Basophils (0.0 - 0.2 /CUMM) 0 09/12 1419 Chemistry Sodium (137 - 145 mmol/L) 131 L Potassium (3.5 - 5.1 mmol/L) 4.2 Chloride (98 - 107 mmol/L) 93 L Carbon Dioxide (22 - 30 mmol/L) 26 Anion Gap (5 - 16) 12 BUN (9 - 20 mg/dL) 25 H Creatinine (0.7 - 1.2 mg/dL) 5.4 *H Estimated GFR (>60 ml/min) 11 L BUN/Creatinine Ratio (7 - 25 %) 4.6 L Glucose (65 - 99 mg/dL) 253 H Lactic Acid (0.7 - 2.1 mmol/L) 1.2 Calcium (8.4 - 10.2 mg/dL) 9.1 Total Bilirubin (0.2 - 1.3 mg/dL) 0.8 AST (17 - 59 U/L) 60 H ALT (21 - 72 U/L) 54 Alkaline Phosphatase (< 127 U/L) 270 H C-Reactive Prot, Quant (<1.0 mg/dL) 6.3 H Total Protein (6.3 - 8.2 g/dL) 6.9 Albumin (3.5 - 5.0 g/dL) 3.5 Globulin (1.9 - 4.2 gm/dL) 3.4 Albumin/Globulin Ratio (1.1 - 2.2 %) 1.0 L Hematology CBC w Diff NO MAN DIFF REQ WBC (4.8 - 10.8 /CUMM) 7.7 RBC (4.70 - 6.10 /CUMM) 3.69 L Hgb (14.0 - 18.0 G/DL) 12.5 L Hct (42 - 52 %) 37.9 L MCV (80.0 - 94.0 FL) 102.6 H MCH (27.0 - 31.0 PG) 33.8 H MCHC (33.0 - 37.0 G/DL) 33.0 RDW (11.5 - 14.5 %) 15.4 H Plt Count (130 - 400 /CUMM) 411 H MPV (7.4 - 10.4 FL) 8.1 Gran % (42.2 - 75.2 %) 75.9 H Lymphocytes % (20.5 - 51.1 %) 10.1 L Monocytes % (1.7 - 9.3 %) 10.7 H Eosinophils % (0 - 5 %) 2.6 Basophils % (0.0 - 2.0 %) 0.7 Absolute Granulocytes (1.4 - 6.5 /CUMM) 5.8 Absolute Lymphocytes (1.2 - 3.4 /CUMM) 0.8 L Absolute Monocytes (0.10 - 0.60 /CUMM) 0.8 H Absolute Eosinophils (0.0 - 0.7 /CUMM) 0.2 Absolute Basophils (0.0 - 0.2 /CUMM) 0.1 ESR Westergren (0 - 10 MM) 45 H Last 24 Hours of Wesley Results: Blood culture x December 03 negative Recent Imaging Studies: X-ray of the right foot December 03 no new bony destructive changes Assessment/Plan ID Impression: Stable, with his temperatures and white blood cell count remaining normal, on Meropenem for residual osteomyelitis of the right foot, status post partial fifth ray resection 13 days ago with revision 9 days 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 He is scheduled for the OR in the a.m. and, per Podiatry, may require a transmetatarsal amputation. Suggestion: 1. Vascular surgery evaluation 2. Await return to the OR in the a.m. 3. Continue Meropenem pending above
[2017-12-04 12:23] VITALS: BP 108/66
--- NOTE | 2017-12-04 15:17 | Cons- Vascular Surgery ---
General Information and HPI Consulting Request Date of Consult: 12/04/17 Requested By: Valentin West MD Reason for Consult: RLE PAD & ulcer Source of Information: patient, EMS Exam Limitations: no limitations History of Present Illness: The pt is a 62yo male w/ ESRD on HD, CHF, HTN, HLD and DM, who was readmitted yesterday for tx of an infected right foot ulcer. He recently underwent amputation of the right 5th toe. Additionally, 1-2 months ago he underwent RLE angiography and intervention (Dr. Delacruz, Interventional Radiology, [place]). The pt typically ambulates without LE pain or tiring. He denies nighttime foot pain. Allergies/Medications Allergies: Coded Allergies: amoxicillin (Mild, RASH ALL OVER 08/27/17) Penicillins (RASH ALL OVER 08/27/17) Home Med List: Acetaminophen (Tylenol) 325 MG TABLET 650 MG PO Q6 PRN PAIN (Reported) Aspirin (Ecotrin*) 81 MG TABLET.DR 1 TAB PO DAILY HEART/BLOOD (Reported) Atorvastatin Calcium (Lipitor) 10 MG TABLET 1 TAB PO DAILY CHOLESTEROL ( Reported) Ciprofloxacin HCl (Cipro) 500 MG TABLET 500 MG PO ONCE INFECTION Citalopram Hydrobromide (Citalopram HBr) 20 MG TABLET 1 TAB PO DAILY MENTAL HEALTH (Reported) Esomeprazole (Nexium) 40 MG CAPSULE.DR 1 CAP PO DAILY GI (Reported) Insulin Aspart (Novolog) 100 UNIT/ML VIAL 0 UNITS SC AT BEDTIME DIABETES Glucose <250 0 units 251-300 2 units 301-350 3 units 351-400 4 units > 400 4 units Insulin Aspart (Novolog) 100 UNIT/ML VIAL 0 SC 1200,1700 DIABETES FSG 80-150 5 unit 151-200 6 unit 201-250 7 unit 251-300 8 unit 301-350 9 unit 351-400 9 unit >400, 10 units Insulin Aspart (Novolog) 100 UNIT/ML VIAL 0 UNITS SC 8AM DIABETES FSG <200 - 0 units 200-250, 3 units 251-300, 4 units 301-350, 5 units 351-400, 6 units >400 7 units Insulin Glargine,Hum.rec.anlog (Lantus Solostar) 100 UNIT/ML (3 ML) INSULN.PEN 6 UNIT SC BID DIABETES Metronidazole (Flagyl) 500 MG TABLET 500 MG PO BID INFECTION Mometasone Furoate (Nasonex) 50 MCG SPRAY.PUMP 2 SPRAY NASB DAILY ALLERGIES ( Reported) Montelukast Sodium (Singulair) 10 MG TABLET 1 TAB PO QPM ALLERGIES (Reported) Nephro-Vitamins (Nephro-Schuyler Tablet) 0.8 MG TABLET 1 TAB PO DAILY VITAMIN SUPPORT Oxycodone HCl/Acetaminophen (Percocet 5-325 MG Tablet) 5 MG-325 MG TABLET 1 TAB PO BID PRN Pain from surgery . Current Medications: Current Medications Sig/Rhett Start time Last Medication Dose Route Stop Time Status Admin Acetaminophen 650 MG Q6P PRN 12/03 1730 AC PO Aspirin Buffered 81 MG DAILY 12/04 0900 AC PO Atorvastatin Calcium 10 MG 1700 12/04 1700 AC PO Atorvastatin Calcium 10 MG DAILY 12/04 0900 DC PO Citalopram 20 MG DAILY 12/04 0900 AC Hydrobromide PO Dextrose/Sodium 1,000 ML Q20H 12/05 0600 AC Chloride IV Heparin Sodium 5,000 UNIT Q8 12/03 2200 AC 12/04 (Porcine) SC 0608 Influenza Virus 0.5 ML ONCE ONE 12/03 1945 DC Vaccine IM 12/03 1946 Insulin Aspart 0 TIDAC/HS 12/03 1730 AC 12/03 SC 12/05 0000 2116 Insulin Detemir 3 UNITS BID 12/04 2100 AC SC Insulin Detemir 6 UNITS BID 12/03 2100 DC 12/04 SC 0828 Insulin Human Regular 0 Q6 12/05 0000 AC SC Loperamide HCl 2 MG ONE ONE 12/04 0430 DC 12/04 PO 12/04 0431 0437 Meropenem 1 GM Q24H 12/03 1730 AC 12/03 IV 1750 Montelukast Sodium 10 MG QPM 12/03 2100 AC 12/03 PO 2117 Multivitamins 1 TAB DAILY 12/04 0900 AC PO Omeprazole 40 MG DAILY AC 12/04 0700 AC 12/04 PO 0608 Oxycodone/ 1 TAB Q6P PRN 12/03 2300 AC 12/04 Acetaminophen PO 0608 Oxycodone/ 0 .STK-MED ONE 12/03 1801 DC Acetaminophen PO Oxycodone/ 2 TAB Q6P PRN 12/03 1730 DC 12/03 Acetaminophen PO 1800 Paricalcitol 2.5 MCG TuThSa PRN 12/04 1500 DC IV Paricalcitol 7.5 MCG TuTa PRN 12/04 1500 AC IV Past History Medical History Neurological: NEUROPATHY EENT: diabetic retinopathy Cardiovascular: CHF, hypertension, hyperlipidemia Respiratory: smoking for the past 40 yrs Gastrointestinal: GERD Hepatic: NONE Renal: chronic kidney disease, ESRD on HD Musculoskeletal: ARTHRITIS Psychiatric: depression Endocrine: IDDM Blood Disorders: NONE Cancer(s): NONE REGISTERED NURSE BONE MARROW TRANSPLANT/Reproductive: NONE Surgical History Pertinent Surgical History: LEFT ARM FISTULA ANGIOPLASTY R LEG Family History Relations & Conditions If Any: MOTHER FH: colon cancer FH: type 2 diabetes mellitus FATHER FH: prostate cancer FH: type 2 diabetes mellitus MATERNAL GRANDFATHER FH: type 2 diabetes mellitus SISTER FH: bladder cancer GRANDMOTHER FH: cancer Psychosocial History Where Do You Live? Home Who Do You Live With? parent, lives with sister and mother Services at Home: None Smoking Status: Current Everyday Smoker Functional Ability Ambulation: independent Review of Systems Review of Systems Constitutional: Denies: fever. Exam & Diagnostic Data Vital Signs and I&O Vital Signs Date Time Temp Pulse Resp B/P B/P Pulse O2 O2 Flow FiO2 Mean Ox Delivery Rate 12/04 1223 97.9 68 18 108/66 100 Room Air 12/04 0659 98.8 69 18 116/60 100 Room Air 12/03 2239 98.0 69 20 121/61 96 Room Air 12/03 1929 98.1 75 20 126/66 100 Room Air 12/03 1829 97.8 72 18 136/59 100 12/03 1635 98.3 85 18 137/62 Room Air 12/03 1613 Room Air Intake & Output 12/04 1600 12/04 0812/04 0000 12/03 1600 12/03 0812/03 0000 Intake Total 600 220 0 Output Total 0 0 Balance 600 220 0 0 Intake, IV 20 Intake, Oral 600 200 0 Number 1 0 Bowel Movements Output, Urine 0 0 Patient 165 lb 173 lb 173 lb Weight Weight Bed scale Reported by Patient Measurement Method Physical Exam: Awake and alert, NAD. On HD. Heart regular. RLE: fem trace, pop 0, dp 0, pt 0. Right foot and remaining toes pink w/ cap refill time of 3-5 seconds. S/p amputation of 5th toe where there is an approximate 9x4cm full-thickness wound w/ exposed soft tissues and 4th MTP joint capsule; some fibrin slough; no drainage or odor. +Jessica-wound erythema extending onto dorsum of foot. No RLE edema. LLE: fem 2+, pop 1+, dp 1+, pt 1+. No LLE edema or ulcerations. Assessment/Plan Assessment/Plan IMP: 62yo diabetic male w/ ESRD on HD, who actively smokes and has a right open 5th toe amputation wound w/ adjacent erythema. He is s/p RLE angiography and intervention. On PE, I can barely palpate his right femoral pulses, and the popliteal and pedal pulses are non-palpable. REC: CTA of abdomen and LEs. I will speak w/ Dr. Delacruz about angiographic findings. Consult Acknowledgment - Thank you for your consult request. Attending MD Review Statement Attending Statement Attending MD Statement: examined this patient, reviewed EMR data (avail)
[2017-12-04 18:35] VITALS: BP 122/68
[2017-12-04 21:09] VITALS: BP 120/60
--- NOTE | 2017-12-04 21:38 | Cons- Nephrology ---
General Information and HPI Consulting Request Date of Consult: 12/04/17 Requested By: Valentin West MD Reason for Consult: ESRD Source of Information: patient, old records Exam Limitations: no limitations History of Present Illness: 62 yo male with ESRD 2/2 DM, htn, HFrEF of 45%, pulmonary hypertension and PVD. He has had a right foot ulcer treated in august with IV and po antibiotics.and then a readmission here last month with the same nonhealing ulcer for which he underwent a partial fifth ray resection with excisional debridement on 11/25. OR culture was positive for MSSA, Enterobacter, Enterococcus and Bacteroides. He was discharged with a wound VAC on Vancomycin + p.o. Cipro and Flagyl. He now returns because Podiatry felt that his foot wound was worsening. Meds: See below Allergies: PCN's FH: Diabetes in both parents, uncle with ESRD. SH: Lives with his sister, has been an active smoker until recently, no ETOH or drug abuse Allergies/Medications Allergies: Coded Allergies: amoxicillin (Mild, RASH ALL OVER 08/27/17) Penicillins (RASH ALL OVER 08/27/17) Home Med List: Acetaminophen (Tylenol) 325 MG TABLET 650 MG PO Q6 PRN PAIN (Reported) Aspirin (Ecotrin*) 81 MG TABLET.DR 1 TAB PO DAILY HEART/BLOOD (Reported) Atorvastatin Calcium (Lipitor) 10 MG TABLET 1 TAB PO DAILY CHOLESTEROL ( Reported) Ciprofloxacin HCl (Cipro) 500 MG TABLET 500 MG PO ONCE INFECTION Citalopram Hydrobromide (Citalopram HBr) 20 MG TABLET 1 TAB PO DAILY MENTAL HEALTH (Reported) Esomeprazole (Nexium) 40 MG CAPSULE.DR 1 CAP PO DAILY GI (Reported) Insulin Aspart (Novolog) 100 UNIT/ML VIAL 0 UNITS SC AT BEDTIME DIABETES Glucose <250 0 units 251-300 2 units 301-350 3 units 351-400 4 units > 400 4 units Insulin Aspart (Novolog) 100 UNIT/ML VIAL 0 SC 1200,1700 DIABETES FSG 80-150 5 unit 151-200 6 unit 201-250 7 unit 251-300 8 unit 301-350 9 unit 351-400 9 unit >400, 10 units Insulin Aspart (Novolog) 100 UNIT/ML VIAL 0 UNITS SC 8AM DIABETES FSG <200 - 0 units 200-250, 3 units 251-300, 4 units 301-350, 5 units 351-400, 6 units >400 7 units Insulin Glargine,Hum.rec.anlog (Lantus Solostar) 100 UNIT/ML (3 ML) INSULN.PEN 6 UNIT SC BID DIABETES Metronidazole (Flagyl) 500 MG TABLET 500 MG PO BID INFECTION Mometasone Furoate (Nasonex) 50 MCG SPRAY.PUMP 2 SPRAY NASB DAILY ALLERGIES ( Reported) Montelukast Sodium (Singulair) 10 MG TABLET 1 TAB PO QPM ALLERGIES (Reported) Nephro-Vitamins (Nephro-Schuyler Tablet) 0.8 MG TABLET 1 TAB PO DAILY VITAMIN SUPPORT Oxycodone HCl/Acetaminophen (Percocet 5-325 MG Tablet) 5 MG-325 MG TABLET 1 TAB PO BID PRN Pain from surgery . Review of Systems Review of Systems: Review of Systems Constitutional: Denies: chills, diaphoresis, fever. Cardiovascular: Denies: chest pain, edema, orthopena, palpitations. Respiratory: Denies: cough, orthopnea, short of breath, sputum production, wheezing. GI: Denies: bloating, constipation, diarrhea, nausea, bloody stool. Genitourinary: Denies: dysuria, frequency, hematuria. Musculoskeletal: Reports: joint pain, joint swelling. Denies: back pain, gout. Neurological/Psychological: Reports: anxiety, depressed, numbness, paresthesia, tingling. Hematologic/Endocrine: Denies: bruising, bleeding, polyuria. 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 Home Who Do You Live With? parent, lives with sister and mother Services at Home: None Smoking Status: Current Everyday Smoker Functional Ability Ambulation: independent Exam & Diagnostic Data Vital Signs and I&O Vital Signs Date Time Temp Pulse Resp B/P B/P Pulse O2 O2 Flow FiO2 Mean Ox Delivery Rate 12/04 2108 98.9 75 19 120/60 100 Room Air 12/04 1835 97.7 88 18 122/68 96 Room Air Room Air 12/04 1223 97.9 68 18 108/66 100 Room Air 12/04 0659 98.8 69 18 116/60 100 Room Air 12/03 2239 98.0 69 20 121/61 96 Room Air Intake & Output 12/04 0400 12/03 0400 12/02 040 Intake Total 820 0 Output Total 0 0 Balance 820 0 0 Intake, IV 20 Intake, Oral 800 0 Number 1 0 Bowel Movements Output, Urine 0 0 Patient 165 lb 173 lb 173 lb Weight Weight Bed scale Reported by Patient Measurement Method Physical Exam: General: Well-developed white male in NAD Skin: No rash or jaundice HEENT: Conjunctivae pink, sclerae anicteric, mucous membranes moist Neck: Without masses or thyromegaly, no supraclavicular or cervical adenopathy Chest: Clear to P&A Heart: Regular rate and rhythm without S3 or rub Abdomen: Soft and nontender without palpable masses or organomegaly Extremities: Without cyanosis; no significant edema; right foot dressing intact; left upper arm AVF patent Neuro: Cognitively intact, no focal findings, no asterixis or myoclonus Assessment/Plan Assessment/Recommendations Assessment: 62yo man with dialysis dependent ESRD 2/2 DM returns b/o a nonhealing right diabetic foot ulcer, despite abx's and recent surgery as described. No systemic symptoms to suggest sepsis. He is due for dialysis today. Recommendations: 1. Hemodialysis today with UF to his EDW over 3.5 hrs as tolerated. 2. Continue outpt diet and meds. 3. Abx Rx per ID. 4. Podiatry and Vascular Surgery following.
[2017-12-05 06:21] VITALS: BP 118/60
--- NOTE | 2017-12-05 08:25 | PN- Housestaff ---
SalcidoCain 12/05/17 0819: Subjective Follow-up For: Right lower extremity wound/ulcer Dialysis Subjective: Patient seen and examined at bedside. He is complaining of mild pain in the right lower extremity. He denies chest pain, palpitation, abdominal pain, diarrhea, constipation, burning micturition Review of Systems Constitutional: Reports: see HPI. Objective Last 24 Hrs of Vital Signs/I&O Vital Signs Date Time Temp Pulse Resp B/P B/P Pulse O2 O2 Flow FiO2 Mean Ox Delivery Rate 12/05 0621 98.6 76 20 118/60 98 12/04 2109 98.9 75 19 120/60 100 Room Air 12/04 1835 97.7 88 18 122/68 96 Room Air Room Air 12/04 1223 97.9 68 18 108/66 100 Room Air Intake & Output 12/05 1600 12/05 0800 12/05 0000 Intake Total 400 0 Output Total Balance 400 0 Intake, IV 400 0 Number 1 Bowel Movements Patient 163 lb 164 lb Weight Weight Bed scale Bed scale Measurement Method Physical Exam General Appearance: Alert, Oriented X3, Cooperative, No Acute Distress, Mild Distress, Moderate Distress Cardiovascular: Normal S1, Normal S2 Lungs: Clear to Auscultation, Normal Air Movement Abdomen: Normal Bowel Sounds, Soft, No Tenderness, No Hepatospenomegaly, No Masses Extremities: No Clubbing, No Cyanosis, No Edema, Decrease pulses in RLE Assessment/Plan Assessment: 62-year-old male with past medical history of ESRD on hemodialysis left arm AV fistula, diabetes mellitus, COPD(not on home oxygen), history of diabetic foot ulcer discharge last week after starting treatment for osteomyelitis of right lower extremity, hyperlipidemia, CHF with ejection fraction of 40-45% preserved , presented to emergency department with referral for right lower The time of presentation to emergency department vitals and labs are given below Vitals: Blood pressure 134/75, temperature 98.2, pulse rate 75, respiratory rate 18. LABS: CVC, WBC: 7.7, hemoglobin 12.5, hematocrit 37.9, MCV 102.6, platelet 411 Sodium 131, potassium 4.2, chloride 93, carbon dioxide 27, anion gap 12, bun 25, creatinine 5.4, GFR 11 BUN/creatinine 4.6 glucose 253 Microbiology: Previous wound culture and sensitivity grew following organism Enerobactor cloace Enreococcus S aureus Bacterides Fragalis Problems list: *Right foot cellulitis/ulcer/osteomyelitis *ESRD stage V on hemodialysis 3 times a week *Macrocytic anemia *Peripheral vascular disease *Past medical history of CHF, hypertension, hyperlipidemia, diabetes *Right foot cellulitis/osteomyelitis /ulcer: He having -Diabetes mellitus and peripheral vascular disease which is the most common risk factor for osteomyelitis -Patient is n.p.o. and procedure explained in OR today -After procedure 1 start antibiotic for osteomyelitis -Podiatry Dr. Howell recommendation will follow -Now he is on IV meropenem ESRD on dialysis stage V: *Patient is on dialysis 3 times a week *Dialysis done yesterday *Next dialysis will be tomorrow *Will follow up nephrology recommended *Macrocytic anemia-possible mixed picture anemia in ESRD: -His anemia is multifactorial ESRD could be one of them -follow up B12/folate/iron studies these are normal -We will consider erythropoietin if H&H is dropped further Diabetes mellitus/hypertension/hyperlipidemia: -Endocrinology recommendation appreciated -Today sugar level was 127 -He is on insulin 3 units two time a day -Is on regular insulin too according to sliding scale Patient medication continued. Endocrinology recommendation for glycemic control appreciated . insulin dose adjusted Peripheral vascular disease: -Patient having history of smoking 1 pack per day daily since 50 year -He having history of peripheral vascular disease -Recently right lower extremity stent is placed/balloon dilatation? -Patient was seen by vascular surgeon yesterday -CTA run off showedocclusion patient in OR FOR EXPECTED PROCEDUR BY Vascular surgeon *Full code *GI DVT prophylaxis Problem List: 1. COPD (chronic obstructive pulmonary disease) 2. Osteomyelitis 3. Diabetic foot ulcer 4. Orthostatic hypotension 5. ESRD (end stage renal disease) on dialysis Pain Ratin Pain Location: Right foot Pain Goal: Remain pain free Pain Plan: Pain management pathway Tomorrow's Labs & Rationales: CBC MALVIN HowellValentin archer 12/05/17 1041: Attending MD Review Statement Attending Statement Attending MD Statement: examined this patient, discuss w/resident/PA/FLUID PUMP OPERATOR, agreed w/resident/PA/FLUID PUMP OPERATOR, discussed with family, reviewed EMR data (avail), discussed with nursing, discussed with case mgmt, reviewed images, amended to note Attending Assessment/Plan: 62 yo male with h/o DM2, ESRD on dialysis (TuThSa), PVD (s/p angioplasty RLE), and chronic RLE ulcer (right great toe) admitted to [facility] and discharged last week after partial ray amputation of right 5th toe for OM comes here with persistent infection right foot and planned debridement on 12/05. 1. Osteomyelitis right foot, May require transmetatarsal amputation. 2. CKD/End Stage Renal Disease- on dialysis. 3. DM2- on insulin. 4. GERD- on Omeprazole. 5. Hyperlipidemia- on Atorvastatin. 6. Chronic Pain - due to PVD/foot surgery. 7. Peripheral vascular disease Consulted ID, continue IV Meropenem as per ID. Podiatry to take for debridement Tuesday 12/05. Appreciate vascular surgery and obtain CTA. Repeat X-ray of right foot as per ID note. Provide pain control. Continue dialysis qTuThSa as per protocol. Insulin management RISS and titrate insulin as needed gi/dvt prophyalxis
[2017-12-05 10:27] VITALS: BP 128/64
--- NOTE | 2017-12-05 11:17 | PN- Infect Dx ---
Subjective Subjective: Afebrile. He continues to complain of pain in the right foot. He has had no further diarrhea. Objective Last 24 Hrs of Vital Signs/I&O Vital Signs Date Time Temp Pulse Resp B/P B/P Pulse O2 O2 Flow FiO2 Mean Ox Delivery Rate 12/05 1027 98.1 72 18 128/64 96 Room Air Room Air 12/05 0621 98.6 76 20 118/60 98 12/04 2109 98.9 75 19 120/60 100 Room Air 12/04 1835 97.7 88 18 122/68 96 Room Air Room Air 12/04 1223 97.9 68 18 108/66 100 Room Air Intake & Output 12/05 1600 12/05 0800 12/05 0000 Intake Total 400 0 Output Total Balance 400 0 Intake, IV 400 0 Number 1 Bowel Movements Patient 163 lb 164 lb Weight Weight Bed scale Bed scale Measurement Method Physical Exam Other Physical Findings: He appears comfortable in no acute distress Abdomen soft, nontender with positive bowel sounds Extremities right foot dressing intact Results Last 24 Hours of Lab Results: Laboratory Tests 12/05 0625 Chemistry Sodium (137 - 145 mmol/L) 137 Potassium (3.5 - 5.1 mmol/L) 3.7 Chloride (98 - 107 mmol/L) 99 Carbon Dioxide (22 - 30 mmol/L) 29 Anion Gap (5 - 16) 10 BUN (9 - 20 mg/dL) 15 Creatinine (0.7 - 1.2 mg/dL) 4.2 H Estimated GFR (>60 ml/min) 14 L BUN/Creatinine Ratio (7 - 25 %) 3.6 L Last 24 Hours of Wesley Results: Blood culture x 1 December 03 negative Stool C. difficile December 04 pending Assessment/Plan ID Impression: Stable, with his temperatures and white blood cell count remaining normal, on Meropenem for residual osteomyelitis of the right foot, status post partial fifth ray resection 2 weeks ago, with a revision 10 days 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 Vascular surgery evaluation noted, with plans for a CT angiogram. He is scheduled for the OR later today, with a transmetatarsal amputation being considered but, per Podiatry, he will still likely require a prolonged course of antibiotics postop for residual osteomyelitis. Suggestion: 1. Await OR later today 2. Await CTA of the abdomen and lower extremities 3. Follow-up stool for C. difficile 4. Continue Meropenem
[2017-12-05 13:50] VITALS: BP 134/72
--- NOTE | 2017-12-05 14:36 | PN- Nephrology ---
Assessment/Plan Nephrology Assessment: 1. ESRD 2. Diabetic foot - right; status post partial fifth ray resection with excisional debridement and subsequent revision 11/25. For CTA today. Currently on meropenem. Suggestion: 1. Will arrange for hemodialysis tomorrow, and then qT-Th-Sat while in hospital 2. For angiogram later today 3. Podiatry and Vascular Surgery following 4. Antibiotic therapy per ID Subjective Subjective: Patient relatively comfortable although he continues to have some pain in the right foot. He is to have an angiogram (CTA) later today. Surgery has been postponed for now. Objective Vital Signs and I&Os Vital Signs Date Time Temp Pulse Resp B/P B/P Pulse O2 O2 Flow FiO2 Mean Ox Delivery Rate 12/05 1350 98.2 69 20 134/72 100 Room Air 12/05 1027 98.1 72 18 128/64 96 Room Air Room Air 12/05 0621 98.6 76 20 118/60 98 12/04 2109 98.9 75 19 120/60 100 Room Air 12/04 1835 97.7 88 18 122/68 96 Room Air Room Air Intake & Output 12/05 1600 12/05 0400 12/04 1600 12/04 0400 12/03 1600 12/03 0400 Intake Total 800 0 820 0 Output Total 0 0 Balance 800 0 820 0 0 Intake, IV 800 0 20 Intake, Oral 800 0 Number 1 1 0 Bowel Movements Output, Urine 0 0 Patient 163 lb 164 lb 165 lb 173 lb 173 lb Weight Weight Bed scale Bed scale Bed scale Reported by Patient Measurement Method Physical Exam: General: Well-developed white male in NAD Skin: No rash or jaundice HEENT: Conjunctivae pink, sclerae anicteric, mucous membranes moist Neck: Without masses or thyromegaly, no supraclavicular or cervical adenopathy Chest: Clear to P&A Heart: Regular rate and rhythm without S3 or rub Abdomen: Soft and nontender without palpable masses or organomegaly Extremities: Without cyanosis; no significant edema; right foot dressing intact; left upper arm AVF patent Neuro: Cognitively intact, no focal findings, no asterixis or myoclonus Results Pertinent Lab Results: Laboratory Tests 12/05 12/04 12/03 0625 0754 1649 Chemistry Sodium (137 - 145 mmol/L) 137 133 L Potassium (3.5 - 5.1 mmol/L) 3.7 3.8 Chloride (98 - 107 mmol/L) 99 95 L Carbon Dioxide (22 - 30 mmol/L) 29 27 Anion Gap (5 - 16) 10 12 BUN (9 - 20 mg/dL) 15 31 H Creatinine (0.7 - 1.2 mg/dL) 4.2 H 6.4 *H Estimated GFR (>60 ml/min) 14 L 9 L BUN/Creatinine Ratio (7 - 25 %) 3.6 L 4.8 L Lactic Acid Cancelled Hematology CBC w Diff NO MAN DIFF REQ WBC (4.8 - 10.8 /CUMM) 6.3 RBC (4.70 - 6.10 /CUMM) 3.58 L Hgb (14.0 - 18.0 G/DL) 12.0 L Hct (42 - 52 %) 36.8 L MCV (80.0 - 94.0 FL) 102.8 H MCH (27.0 - 31.0 PG) 33.5 H MCHC (33.0 - 37.0 G/DL) 32.6 L RDW (11.5 - 14.5 %) 15.7 H Plt Count (130 - 400 /CUMM) 381 MPV (7.4 - 10.4 FL) 8.1 Gran % (42.2 - 75.2 %) 66.8 Lymphocytes % (20.5 - 51.1 %) 15.3 L Monocytes % (1.7 - 9.3 %) 12.5 H Eosinophils % (0 - 5 %) 4.7 Basophils % (0.0 - 2.0 %) 0.7 Absolute Granulocytes (1.4 - 6.5 /CUMM) 4.2 Absolute Lymphocytes (1.2 - 3.4 /CUMM) 1.0 L Absolute Monocytes (0.10 - 0.60 /CUMM) 0.8 H Absolute Eosinophils (0.0 - 0.7 /CUMM) 0.3 Absolute Basophils (0.0 - 0.2 /CUMM) 0 12/03 12/03 1419 1349 Chemistry Sodium (137 - 145 mmol/L) 131 L Potassium (3.5 - 5.1 mmol/L) 4.2 Chloride (98 - 107 mmol/L) 93 L Carbon Dioxide (22 - 30 mmol/L) 26 Anion Gap (5 - 16) 12 BUN (9 - 20 mg/dL) 25 H Creatinine (0.7 - 1.2 mg/dL) 5.4 *H Estimated GFR (>60 ml/min) 11 L BUN/Creatinine Ratio (7 - 25 %) 4.6 L Glucose (65 - 99 mg/dL) 253 H Lactic Acid (0.7 - 2.1 mmol/L) 1.2 Calcium (8.4 - 10.2 mg/dL) 9.1 Total Bilirubin (0.2 - 1.3 mg/dL) 0.8 AST (17 - 59 U/L) 60 H ALT (21 - 72 U/L) 54 Alkaline Phosphatase (< 127 U/L) 270 H C-Reactive Prot, Quant (<1.0 mg/dL) 6.3 H Total Protein (6.3 - 8.2 g/dL) 6.9 Albumin (3.5 - 5.0 g/dL) 3.5 Globulin (1.9 - 4.2 gm/dL) 3.4 Albumin/Globulin Ratio (1.1 - 2.2 %) 1.0 L Hematology CBC w Diff NO MAN DIFF REQ WBC (4.8 - 10.8 /CUMM) 7.7 RBC (4.70 - 6.10 /CUMM) 3.69 L Hgb (14.0 - 18.0 G/DL) 12.5 L Hct (42 - 52 %) 37.9 L MCV (80.0 - 94.0 FL) 102.6 H MCH (27.0 - 31.0 PG) 33.8 H MCHC (33.0 - 37.0 G/DL) 33.0 RDW (11.5 - 14.5 %) 15.4 H Plt Count (130 - 400 /CUMM) 411 H MPV (7.4 - 10.4 FL) 8.1 Gran % (42.2 - 75.2 %) 75.9 H Lymphocytes % (20.5 - 51.1 %) 10.1 L Monocytes % (1.7 - 9.3 %) 10.7 H Eosinophils % (0 - 5 %) 2.6 Basophils % (0.0 - 2.0 %) 0.7 Absolute Granulocytes (1.4 - 6.5 /CUMM) 5.8 Absolute Lymphocytes (1.2 - 3.4 /CUMM) 0.8 L Absolute Monocytes (0.10 - 0.60 /CUMM) 0.8 H Absolute Eosinophils (0.0 - 0.7 /CUMM) 0.2 Absolute Basophils (0.0 - 0.2 /CUMM) 0.1 ESR Westergren (0 - 10 MM) 45 H Urines Urine Color Cancelled Urine Clarity Cancelled Urine pH Cancelled Ur Specific [place] Cancelled Urine Protein Cancelled Urine Ketones Cancelled Urine Nitrite Cancelled Urine Bilirubin Cancelled Urine Urobilinogen Cancelled Ur Leukocyte Esterase Cancelled Ur Microscopic Cancelled Urine Hemoglobin Cancelled Urine Glucose Cancelled
--- NOTE | 2017-12-05 15:12 | Patient Discharge Instructions ---
Discharge Instructions General Discharge Information You were seen/treated for: -Right lower extremity osteomyelitis/peripheral vascular disease of the right lower extremity -ESRD stage V on dialysis -Diabetic control Watch for these problems: Fever, pain in right lower extremty, colour change of lower extremities, blood loss in stool, black colour stool,bleeding from nose. Other wound care: Wound vac. please follow up with DR Lott in one week in wound center Special Instructions: Please follow-up with primary care physician in 1 week Please follow-up with yard crane operator in 2 week two weeks Please follow-up with your Podiatrician in 1 week Please follow up with your dialysis schedule three time a week Please make sure daily dressing of the right lower extremity Activity Activity Self Limited: Yes Acute Coronary Syndrome Inclusion Criteria At DC or during hospital stay patient has or had the following: ACS DIAGNOSIS No Discharge Core Measures Meds if any: Prescribed or Continued at Discharge Meds if any: NOT Prescribed or Continued at Discharge Congestive Heart Failure Inclusion Criteria At DC or during hospital stay patient has or had the following: CHF DIAGNOSIS No Discharge Core Measures Meds if any: Prescribed or Continued at Discharge Meds if any: NOT Prescribed or Continued at Discharge Cerebrovascular accident Inclusion Criteria At DC or during hospital stay patient has or had the following: CVA/TIA Diagnosis No Discharge Core Measures Meds if any: Prescribed or Continued at Discharge Meds if any: NOT Prescribed or Continued at Discharge Venous thromboembolism Inclusion Criteria VTE Diagnosis No VTE Type NONE VTE Confirmed by (Test) NONE Discharge Core Measures - Per Current guidelines, there needs to be overlap - treatment for the first 5 days of Warfarin therapy. - If discharged on Warfarin prior to 5 days of - overlap therapy, the patient will need to be - assessed for post discharge needs including - *Post discharge parental anticoagulation - *Warfarin and/or parental anticoagulation education - *Follow up date to check INR post discharge At least 5 days overlap therapy as Inpatient No Meds if any: Prescribed or Continued at Discharge Note: Overlap Therapy is Warfarin and Anticoagulant Meds if any: NOT Prescribed or Continued at Discharge
--- NOTE | 2017-12-05 15:44 | PN- Vascular Surgery ---
Subjective Subjective: feels ok Review of Systems: as above Review of Systems Gastrointestinal: Reports: changes in stool. Objective Vital Signs and I&Os Vital Signs Date Time Temp Pulse Resp B/P B/P Pulse O2 O2 Flow FiO2 Mean Ox Delivery Rate 12/05 1350 98.2 69 20 134/72 100 Room Air 12/05 1027 98.1 72 18 128/64 96 Room Air Room Air 12/05 0621 98.6 76 20 118/60 98 12/04 2109 98.9 75 19 120/60 100 Room Air 12/04 1835 97.7 88 18 122/68 96 Room Air Room Air Intake & Output 12/05 1600 12/05 0800 12/05 0000 12/04 1600 12/05 0700 12/04 0000 Intake Total 400 400 0 600 220 Output Total 0 0 Balance 400 400 0 600 220 0 Intake, IV 400 400 0 20 Intake, Oral 600 200 Number 1 1 0 Bowel Movements Output, Urine 0 0 Patient 163 lb 163 lb 164 lb 165 lb 173 lb Weight Weight Bed scale Bed scale Bed scale Measurement Method Physical Exam: Rt foot wound unchanged Assessment/Plan Assessment/Plan non healing Rt foot wound tibial dz by CTA will perform a-gram with possible intervention today RvB dw pt and understands Core Measures Venous Thromboembolism VTE Risk Factors Age>40 No Mechanical VTE Prophylaxis d/t N/A MechProphylax Ordered No VTE Pharm Prophylaxis d/t NA PharmProphylax ordered Attending MD Review Statement Attending Statement Attending MD Statement: examined this patient
--- NOTE | 2017-12-05 16:40 | CT SCAN REPORT ---
EXAMINATION: CT ANGIOGRAPHY OF ABDOMEN, PELVIS AND BILATERAL LOWER EXTREMITIES WITH RUNOFF CLINICAL INFORMATION: Right lower extremity peripheral arterial disease. COMPARISON: Duplex exam 08/29/2017. TECHNIQUE: Volume acquisition CT of the abdomen, pelvis and bilateral lower extremities was performed both with and without IV contrast. For the IV contrast-enhanced portion of the exam a total of 95 mL Optiray 350 was injected. Images were evaluated on an independent workstation and 3-D reconstructions were performed. DLP: 1067.91\H\ \N\mGy-cm FINDINGS: VASCULAR FINDINGS: Aorta and Its Branches: The descending thoracic aorta appears normal. The abdominal aorta appears normal. The celiac and SMA are widely patent. Just after its first branch point, the SMA has significant noncalcified atherosclerotic change within it. A smaller area of similar appearance is noted just distally. The KADEEM has an origin stenosis along with marked calcification in its proximal few centimeters. The main renal artery on the right demonstrates ostial atherosclerotic changes without significant stenosis. There is a tiny accessory branch that arises just above this. The main left renal artery is patent. Just below this, there is a moderate-sized lower pole branch that demonstrates significant ostial calcification and proximal disease. RUNOFF: Right: The right common iliac artery is widely patent. The iliac bifurcation is patent. The hypogastric shows mild disease but is patent. The external iliac is free of significant disease. Common femoral artery demonstrates some mild narrowing without significant stenosis. The femoral bifurcation is patent. There is a stent present in the proximal SMA which is patent. The SFA distal to this stent shows mild disease but a tight stenosis is not seen. The popliteal artery demonstrates a moderate stenosis in its midportion, best appreciated on axial imaging series 2 image 1413. The trifurcation is patent but all 3 runoff vessels demonstrate significant calcification proximally with only a small patent lumen. Severe disease is noted throughout the course of the anterior tibial artery and the posterior tibial artery. The peroneal artery is diseased proximally but distally appears to be the most disease-free runoff vessel. Left: Left common iliac artery is widely patent. The iliac bifurcation is patent. The internal iliac is diseased with a mild stenosis proximally. The external iliac is free of significant disease. The common femoral artery on the left is patent with only minimal disease. The femoral bifurcation is patent. The left SFA is patent with minimal disease. At the level of the adductor canal just above the knee joint, there is a moderate stenosis present of probably 70%. The trifurcation is patent. Runoff on the left is similar to the right with extremely diseased anterior tibial arteries and posterior tibial arteries throughout their course with multiple areas of stenosis. The peroneal has some proximal disease along with a mild area of stenosis in its midportion but is otherwise patent. NONVASCULAR FINDINGS: The lung bases appear unremarkable. The liver, gallbladder, bile ducts, pancreas and spleen appear normal. Both adrenal glands and the kidneys are unremarkable. No retroperitoneal adenopathy is seen. Small retroperitoneal nodes are seen, the largest of which is in the left para-aortic region measuring 0.8 x 1.1 x 2.2 cm. No ascites is seen. The abdominal wall is unremarkable without significant hernia. 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 The bowel including the terminal ileum and appendix appears unremarkable. Mild degenerative changes are present in the spine with no gross bony destructive lesions. IMPRESSION: Vascular: 1. No significant aortoiliac inflow disease. 2. Right: SFA stent is patent with moderate popliteal disease and disease 3-vessel runoff. 3. Left: [id number] left SFA stenosis with diseased 3-vessel runoff as described above. Nonvascular findings: 1. Multiple small retroperitoneal nodes but no adenopathy. 2. Buried or hidden penis.
[2017-12-06 05:20] VITALS: BP 128/64
--- NOTE | 2017-12-06 06:34 | PN- Housestaff ---
Cain Salcido 12/06/17 0633: Subjective Follow-up For: Right lower extremity cellulitis Right lower extremity arterial block Dialysis Subjective: Patient seen and examined at bedside. He was complained of pain in the right lower extremity. He denies fever, chills, chest pain, abdominal pain, diarrhea, constipation, burning micturition. He was complaining of low blood sugar this morning 50 mg. Review of Systems Constitutional: Reports: see HPI. Objective Last 24 Hrs of Vital Signs/I&O Vital Signs Date Time Temp Pulse Resp B/P B/P Pulse O2 O2 Flow FiO2 Mean Ox Delivery Rate 12/06 0520 97.7 72 20 128/64 97 Room Air 12/05 1350 98.2 69 20 134/72 100 Room Air 12/05 1027 98.1 72 18 128/64 96 Room Air Room Air Intake & Output 12/06 1600 12/06 0800 12/06 0000 Intake Total 120 Output Total Balance 120 Intake, Oral 120 Patient 169 lb Weight Weight Bed scale Measurement Method Physical Exam General Appearance: Alert, Oriented X3, Cooperative, No Acute Distress Cardiovascular: Normal S1, Normal S2 Lungs: Clear to Auscultation, Normal Air Movement Abdomen: Normal Bowel Sounds, Soft, No Tenderness, No Hepatospenomegaly, No Masses Extremities: No Clubbing, No Cyanosis Assessment/Plan Assessment: 62-year-old male with past medical history of ESRD on hemodialysis left arm AV fistula, diabetes mellitus, COPD(not on home oxygen), history of diabetic foot ulcer discharge last week after starting treatment for osteomyelitis of right lower extremity, hyperlipidemia, CHF with ejection fraction of 40-45% preserved , presented to emergency department with referral for right lower The time of presentation to emergency department vitals and labs are given below Vitals: Blood pressure 134/75, temperature 98.2, pulse rate 75, respiratory rate 18. LABS: CVC, WBC: 7.7, hemoglobin 12.5, hematocrit 37.9, MCV 102.6, platelet 411 Sodium 131, potassium 4.2, chloride 93, carbon dioxide 27, anion gap 12, bun 25, creatinine 5.4, GFR 11 BUN/creatinine 4.6 glucose 253 Microbiology: Previous wound culture and sensitivity grew following organism Enerobactor cloace Enreococcus S aureus Bacterides Fragalis Problems list: *Right foot cellulitis/ulcer/osteomyelitis *ESRD stage V on hemodialysis 3 times a week *Macrocytic anemia *Peripheral vascular disease s/p stent placement *Past medical history of CHF, hypertension, hyperlipidemia, diabetes *Right foot cellulitis/osteomyelitis /ulcer: * will follow Dr Lott recommendation for surgery debridment of right lower extremity wound * Daily dresssing * currently on meropenim ESRD on dialysis stage V: *Next dialysis will be today *Will follow up nephrology recommended *Macrocytic anemia-possible mixed picture anemia in ESRD: -His anemia is multifactorial ESRD could be one of them -follow up B12/folate/iron studies these are normal -We will consider erythropoietin if H&H is dropped further Diabetes mellitus/hypertension/hyperlipidemia: -Endocrinology recommendation appreciated -Today sugar level was 50mg. Dextrose bolus given -He is very sensitive to insulin insulin dose will be adjusted after endocrinology recommendation Peripheral vascular disease: * LLAMA FARMER of right popliteal and tibial artery LLAMA FARMER done yesterday * anti platelet will be started * Leonardo continue statin *Full code *GI DVT prophylaxis Problem List: 1. Dyslipidemia 2. Hypercalcemia 3. Hypertension 4. CHF (congestive heart failure) 5. Full code status 6. ESRD (end stage renal disease) on dialysis 7. COPD (chronic obstructive pulmonary disease) 8. Osteomyelitis 9. Diabetic foot infection Pain Ratin Pain Location: Pain right foot Pain Goal: Remain pain free Pain Plan: Pain mangement pathway Tomorrow's Labs & Rationales: cbc. Valentin Sandoval 12/06/17 1220: Attending MD Review Statement Attending Statement Attending MD Statement: examined this patient, discuss w/resident/PA/QUILL PICKING MACHINE OPERATOR, agreed w/resident/PA/QUILL PICKING MACHINE OPERATOR, discussed with family, reviewed EMR data (avail), discussed with nursing, discussed with case mgmt, reviewed images, amended to note Attending Assessment/Plan: 62 yo male with h/o DM2, ESRD on dialysis ([place]), PVD (s/p angioplasty RLE), and chronic RLE ulcer (right great toe) admitted to [facility] and discharged last week after partial ray amputation of right 5th toe for OM comes here with persistent infection right foot and OM. Patient underwent CTA lower extremity suggestive of tibital disease and had vascular surgery intervention 12/05/17. Follow vascular surgery. Antiplatelet therapy. continue IV Meropenem as per ID. Overnight blood glucose 50. No new complaints. 1. Osteomyelitis right foot. 2. CKD/End Stage Renal Disease- on dialysis. 3. DM2- on insulin with epsiode of hypoglycemia. 4. GERD- on Omeprazole. 5. Hyperlipidemia- on Atorvastatin. 6. Chronic Pain - due to PVD/foot surgery. 7. Peripheral vascular disease s/p stent placement. ESRD Continue dialysis qTuThSa as per protocol. DM: Insulin management RISS and titrate insulin as needed. Decrease basal isnulin gi/dvt prophyalxis
--- NOTE | 2017-12-06 09:05 | RADIOLOGY REPORT ---
EXAMINATION: XR ANGIOGRAM OR CLINICAL INFORMATION: Peripheral vascular disease. COMPARISON: CT runoff angiogram, 12/05/2017. TECHNIQUE: Fluoroscopic imaging equipment was provided to the operating room for right lower extremity angiography procedure performed by Dr. Mejia. Please refer to the operative report. FLUOROSCOPY TIME: 9 minutes, 5 seconds. NUMBER OF SAVED IMAGES: 19 series of images are submitted into the electronic picture archive. IMPRESSION: Fluoroscopic imaging equipment was provided to the operating room for angiography performed by Dr. Mejia. Please refer to the operative report.
--- NOTE | 2017-12-06 12:53 | PN- Nephrology ---
Assessment/Plan Nephrology Assessment: Renal failure. On dialysis TTS. Will arrange dialysis for this afternoon. will check labs then. Shaun Villagomez MD Suggestion: . Subjective Subjective: Pt comfortable. for dialysis today Objective Vital Signs and I&Os M NAD 128/64 72 97.7 Lungs clear Cor RRR Abd soft Ext tr edema foot bandaged Results Pertinent Lab Results: .
--- NOTE | 2017-12-06 14:17 | PN- Vascular Surgery ---
Subjective Subjective: POD#1 RLE TANNING WHEEL OPERATOR No complaints. No left groin pain or swelling. Objective Vital Signs and I&Os Vital Signs Date Time Temp Pulse Resp B/P B/P Pulse O2 O2 Flow FiO2 Mean Ox Delivery Rate 12/06 0520 97.7 72 20 128/64 97 Room Air Intake & Output 12/06 1600 12/06 0800 12/06 0000 12/05 1600 12/05 0800 12/05 0000 Intake Total 120 400 400 0 Output Total Balance 120 400 400 0 Intake, IV 400 400 0 Intake, Oral 120 Number 1 Bowel Movements Output, Urine Patient 169 lb 163 lb 163 lb 164 lb Weight Weight Bed scale Bed scale Bed scale Measurement Method Physical Exam: Awake and alert, NAD On HD Left groin puncture site soft, no ecchymosis or hematoma. RLE: dressing changed this morning by nurse, and is c/d/i. LLE: pt 1+. Results Last 48 Hours of Labs: Laboratory Tests 12/05 0625 Chemistry Sodium (137 - 145 mmol/L) 137 Potassium (3.5 - 5.1 mmol/L) 3.7 Chloride (98 - 107 mmol/L) 99 Carbon Dioxide (22 - 30 mmol/L) 29 Anion Gap (5 - 16) 10 BUN (9 - 20 mg/dL) 15 Creatinine (0.7 - 1.2 mg/dL) 4.2 H Estimated GFR (>60 ml/min) 14 L BUN/Creatinine Ratio (7 - 25 %) 3.6 L Assessment/Plan Assessment/Plan IMP: RLE PAD w/ open wound s/p 5th toe amp. Right pop-tibial TANNING WHEEL OPERATOR done yesterday. REC: Cont ASA and plavix Cont statin Wound care per podiatry Core Measures Venous Thromboembolism VTE Risk Factors Age>40 No Mechanical VTE Prophylaxis d/t N/A MechProphylax Ordered No VTE Pharm Prophylaxis d/t NA PharmProphylax ordered
[2017-12-06 15:40] LABS: ABSOLUTE BASOPHIL COUNT 0 /CUMM (0.0-0.2); ABSOLUTE EOSINOPHIL COUNT 0.2 /CUMM (0.0-0.7); ABSOLUTE GRANULOCYTE CT 3.8 /CUMM (1.4-6.5); ABSOLUTE LYMPH COUNT 1.1 /CUMM (1.2-3.4); ABSOLUTE MONOCYTE COUNT 0.8 /CUMM (0.10-0.60); BASOPHIL % 0.7 % (0.0-2.0); EOSINOPHIL % 4.1 % (0-5); GRANULOCYTE % 63.4 % (42.2-75.2); HEMATOCRIT 34.1 % (42-52); MEAN CORPUSCULAR HGB 33.7 PG (27.0-31.0); MEAN CORPUSCULAR HGB CONC 32.6 G/DL (33.0-37.0); MEAN CORPUSCULAR VOLUME 103.3 FL (80.0-94.0); MEAN PLATELET VOLUME 8.3 FL (7.4-10.4); PLATELET COUNT 331 /CUMM (130-400); RBC DISTRIBUTION WIDTH 16.8 % (11.5-14.5)
[2017-12-06 17:35] VITALS: BP 144/80
[2017-12-06 22:01] VITALS: BP 132/72
[2017-12-07 06:24] VITALS: BP 119/64
--- NOTE | 2017-12-07 08:35 | PN- Housestaff ---
See Addendum Subjective Follow-up For: RLE osteomyelitis CKD Subjective: Patent was seen and examined at bedside. No complaints overnight. Denies fever, chills, nausea, vomiting. He is s/p dialysis yesterday. Review of Systems Constitutional: Reports: see HPI. Objective Last 24 Hrs of Vital Signs/I&O Vital Signs Date Time Temp Pulse Resp B/P B/P Pulse O2 O2 Flow FiO2 Mean Ox Delivery Rate 12/07 0624 98.3 69 20 119/64 94 12/06 2201 98.1 73 20 132/72 99 Room Air 12/06 1735 97.8 76 20 144/80 97 Room Air Intake & Output 12/07 1600 12/07 0800 12/07 0000 Intake Total Output Total Balance Patient 169 lb Weight Weight Bed scale Measurement Method Physical Exam General Appearance: Alert, Oriented X3, Cooperative, No Acute Distress Neck: Supple Cardiovascular: Regular Rate, Normal S1, Normal S2, No Murmurs Lungs: Clear to Auscultation Abdomen: Normal Bowel Sounds, Soft, No Tenderness Extremities: No Edema, right foot covered in dressing Assessment/Plan Assessment: 62-year-old male with past medical history of ESRD on hemodialysis left arm AV fistula, diabetes mellitus, COPD(not on home oxygen), history of diabetic foot ulcer discharge last week after starting treatment for osteomyelitis of right lower extremity, hyperlipidemia, CHF with ejection fraction of 40-45% preserved is admitted to the Gen Med service for the evaluated and management of right foot diabetes ulcer. The patient was afebrile overnight with WBC within normal limits. Problems list: 1,Right foot cellulitis/ulcer/osteomyelitis 2.ESRD stage V on hemodialysis 3 times a week 3.Macrocytic anemia 4. Peripheral vascular disease s/p stent placement 5.Past medical history of CHF, hypertension, hyperlipidemia, diabetes 1.Right foot cellulitis/osteomyelitis /ulcer: -Patient is currently on Meropenem - Will follow ortho recommendations regarding right foot ulcer debridement ESRD on dialysis stage V: -s/p Dialysis yesterday -Will follow up Nephrology recommendations Macrocytic anemia-possible mixed picture anemia in ESRD: -His anemia is multifactorial ESRD could be one of them -follow up B12/folate/iron studies these are normal -Nephrology recommendations regarding Erythropoetin Diabetes mellitus/hypertension/hyperlipidemia: -Endocrinology recommendation appreciated -Blood glucose was 72 this morning Peripheral vascular disease: -SECURITY SME of right popliteal and tibial artery SECURITY SME done yesterday -We would continue ASA and Plavix Full code DVT prophylaxis Problem List: 1. COPD (chronic obstructive pulmonary disease) 2. Osteomyelitis 3. Diabetic foot infection Pain Ratin Pain Location: right foot Pain Goal: Remain pain free Pain Plan: pathway Tomorrow's Labs & Rationales: cbc and bep
[2017-12-07 14:27] VITALS: BP 150/100
[2017-12-07 22:52] VITALS: BP 124/69
--- NOTE | 2017-12-08 06:58 | PN- Housestaff ---
See Addendum Cain Salcido 12/08/17 0658: Subjective Follow-up For: Right foot cellulitis Peripheral vascular disease Diabetes mellitus Dialysis Subjective: Patient seen and examined at bedside. He denies fever, chills, chest pain, abdominal,, diarrhea, constipation, burning micturition. He is complaining of 2 loose motion last night. He was concerned about when the podiatry will do the procedure. Review of Systems Constitutional: Reports: see HPI. Objective Last 24 Hrs of Vital Signs/I&O Vital Signs Date Time Temp Pulse Resp B/P B/P Pulse O2 O2 Flow FiO2 Mean Ox Delivery Rate 12/08 1430 98.0 77 18 122/68 100 Room Air 12/08 0839 138/96 12/08 0725 97.6 76 20 143/107 99 Room Air 12/07 2252 98.2 75 20 124/69 98 Room Air Intake & Output 12/08 1600 12/08 0800 12/08 0000 Intake Total 800 480 480 Output Total Balance 800 480 480 Intake, Oral 800 480 480 Number 2 0 Bowel Movements Patient 172 lb Weight Weight Bed scale Measurement Method Physical Exam General Appearance: Alert, Oriented X3, Cooperative, No Acute Distress Cardiovascular: Regular Rate, Normal S1, Normal S2 Lungs: Clear to Auscultation, Normal Air Movement Abdomen: Normal Bowel Sounds, Soft, No Tenderness Extremities: No Clubbing, No Cyanosis, No Edema, Normal Pulses Vascular: Normal Pulses, Pulses Symmetrical Assessment/Plan Assessment: 62-year-old male with past medical history of ESRD on hemodialysis left arm AV fistula, diabetes mellitus, COPD(not on home oxygen), history of diabetic foot ulcer discharge last week after starting treatment for osteomyelitis of right lower extremity, hyperlipidemia, CHF with ejection fraction of 40-45% preserved , presented to emergency department with referral for right lower The time of presentation to emergency department vitals and labs are given below Vitals: Blood pressure 134/75, temperature 98.2, pulse rate 75, respiratory rate 18. LABS: CVC, WBC: 7.7, hemoglobin 12.5, hematocrit 37.9, MCV 102.6, platelet 411 Sodium 131, potassium 4.2, chloride 93, carbon dioxide 27, anion gap 12, bun 25, creatinine 5.4, GFR 11 BUN/creatinine 4.6 glucose 253 Problems list: * Right foot cellulitis/ulcer/osteomyelitis * ESRD stage V on hemodialysis 3 times a week * Macrocytic anemia * Peripheral vascular disease s/p stent placement * Past medical history of CHF, hypertension, hyperlipidemia, diabetes *Right foot cellulitis/osteomyelitis /ulcer: * Dr. Howell contacted the patient will go OR for tomorrow for procedure after dialysis * ID recommendation appreciated will continue meropenim ESRD on dialysis stage V: *Next dialysis will be tomorrow in a.m. *Will follow up nephrology recommended *Macrocytic anemia-possible mixed picture anemia in ESRD: -His anemia is multifactorial ESRD could be one of them -follow up B12/folate/iron studies these are normal -We will consider erythropoietin if H&H is dropped further Diabetes mellitus/hypertension/hyperlipidemia: -Endocrinology recommendation appreciated -Today sugar level was 152 -Currently he is on 3 units long-acting insulin Peripheral vascular disease: * Status post PIT HAND * Pulse in the right lower extremity are normal no * anti platelet will be started * Leonardo continue statin *Full code *GI DVT prophylaxis Problem List: 1. COPD (chronic obstructive pulmonary disease) 2. Diabetic foot infection 3. Diabetic foot ulcer 4. ESRD (end stage renal disease) on dialysis 5. HFrEF (heart failure with reduced ejection fraction) Pain Ratin Pain Location: No pain Pain Goal: Remain pain free Pain Plan: Pain management pathway Tomorrow's Labs & Rationales: MALVIN BARRERA Manik 12/08/17 1118: Attending MD Review Statement Attending Statement Attending MD Statement: examined this patient, discuss w/resident/PA/COMMUNICATIONS EQUIPMENT INSTALLER, agreed w/resident/PA/COMMUNICATIONS EQUIPMENT INSTALLER, discussed with family, reviewed EMR data (avail), discussed with nursing, discussed with case mgmt, reviewed images, amended to note Attending Assessment/Plan: Patient denies any new complaints. He is asking for any foot surgery to be done. Hemodynamically stable. He is for dilaysis tomorrow and planned podiatry procedure tomorrow. 1. Osteomyelitis right foot awaiting debridement/amputation 2. CKD/End Stage Renal Disease- on dialysis. 3. DM2- on insulin with epsiode of hypoglycemia. 4. GERD- on Omeprazole. 5. Hyperlipidemia- on Atorvastatin. 6. Chronic Pain - due to PVD/foot surgery. 7. Peripheral vascular disease s/p stent placement. Patient underwent CTA lower extremity suggestive of tibital disease and had vascular surgery intervention 12/05/17. C/w Antiplatelet therapy. continue IV Meropenem as per ID. ESRD Continue dialysis qTuThSa as per protocol. DM with hypoglycemia episode: Insulin management RISS and titrate insulin as needed. Decreased basal insulin. NPO after MN. Hold basal insulin in am. gi/dvt prophyalxis
[2017-12-08 07:02] VITALS: BP 112/79
[2017-12-08 07:25] VITALS: BP 143/107
[2017-12-08 08:35] LABS: ABSOLUTE BASOPHIL COUNT 0 /CUMM (0.0-0.2); ABSOLUTE EOSINOPHIL COUNT 0.3 /CUMM (0.0-0.7); ABSOLUTE GRANULOCYTE CT 2.9 /CUMM (1.4-6.5); ABSOLUTE MONOCYTE COUNT 0.8 /CUMM (0.10-0.60); BASOPHIL % 0.8 % (0.0-2.0); EOSINOPHIL % 4.2 % (0-5); GRANULOCYTE % 48.1 % (42.2-75.2); HEMATOCRIT 36.6 % (42-52); MEAN CORPUSCULAR HGB 34.1 PG (27.0-31.0); MEAN CORPUSCULAR HGB CONC 33.1 G/DL (33.0-37.0); MEAN CORPUSCULAR VOLUME 103.2 FL (80.0-94.0); MEAN PLATELET VOLUME 8.7 FL (7.4-10.4); PLATELET COUNT 323 /CUMM (130-400); RBC DISTRIBUTION WIDTH 16.2 % (11.5-14.5); RED BLOOD CELL CT 3.55 /CUMM (4.70-6.10); WHITE BLOOD CELL COUNT 6.1 /CUMM (4.8-10.8)
[2017-12-08 08:39] VITALS: BP 138/96
--- NOTE | 2017-12-08 10:34 | PN- Infect Dx ---
Subjective Subjective: Afebrile. He notes some discomfort in the right foot. He also notes recurrence of his diarrhea, with soft stools, but with no nausea, vomiting or abdominal pain. Objective Last 24 Hrs of Vital Signs/I&O Vital Signs Date Time Temp Pulse Resp B/P B/P Pulse O2 O2 Flow FiO2 Mean Ox Delivery Rate 12/08 0839 138/96 12/08 0725 97.6 76 20 143/107 99 Room Air 12/07 2252 98.2 75 20 124/69 98 Room Air 12/07 1427 97.5 77 16 150/100 100 Room Air Intake & Output 12/08 1600 12/08 0800 12/08 0000 Intake Total 480 480 Output Total Balance 480 480 Intake, Oral 480 480 Number 2 0 Bowel Movements Patient 172 lb Weight Weight Bed scale Measurement Method Physical Exam Other Physical Findings: He appears comfortable in no acute distress Abdomen is soft, nontender with positive bowel sounds Extremities right foot dressing intact Results Last 24 Hours of Lab Results: Laboratory Tests 12/08 616 Chemistry Sodium (137 - 145 mmol/L) 132 L Potassium (3.5 - 5.1 mmol/L) 4.5 Chloride (98 - 107 mmol/L) 93 L Carbon Dioxide (22 - 30 mmol/L) 25 Anion Gap (5 - 16) 13 BUN (9 - 20 mg/dL) 20 Creatinine (0.7 - 1.2 mg/dL) 5.8 *H Estimated GFR (>60 ml/min) 10 L BUN/Creatinine Ratio (7 - 25 %) 3.4 L Hematology CBC w Diff NO MAN DIFF REQ WBC (4.8 - 10.8 /CUMM) 6.1 RBC (4.70 - 6.10 /CUMM) 3.55 L Hgb (14.0 - 18.0 G/DL) 12.1 L Hct (42 - 52 %) 36.6 L MCV (80.0 - 94.0 FL) 103.2 H MCH (27.0 - 31.0 PG) 34.1 H MCHC (33.0 - 37.0 G/DL) 33.1 RDW (11.5 - 14.5 %) 16.2 H Plt Count (130 - 400 /CUMM) 323 MPV (7.4 - 10.4 FL) 8.7 Gran % (42.2 - 75.2 %) 48.1 Lymphocytes % (20.5 - 51.1 %) 32.9 Monocytes % (1.7 - 9.3 %) 14.0 H Eosinophils % (0 - 5 %) 4.2 Basophils % (0.0 - 2.0 %) 0.8 Absolute Granulocytes (1.4 - 6.5 /CUMM) 2.9 Absolute Lymphocytes (1.2 - 3.4 /CUMM) 2.0 Absolute Monocytes (0.10 - 0.60 /CUMM) 0.8 H Absolute Eosinophils (0.0 - 0.7 /CUMM) 0.3 Absolute Basophils (0.0 - 0.2 /CUMM) 0 Last 24 Hours of Wesley Results: Stool C. difficile December 04 negative Blood culture x 1 December 03 negative Assessment/Plan ID Impression: Stable, with his temperatures and white blood cell count remaining normal, on Meropenem for residual osteomyelitis of the right foot, status post right lower extremity angioplasty 3 days ago, with debridement/amputation of the right foot postponed until the a.m. 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 Suggestion: 1. Await further debridement/amputation of the right foot in the a.m. per Podiatry 2. Continue Meropenem
--- NOTE | 2017-12-08 11:36 | PN- Nephrology ---
Assessment/Plan Nephrology Assessment: 1. End-stage renal disease HD in AM 2. Peripheral vascular disease 3. Plans for OR noted Suggestion: 1. Plan on HD in AM 2. No heparin 3. at this point first thing in AM Subjective Subjective: Patient awaiting debridement tomorrow Objective Vital Signs and I&Os Vital Signs Date Time Temp Pulse Resp B/P B/P Pulse O2 O2 Flow FiO2 Mean Ox Delivery Rate 12/08 0839 138/96 12/08 0725 97.6 76 20 143/107 99 Room Air 12/07 2252 98.2 75 20 124/69 98 Room Air 12/07 1427 97.5 77 16 150/100 100 Room Air Intake & Output 12/08 1600 12/08 0400 12/07 1600 12/07 0400 12/06 1600 12/06 0400 Intake Total 480 480 600 720 Output Total 150 150 Balance 480 480 450 570 Intake, Oral 480 480 600 720 Number 2 0 1 Bowel Movements Output, Urine 150 150 Patient 172 lb 169 lb 169 lb Weight Weight Bed scale Bed scale Bed scale Measurement Method Physical Exam: General: Well-developed white male in NAD Skin: No rash or jaundice HEENT: Conjunctivae pink, sclerae anicteric, Neck: Without masses or thyromegaly, no supraclavicular or cervical adenopathy Chest: Clear to P&A Heart: Regular rate and rhythm without S3 or rub Abdomen: Soft and nontender without palpable masses or organomegaly Extremities: Without cyanosis; no significant edema; right foot dressing intact; left upper arm AVF patent Neuro: Cognitively intact, no focal findings, no asterixis or myoclonus Current Medications: Current Medications Sig/Rhett Start time Last Medication Dose Route Stop Time Status Admin Acetaminophen 650 MG Q6P PRN 12/03 1730 AC PO Aspirin Buffered 81 MG DAILY 12/04 09 AC 12/08 PO 0806 Atorvastatin Calcium 10 MG 1700 12/04 1700 AC 12/07 PO 1706 Citalopram 20 MG DAILY 12/04 09 AC 12/08 Hydrobromide PO 0806 Clopidogrel Bisulfate 75 MG DAILY 12/06 09 AC 12/08 PO 0806 Dextrose/Sodium 1,000 ML Q20H 12/09 0600 UNVr Chloride IV Heparin Sodium 5,000 UNIT Q8 12/03 2200 AC 12/08 (Porcine) SC 0611 Insulin Aspart 0 TIDAC/HS 12/05 1645 r 12/08 SC 12/09 0000 0805 Insulin Detemir 3 UNITS BID 12/06 2100 DC 12/08 SC 0806 Insulin Human Regular 0 Q6 12/09 0100 UNVr SC Loperamide HCl 2 MG 0700 12/08 0700 DC 12/08 PO 12/08 0701 0836 Meropenem 1 GM Q24H 12/03 1730 AC 12/07 IV 1706 Montelukast Sodium 10 MG QPM 12/03 2100 AC 12/07 PO 2249 Multivitamins 1 TAB DAILY 12/04 0900 AC 12/08 PO 0806 Omeprazole 40 MG DAILY AC 12/04 0700 AC 12/08 PO 0611 Oxycodone/ 1 TAB Q6P PRN 12/03 2300 AC 12/08 Acetaminophen PO 0641 Paricalcitol 7.5 MCG TuThSa PRN 12/06 1430 AC IV Paricalcitol 7.5 MCG TuThSa PRN 12/04 1500 AC IV Results Pertinent Lab Results: Laboratory Tests 12/08 12/07 0617 0745 Chemistry Sodium (137 - 145 mmol/L) 132 L 134 L Potassium (3.5 - 5.1 mmol/L) 4.5 4.2 Chloride (98 - 107 mmol/L) 93 L 97 L Carbon Dioxide (22 - 30 mmol/L) 25 27 Anion Gap (5 - 16) 13 10 BUN (9 - 20 mg/dL) 20 11 Creatinine (0.7 - 1.2 mg/dL) 5.8 *H 4.2 H Estimated GFR (>60 ml/min) 10 L 14 L BUN/Creatinine Ratio (7 - 25 %) 3.4 L 2.6 L Hematology CBC w Diff NO MAN DIFF REQ WBC (4.8 - 10.8 /CUMM) 6.1 RBC (4.70 - 6.10 /CUMM) 3.55 L Hgb (14.0 - 18.0 G/DL) 12.1 L Hct (42 - 52 %) 36.6 L MCV (80.0 - 94.0 FL) 103.2 H MCH (27.0 - 31.0 PG) 34.1 H MCHC (33.0 - 37.0 G/DL) 33.1 RDW (11.5 - 14.5 %) 16.2 H Plt Count (130 - 400 /CUMM) 323 MPV (7.4 - 10.4 FL) 8.7 Gran % (42.2 - 75.2 %) 48.1 Lymphocytes % (20.5 - 51.1 %) 32.9 Monocytes % (1.7 - 9.3 %) 14.0 H Eosinophils % (0 - 5 %) 4.2 Basophils % (0.0 - 2.0 %) 0.8 Absolute Granulocytes (1.4 - 6.5 /CUMM) 2.9 Absolute Lymphocytes (1.2 - 3.4 /CUMM) 2.0 Absolute Monocytes (0.10 - 0.60 /CUMM) 0.8 H Absolute Eosinophils (0.0 - 0.7 /CUMM) 0.3 Absolute Basophils (0.0 - 0.2 /CUMM) 0 12/06 12/06 1340 0600 Chemistry Sodium (137 - 145 mmol/L) 128 L Cancelled Potassium (3.5 - 5.1 mmol/L) 4.1 Cancelled Chloride (98 - 107 mmol/L) 94 L Cancelled Carbon Dioxide (22 - 30 mmol/L) 22 Cancelled Anion Gap (5 - 16) 12 Cancelled BUN (9 - 20 mg/dL) 21 H Cancelled Creatinine (0.7 - 1.2 mg/dL) 6.0 *H Cancelled Estimated GFR (>60 ml/min) 10 L BUN/Creatinine Ratio (7 - 25 %) 3.5 L Cancelled Glucose (65 - 99 mg/dL) 197 H Calcium (8.4 - 10.2 mg/dL) 8.6 Hematology CBC w Diff NO MAN DIFF REQ WBC (4.8 - 10.8 /CUMM) 6.0 RBC (4.70 - 6.10 /CUMM) 3.30 L Hgb (14.0 - 18.0 G/DL) 11.1 L Hct (42 - 52 %) 34.1 L MCV (80.0 - 94.0 FL) 103.3 H MCH (27.0 - 31.0 PG) 33.7 H MCHC (33.0 - 37.0 G/DL) 32.6 L RDW (11.5 - 14.5 %) 16.8 H Plt Count (130 - 400 /CUMM) 331 MPV (7.4 - 10.4 FL) 8.3 Gran % (42.2 - 75.2 %) 63.4 Lymphocytes % (20.5 - 51.1 %) 18.8 L Monocytes % (1.7 - 9.3 %) 13.0 H Eosinophils % (0 - 5 %) 4.1 Basophils % (0.0 - 2.0 %) 0.7 Absolute Granulocytes (1.4 - 6.5 /CUMM) 3.8 Absolute Lymphocytes (1.2 - 3.4 /CUMM) 1.1 L Absolute Monocytes (0.10 - 0.60 /CUMM) 0.8 H Absolute Eosinophils (0.0 - 0.7 /CUMM) 0.2 Absolute Basophils (0.0 - 0.2 /CUMM) 0
[2017-12-08 14:30] VITALS: BP 122/68
[2017-12-08 21:44] VITALS: BP 125/70
[2017-12-09 06:13] VITALS: BP 120/70
--- NOTE | 2017-12-09 07:59 | PN- Housestaff ---
SalcidoCain 12/09/17 0758: Subjective Follow-up For: Right foot osteomyelitis Peripheral vascular disease Dialysis Subjective: Patient seen and examined at bedside. He was preparing himself for dialysis. He denies fever, chills, chest pain, abdominal pain, diarrhea, constipation, burning micturition. Review of Systems Constitutional: Reports: see HPI. Objective Last 24 Hrs of Vital Signs/I&O Vital Signs Date Time Temp Pulse Resp B/P B/P Pulse O2 O2 Flow FiO2 Mean Ox Delivery Rate 12/09 1201 98.1 74 18 139/87 100 Room Air 12/09 0613 98.3 87 19 120/70 95 12/08 2144 98.1 79 19 125/70 99 Room Air Intake & Output 12/09 1600 12/09 0800 12/09 0000 Intake Total 320 60 250 Output Total Balance 320 60 250 Intake, IV 300 60 10 Intake, Oral 20 240 Patient 169 lb 173 lb Weight Physical Exam General Appearance: Alert, Oriented X3, Cooperative, No Acute Distress Assessment/Plan Assessment: 62-year-old male with past medical history of ESRD on hemodialysis left arm AV fistula, diabetes mellitus, COPD(not on home oxygen), history of diabetic foot ulcer discharge last week after starting treatment for osteomyelitis of right lower extremity, hyperlipidemia, CHF with ejection fraction of 40-45% preserved , presented to emergency department with referral for right lower The time of presentation to emergency department vitals and labs are given below Vitals: Blood pressure 134/75, temperature 98.2, pulse rate 75, respiratory rate 18. LABS: CVC, WBC: 7.7, hemoglobin 12.5, hematocrit 37.9, MCV 102.6, platelet 411 Sodium 131, potassium 4.2, chloride 93, carbon dioxide 27, anion gap 12, bun 25, creatinine 5.4, GFR 11 BUN/creatinine 4.6 glucose 253 Problems list: * Right foot cellulitis/ulcer/osteomyelitis * ESRD stage V on hemodialysis 3 times a week * Macrocytic anemia * Peripheral vascular disease s/p stent placement * Past medical history of CHF, hypertension, hyperlipidemia, diabetes *Right foot cellulitis/osteomyelitis /ulcer: * Patient went for OR procedure of the right lower extremity today * We will follow ID recommendation after procedure ESRD on dialysis stage V: * Dialysis done today * Will continue his routine dialysis * We will follow on renal function test * *Macrocytic anemia-possible mixed picture anemia in ESRD: -His anemia is multifactorial ESRD could be one of them -follow up B12/folate/iron studies these are normal -We will consider erythropoietin if H&H is dropped further Diabetes mellitus/hypertension/hyperlipidemia: -Endocrinology recommendation appreciated -Today sugar level was 152 -Currently he is on 3 units long-acting insulin Peripheral vascular disease: * 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 COPD (chronic obstructive pulmonary disease) 2. Osteomyelitis 3. Diabetic foot ulcer 4. Diabetic foot infection 5. Heart failure 6. ESRD (end stage renal disease) on dialysis 7. Full code status Pain Ratin Pain Location: No pain Pain Goal: Remain pain free Pain Plan: Pain management pathway Tomorrow's Labs & Rationales: MALVIN aVlentin West 12/09/17 1021: Attending MD Review Statement Attending Statement Attending MD Statement: examined this patient, discuss w/resident/PA/SENIOR PIPING DESIGNER, agreed w/resident/PA/SENIOR PIPING DESIGNER, discussed with family, reviewed EMR data (avail), discussed with nursing, discussed with case mgmt, reviewed images, amended to note Attending Assessment/Plan: No new complaints reported. Pateint wnet for dialysis. Hemodynamically stable. Planned podiatry procedure today. 1. Osteomyelitis right foot awaiting debridement/amputation 2. CKD/End Stage Renal Disease- on dialysis. 3. DM2- on insulin with epsiode of hypoglycemia. 4. GERD- on Omeprazole. 5. Hyperlipidemia- on Atorvastatin. 6. Chronic Pain - due to PVD/foot surgery. 7. Peripheral vascular disease s/p angioplasty Patient underwent CTA lower extremity suggestive of tibital disease and had vascular surgery intervention 12/05/17. C/w Antiplatelet therapy. continue IV Meropenem as per ID. ESRD Continue dialysis qTuThSa as per protocol. Dialysis today DM with hypoglycemia episode: Insulin management RISS and titrate insulin as needed. Held basal insulin for anticipated procedure. Resume diet after procedure gi/dvt prophyalxis
--- NOTE | 2017-12-09 08:13 | PN- Vascular Surgery ---
Subjective Subjective: foot feels ok, no complaints seen on HD Objective Vital Signs and I&Os Vital Signs Date Time Temp Pulse Resp B/P B/P Pulse O2 O2 Flow FiO2 Mean Ox Delivery Rate 12/09 612 98.3 87 19 120/70 95 12/08 2144 98.1 79 19 125/70 99 Room Air 12/08 1430 98.0 77 18 122/68 100 Room Air 12/08 0839 138/96 Intake & Output 12/09 1600 12/09 0800 12/09 0000 12/08 1600 12/08 0800 12/08 0000 Intake Total 60 250 800 480 480 Output Total Balance 60 250 800 480 480 Intake, IV 60 10 Intake, Oral 240 800 480 480 Number 2 0 Bowel Movements Patient 173 lb 172 lb Weight Weight Bed scale Measurement Method Physical Exam Peripheral Pulses: 2+ femoral (R), 2+ femoral (L) Extremities: normal inspection (puncture site ok), normal capillary refill Current Medications: Current Medications Sig/Rhett Start time Last Medication Dose Route Stop Time Status Admin Acetaminophen 650 MG Q6P PRN 12/03 1730 AC PO Aspirin Buffered 81 MG DAILY 12/04 0900 AC 12/08 PO 0806 Atorvastatin Calcium 10 MG 1700 12/04 1700 AC 12/08 PO 1635 Citalopram 20 MG DAILY 12/04 0900 AC 12/08 Hydrobromide PO 0806 Clopidogrel Bisulfate 75 MG DAILY 12/06 0900 AC 12/08 PO 0806 Dextrose/Sodium 1,000 ML Q20H 12/09 0600 AC 12/09 Chloride IV 0606 Heparin Sodium 5,000 UNIT Q8 12/03 2200 AC 12/08 (Porcine) SC 1308 Insulin Aspart 0 TIDAC/HS 12/05 1645 DC 12/08 WI 12/09 0000 1837 Insulin Detemir 3 UNITS BID 12/06 2100 DC 12/08 SC 0806 Insulin Human Regular 0 Q6 12/09 0100 AC 12/09 SC 0609 Meropenem 1 GM Q24H 12/03 1730 AC 12/08 IV 1635 Montelukast Sodium 10 MG QPM 12/03 2100 AC 12/08 PO 2147 Multivitamins 1 TAB DAILY 12/04 0900 AC 12/08 PO 0806 Omeprazole 40 MG DAILY AC 12/04 0700 AC 12/09 PO 0610 Oxycodone/ 1 TAB Q6P PRN 12/03 2300 AC 12/09 Acetaminophen PO 0609 Paricalcitol 7.5 MCG TuThSa PRN 12/06 1430 AC IV Paricalcitol 7.5 MCG TuThSa PRN 12/04 1500 AC IV Patient Medication 1 ED ONE ONE 12/08 1330 DC 12/08 Teaching ED 12/08 1331 1329 Results Last 48 Hours of Labs: Laboratory Tests 12/08 0617 Chemistry Sodium (137 - 145 mmol/L) 132 L Potassium (3.5 - 5.1 mmol/L) 4.5 Chloride (98 - 107 mmol/L) 93 L Carbon Dioxide (22 - 30 mmol/L) 25 Anion Gap (5 - 16) 13 BUN (9 - 20 mg/dL) 20 Creatinine (0.7 - 1.2 mg/dL) 5.8 *H Estimated GFR (>60 ml/min) 10 L BUN/Creatinine Ratio (7 - 25 %) 3.4 L Hematology CBC w Diff NO MAN DIFF REQ WBC (4.8 - 10.8 /CUMM) 6.1 RBC (4.70 - 6.10 /CUMM) 3.55 L Hgb (14.0 - 18.0 G/DL) 12.1 L Hct (42 - 52 %) 36.6 L MCV (80.0 - 94.0 FL) 103.2 H MCH (27.0 - 31.0 PG) 34.1 H MCHC (33.0 - 37.0 G/DL) 33.1 RDW (11.5 - 14.5 %) 16.2 H Plt Count (130 - 400 /CUMM) 323 MPV (7.4 - 10.4 FL) 8.7 Gran % (42.2 - 75.2 %) 48.1 Lymphocytes % (20.5 - 51.1 %) 32.9 Monocytes % (1.7 - 9.3 %) 14.0 H Eosinophils % (0 - 5 %) 4.2 Basophils % (0.0 - 2.0 %) 0.8 Absolute Granulocytes (1.4 - 6.5 /CUMM) 2.9 Absolute Lymphocytes (1.2 - 3.4 /CUMM) 2.0 Absolute Monocytes (0.10 - 0.60 /CUMM) 0.8 H Absolute Eosinophils (0.0 - 0.7 /CUMM) 0.3 Absolute Basophils (0.0 - 0.2 /CUMM) 0 Assessment/Plan Assessment/Plan s/p Rt pop angioplasty for diabetic foot wound cont abx, wound care will follow closely, should wound progress again stall would likely require repeat intervention v pedal bypass Problem List: 1. Chronic renal failure Core Measures Venous Thromboembolism VTE Risk Factors Age>40 No Mechanical VTE Prophylaxis d/t N/A MechProphylax Ordered No VTE Pharm Prophylaxis d/t NA PharmProphylax ordered Attending MD Review Statement Attending Statement Attending MD Statement: examined this patient
[2017-12-09 08:47] LABS: ABSOLUTE BASOPHIL COUNT 0 /CUMM (0.0-0.2); ABSOLUTE EOSINOPHIL COUNT 0.3 /CUMM (0.0-0.7); ABSOLUTE GRANULOCYTE CT 3.4 /CUMM (1.4-6.5); ABSOLUTE LYMPH COUNT 1.1 /CUMM (1.2-3.4); ABSOLUTE MONOCYTE COUNT 0.5 /CUMM (0.10-0.60); BASOPHIL % 0.9 % (0.0-2.0); EOSINOPHIL % 4.8 % (0-5); GRANULOCYTE % 63.6 % (42.2-75.2); MEAN CORPUSCULAR HGB 33.8 PG (27.0-31.0); MEAN CORPUSCULAR HGB CONC 33.2 G/DL (33.0-37.0); MEAN CORPUSCULAR VOLUME 101.7 FL (80.0-94.0); MEAN PLATELET VOLUME 8.8 FL (7.4-10.4); PLATELET COUNT 308 /CUMM (130-400); RBC DISTRIBUTION WIDTH 15.5 % (11.5-14.5); RED BLOOD CELL CT 3.34 /CUMM (4.70-6.10); WHITE BLOOD CELL COUNT 5.4 /CUMM (4.8-10.8)
--- NOTE | 2017-12-09 08:58 | PN- Nephrology ---
Assessment/Plan Nephrology Assessment: 1. End-stage renal disease. HD in progress 2. Peripheral vascular disease. 3. Diabetic feet. For debridement today 4. Volume status. He is several kilos below his stated dry. Suggestion: 1. Next hemodialysis will be on . 2. Given the fact that he is going to the OR much later today, will use one half dose of the bolus heparin only since it has been observed in the past he tends to clot. Subjective Subjective: Patient feels well. Seen on dialysis. According to transport at least his surgery is scheduled for 4 PM today. Objective Vital Signs and I&Os Vital Signs Date Time Temp Pulse Resp B/P B/P Pulse O2 O2 Flow FiO2 Mean Ox Delivery Rate 12/09 612 98.3 87 19 120/70 95 12/08 2144 98.1 79 19 125/70 99 Room Air 12/08 1430 98.0 77 18 122/68 100 Room Air Intake & Output 12/09 1600 12/09 0400 12/08 1600 12/08 0400 12/07 1600 12/07 0400 Intake Total 60 250 1280 480 600 Output Total 150 Balance 60 250 1280 480 450 Intake, IV 60 10 Intake, Oral 240 1280 480 600 Number 2 0 Bowel Movements Output, Urine 150 Patient 173 lb 172 lb 169 lb Weight Weight Bed scale Bed scale Measurement Method Physical Exam: General: Well-developed white male in NAD Skin: No rash or jaundice HEENT: Conjunctivae pink, sclerae anicteric, Neck: Without masses or thyromegaly, no supraclavicular or cervical adenopathy Chest: Clear to P&A Heart: Regular rate and rhythm without S3 or rub Abdomen: Soft and nontender without palpable masses or organomegaly Extremities: Without cyanosis; no significant edema; right foot dressing intact; left upper arm AVF patent Neuro: Cognitively intact, no focal findings, no asterixis or myoclonus Current Medications: Current Medications Sig/Rhett Start time Last Medication Dose Route Stop Time Status Admin Acetaminophen 650 MG Q6P PRN 12/03 1730 AC PO Aspirin Buffered 81 MG DAILY 12/04 09 AC 12/08 PO 08 Atorvastatin Calcium 10 MG 1700 12/04 1700 AC 12/08 PO 1635 Citalopram 20 MG DAILY 12/04 899 AC 12/08 Hydrobromide PO 08 Clopidogrel Bisulfate 75 MG DAILY 12/06 0900 AC 12/08 PO 0806 Dextrose/Sodium 1,000 ML Q20H 12/09 0600 AC 12/09 Chloride IV 0606 Heparin Sodium 5,000 UNIT Q8 12/03 2200 AC 12/08 (Porcine) SC 1308 Insulin Aspart 0 TIDAC/HS 12/05 1645 DC 12/08 SC 12/09 0000 1837 Insulin Detemir 3 UNITS BID 12/06 2100 DC 12/08 SC 0806 Insulin Human Regular 0 Q6 12/09 0100 AC 12/09 SC 0609 Meropenem 1 GM Q24H 12/03 1730 AC 12/08 IV 1635 Montelukast Sodium 10 MG QPM 12/03 2100 AC 12/08 PO 2147 Multivitamins 1 TAB DAILY 12/04 0900 AC 12/08 PO 0806 Omeprazole 40 MG DAILY AC 12/04 0700 AC 12/09 PO 0610 Oxycodone/ 1 TAB Q6P PRN 12/03 2300 AC 12/09 Acetaminophen PO 0609 Paricalcitol 7.5 MCG TuThSa PRN 12/06 1430 AC IV Paricalcitol 7.5 MCG TuThSa PRN 12/04 1500 AC IV Patient Medication 1 ED ONE ONE 12/08 1330 MO 12/08 Teaching ED 12/08 1331 1329 Results Pertinent Lab Results: Laboratory Tests 12/09 12/08 0750 0617 Chemistry Sodium (137 - 145 mmol/L) Pending 132 L Potassium (3.5 - 5.1 mmol/L) Pending 4.5 Chloride (98 - 107 mmol/L) Pending 93 L Carbon Dioxide (22 - 30 mmol/L) Pending 25 Anion Gap (5 - 16) Pending 13 BUN (9 - 20 mg/dL) Pending 20 Creatinine (0.7 - 1.2 mg/dL) Pending 5.8 *H Estimated GFR (>60 ml/min) 10 L BUN/Creatinine Ratio (7 - 25 %) Pending 3.4 L Glucose Pending Calcium Pending Hematology CBC w Diff NO MAN DIFF REQ NO MAN DIFF REQ WBC (4.8 - 10.8 /CUMM) 5.4 6.1 RBC (4.70 - 6.10 /CUMM) 3.34 L 3.55 L Hgb (14.0 - 18.0 G/DL) 11.3 L 12.1 L Hct (42 - 52 %) 34.0 L 36.6 L MCV (80.0 - 94.0 FL) 101.7 H 103.2 H MCH (27.0 - 31.0 PG) 33.8 H 34.1 H MCHC (33.0 - 37.0 G/DL) 33.2 33.1 RDW (11.5 - 14.5 %) 15.5 H 16.2 H Plt Count (130 - 400 /CUMM) 308 323 MPV (7.4 - 10.4 FL) 8.8 8.7 Gran % (42.2 - 75.2 %) 63.6 48.1 Lymphocytes % (20.5 - 51.1 %) 20.7 32.9 Monocytes % (1.7 - 9.3 %) 10.0 H 14.0 H Eosinophils % (0 - 5 %) 4.8 4.2 Basophils % (0.0 - 2.0 %) 0.9 0.8 Absolute Granulocytes (1.4 - 6.5 /CUMM) 3.4 2.9 Absolute Lymphocytes (1.2 - 3.4 /CUMM) 1.1 L 2.0 Absolute Monocytes (0.10 - 0.60 /CUMM) 0.5 0.8 H Absolute Eosinophils (0.0 - 0.7 /CUMM) 0.3 0.3 Absolute Basophils (0.0 - 0.2 /CUMM) 0 0 /16 /15 0745 1340 Chemistry Sodium (137 - 145 mmol/L) 134 L 128 L Potassium (3.5 - 5.1 mmol/L) 4.2 4.1 Chloride (98 - 107 mmol/L) 97 L 94 L Carbon Dioxide (22 - 30 mmol/L) 27 22 Anion Gap (5 - 16) 10 12 BUN (9 - 20 mg/dL) 11 21 H Creatinine (0.7 - 1.2 mg/dL) 4.2 H 6.0 *H Estimated GFR (>60 ml/min) 14 L 10 L BUN/Creatinine Ratio (7 - 25 %) 2.6 L 3.5 L Glucose (65 - 99 mg/dL) 197 H Calcium (8.4 - 10.2 mg/dL) 8.6 Hematology CBC w Diff NO MAN DIFF REQ WBC (4.8 - 10.8 /CUMM) 6.0 RBC (4.70 - 6.10 /CUMM) 3.30 L Hgb (14.0 - 18.0 G/DL) 11.1 L Hct (42 - 52 %) 34.1 L MCV (80.0 - 94.0 FL) 103.3 H MCH (27.0 - 31.0 PG) 33.7 H MCHC (33.0 - 37.0 G/DL) 32.6 L RDW (11.5 - 14.5 %) 16.8 H Plt Count (130 - 400 /CUMM) 331 MPV (7.4 - 10.4 FL) 8.3 Gran % (42.2 - 75.2 %) 63.4 Lymphocytes % (20.5 - 51.1 %) 18.8 L Monocytes % (1.7 - 9.3 %) 13.0 H Eosinophils % (0 - 5 %) 4.1 Basophils % (0.0 - 2.0 %) 0.7 Absolute Granulocytes (1.4 - 6.5 /CUMM) 3.8 Absolute Lymphocytes (1.2 - 3.4 /CUMM) 1.1 L Absolute Monocytes (0.10 - 0.60 /CUMM) 0.8 H Absolute Eosinophils (0.0 - 0.7 /CUMM) 0.2 Absolute Basophils (0.0 - 0.2 /CUMM) 0
[2017-12-09 12:01] VITALS: BP 139/87
--- NOTE | 2017-12-09 12:02 | Operative Report ---
Operative/Inv Procedure Report Surgery Date: 12/05/17 Name of Procedure: right below knee popliteal angioplasty Pre-Operative Diagnosis: non-healing ulcer RLE and atherosclerosis Post-Operative Diagnosis: same Estimated Blood Loss: scant Surgeon/Flash Drier Operator: Chaparro Mejia MD Anesthesia: local monitored anesthesi Implants: none Specimens: none Complications: none Condition: stable Operative/Procedure Note Note: Patient is brought to the operating room both groins prepped and draped in usual sterile manner. A full timeout performed to the exact site verification. A micropuncture technique was used to cannulate left common femoral artery retrograde fashion. A 4 Burkinan sheath was inserted followed by a 4 Burkinan flush catheter. Abdominal aortography was obtained as well as bilateral pelvic angiography. The cath was then used to advance a Glidewire to the right common femoral artery. The catheter was advanced over the wire to the right common femoral artery. Right lower extremity sequential angiography was obtained. Catheter and sheath and exchanged for a 7 Burkinan Rabie sheath which was placed in the common femoral artery. Patient then administered heparin. Working through this sheath a quick cross catheter and Glidewire were used to reverse the below-knee popliteal artery stenosis. A 4 x 40 mm balloon was then used antibiotic the stenosis. Repeat angiography obtained cephalad result a quick cross cath and Glidewire, is used to try to traverse the both the posterior tibial artery and antibiotic lesions. This proves unsuccessful. A Rod 18 wire was then used to try to cross these lesions as well with a 018 Quick cross catheter. This also proved unsuccessful. At this point attempts to cross these lesions were banded. Catheter sheath and then withdrawn to the left iliac artery left femoral arteriography was obtained. Catheter and sheath were then exchanged for a 6 Burkinan Angio-Seal was successfully closed the left groin arteriotomy. Patient tolerated procedure well and was taken to the recovery room in stable condition Findings: Right lower extremity: The common femoral artery profundus femoris artery and superficial arteries widely patent including the superficial artery stent. The popliteal artery is patent above the knee below the knee there is a 67% stenosis. His runoff via a large and robust peroneal artery which gives rise to both the distal anterior tibial and posterior tibial arteries which are continuous with the dorsalis pedis and plantar vessels respectively. Post angioplasty below-knee popliteal artery stenosis: There is no residual stenosis thrombosed dissection or distal lesion. Discharge Disposition: PACU CC: Jackie MEDINA,Chaparro Bernstein
--- NOTE | 2017-12-09 15:46 | Operative Report ---
Operative/Inv Procedure Report Surgery Date: 12/09/17 Name of Procedure: 1 open incision and drainage deep to the deep fascia with exposure of the extensor and flexor tendon and tendon sheath multiple sites right 2 revisional, partial fifth ray resection right foot 3 intraoperative administration of negative pressure wound therapy 4 excisional debrided Pre-Operative Diagnosis: 1 open necrotic wound right foot 2 osteomyelitis right foot 3 diabetic peripheral neuropathy 4 peripheral arterial disease Post-Operative Diagnosis: The same Estimated Blood Loss: less than 50ml Surgeon/Net Developer Programmer: JEROMY CALDERÓN DPM Anesthesia: moderate sedation, block Operative/Procedure Note Note: After obtaining informed consent the patient was brought to the operating room and placed on the operating table in the supine position. The patient was then securely fastened to the operating table utilizing a safety belt. After administration of IV sedation, 10 cc of 0.5% Marcaine plain was infiltrated about the patient's right ankle. The right foot and ankle were then scrubbed, prepped and draped in the usual aseptic manner. Attention directed to the lateral aspect the right foot, where a large full-thickness necrotic was identified. A 15 blade was utilized sharply advise skin margins. The dissection was then carried down deep to the deep fascia with exposure of the extensor and flexor tendon and tendon sheath multiple sites, both proximally and distally. All necrotic, nonviable infected tissue was sharply evacuated from the wound bed. The open wound was then carried down to the periosteum overlying the stump of the fifth metatarsal was incised and reflected. A sagittal bone saw was utilized to remove the distal exposed 3 cm. This was sent as specimen for pathologic inspection. The open wound was then irrigated with 3 L of normal sterile saline infused with 50,000 units of bacitracin. Following this, the foot was redraped and the surgeons top pleasure tragically lost. Any bleeding vessels identified were cauterized or ligated as encountered. Next, negative pressure wound therapy was placed followed by the application of Kerlix and an Shawn wrap. The patient was noted to tolerate both procedure and anesthesia well and the patient was transported from the operating room to recovery with vital signs stable.
--- NOTE | 2017-12-09 16:21 | PN- Infect Dx ---
Subjective Subjective: Afebrile without complaints Objective Last 24 Hrs of Vital Signs/I&O Vital Signs Date Time Temp Pulse Resp B/P B/P Pulse O2 O2 Flow FiO2 Mean Ox Delivery Rate 12/09 1201 98.1 74 18 139/87 100 Room Air 12/09 0613 98.3 87 19 120/70 95 12/08 2144 98.1 79 19 125/70 99 Room Air Intake & Output 12/09 1600 12/09 0800 12/09 0000 Intake Total 320 60 250 Output Total Balance 320 60 250 Intake, IV 300 60 10 Intake, Oral 20 240 Patient 169 lb 173 lb Weight Physical Exam Other Physical Findings: He appears comfortable in no acute distress, seen in the recovery room after surgery Extremities right foot dressing intact; wound VAC in place Results Last 24 Hours of Lab Results: Laboratory Tests 12/09 12/09 0750 0600 Chemistry Sodium (137 - 145 mmol/L) 130 L Cancelled Potassium (3.5 - 5.1 mmol/L) 4.2 Cancelled Chloride (98 - 107 mmol/L) 93 L Cancelled Carbon Dioxide (22 - 30 mmol/L) 21 L Cancelled Anion Gap (5 - 16) 16 Cancelled BUN (9 - 20 mg/dL) 27 H Cancelled Creatinine (0.7 - 1.2 mg/dL) 6.6 *H Cancelled Estimated GFR (>60 ml/min) 9 L BUN/Creatinine Ratio (7 - 25 %) 4.1 L Cancelled Glucose (65 - 99 mg/dL) 181 H Calcium (8.4 - 10.2 mg/dL) 8.7 Hematology CBC w Diff NO MAN DIFF REQ WBC (4.8 - 10.8 /CUMM) 5.4 RBC (4.70 - 6.10 /CUMM) 3.34 L Hgb (14.0 - 18.0 G/DL) 11.3 L Hct (42 - 52 %) 34.0 L MCV (80.0 - 94.0 FL) 101.7 H MCH (27.0 - 31.0 PG) 33.8 H MCHC (33.0 - 37.0 G/DL) 33.2 RDW (11.5 - 14.5 %) 15.5 H Plt Count (130 - 400 /CUMM) 308 MPV (7.4 - 10.4 FL) 8.8 Gran % (42.2 - 75.2 %) 63.6 Lymphocytes % (20.5 - 51.1 %) 20.7 Monocytes % (1.7 - 9.3 %) 10.0 H Eosinophils % (0 - 5 %) 4.8 Basophils % (0.0 - 2.0 %) 0.9 Absolute Granulocytes (1.4 - 6.5 /CUMM) 3.4 Absolute Lymphocytes (1.2 - 3.4 /CUMM) 1.1 L Absolute Monocytes (0.10 - 0.60 /CUMM) 0.5 Absolute Eosinophils (0.0 - 0.7 /CUMM) 0.3 Absolute Basophils (0.0 - 0.2 /CUMM) 0 Last 24 Hours of Wesley Results: No recent cultures Assessment/Plan ID Impression: Stable, status post revisional, partial fifth ray resection of the right foot earlier today for residual osteomyelitis of the right foot, now 18 days status post partial fifth ray resection for polymicrobial osteomyelitis, with his temperatures and white blood cell count remaining normal on Meropenem. Have discussed with Podiatry, who feels that he will need to be continued on a prolonged course of antibiotics for residual osteomyelitis and, therefore, he will require more permanent IV access. Suggestion: 1. Would obtain a postop baseline ESR and x-ray of the right foot 2. Would pursue placement of a Pro-Line (will need to hold the Plavix for 2 days and subcutaneous Heparin the day of the procedure per IR) 3. Continue Meropenem to plan on a 4 week course of antibiotics from today ( until January 06)
[2017-12-09 17:00] VITALS: BP 108/64
--- NOTE | 2017-12-09 19:10 | RADIOLOGY REPORT ---
EXAMINATION: XR FOOT, RIGHT CLINICAL INFORMATION: Status post debridement. COMPARISON: Right foot 12/03/2017 TECHNIQUE: 3 views of the right foot. FINDINGS: There is a drain over the lateral side of the foot. Patient has had amputation of the fifth metatarsal proximal shaft. There is decreased density of the head of the fourth metatarsal and of the proximal shaft and articular surface of the proximal phalanx of the fourth toe. The cortical margin of both bones has become indistinct. This is concerning for developing bone destruction, osteomyelitis and septic joint. IMPRESSION: Decreasing bone density of the head of the fourth metatarsal and the proximal phalanges of fourth toe which is concerning for osteomyelitis, septic joint
[2017-12-09 21:08] VITALS: BP 120/59
[2017-12-10 06:57] VITALS: BP 120/54
--- NOTE | 2017-12-10 07:43 | PN- Housestaff ---
SalcidoCherylCain 12/10/17 0742: Subjective Follow-up For: Right foot osteomyelitis Dialysis Subjective: Patient seen and examined at bedside. He was complaining mild pain at right foot. he denies fever, chills, chest pain, abdominal pain, diarrhea, constipation, burning micturition. Review of Systems Constitutional: Reports: see HPI. Objective Last 24 Hrs of Vital Signs/I&O Vital Signs Date Time Temp Pulse Resp B/P B/P Pulse O2 O2 Flow FiO2 Mean Ox Delivery Rate 12/10 1408 97.4 81 18 120/79 99 12/10 0657 99.3 77 19 120/54 88 12/09 2108 97.8 72 19 120/59 97 Room Air Intake & Output 12/10 1600 12/10 0800 12/10 0000 Intake Total 480 250 Output Total 50 Balance 430 250 Intake, IV 0 10 Intake, Oral 480 240 Number 0 1 Bowel Movements Output, 50 Drainage Patient 188 lb Weight Physical Exam General Appearance: Alert, Oriented X3, Cooperative, No Acute Distress HEENT: Atraumatic, PERRLA, EOMI, Mucous Membr. moist/pink Cardiovascular: Normal S1, Normal S2 Lungs: Clear to Auscultation, Normal Air Movement Abdomen: Normal Bowel Sounds, Soft, No Tenderness, No Hepatospenomegaly Extremities: No Clubbing, No Cyanosis, Normal Pulses Assessment/Plan Assessment: 62-year-old male with past medical history of ESRD on hemodialysis left arm AV fistula, diabetes mellitus, COPD(not on home oxygen), history of diabetic foot ulcer discharge last week after starting treatment for osteomyelitis of right lower extremity, hyperlipidemia, CHF with ejection fraction of 40-45% preserved , presented to emergency department with referral for right lower The time of presentation to emergency department vitals and labs are given below Vitals: Blood pressure 134/75, temperature 98.2, pulse rate 75, respiratory rate 18. LABS: CVC, WBC: 7.7, hemoglobin 12.5, hematocrit 37.9, MCV 102.6, platelet 411 Sodium 131, potassium 4.2, chloride 93, carbon dioxide 27, anion gap 12, bun 25, creatinine 5.4, GFR 11 BUN/creatinine 4.6 glucose 253 Problems list: * Right foot cellulitis/ulcer/osteomyelitis * ESRD stage V on hemodialysis 3 times a week * Macrocytic anemia * Peripheral vascular disease s/p stent placement * Past medical history of CHF, hypertension, hyperlipidemia, diabetes *Right foot cellulitis/osteomyelitis /ulcer: * Patient procedure done at OR by Dr. Howell * Patient is planned to discharge on meropenem after Prolene tomorrow * Discuss with IR * Dialysis planned tomorrow * X-ray showing osteomyelitis/septic joint of the right foot * ESR is raised 45 ESRD on dialysis stage V: * Dialysis planed tomorrow according to routine should your * Will continue his routine dialysis * We will follow on renal function test * *Macrocytic anemia-possible mixed picture anemia in ESRD: -His anemia is multifactorial ESRD could be one of them -follow up B12/folate/iron studies these are normal -We will consider erythropoietin if H&H is dropped further Diabetes mellitus/hypertension/hyperlipidemia: -We will continue his insulin according to Endocrinology recommendation Peripheral vascular disease: * 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 COPD (chronic obstructive pulmonary disease) 2. Osteomyelitis 3. Diabetic foot infection 4. Diabetic foot ulcer 5. Heart failure 6. ESRD (end stage renal disease) on dialysis 7. Full code status 8. DVT prophylaxis Pain Ratin Pain Location: Right foot Pain Goal: Remain pain free Pain Plan: Pain management pathway Tomorrow's Labs & Rationales: Valentin Coto 12/10/17 1120: Attending MD Review Statement Attending Statement Attending MD Statement: examined this patient, discuss w/resident/PA/CODING TECHNICIAN, agreed w/resident/PA/CODING TECHNICIAN, discussed with family, reviewed EMR data (avail), discussed with nursing, discussed with case mgmt, reviewed images, amended to note Attending Assessment/Plan: No new complaints reported. Pateint underwent debridement and revisional, partial fifth ray resection right foot for residual OM with wound vac placement. Hemodynamically stable. 1. Osteomyelitis right foot s/p debridement/amputation 2. CKD/End Stage Renal Disease- on dialysis. 3. DM2- on insulin with epsiode of hypoglycemia. 4. GERD- on Omeprazole. 5. Hyperlipidemia- on Atorvastatin. 6. Chronic Pain - due to PVD/foot surgery. 7. Peripheral vascular disease s/p angioplasty Patient underwent CTA lower extremity suggestive of tibital disease and had vascular surgery intervention 12/05/17. C/w Antiplatelet therapy. continue IV Meropenem as per ID. Proline placeement tomorrow: Held plavix as per IR recs. Abx choice and duration as per ID. ESRD Continue dialysis qTuThSa as per protocol. Nehprology following DM Insulin management RISS and titrate insulin as needed. gi/dvt prophyalxis
--- NOTE | 2017-12-10 10:07 | PN- Nephrology ---
Assessment/Plan Nephrology Assessment: 1. End-stage renal disease. HD tomorrow 2. Peripheral vascular disease. 3. Diabetic feet. Status post debridement yesterday with a wound VAC 4. Volume status. He is several kilos below his stated dry. Suggestion: 1. Hemodialysis will be offered tomorrow 2. Would strongly suggest stopping blood draws on nondialysis days. From a dialysis them point, he remains stable. There is no reason to check blood work on nondialysis days. Subjective Subjective: Patient feels well. Awaiting disposition. Objective Vital Signs and I&Os Vital Signs Date Time Temp Pulse Resp B/P B/P Pulse O2 O2 Flow FiO2 Mean Ox Delivery Rate 12/10 0657 99.3 77 19 120/54 88 12/09 2108 97.8 72 19 120/59 97 Room Air 12/09 1700 97.7 77 18 108/64 97 Room Air 12/09 1201 98.1 74 18 139/87 100 Room Air Intake & Output 12/10 1600 12/10 0400 12/09 1600 12/09 0400 12/08 1600 12/08 0400 Intake Total 480 250 582 387 3567 480 Output Total 50 Balance 430 250 216 532 1246 480 Intake, IV 0 10 360 10 Intake, Oral 480 240 20 240 1280 480 Number 0 1 2 0 Bowel Movements Output, 50 Drainage Patient 188 lb 169 lb 172 lb Weight Weight Bed scale Measurement Method Physical Exam: General: Well-developed white male in NAD Skin: No rash or jaundice HEENT: Conjunctivae pink, sclerae anicteric, Neck: Without masses or thyromegaly, no supraclavicular or cervical adenopathy Chest: Clear to P&A Heart: Regular rate and rhythm without S3 or rub Abdomen: Soft and nontender without palpable masses or organomegaly Extremities: Without cyanosis; no significant edema; right foot dressing intact wound VAC in place; left upper arm AVF patent Neuro: Cognitively intact, no focal findings, no asterixis or myoclonus Current Medications: Current Medications Sig/Rhett Start time Last Medication Dose Route Stop Time Status Admin Acetaminophen 650 MG Q6P PRN 12/03 1730 AC PO Aspirin Buffered 81 MG DAILY 12/04 09 AC 12/09 PO 1753 Atorvastatin Calcium 10 MG 1700 12/04 1700 AC 12/09 PO 1753 Citalopram 20 MG DAILY 12/04 0900 AC 12/10 Hydrobromide PO 0850 Clopidogrel Bisulfate 75 MG DAILY 12/06 0900 DC 12/08 PO 0806 Dextrose/Sodium 1,000 ML Q20H 12/09 0600 DC 12/09 Chloride IV 0606 Fentanyl Citrate 0 .STK-MED ONE 12/09 1448 DC .ROUTE Heparin Sodium 5,000 UNIT Q8 12/03 2200 AC 12/10 (Porcine) SC 0559 Insulin Aspart 0 TIDAC/HS 12/09 1700 AC 12/10 SC 0850 Insulin Detemir 3 UNITS BID 12/09 2100 AC 12/10 SC 0850 Insulin Human Regular 0 Q6 12/09 0100 DC 12/09 SC 0609 Loperamide HCl 2 MG ONE ONE 12/10 0115 DC 12/10 PO 12/10 0116 0559 Meropenem 1 GM Q24H 12/03 1730 AC 12/09 IV 1753 Midazolam HCl 0 .STK-MED ONE 12/09 1448 DC .ROUTE Montelukast Sodium 10 MG QPM 12/03 2100 AC 12/09 PO 2034 Multivitamins 1 TAB DAILY 12/04 0900 AC 12/10 PO 0850 Omeprazole 40 MG DAILY AC 12/04 0700 AC 12/10 PO 0559 Oxycodone/ 1 TAB Q6P PRN 12/03 2300 AC 12/10 Acetaminophen PO 0813 Paricalcitol 7.5 MCG TuThSa PRN 12/06 1430 AC IV Paricalcitol 7.5 MCG TuThSa PRN 12/04 1500 AC IV Results Pertinent Lab Results: Laboratory Tests 12/10 12/09 12/09 0815 0750 0600 Chemistry Sodium (137 - 145 mmol/L) 132 L 130 L Cancelled Potassium (3.5 - 5.1 mmol/L) 4.5 4.2 Cancelled Chloride (98 - 107 mmol/L) 97 L 93 L Cancelled Carbon Dioxide (22 - 30 mmol/L) 23 21 L Cancelled Anion Gap (5 - 16) 12 16 Cancelled BUN (9 - 20 mg/dL) 20 27 H Cancelled Creatinine (0.7 - 1.2 mg/dL) 4.4 H 6.6 *H Cancelled Estimated GFR (>60 ml/min) 14 L 9 L BUN/Creatinine Ratio (7 - 25 %) 4.5 L 4.1 L Cancelled Glucose (65 - 99 mg/dL) 181 H Calcium (8.4 - 10.2 mg/dL) 8.7 Hematology CBC w Diff NO MAN DIFF REQ WBC (4.8 - 10.8 /CUMM) 5.4 RBC (4.70 - 6.10 /CUMM) 3.34 L Hgb (14.0 - 18.0 G/DL) 11.3 L Hct (42 - 52 %) 34.0 L MCV (80.0 - 94.0 FL) 101.7 H MCH (27.0 - 31.0 PG) 33.8 H MCHC (33.0 - 37.0 G/DL) 33.2 RDW (11.5 - 14.5 %) 15.5 H Plt Count (130 - 400 /CUMM) 308 MPV (7.4 - 10.4 FL) 8.8 Gran % (42.2 - 75.2 %) 63.6 Lymphocytes % (20.5 - 51.1 %) 20.7 Monocytes % (1.7 - 9.3 %) 10.0 H Eosinophils % (0 - 5 %) 4.8 Basophils % (0.0 - 2.0 %) 0.9 Absolute Granulocytes (1.4 - 6.5 /CUMM) 3.4 Absolute Lymphocytes (1.2 - 3.4 /CUMM) 1.1 L Absolute Monocytes (0.10 - 0.60 /CUMM) 0.5 Absolute Eosinophils (0.0 - 0.7 /CUMM) 0.3 Absolute Basophils (0.0 - 0.2 /CUMM) 0 ESR [place] Pending 12/08 0617 Chemistry Sodium (137 - 145 mmol/L) 132 L Potassium (3.5 - 5.1 mmol/L) 4.5 Chloride (98 - 107 mmol/L) 93 L Carbon Dioxide (22 - 30 mmol/L) 25 Anion Gap (5 - 16) 13 BUN (9 - 20 mg/dL) 20 Creatinine (0.7 - 1.2 mg/dL) 5.8 *H Estimated GFR (>60 ml/min) 10 L BUN/Creatinine Ratio (7 - 25 %) 3.4 L Hematology CBC w Diff NO MAN DIFF REQ WBC (4.8 - 10.8 /CUMM) 6.1 RBC (4.70 - 6.10 /CUMM) 3.55 L Hgb (14.0 - 18.0 G/DL) 12.1 L Hct (42 - 52 %) 36.6 L MCV (80.0 - 94.0 FL) 103.2 H MCH (27.0 - 31.0 PG) 34.1 H MCHC (33.0 - 37.0 G/DL) 33.1 RDW (11.5 - 14.5 %) 16.2 H Plt Count (130 - 400 /CUMM) 323 MPV (7.4 - 10.4 FL) 8.7 Gran % (42.2 - 75.2 %) 48.1 Lymphocytes % (20.5 - 51.1 %) 32.9 Monocytes % (1.7 - 9.3 %) 14.0 H Eosinophils % (0 - 5 %) 4.2 Basophils % (0.0 - 2.0 %) 0.8 Absolute Granulocytes (1.4 - 6.5 /CUMM) 2.9 Absolute Lymphocytes (1.2 - 3.4 /CUMM) 2.0 Absolute Monocytes (0.10 - 0.60 /CUMM) 0.8 H Absolute Eosinophils (0.0 - 0.7 /CUMM) 0.3 Absolute Basophils (0.0 - 0.2 /CUMM) 0
[2017-12-10 14:08] VITALS: BP 120/79
[2017-12-10 22:58] VITALS: BP 110/72
--- NOTE | 2017-12-11 06:55 | PN- Housestaff ---
LolyCain 12/11/17 0655: Subjective Follow-up For: Right foot osteomyelitis dialysis PVD Subjective: Patient seen and examined at bedside. He is complaining of pain in his right foot. He denies Fever, chills, abdominla pain, diarrhea, constipation, burning micturation. Review of Systems Constitutional: Reports: see HPI. Objective Last 24 Hrs of Vital Signs/I&O Vital Signs Date Time Temp Pulse Resp B/P B/P Pulse O2 O2 Flow FiO2 Mean Ox Delivery Rate 12/11 1333 98.0 66 18 118/68 97 Room Air Room Air 12/11 0704 97.0 75 19 110/70 97 12/10 2258 98.4 77 19 110/72 100 Room Air Intake & Output 12/11 1600 12/11 0800 12/11 0000 Intake Total 600 490 Output Total 5 Balance 600 485 Intake, IV 10 Intake, Oral 600 480 Number 0 Bowel Movements Output, 5 Drainage Patient 178 lb 180 lb Weight Weight Bed scale Measurement Method Physical Exam General Appearance: Alert, Oriented X3, Cooperative, No Acute Distress Cardiovascular: Normal S1, Normal S2, No Murmurs Lungs: Clear to Auscultation, Normal Air Movement Abdomen: Normal Bowel Sounds, Soft, No Tenderness, No Hepatospenomegaly, No Masses Neurological: Normal Gait, Normal Speech, Strength at 5/5 X4 Ext, Normal Tone Assessment/Plan Assessment: Assessment: 62-year-old male with past medical history of ESRD on hemodialysis left arm AV fistula, diabetes mellitus, COPD(not on home oxygen), history of diabetic foot ulcer discharge last week after starting treatment for osteomyelitis of right lower extremity, hyperlipidemia, CHF with ejection fraction of 40-45% preserved , presented to emergency department with referral for right lower The time of presentation to emergency department vitals and labs are given below Vitals: Blood pressure 134/75, temperature 98.2, pulse rate 75, respiratory rate 18. LABS: CVC, WBC: 7.7, hemoglobin 12.5, hematocrit 37.9, MCV 102.6, platelet 411 Sodium 131, potassium 4.2, chloride 93, carbon dioxide 27, anion gap 12, bun 25, creatinine 5.4, GFR 11 BUN/creatinine 4.6 glucose 253 Problems list: * Right foot cellulitis/ulcer/osteomyelitis * ESRD stage V on hemodialysis 3 days a week * Macrocytic anemia * Peripheral vascular disease s/p Angioplasty * Past medical history of CHF, hypertension, hyperlipidemia, diabetes *Right foot cellulitis/osteomyelitis /ulcer: * Patient was refrred by Dr Lott for revaliuation and debridment * OR procedure is done * ID recommendatio apprecited * We will discharge patient on meropenim for 4 weeks * Will place a proline tommorrow * Anticipated D/C after proline * He will be NPO from midnight ESRD on dialysis stage V: * Will continue his routine dialysis Friday, , friday * We will follow on renal function test on Dialysis day * Will follow Nephrology recommednation Diabetes mellitus/hypertension/hyperlipidemia: -We will continue his insulin according to Endocrinology recommendation -he is very sensitive to insulin will hold his glargine -Will hold his Novolog and and glargine from midnight Peripheral vascular disease: * Status post RESEARCH HOME ECONOMIST * Pulse in the right lower extremity are normal now * anti platelet started * Leonardo continue statin * Will follow up peripheral vascular disease further recommendation *Full code *GI DVT prophylaxis Problem List: 1. COPD (chronic obstructive pulmonary disease) 2. Osteomyelitis 3. Diabetic foot infection 4. Diabetic foot ulcer 5. Autonomic dysfunction with type 2 diabetes mellitus 6. Heart failure 7. DVT prophylaxis Pain Ratin Pain Location: Right foot Pain Goal: Remain pain free Pain Plan: Pain mangement pathway Tomorrow's Labs & Rationales: no labs Valentin West 12/11/17 1015: Attending MD Review Statement Attending Statement Attending MD Statement: examined this patient, discuss w/resident/PA/COCOA ROASTER, agreed w/resident/PA/COCOA ROASTER, discussed with family, reviewed EMR data (avail), discussed with nursing, discussed with case mgmt, reviewed images, amended to note Attending Assessment/Plan: No new complaints reported. Went for dialysis this morning. Pateint underwent debridement and revisional, partial fifth ray resection right foot for residual OM with wound vac placement. Hemodynamically stable. 1. Osteomyelitis right foot s/p debridement 2. CKD/End Stage Renal Disease- on dialysis. 3. DM2- on insulin with epsiode of hypoglycemia. 4. GERD- on Omeprazole. 5. Hyperlipidemia- on Atorvastatin. 6. Chronic Pain - due to PVD/foot surgery. 7. Peripheral vascular disease s/p angioplasty Patient underwent CTA lower extremity suggestive of tibital disease and had vascular surgery intervention 12/05/17. C/w Antiplatelet therapy. continue IV Meropenem as per ID. Proline placeement today. Abx choice and duration as per ID. ESRD Continue dialysis qTuThSa as per protocol. Nephrology following DM Insulin management RISS and titrate insulin as needed. gi/dvt prophyalxis Anticipate discharge soon.
[2017-12-11 07:04] VITALS: BP 110/70
[2017-12-11 10:35] LABS: ABSOLUTE BASOPHIL COUNT 0.1 /CUMM (0.0-0.2); ABSOLUTE EOSINOPHIL COUNT 0.3 /CUMM (0.0-0.7); ABSOLUTE GRANULOCYTE CT 3.5 /CUMM (1.4-6.5); ABSOLUTE LYMPH COUNT 1.2 /CUMM (1.2-3.4); ABSOLUTE MONOCYTE COUNT 0.8 /CUMM (0.10-0.60); BASOPHIL % 1.2 % (0.0-2.0); EOSINOPHIL % 5.1 % (0-5); GRANULOCYTE % 59.2 % (42.2-75.2); HEMATOCRIT 33.7 % (42-52); MEAN CORPUSCULAR HGB 33.6 PG (27.0-31.0); MEAN CORPUSCULAR HGB CONC 32.9 G/DL (33.0-37.0); MEAN CORPUSCULAR VOLUME 102.1 FL (80.0-94.0); MEAN PLATELET VOLUME 8.9 FL (7.4-10.4); PLATELET COUNT 290 /CUMM (130-400); RBC DISTRIBUTION WIDTH 16.3 % (11.5-14.5)
--- NOTE | 2017-12-11 10:49 | PN- Nephrology ---
Assessment/Plan Nephrology Assessment: 1. End-stage renal disease. Seen with HD . Next hemodialysis will be on Friday 2. Peripheral vascular disease. 3. Diabetic feet. Status post debridement with a wound VAC 4. Volume status. He is several kilos below his stated dry. Suggestion: 1. Next hemodialysis will be on Friday 2. Await current labs Subjective Subjective: Patient is somewhat frustrated with the fact that he was given breakfast I was not told to be n.p.o. His tunneled line has been canceled. He is seen with dialysis in progress. Objective Vital Signs and I&Os Vital Signs Date Time Temp Pulse Resp B/P B/P Pulse O2 O2 Flow FiO2 Mean Ox Delivery Rate 12/11 0704 97.0 75 19 110/70 97 12/10 2258 98.4 77 19 110/72 100 Room Air 12/10 1408 97.4 81 18 120/79 99 Intake & Output 12/11 1600 12/11 0400 12/10 1600 12/10 0400 12/09 1600 12/09 0400 Intake Total 490 1110 250 380 250 Output Total 5 50 Balance 485 1060 250 380 250 Intake, IV 10 30 10 360 10 Intake, Oral 480 1080 240 20 240 Number 0 0 1 Bowel Movements Output, 5 50 Drainage Patient 180 lb 188 lb 169 lb Weight Physical Exam: General: Well-developed white male in NAD Skin: No rash or jaundice HEENT: Conjunctivae pink, sclerae anicteric, Neck: Without masses or thyromegaly, no supraclavicular or cervical adenopathy Chest: Clear to P&A Heart: Regular rate and rhythm without S3 or rub Abdomen: Soft and nontender without palpable masses or organomegaly Extremities: Without cyanosis; no significant edema; right foot dressing intact wound VAC in place; left upper arm AVF patent Neuro: Cognitively intact, no focal findings, no asterixis or myoclonus Current Medications: Current Medications Sig/Rhett Start time Last Medication Dose Route Stop Time Status Admin Acetaminophen 650 MG Q6P PRN 12/03 1730 AC PO Aspirin Buffered 81 MG DAILY 12/04 09 AC 12/10 PO 1547 Atorvastatin Calcium 10 MG 1700 12/04 1700 AC 12/10 PO 1749 Citalopram 20 MG DAILY 12/04 899 AC 12/10 Hydrobromide PO 0850 Heparin Sodium 5,000 UNIT Q8 12/03 2200 AC 12/10 (Porcine) SC 2138 Insulin Aspart 0 TIDAC/HS 12/09 1700 AC 12/11 SC 0851 Insulin Detemir 3 UNITS BID 12/09 2100 AC 12/11 SC 0856 Meropenem 1 GM Q24H 12/03 1730 AC 12/10 IV 1749 Montelukast Sodium 10 MG QPM 12/03 2100 AC 12/10 PO 2138 Multivitamins 1 TAB DAILY 12/04 0900 AC 12/10 PO 0850 Omeprazole 40 MG DAILY AC 12/04 0700 AC 12/11 PO 0619 Oxycodone/ 0 .STK-MED ONE 12/11 0620 DC Acetaminophen PO Oxycodone/ 1 TAB Q6P PRN 12/11 0615 AC 12/11 Acetaminophen PO 06 Oxycodone/ 1 TAB Q6P PRN 12/03 2300 DC 12/10 Acetaminophen PO 2139 Paricalcitol 7.5 MCG TuThSa PRN 12/11 1045 CAN IV Paricalcitol 7.5 MCG TuThSa 12/11 1036 DC IV Paricalcitol 7.5 MCG TuThSa PRN 12/06 1430 CAN IV Paricalcitol 7.5 MCG TuThSa PRN 12/04 1500 AC IV Patient Medication 1 ED ONE ONE 12/[address] 12/10 Teaching ED 12/10 1131 1547 Results Pertinent Lab Results: Laboratory Tests 12/11 12/10 0940 0815 Chemistry Sodium (137 - 145 mmol/L) Pending 132 L Potassium (3.5 - 5.1 mmol/L) Pending 4.5 Chloride (98 - 107 mmol/L) Pending 97 L Carbon Dioxide (22 - 30 mmol/L) Pending 23 Anion Gap (5 - 16) Pending 12 BUN (9 - 20 mg/dL) Pending 20 Creatinine (0.7 - 1.2 mg/dL) Pending 4.4 H Estimated GFR (>60 ml/min) 14 L BUN/Creatinine Ratio (7 - 25 %) Pending 4.5 L Calcium Pending Phosphorus Pending Magnesium Pending Albumin Pending Hematology CBC w Diff NO MAN DIFF REQ WBC (4.8 - 10.8 /CUMM) 6.0 RBC (4.70 - 6.10 /CUMM) 3.30 L Hgb (14.0 - 18.0 G/DL) 11.1 L Hct (42 - 52 %) 33.7 L MCV (80.0 - 94.0 FL) 102.1 H MCH (27.0 - 31.0 PG) 33.6 H MCHC (33.0 - 37.0 G/DL) 32.9 L RDW (11.5 - 14.5 %) 16.3 H Plt Count (130 - 400 /CUMM) 290 MPV (7.4 - 10.4 FL) 8.9 Gran % (42.2 - 75.2 %) 59.2 Lymphocytes % (20.5 - 51.1 %) 20.5 Monocytes % (1.7 - 9.3 %) 14.0 H Eosinophils % (0 - 5 %) 5.1 H Basophils % (0.0 - 2.0 %) 1.2 Absolute Granulocytes (1.4 - 6.5 /CUMM) 3.5 Absolute Lymphocytes (1.2 - 3.4 /CUMM) 1.2 Absolute Monocytes (0.10 - 0.60 /CUMM) 0.8 H Absolute Eosinophils (0.0 - 0.7 /CUMM) 0.3 Absolute Basophils (0.0 - 0.2 /CUMM) 0.1 ESR [place] (0 - 10 MM) 34 H 18 12/09 0750 0600 Chemistry Sodium (137 - 145 mmol/L) 130 L Cancelled Potassium (3.5 - 5.1 mmol/L) 4.2 Cancelled Chloride (98 - 107 mmol/L) 93 L Cancelled Carbon Dioxide (22 - 30 mmol/L) 21 L Cancelled Anion Gap (5 - 16) 16 Cancelled BUN (9 - 20 mg/dL) 27 H Cancelled Creatinine (0.7 - 1.2 mg/dL) 6.6 *H Cancelled Estimated GFR (>60 ml/min) 9 L BUN/Creatinine Ratio (7 - 25 %) 4.1 L Cancelled Glucose (65 - 99 mg/dL) 181 H Calcium (8.4 - 10.2 mg/dL) 8.7 Hematology CBC w Diff NO MAN DIFF REQ WBC (4.8 - 10.8 /CUMM) 5.4 RBC (4.70 - 6.10 /CUMM) 3.34 L Hgb (14.0 - 18.0 G/DL) 11.3 L Hct (42 - 52 %) 34.0 L MCV (80.0 - 94.0 FL) 101.7 H MCH (27.0 - 31.0 PG) 33.8 H MCHC (33.0 - 37.0 G/DL) 33.2 RDW (11.5 - 14.5 %) 15.5 H Plt Count (130 - 400 /CUMM) 308 MPV (7.4 - 10.4 FL) 8.8 Gran % (42.2 - 75.2 %) 63.6 Lymphocytes % (20.5 - 51.1 %) 20.7 Monocytes % (1.7 - 9.3 %) 10.0 H Eosinophils % (0 - 5 %) 4.8 Basophils % (0.0 - 2.0 %) 0.9 Absolute Granulocytes (1.4 - 6.5 /CUMM) 3.4 Absolute Lymphocytes (1.2 - 3.4 /CUMM) 1.1 L Absolute Monocytes (0.10 - 0.60 /CUMM) 0.5 Absolute Eosinophils (0.0 - 0.7 /CUMM) 0.3 Absolute Basophils (0.0 - 0.2 /CUMM) 0
--- NOTE | 2017-12-11 11:25 | PN- Infect Dx ---
Subjective Subjective: Afebrile without complaints Objective Last 24 Hrs of Vital Signs/I&O Vital Signs Date Time Temp Pulse Resp B/P B/P Pulse O2 O2 Flow FiO2 Mean Ox Delivery Rate 12/11 0704 97.0 75 19 110/70 97 12/10 2258 98.4 77 19 110/72 100 Room Air 12/10 1408 97.4 81 18 120/79 99 Intake & Output 12/11 1600 12/11 0800 12/11 0000 Intake Total 490 Output Total 5 Balance 485 Intake, IV 10 Intake, Oral 480 Number 0 Bowel Movements Output, 5 Drainage Patient 180 lb Weight Physical Exam Other Physical Findings: He appears comfortable in no acute distress Extremities right foot dressing intact; wound VAC in place Results Last 24 Hours of Lab Results: Laboratory Tests 12/11 0940 Chemistry Sodium (137 - 145 mmol/L) 129 L Potassium (3.5 - 5.1 mmol/L) 4.5 Chloride (98 - 107 mmol/L) 93 L Carbon Dioxide (22 - 30 mmol/L) 21 L Anion Gap (5 - 16) 16 BUN (9 - 20 mg/dL) 27 H Creatinine (0.7 - 1.2 mg/dL) 5.9 *H Estimated GFR (>60 ml/min) 10 L BUN/Creatinine Ratio (7 - 25 %) 4.6 L Calcium (8.4 - 10.2 mg/dL) 8.9 Phosphorus (2.5 - 4.5 mg/dL) 5.5 H Magnesium (1.6 - 2.3 mg/dL) 2.0 Albumin (3.5 - 5.0 g/dL) 3.1 L Hematology CBC w Diff NO MAN DIFF REQ WBC (4.8 - 10.8 /CUMM) 6.0 RBC (4.70 - 6.10 /CUMM) 3.30 L Hgb (14.0 - 18.0 G/DL) 11.1 L Hct (42 - 52 %) 33.7 L MCV (80.0 - 94.0 FL) 102.1 H MCH (27.0 - 31.0 PG) 33.6 H MCHC (33.0 - 37.0 G/DL) 32.9 L RDW (11.5 - 14.5 %) 16.3 H Plt Count (130 - 400 /CUMM) 290 MPV (7.4 - 10.4 FL) 8.9 Gran % (42.2 - 75.2 %) 59.2 Lymphocytes % (20.5 - 51.1 %) 20.5 Monocytes % (1.7 - 9.3 %) 14.0 H Eosinophils % (0 - 5 %) 5.1 H Basophils % (0.0 - 2.0 %) 1.2 Absolute Granulocytes (1.4 - 6.5 /CUMM) 3.5 Absolute Lymphocytes (1.2 - 3.4 /CUMM) 1.2 Absolute Monocytes (0.10 - 0.60 /CUMM) 0.8 H Absolute Eosinophils (0.0 - 0.7 /CUMM) 0.3 Absolute Basophils (0.0 - 0.2 /CUMM) 0.1 Last 24 Hours of Wesley Results: No recent cultures Recent Imaging Studies: X-ray of the right foot December 09 reveals decreased density of the head of the fourth metatarsal and the proximal shaft and articular surface of the proximal phalanx of the fourth toe, concerning for developing bone destruction, osteomyelitis and septic joint Assessment/Plan ID Impression: Stable, with his temperatures and white blood cell count remaining normal, on Meropenem status post revisional, partial fifth ray resection of the right foot 2 days ago for residual osteomyelitis of the right foot, now 20 days status post partial fifth ray resection for polymicrobial osteomyelitis. His postop "baseline" x-ray does raise concern for the possibility of osteomyelitis of the fourth metatarsal and have discussed this with Podiatry. Suggestion: 1. Further management with regard to his right fourth toe/metatarsal per Podiatry 2. Await placement of Pro-Line 3. Continue Meropenem
[2017-12-11 13:33] VITALS: BP 118/68
[2017-12-11 21:52] VITALS: BP 131/76
--- NOTE | 2017-12-12 07:34 | PN- Housestaff ---
Cain Salcido 12/12/17 0734: Subjective Follow-up For: Right foot osteomyelitis Dialysis Peripheral vascular disease Subjective: Patient seen and examined at bedside. He was complaining of mild pain in the right lower extremity. He was anxious about further stay at hospital. He denies fever, chills, chest pain, abdominal pain, diarrhea, constipation, burning micturition. Review of Systems Constitutional: Reports: see HPI. Objective Last 24 Hrs of Vital Signs/I&O Vital Signs Date Time Temp Pulse Resp B/P B/P Pulse O2 O2 Flow FiO2 Mean Ox Delivery Rate 12/12 1203 98.2 72 18 120/72 98 Room Air Room Air 12/12 0745 97.6 67 20 114/64 99 12/11 2152 97.9 71 22 131/76 100 Room Air Intake & Output 12/12 1600 12/12 0800 12/12 0000 Intake Total 120 120 Output Total 120 100 Balance 0 20 Intake, Oral 120 120 Number 1 Bowel Movements Output, Urine 120 100 Patient 169 lb Weight Physical Exam General Appearance: Alert, Oriented X3, Cooperative, No Acute Distress Cardiovascular: Normal S1, Normal S2 Lungs: Clear to Auscultation, Normal Air Movement Abdomen: Normal Bowel Sounds, Soft, No Tenderness, No Hepatospenomegaly Extremities: No Clubbing, No Cyanosis, Normal Pulses Assessment/Plan Assessment: 62-year-old male with past medical history of ESRD on hemodialysis left arm AV fistula, diabetes mellitus, COPD(not on home oxygen), history of diabetic foot ulcer discharge last week after starting treatment for osteomyelitis of right lower extremity, hyperlipidemia, CHF with ejection fraction of 40-45% preserved , presented to emergency department with referral for right lower The time of presentation to emergency department vitals and labs are given below Vitals: Blood pressure 134/75, temperature 98.2, pulse rate 75, respiratory rate 18. LABS: CVC, WBC: 7.7, hemoglobin 12.5, hematocrit 37.9, MCV 102.6, platelet 411 Sodium 131, potassium 4.2, chloride 93, carbon dioxide 27, anion gap 12, bun 25, creatinine 5.4, GFR 11 BUN/creatinine 4.6 glucose 253 Problems list: * Right foot cellulitis/ulcer/osteomyelitis * ESRD stage V on hemodialysis 3 days a week * Macrocytic anemia * Peripheral vascular disease s/p Angioplasty * Past medical history of CHF, hypertension, hyperlipidemia, diabetes *Right foot cellulitis/osteomyelitis /ulcer: * Proline placed today for long-term antibiotic * Will discharge him on meropenem 1 g daily 01 January 2016 * Patient will follow with Dr. Howell after 1 week for 1 week and examination * Patient is anticipated discharge today ESRD on dialysis stage V: * Will continue his routine dialysis Friday, , friday * We will follow on renal function test on Dialysis day * Will follow labor specialist on outpatient basis in 2 weeks Diabetes mellitus/hypertension/hyperlipidemia: * Patient got 1 hypoglycemic episode this morning * We are discharging him on Levemir 3 unit twice daily insulin * According to the manager administration the patient is very sensitive to insulin * This is why we reduce the dose from 6 units twice daily to 300 twice daily * Dr. galeas manager administration satisfied with this new recommendation and his last admission Peripheral vascular disease: * Patient will follow up with vascular surgeon on outpatient basis * Status post LOG MANAGER * We will discharge him on antiplatelet and statin *Anticipated discharge today Problem List: 1. HFrEF (heart failure with reduced ejection fraction) 2. Hypertension 3. Dyslipidemia 4. CHRONIC KIDNEY DISEASE STAGE 4 5. ESRD (end stage renal disease) on dialysis 6. COPD (chronic obstructive pulmonary disease) 7. Osteomyelitis 8. Diabetic foot infection 9. Diabetic foot ulcer 10. Peripheral vascular disease Pain Ratin Pain Location: Right foot Pain Goal: Remain pain free Pain Plan: Pain management pathway Tomorrow's Labs & Rationales: No labs Valentin West 12/12/17 1049: Attending MD Review Statement Attending Statement Attending MD Statement: examined this patient, discuss w/resident/PA/MACHINE FILLER SHREDDER, agreed w/resident/PA/MACHINE FILLER SHREDDER, discussed with family, reviewed EMR data (avail), discussed with nursing, discussed with case mgmt, reviewed images, amended to note Attending Assessment/Plan: Patient denies any new complaints. Pateint underwent debridement and revisional, partial fifth ray resection right foot for residual OM with wound vac placement. Hemodynamically stable. Plan for today is to get Pro-line placement. Patient can be discharged s/p pro- line placement and wound vac arrangement. DSICHARGE DIAGNOSIS 1. Osteomyelitis right foot s/p debridement 2. CKD/End Stage Renal Disease- on dialysis. 3. DM2- on insulin controlled 4. GERD- on Omeprazole. 5. Hyperlipidemia- on Atorvastatin. 6. Chronic Pain - due to PVD/foot surgery. 7. Peripheral vascular disease s/p angioplasty [facility] Nephrology Infectious disease Podiatry Vascualr surgery FOLLOW UP Nephrology as schedules and dailysis plan as scheduled PCP Dr Tulio Khan in 1-[address] Prather at wound center in 1 week Vascualr surgery in 2 weeks of discharge. Discharge instructions given to patient and he understands and verbalises the instructons.
[2017-12-12 07:45] VITALS: BP 114/64
--- NOTE | 2017-12-12 10:16 | Discharge Summary ---
Visit Information Visit Dates Admission Date: 12/03/17 Discharge Date: 12/12/17 Hospital Course Course Attending Physician: Valentin West MD Primary Care Physician: Tulio Khan MD Hospital Course: 62-year-old male with past medical history of ESRD on hemodialysis left arm AV fistula, diabetes mellitus, COPD(not on home oxygen), history of diabetic foot ulcer discharge last week after starting treatment for osteomyelitis of right lower extremity, hyperlipidemia, CHF with ejection fraction of 40-45% preserved , presented to emergency department with DrVicente referral for right lower Hospital course: The time of presentation to emergency department vitals and labs are given below Vitals: Blood pressure 134/75, temperature 98.2, pulse rate 75, respiratory rate 18. LABS: CVC, WBC: 7.7, hemoglobin 12.5, hematocrit 37.9, MCV 102.6, platelet 411 Sodium 131, potassium 4.2, chloride 93, carbon dioxide 27, anion gap 12, bun 25, creatinine 5.4, GFR 11 BUN/creatinine 4.6 glucose 253 He was treated for the following problems: * Right foot cellulitis/ulcer/osteomyelitis * ESRD stage V on hemodialysis 3 times a week * Macrocytic anemia * Peripheral vascular disease s/p stent placement * Past medical history of CHF, hypertension, hyperlipidemia, diabetes Right foot cellulitis/osteomyelitis /ulcer: This is patient second admission for right foot osteomyelitis. Previously the wound clinic and antibiotic does not work for him. The patient seen by Dr. Howell again for further evaluation and debridement. Dr. Howell done procedure. Patient condition improved. infectious disease specialist Enrico Gonzalez MD recommended IV meropenem till January 06. Patient Proline placed. He discharged on IV meropenem 1 g daily until January 06. IV meropenem started at December 03. Patient advised to follow Dr. Howell in 1 week at wound care center. ESRD stage V on dialysis ; Patient will follow his should do dialysis on outpatient basis. Patient counseled to follow-up with senior technical program manager on outpatient basis. *Macrocytic anemia-possible mixed picture anemia in ESRD: Vitamin B12, iron supplements and folate given at hospital Hb drop below 10 patient will follow-up with the senior technical program manager for erythropoietin injection. Diabetes mellitus/hypertension/hyperlipidemia: Patient sugar was controlled at hospital on insulin NovoLog and Levemir insulin 3 units twice daily Patient discharged on Levemir insulin 3 units twice daily. Initially he was on 6 unit twice daily. Manager Privacy Dr. Silverman figured out that the patient is very sensitive to insulin because patient having many episodes of hypoglycemia at hospital. She recommended to decrease her dose from 6twice daily to 3 twice daily. Peripheral vascular disease: Patient having peripheral vascular disease of right lower extremity. Vascular surgeon done ORDER PROCESSING CLERK of right popliteal and tibial artery Patient will follow up with vascular surgery on outpatient basis. Patient done and other procedure for right lower extremity vascular disease. Patient other home medication are continued Patient discharged today Allergies: Coded Allergies: amoxicillin (Mild, RASH ALL OVER 08/27/17) Penicillins (RASH ALL OVER 08/27/17) Disposition Summary Disposition Principal Diagnosis: Osteomyelitis Peripheral vascular disease Additional Diagnosis: ESRD stage V Diabetes mellitus Peripheral vascular disease Discharge Disposition: home health services Discharge Instructions General Discharge Information Code Status: Full Code Patient's Diet: Diabetic CC 2 Patient's Activity: Self-limited Follow-Up Instructions/Appts: Please follow-up with your podiatry in 1 week Please follow-up with your primary care physician in 1 week Please follow-up with vascular surgeon in 2 weeks Please follow-up with your senior technical program manager in 2 weeks Please follow-up with your dialysis routine In case of any medical attention please contact your primary care physician Medications at Discharge Discharge Medications: Stop taking the following medications: Ciprofloxacin HCl (Cipro) 500 MG TABLET ORAL GIVE ONCE Days = 24 Metronidazole (Flagyl) 500 MG TABLET ORAL TWICE DAILY Days = 28 Continue taking these medications: Esomeprazole (Nexium) 40 MG CAPSULE.DR Hay Capsule ORAL DAILY Comments: Last Taken: 12/12/17 Time: 5:00 AM (PRILOSEC 40MG PO GIVEN) Montelukast Sodium (Singulair) 10 MG TABLET 1 Tablet ORAL Every night Comments: NOT GIVEN IN HOSPITAL Atorvastatin Calcium (Lipitor) 10 MG TABLET 1 Tablet ORAL DAILY Comments: Last Taken: 12/11/17 Time: 8:00 AM Mometasone Furoate (Nasonex) 50 MCG SPRAY.PUMP 2 [place] Both sides of nose DAILY Comments: NOT GIVEN IN HOSPITAL Aspirin (Ecotrin*) 81 MG TABLET. 1 Tablet ORAL DAILY Comments: Last Taken: 12/12/17 Time: 8:00 AM Acetaminophen (Tylenol) 325 MG TABLET 650 Milligram ORAL EVERY SIX HOURS as needed for PAIN Comments: NOT GIVEN IN HOSPITAL Nephro-Vitamins (Nephro-Schuyler Tablet) 0.8 MG TABLET 1 Tablet ORAL DAILY Qty = 30 Comments: Last Taken: 12/12/17 Time: 8:00 AM Citalopram Hydrobromide (Citalopram HBr) 20 MG TABLET 1 Tablet ORAL DAILY Qty = 30 Comments: Last Taken: 12/12/17 Time: 8:00 AM Insulin Aspart (Novolog) 100 UNIT/ML VIAL 0 Units SC AT BEDTIME Qty = 3 Instructions: Glucose <250 0 units 251-300 2 units 301-350 3 units 351-400 4 units > 400 4 units Comments: Last Taken: 12/11/17 Time: 9:00 PM Insulin Aspart (Novolog) 100 UNIT/ML VIAL 0 SC 1200,1700 Qty = 3 Instructions: FSG 80-150 5 unit 151-200 6 unit 201-250 7 unit 251-300 8 unit 301-350 9 unit 351-400 9 unit >400, 10 units Comments: Last Taken: 12/12/17 Time: 5:00 PM Insulin Aspart (Novolog) 100 UNIT/ML VIAL 0 Units SC DAILY @8AM Qty = 3 Instructions: FSG <200 - 0 units 200-250, 3 units 251-300, 4 units 301-350, 5 units 351-400, 6 units >400 7 units Comments: Last Taken: 12/11/17 Time: 8:00 AM Start taking the following new medications: Meropenem (Merrem) 1 GRAM VIAL 1 Inj IV DAILY Qty = 26 No Refills Instructions: .. Comments: Last Taken: 12/11/17 Time: 5:30 PM Oxycodone HCl/Acetaminophen (Percocet 5-325 MG Tablet) 5 MG-325 MG TABLET 1 Tablet ORAL EVERY SIX HOURS as needed for PAIN Qty = 10 No Refills Instructions: .. Comments: Last Taken: 12/12/17 Time: 7:30 AM The following medications have been changed: Old: Insulin Glargine,Hum.rec.anlog (Lantus Solostar) 100 UNIT/ML (3 ML) INSULN.PEN 6 Unit SC TWICE DAILY Qty = 15 New: Insulin Glargine,Hum.rec.anlog (Lantus Solostar) 100 UNIT/ML (3 ML) INSULN.PEN 3 Unit SC TWICE DAILY Qty = 15 Comments: LEVEMIR GIVEN IN HOSPITAL Last Taken: 12/11/17 Time: 9:00 AM Copies To: Erin MEDINA,Tulio Allen; Rolo Deng DPM; King ADAM,Sidney; Manjit MEDINA,Matty Alicea
[2017-12-12] MEDS ORDERED: MERREM1 GM IV ×5 (11:08→12:58)
[2017-12-12] MEDS ORDERED: PERCOCET 5-3251 EACH PO ×5 (11:34→12:58)
[2017-12-12 12:03] VITALS: BP 120/72
[2017-12-12] MEDS ORDERED: LANTUS SOL100 UNIT/1 SC (12:35)
--- NOTE | 2017-12-12 15:24 | INTERVENTIONAL RADIOLOGY RPT ---
PROLINE INSERTION (TUNNELED PICC) CLINICAL HISTORY: 62-year-old male with osteomyelitis. Proline required for IV antibiotics. INTERVENTIONAL RADIOLOGIST: Elgin Anderson M.D. Medication: -50 mcg of fentanyl was administered by a dedicated radiology nurse under my direct supervision. -1% lidocaine and lidocaine with epinephrine utilized for local anesthetic. FLUOROSCOPY TIME: 14 seconds NUMBER OF IMAGES: 3 images PROCEDURE IN DETAIL: Informed consent was obtained from the patient prior to the procedure. During this process, the procedure and potential alternatives were explained along with the intended outcome and benefits. The risks of the procedure including the possibility of an unsuccessful procedure, as well as the risk of not doing the procedure were discussed. The patient was given the opportunity to ask questions regarding the procedure and appeared competent to make decisions. A signed consent form which documents this discussion was placed in the medical record. Following informed consent, the patient was placed supine on the fluoroscopic table. A time out procedure was performed. The right neck and upper chest were prepped and draped in usual sterile fashion. All elements of maximal sterile barrier technique were followed including use of cap, mask, sterile gown, sterile gloves, a sterile full body drape and hand hygiene. The skin was prepared with 2% chlorhexidine for cutaneous antisepsis and sterile ultrasound preparation with sterile gel and probe cover was performed when applicable. Real-time ultrasound was performed to obtained venous mapping and vascular access assessment. Using standard interventional, sterile and Seldinger technique a micro-stick system was utilized to enter into the right internal jugular vein. A wire was introduced into the superior vena cava and measurements were taken. The needle was exchanged for a peel-away sheath. The wire was advanced into the IVC to confirm venous placement. At this time the tunneling location was determined and anesthetized with 1% lidocaine with epinephrine. A small isaura was made in the upper right chest and the catheter was tunneled subcutaneously to the venotomy site. The wire and inner portion of the peel-away sheath were then quickly removed and the overlying catheter advanced through the peel-away sheath. Fluoroscopic imaging was used to verify positioning at the cavoatrial junction. The catheter was aspirated and flushed to ensure patency. Hep-Lock was infused. The PROLINE catheter was secured into position using a StatLock device. A sterile dressing was placed over the site. The venotomy site was closed using Dermabond. The patient tolerated the procedure well and was discharged from the department in good condition. ULTRASOUND-GUIDED VASCULAR ACCESS: Ultrasound was used to identify the right internal jugular vein. The right internal jugular vein was confirmed to be patent. Real time imaging confirmed needle access into the right internal jugular vein. An image was saved for permanent recording in PACS. COMPLICATIONS: None. IMPRESSION: Successful ultrasound and fluoroscopically guided placement of a PROLINE catheter via the right internal jugular vein.
== END 2017-12-12 13:20 | disposition home health service (06) | DRG 314 ==
LOC: ERH 13:03 → 2NB 15:59 → ERHI 15:59 → ENRESERV 18:08 → ENTRNSPT 18:36 → EDTRNSPTSTS 18:42 → CMPTRNSPT 18:49 → 2NB 18:52 → ENTRNSPT 12-05 21:40 → EDTRNSPTSTS 12-05 21:53 → EDTRNSPT 12-05 21:53 → CMPTRNSPT 12-05 22:11 → ENTRNSPT 12-09 16:22 → EDTRNSPTSTS 12-09 16:27 → CMPTRNSPT 12-09 17:11 → ENTRNSPT 12-12 13:08 → EDTRNSPT 12-12 13:14 → EDTRNSPTSTS 12-12 13:14 → ENPENDDIS 12-12 13:20 → 2NB 12-12 13:20 → CMPTRNSPT 12-12 13:28
PROVIDERS: Hospitalist; Internal Medicine Nephrology; Physician Assistant Medical
PROC: 5A1D70Z Performance of Urinary Filtration, Intermittent, Less than 6 Hours Per Day (ICD-10-PCS; principal; 2017-12-04)
PROC: 047M3ZZ Dilation of Right Popliteal Artery, Percutaneous Approach (ICD-10-PCS; 2017-12-05)
PROC: B40FYZZ Plain Radiography of Right Lower Extremity Arteries using Other Contrast (ICD-10-PCS; 2017-12-05)
PROC: 0Y6X0Z3 Detachment at Right 5th Toe, Low, Open Approach (ICD-10-PCS; 2017-12-09)
PROC: 0JBQ0ZZ Excision of Right Foot Subcutaneous Tissue and Fascia, Open Approach (ICD-10-PCS; 2017-12-09)
DX: E11.69 Type 2 diabetes mellitus with other specified complication (principal); M86.171 Other acute osteomyelitis, right ankle and foot; E11.621 Type 2 diabetes mellitus with foot ulcer; E11.42 Type 2 diabetes mellitus with diabetic polyneuropathy; E11.319 Type 2 diabetes mellitus with unspecified diabetic retinopathy without macular edema; I13.2 Hypertensive heart and chronic kidney disease with heart failure and with stage 5 chronic kidney disease, or end stage renal disease; E11.22 Type 2 diabetes mellitus with diabetic chronic kidney disease; N18.6 End stage renal disease; F17.210 Nicotine dependence, cigarettes, uncomplicated; F32.9 Major depressive disorder, single episode, unspecified; J44.9 Chronic obstructive pulmonary disease, unspecified; L97.519 Non-pressure chronic ulcer of other part of right foot with unspecified severity; I50.22 Chronic systolic (congestive) heart failure; E11.51 Type 2 diabetes mellitus with diabetic peripheral angiopathy without gangrene; L03.115 Cellulitis of right lower limb; B95.61 Methicillin susceptible Staphylococcus aureus infection as the cause of diseases classified elsewhere; B95.2 Enterococcus as the cause of diseases classified elsewhere; B96.6 Bacteroides fragilis [B. fragilis] as the cause of diseases classified elsewhere; Z89.421 Acquired absence of other right toe(s); D63.1 Anemia in chronic kidney disease; I70.201 Unspecified atherosclerosis of native arteries of extremities, right leg; E78.5 Hyperlipidemia, unspecified; Z88.1 Allergy status to other antibiotic agents; Z88.0 Allergy status to penicillin; Z79.4 Long term (current) use of insulin; K21.9 Gastro-esophageal reflux disease without esophagitis; Z99.2 Dependence on renal dialysis; D53.9 Nutritional anemia, unspecified; G89.28 Other chronic postprocedural pain; E11.649 Type 2 diabetes mellitus with hypoglycemia without coma
CPT/HCPCS: 04007; 2NBP; 2NBSP; 36415; 36592; 73630-RT; 76000; 77001; 82436; 87040; 93005; 93010; C1725; C1760; C1769; J1642; J1644; J1815; J2001; J2185; J2501; J3490; J7042; Q2036; Q9967